=== PATIENT | male | born 1975 | race Caucasian/White ===

== ENCOUNTER 2017-04-03 10:06 | Inpatient (IN) | payer BC, OTHER ==
[2017-04-03 10:17] VITALS: BMI 34.5
[2017-04-03] MEDS ORDERED: ALBUTEROL SO4 2.5/IPRATROPIUM 0.5 INH SOL 3 ML VIAL.NEB. NEB ONE ×4 (10:30→19:39)
[2017-04-03] MEDS ORDERED: methylPREDNISolone NA SUCC 125 MG/2 ML VIAL ONE (10:30)
--- NOTE | 2017-04-03 10:36 | PDOC ---
History of Present Illness <Montez Antonio - Last Filed: 04/03/17 13:30> - General History Source: Patient Exam Limitations: No Limitations - History of Present Illness Initial Comments: This is a 41 yom with h/o CHF, COPD, obstructive sleep apnea, and DM who was sent in by his PCP's office for shortness of breath with pulse oxygenation in the 40s in the clinic. The patient states that he has been having chest congestion, slightly increased cough with yellow phlegm, increased abdominal distention, bilateral painless leg swelling, and [id number] color of his face/cheeks. He denies any chest pain, palpitations, abdominal pain, or other symptoms. He lost his job and medical insurance a year ago and has thus not been able to take his medications, including inhalers. <Emilie Brewster - Last Filed: 04/05/17 15:09> - General Chief Complaint: Shortness of Breath Stated Complaint: SOB (PCP SENT) Time Seen by Provider: 04/03/17 10:22 Past History <Montez Antonio - Last Filed: 04/03/17 13:30> - Past Medical History Asthma: Yes COPD: Yes Diabetes: Yes - Surgical History Abdominal Surgery: Yes (unclear) - Suicide/Smoking/Psychosocial Hx Smoking History: Former smoker Have you smoked in the past 12 months: No Number of Cigarettes Smoked Daily: 10 Information on smoking cessation initiated: No 'Breaking Loose' booklet given: 06/20/15 Hx Alcohol Use: No Drug/Substance Use Hx: No <NeyEmilie - Last Filed: 04/05/17 15:09> - Past Medical History Allergies/Adverse Reactions: Allergies Allergy/AdvReac Type Severity Reaction Status Date / Time levofloxacin [From Levaquin] Allergy Verified 04/03/17 10:11 Home Medications: Ambulatory Orders Albuterol 0.083% Nebulizer Stacey [Ventolin 0.083% Nebulizer Soln -] 1 neb NEB Q4H 06/20/15 Albuterol Sulfate Inhaler - [Ventolin HFA Inhaler -] 1 - 2 inh PO QID 06/20/15 Furosemide [Lasix -] 40 mg PO DAILY 06/20/15 Tiotropium [place] [Spiriva] 1 inh PO DAILY 06/20/15 Atorvastatin Ca [Lipitor] 10 mg PO HS #30 tablet 12/15/15 Budesonide/Formeterol Fumarate [SYMBICORT 160/4.5mcg -] 2 puff IH BID #1 inhaler 06/29/15 Lisinopril [Prinivil] 5 mg PO DAILY #30 tablet 06/29/15 Prednisone [Deltasone -] 40 mg PO DAILY #18 tablet 06/29/15 Sitagliptin Phosphate [Januvia -] 50 mg PO DAILY@0700 #30 tablet 06/29/15 Review of Systems - Review of Systems Able to Perform ROS?: Yes Constitutional: No: Chills, Fever, Unexplained wgt Loss HEENTM: Yes: Nose Congestion. No: Throat Pain Respiratory: Yes: Cough, Shortness of Breath Cardiac (ROS): Yes: Edema (chronic). No: Chest Pain, Palpitations ABD/GI: Yes: Abdominal Distended. No: Constipated, Diarrhea, Nausea, Vomiting : No: Burning, Dysuria Musculoskeletal: No: Back Pain, Neck Pain Integumentary: No: Bruising, Rash Neurological: No: Headache, Numbness, Tingling, Weakness, Dizziness Endocrine: No: Unexplained Weight Gain, Unexplained Weight Loss <Emilie Brewster - Last Filed: 04/05/17 15:09> *Physical Exam - Vital Signs Last Vital Signs Temp Pulse Resp BP Pulse Ox 100 F H 90 20 119/69 92 L 04/03/17 12:31 04/03/17 13:08 04/03/17 13:08 04/03/17 13:08 04/03/17 13:08 <Montez Antonio - Last Filed: 04/03/17 13:30> - Vital Signs Last Vital Signs Temp Pulse Resp BP Pulse Ox 98.7 F 104 H 24 141/68 04/03/17 10:12 04/03/17 10:12 04/03/17 10:12 04/03/17 10:12 - Physical Exam General Appearance: Yes: Nourished, Appropriately Dressed, Mild Distress, Obese , Other (obvious cyanosis to the face, tripoding, speaking in 4-word sentences) HEENT: positive: EOMI, Normal Voice, Hearing Grossly Normal. negative: Scleral Icterus (R), Scleral Icterus (L), Nasal Congestion Neck: positive: Trachea midline, Supple. negative: Tender, Rigid Respiratory/Chest: positive: Accessory Muscle Use, Labored Respiration, Decreased Breath Sounds, Crackles Cardiovascular: positive: Regular Rhythm, Edema (1+ pitting edema BLE), Tachycardia Gastrointestinal/Abdominal: positive: Normal Bowel Sounds, Soft, Protuberent. negative: Tender, Organomegaly, Pulsatile Mass, Guarding Musculoskeletal: positive: Normal Inspection. negative: Decreased Range of Motion, Vertebral Tenderness Extremity: positive: Normal Capillary Refill, Normal Inspection, Normal Range of Motion, Swelling. negative: Tender, Cyanosis Integumentary: positive: Normal Color, Dry, Warm. negative: Erythema, Rash, Bruising Neurologic: positive: gripper attacher II-XII NML intact (grossly), Fully Oriented, Alert, Normal Mood/Affect, Normal Response, Motor Strength 5/5 <Emilie Brewster - Last Filed: 04/05/17 15:09> Heart Score/ECG Review - History History: Slightly suspicious - Electrocardiogram EKG: Non specific repolarization disturbance - Age Age: </= 45 - Risk Factors Risk Factors Heart Score: Yes Hx Hypertension, Yes Hx Diabetes, Yes Smoking History (in the past), Yes Hx Obesity Based on the list above the patient has:: >/=3 risk factors or Hx atherosclerotic disease - Troponin Troponin: </= normal limit - Score Heart Score - Total: 3 #1 ECG reviewed & interpreted by me at: 11:25 Sinus rhythm, rate of 91, with left axis deviation, incomplete RBBB, <2mm concave upward ST elevations in V3-V5. <Emilie Brewster - Last Filed: 04/05/17 15:09> ED Treatment Course - LABORATORY CBC & Chemistry Diagram: 04/03/17 10:55 04/03/17 10:55 - ADDITIONAL ORDERS Additional order review: Laboratory Results 04/03/17 04/03/17 04/03/17 12:52 10:55 10:30 PT with INR INR PTT (Actin FS) Anticoagulation Therapy Puncture Site Left radial ABG pH 7.37 ABG pCO2 at Pt Temp 93.8 H* ABG pO2 at Pt Temp 58.0 L D ABG HCO3 52.7 H* ABG O2 Sat (Measured) 90.0 ABG O2 Content 21.4 ABG Base Excess 19.7 H* Arpit Test Positive Carboxyhemoglobin 5.0 H Methemoglobin 0.7 O2 Delivery Device Nasal Oxygen Flow Rate 6l Vent Mode Vent Rate Mechanical Rate PEEP 0.0 Pressure Support Vent Sodium 136 Potassium 4.7 Chloride 88 L Carbon Dioxide 46 H D Anion Gap 2 L BUN 10 D Creatinine 0.5 L D Creat Clearance w eGFR > 60 Random Glucose 103 Calcium 9.3 Magnesium 1.8 Total Bilirubin 1.1 H AST 17 ALT 23 D Alkaline Phosphatase 57 D Creatine Kinase 79 Troponin I < 0.02 D B-Natriuretic Peptide 139.95 H Total Protein 7.5 Albumin 3.7 D 04/03/17 04/03/17 10:30 10:20 PT with INR 11.90 H INR 1.08 PTT (Actin FS) 44.3 H Anticoagulation Therapy Y Puncture Site Right radial ABG pH 7.39 ABG pCO2 at Pt Temp 87.0 H* ABG pO2 at Pt Temp 22.9 L* ABG HCO3 51.3 H* ABG O2 Sat (Measured) 41.1 L* ABG O2 Content 9.9 L* ABG Base Excess 19.1 H* Arpit Test Positive Carboxyhemoglobin Methemoglobin O2 Delivery Device Room air Oxygen Flow Rate 21% Vent Mode Y Vent Rate Y Mechanical Rate Y PEEP Pressure Support Vent Y Sodium Potassium Chloride Carbon Dioxide Anion Gap BUN Creatinine Creat Clearance w eGFR Random Glucose Calcium Magnesium Total Bilirubin AST ALT Alkaline Phosphatase Creatine Kinase Troponin I B-Natriuretic Peptide Total Protein Albumin 04/03/17 10:55 RBC 6.56 H MCV 90.3 MCHC 31.0 L RDW 17.6 H MPV 7.4 L Neutrophils % 73.5 Lymphocytes % 15.3 D Monocytes % 10.0 Eosinophils % 0.8 Basophils % 0.4 - RADIOLOGY Radiology Studies Ordered: Category Date Time Status CHEST X-RAY PORTABLE* [RAD] Stat Radiology 04/03/17 10:23 Completed - Medications Given in the ED: ED Medications Discontinued Medications Generic Name Dose Route Start Last Admin Trade Name Freq PRN Reason Stop Dose Admin Albuterol/Ipratropium 1 amp 04/03/17 11:14 04/03/17 10:35 Ririb - NEB 04/03/17 11:15 1 amp ONCE ONE Administration Albuterol/Ipratropium 1 amp 04/03/17 11:14 04/03/17 11:20 Duoneb - NEB 04/03/17 11:15 1 amp ONCE ONE Administration Furosemide 20 mg 04/03/17 11:18 04/03/17 11:29 Lasix Injection - IVPUSH 04/03/17 11:19 20 mg ONCE ONE Administration <AaronradhaMontez - Last Filed: 04/03/17 13:30> - LABORATORY CBC & Chemistry Diagram: 04/05/17 05:47 04/05/17 05:47 - RADIOLOGY Radiology Studies Ordered: CXR shows diffuse interstitial lung markings <Emilie Brewster - Last Filed: 04/05/17 15:09> Medical Decision Making - Medical Decision Making 41 yom with h/o CHF, COPD, JEANNE, HTN, DM p/w SOB/swelling/cough acutely worse from baseline. Was seeing his PCP this morning and was sent here to the ED d/t pulse ox in the 40s. States not taking meds x1 year d/t insurance issues. Pulse oxygenation remains in the 40s on room air here in the ED. ABG confirms severe hypoxia (PaO2 22.9, significant hypercapnea, pH normal). Pt has significantly decreased air movement bilaterally. After DuoNeb x1 moving better air, crackles bilaterally, pulse ox in the 80s on 4 LPM via NC. DDX includes chronic hypercarbic hypoxemic respiratory failure with acute exacerbation, CHF exacerbation, COPD exacerbation, PNA/bronchitis. Ordered is repeat ABG for after breathing treatments, CBCD, CMP, Mg, cardiac profile, BNP, PT/INR, EKG, CXR. DuoNeb x3 total, SoluMedrol, IV lasix 20 mg. Repeat ABG shows increased hypercapnea, but much improved oxygenation. CBCD with polycythemia, likely suggestive of chronic respiratory process. CXR with diffuse interstitial lung markings. Interestingly BNP is only mildly elevated (in the 100s). Pt admitted initially to ICU bed but does improve drastically with medical interventions, admitted to floor instead. <Emilie Brewster - Last Filed: 04/05/17 15:09> *DC/Admit/Observation/Transfer - Discharge Dispostion Admit: Yes <Montez Antonio - Last Filed: 04/03/17 13:30> - Discharge Dispostion Admit: Yes <Emilie Brewster - Last Filed: 04/05/17 15:09> Diagnosis at time of Disposition: Acute on chronic respiratory failure with hypoxia and hypercapnia - Discharge Dispostion Condition at time of disposition: Guarded - Referrals
[2017-04-03 10:42] LABS: METHEMOGLOBIN 0.7 % (0.4-1.5)
[2017-04-03 10:43] LABS: ARTERIAL BLOOD GAS PO2 22.9 mmHg (80-100); ARTERIAL BLOOD GAS pH 7.39 (7.35-7.45)
[2017-04-03 10:44] LABS: ALLENS TEST POSITIVE; ART PUNCT SITE RIGHT RADIAL; ARTERIAL BLD GAS O2 SATURATION 41.1 % (90-98.9); ARTERIAL BLOOD GAS BASE EXCESS 19.1 meq/l (-2-2); ARTERIAL BLOOD GAS HCO3 51.3 meq/L (22-26); LPM/O2% 21%; PT. ON O2? NO
[2017-04-03 10:45] LABS: TYPE OF O2 ROOM AIR
[2017-04-03 11:02] LABS: BASOPHIL 0.4 % (0-2.0); EOSINOPHIL 0.8 % (0-4.5); MEAN CELL VOLUME 90.3 fl (80-96); MEAN PLT VOLUME 7.4 fl (7.5-11.1); NEUTROPHILS 73.5 % (42.8-82.8); PLATELET COUNT 124 K/MM3 (134-434); RDW 17.6 % (11.9-15.9); WHITE BLOOD COUNT 5.7 K/mm3 (4.0-10.0)
[2017-04-03 11:15] LABS: INR 1.08 (0.82-1.09); PROTHROMBIN TIME (PATIENT) 11.9 SEC (9.98-11.88)
[2017-04-03 11:17] LABS: ACTIVATED PTT 44.3 SECONDS (26.9-34.4)
[2017-04-03] MEDS ORDERED: FUROSEMIDE 40 MG/4 ML INJECTABLE VIAL IVPUSH ONE (11:18)
[2017-04-03] MEDS ORDERED: FUROSEMIDE 40 MG/4 ML INJECTABLE VIAL ONE (11:23)
--- NOTE | 2017-04-03 11:33 | PDOC ---
Attending Attestation - Resident Resident Name: NeyEmilie - ED Attending Attestation I have performed the following: I have examined & evaluated the patient, The case was reviewed & discussed with the resident, I agree w/resident's findings & plan, Exceptions are as noted - HPI HPI: 04/03/17 11:33 41-year-old male with history of CHF and COPD untreated for one year, recommended to be on 3 L O2 at all times but noncompliant, sent from Dr. Vieira' s office for hypoxia in the setting of worsening shortness of breath over the last few weeks. Denies any chest pain, cough with some yellow phlegm but no fevers or chills, no other recent travel or exposures. - Physicial Exam PE: 04/03/17 11:35 O2 sat in the 80s in triage, noted to be cyanotic. Brought immediately back to the main ER, placed on supplemental oxygen and nebulizers with improvement in his O2 sat to 93%. The patient was not in acute respiratory distress, but he was cyanotic Bilateral decreased breath sounds with crackles to the mid lung field Bilateral edema - Critical Care Time Total Critical Care Time: 35 Critical Care Statement: The care of this patient involved high complexity decision making to prevent further life threatening deterioration of the patient 's condition and/or to evaluate & treat vital organ system(s) failure or risk of failure. - Medical Decision Making 04/03/17 11:35 Patient seen and evaluated with the resident. I agree with the overall evaluation, assessment, and management with the following summary of visit: 41-year-old male with untreated CHF and COPD presents with likely acute on chronic hypoxic and hypercapnic respiratory failure, relatively well compensated. seen immediately upon arrival responded well to supplemental O2 and nebs iv steroids, lasix labs, cxr, ekg ABG shows hypercapnea, hypoxemia, normal pH will need admission Heart Score/ECG Review #1 ECG reviewed & interpreted by me at: 11:15 General ECG Interpretation: Sinus Rhythm, Normal Rate, Normal Intervals (IRBBB, LPFB), No acute ischemic changes
[2017-04-03 12:13] LABS: ALBUMIN 3.7 g/dl (3.4-5.0); BILIRUBIN,TOTAL 1.1 mg/dL (0.2-1.0); CALCIUM 9.3 mg/dL (8.5-10.1); CREATININE 0.5 mg/dL (0.7-1.3); GLUCOSE,RANDOM 103 mg/dL (74-106); MAGNESIUM 1.8 mg/dL (1.8-2.4); SGOT/AST 17 U/L (15-37); SGPT/ALT 23 U/L (12-78)
[2017-04-03 12:14] LABS: ALK PHOS 57 U/L (45-117); CPK 79 IU/L (39-308); TOT PROT 7.5 g/dl (6.4-8.2); TROPONIN I < 0.02 ng/ml (0.00-0.05)
[2017-04-03 12:29] LABS: ANION GAP 2 (8-16); CO2 46 mmol/L (21-32)
[2017-04-03 12:59] LABS: ARTERIAL BLOOD GAS BASE EXCESS 19.7 meq/l (-2-2); ARTERIAL BLOOD GAS HCO3 52.7 meq/L (22-26); ARTERIAL BLOOD GAS pH 7.37 (7.35-7.45)
[2017-04-03 13:02] LABS: ALLENS TEST POSITIVE; ART PUNCT SITE LEFT RADIAL; LPM/O2% 6L; PT. ON O2? YES; TYPE OF O2 NASAL
--- NOTE | 2017-04-03 15:50 | CON.PULM ---
Consult Consult Specialty:: PULM/CCM Referred by:: PMD Reason for Consultation:: Acute Respiratory Distress - History of Present Illness Chief Complaint: SOB History of Present Illness: 41 M, history of CHF, COPD due to smoking history (quit 8 months ago with the use of nicotene patch) on home nocturnal O2, obstructive sleep apnea on CPAP QHS (parameters not known), and DM. Sent from his PMDs office due to shortness of breath with O2 saturation in the 40's. In the ER was noted to be cyanotic with O2 saturation in the 80's. According to the patient, he lost his job and health insurance about 1 year ago and has been able to afford his meds. 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 Reports nocturnal O2 use. No recent travel history or sick contacts. No hemoptysis. No recent use of ABX. CXR : Mild but diffuse increase in interstitial markings / no acute infiltrates. - History Source History Provided By: Patient Limitations to Obtaining History: No Limitations - Past Medical History Pulmonary: Yes: COPD, O2 Dependent, Sleep Apnea - Alcohol/Substance Use Hx Alcohol Use: No - Smoking History Smoking history: Former smoker Have you smoked in the past 12 months: No Aproximately how many cigarettes per day: 10 Home Medications - Allergies Allergies/Adverse Reactions: Allergies Allergy/AdvReac Type Severity Reaction Status Date / Time levofloxacin [From Levaquin] Allergy Verified 04/03/17 10:11 - Home Medications Home Medications: Ambulatory Orders Albuterol 0.083% Nebulizer Stacey [Ventolin 0.083% Nebulizer Soln -] 1 neb NEB Q4H 06/20/15 Albuterol Sulfate Inhaler - [Ventolin HFA Inhaler -] 1 - 2 inh PO QID 06/20/15 Furosemide [Lasix -] 40 mg PO DAILY 06/20/15 Tiotropium [place] [Spiriva] 1 inh PO DAILY 06/20/15 Atorvastatin Ca [Lipitor] 10 mg PO HS #30 tablet 06/29/15 Budesonide/Formeterol Fumarate [SYMBICORT 160/4.5mcg -] 2 puff IH BID #1 inhaler 06/29/15 Lisinopril [Prinivil] 5 mg PO DAILY #30 tablet 06/29/15 Prednisone [Deltasone -] 40 mg PO DAILY #18 tablet 06/29/15 Sitagliptin Phosphate [Januvia -] 50 mg PO DAILY@0700 #30 tablet 06/29/15 Family Disease History - Family Disease History Family Disease History: Heart Disease: Father ([place] in his early 60s) Review of Systems - Review of Systems Constitutional: reports: Malaise, Unintentional Wgt. Loss. denies: Chills, Fever, Night Sweats Eyes: reports: No Symptoms HENT: reports: No Symptoms Neck: reports: No Symptoms Cardiovascular: reports: Shortness of Breath. denies: Chest Pain, Edema, Palpitations Respiratory: reports: Cough, Snoring, SOB, SOB on Exertion, Wheezing. denies: Hemoptysis Gastrointestinal: reports: No Symptoms Genitourinary: reports: No Symptoms Breasts: reports: No Symptoms Reported Musculoskeletal: reports: No Symptoms Integumentary: reports: No Symptoms Neurological: reports: No Symptoms Endocrine: reports: No Symptoms Hematology/Lymphatic: reports: No Symptoms Psychiatric: reports: No Symptoms Physical Exam Vital Sings: Vital Signs Temperature 100 F H 04/03/17 12:31 Pulse Rate 90 04/03/17 13:08 Respiratory Rate 20 04/03/17 13:08 Blood Pressure 119/69 04/03/17 13:08 O2 Sat by Pulse Oximetry (%) 92 L 04/03/17 13:08 Constitutional: Yes: No Distress, Calm Eyes: Yes: WNL, Conjunctiva Clear, EOM Intact HENT: Yes: Atraumatic, Normocephalic Neck: Yes: Supple, Trachea Midline Cardiovascular: Yes: Tachycardia Respiratory: Yes: Cough, Diminished, On Nasal O2, Rhonchi, SOB, Tachypnea, Wheezes. No: Accessory Muscle Use, Stridor ...Inspection: Yes: WNL ...Clubbing: No Gastrointestinal: Yes: Normal Bowel Sounds, Soft Renal/: Yes: WNL Breast(s): Yes: WNL Musculoskeletal: Yes: WNL Extremities: Yes: WNL Edema: Yes Peripheral Pulses WNL: Yes Integumentary: Yes: Erythema Neurological: Yes: Alert, Oriented. No: Confusion, Dysarthria, Lethargy ...Motor Strength: WNL Psychiatric: Yes: WNL, Alert, Oriented Labs: ABG Results ABG pH 7.37 (7.35-7.45) 04/03/17 12:52 ABG pCO2 at Pt Temp 93.8 mmHg (35-45) H* 04/03/17 12:52 ABG pO2 at Pt Temp 58.0 mmHg (80-100) L D 04/03/17 12:52 ABG HCO3 52.7 meq/L (22-26) H* 04/03/17 12:52 ABG O2 Sat (Measured) 90.0 % (90-98.9) 04/03/17 12:52 ABG O2 Content 21.4 % vol (15-22) 04/03/17 12:52 ABG Base Excess 19.7 meq/l (-2-2) H* 04/03/17 12:52 Imaging - Results Chest X-ray: Report Reviewed, Image Reviewed Problem List - Problems (1) COPD exacerbation Code(s): J44.1 - CHRONIC OBSTRUCTIVE PULMONARY DISEASE W (ACUTE) EXACERBATION (2) Diabetes Code(s): E11.9 - TYPE 2 DIABETES MELLITUS WITHOUT COMPLICATIONS Qualifiers: Diabetes mellitus type: type 2 Diabetes mellitus complication status: with unspecified complications Qualified Code(s): E11.8 - Type 2 diabetes mellitus with unspecified complications; Z79.4 - USP (current) use of insulin (3) Erythrocytosis Code(s): D75.1 - SECONDARY POLYCYTHEMIA (4) Sleep apnea Code(s): G47.30 - SLEEP APNEA, UNSPECIFIED (5) Chronic respiratory failure with hypoxia and hypercapnia Code(s): J96.11 - CHRONIC RESPIRATORY FAILURE WITH HYPOXIA J96.12 - CHRONIC RESPIRATORY FAILURE WITH HYPERCAPNIA Assessment/Plan O2 as needed (4 L NC) CPAP will be ordered (patient is not sure of the settings so will place on arbitrary settings) BD TX Medrol O2 saturation monitoring Monitor off ABX ECHO Heme evaluation -> (?) Need for phelbotomy CT chest no contrast to follow on previous semi-solid nodules 4W / 4 S monitoring Will follow Thank you. Dr Verduzco
[2017-04-03] MEDS ORDERED: ALBUTEROL SO4 0.083% IH SOL 2.5 MG/3 ML VIAL.NEB. NEB PRN (16:14)
[2017-04-03] MEDS: SODIUM CHLORIDE 1,000 ML IV SCH (18:00)
[2017-04-03] MEDS ORDERED: HYDROCORTISONE SOD SUCCINATE 2 ML ONE (19:40)
[2017-04-03] MEDS: ALBUTEROL SO4 2.5/IPRATROPIUM 0.5 INH SOL 3 ML VIAL.NEB. NEB SCH (19:43)
[2017-04-03] MEDS: methylPREDNISolone NA SUCC 40 MG/1 ML VIAL IVPB SCH (19:43)
--- NOTE | 2017-04-03 20:32 | EKG ---
Test Reason : Blood Pressure : / mmHG Vent. Rate : 091 BPM Atrial Rate : 091 BPM P-R Int : 156 ms QRS Dur : 118 ms QT Int : 344 ms P-R-T Axes : 047 115 059 degrees QTc Int : 423 ms NORMAL SINUS RHYTHM INCOMPLETE RIGHT BUNDLE BRANCH BLOCK LEFT POSTERIOR FASCICULAR BLOCK ATRIAL ABNORMALITY ABNORMAL ECG WHEN COMPARED WITH ECG OF 24-JUN-2015 13:04, INCOMPLETE RIGHT BUNDLE BRANCH BLOCK IS NOW PRESENT REPEAT EKG IF CLINICALLY INDICATED Confirmed by AUSTEN KOENIG MD ([id number]) on 04/03/2017 8:32:35 PM Referred By: Confirmed By:AUSTEN KOENIG MD
--- NOTE | 2017-04-03 21:14 | CONSULT ---
Consult Consult Specialty:: Hematology/Oncology - History of Present Illness History of Present Illness: was seen and examined in the ER. Chart reviewed in detail. Was admitted for the same reason in 2015 , but hasn't followed-up due insurance issues and he "fought" out the symptoms as he just started a new job. Erick, he is a 41 M, history of dCHF, COPD, ex-smoker, JEANNE (non complaint with CPAP) was sent to the ER by as she was hypoxic and SOB in his office. In the ER he remained hypoxic, was seen by arsh Chung to be admitted to [facility]. He c/ productive cough. No fevers at home. - Past Medical History Pulmonary: Yes: COPD, O2 Dependent, Sleep Apnea - Alcohol/Substance Use Hx Alcohol Use: No - Smoking History Smoking history: Former smoker Have you smoked in the past 12 months: No Aproximately how many cigarettes per day: 10 Home Medications - Allergies Allergies/Adverse Reactions: Allergies Allergy/AdvReac Type Severity Reaction Status Date / Time levofloxacin [From Levaquin] Allergy Verified 04/03/17 10:11 - Home Medications Home Medications: Ambulatory Orders Albuterol 0.083% Nebulizer Stacey [Ventolin 0.083% Nebulizer Soln -] 1 neb NEB Q4H 06/20/15 Albuterol Sulfate Inhaler - [Ventolin HFA Inhaler -] 1 - 2 inh PO QID 06/20/15 Furosemide [Lasix -] 40 mg PO DAILY 06/20/15 Tiotropium [place] [Spiriva] 1 inh PO DAILY 06/20/15 Atorvastatin Ca [Lipitor] 10 mg PO HS #30 tablet 06/29/15 Budesonide/Formeterol Fumarate [SYMBICORT 160/4.5mcg -] 2 puff IH BID #1 inhaler 06/29/15 Lisinopril [Prinivil] 5 mg PO DAILY #30 tablet 06/29/15 Prednisone [Deltasone -] 40 mg PO DAILY #18 tablet 06/29/15 Sitagliptin Phosphate [Januvia -] 50 mg PO DAILY@0700 #30 tablet 06/29/15 Family Disease History - Family Disease History Family History: Denies Family Disease History: Heart Disease: Father ([place] in his early 60s) Review of Systems - Review of Systems Constitutional: reports: Malaise HENT: reports: No Symptoms Neck: reports: No Symptoms Cardiovascular: reports: Edema Respiratory: reports: Cough, Snoring, SOB, SOB on Exertion, Wheezing Gastrointestinal: reports: No Symptoms Genitourinary: reports: No Symptoms Musculoskeletal: reports: No Symptoms Neurological: reports: Dizziness, Weakness Physical Exam Vital Signs: Vital Signs Temperature 98.2 F 04/03/17 18:30 Pulse Rate 76 04/03/17 19:09 Respiratory Rate 20 04/03/17 19:09 Blood Pressure 133/65 04/03/17 19:09 O2 Sat by Pulse Oximetry (%) 92 L 04/03/17 19:09 Constitutional: Yes: Moderate Distress, Other (huey facial complexion) Eyes: Yes: Conjunctiva Clear HENT: Yes: Atraumatic, Normocephalic Neck: Yes: Supple, Trachea Midline Cardiovascular: Yes: Tachycardia Respiratory: Yes: Cough, Rales, SOB, Tachypnea Gastrointestinal: Yes: Normal Bowel Sounds, Soft Musculoskeletal: Yes: WNL Edema: Yes (1+ bilateral edema) Neurological: Yes: Alert, Oriented Imaging - Results Chest X-ray: Report Reviewed Problem List - Problems (1) Acute on chronic respiratory failure with hypoxia and hypercapnia Code(s): J96.21 - ACUTE AND CHRONIC RESPIRATORY FAILURE WITH HYPOXIA J96.22 - ACUTE AND CHRONIC RESPIRATORY FAILURE WITH HYPERCAPNIA (2) Erythrocytosis Code(s): D75.1 - SECONDARY POLYCYTHEMIA (3) Sleep apnea Code(s): G47.30 - SLEEP APNEA, UNSPECIFIED (4) Chronic respiratory failure with hypoxia and hypercapnia Code(s): J96.11 - CHRONIC RESPIRATORY FAILURE WITH HYPOXIA J96.12 - CHRONIC RESPIRATORY FAILURE WITH HYPERCAPNIA (5) Acute on chronic diastolic CHF (congestive heart failure) Code(s): I50.33 - ACUTE ON CHRONIC DIASTOLIC (CONGESTIVE) HEART FAILURE Assessment/Plan Acute of chronic respiratory failure Secondary erythrocytosis ?CHF JEANNE Obesity. -In 2014, primary P.Vera w/u was done and JAK2 was negative. -The High Hct reflects a secondary cause , from a combination of JEANNE/COPD/ Smoking ,non complaint with biPAP leading to chronic hypoxia thereby to erythrocytosis. -Though not a much role for phlebotomy in secondary polycythemia, but at this time pt with hct of almost 60, with dizzines and remains hypoxic and fatigued. Therefore , after obtaining informed consent, I have performed therapeutic phlebotomy and removed about 450cc followed by 1L of NS, to decrease the viscosity. -Will monitor and may need further phlebotomy to keep hct 52-55%. -repeat EPO -f.u CBC in the am, assess again in the am. -pt with productive cough, low grade fever , will consult ID -Noted Pulm f/u , being treated for acute on chronic hypoxic requiring BiPAP , being treated for COPD exacerbation. -Cardiology consult -counselled pt on appropriate OP follow-up when discharged. -Thrombocytopenia: continue to monitor., order US, to r/o splenomegaly. -DVT ppx. -discussed with ER attending and FOOD ASSEMBLER will follow
--- NOTE | 2017-04-03 23:56 | HP ---
Admitting History and Physical - Admission Chief Complaint: dyspnea History of Present Illness: 41 yom with h/o CHF, COPD, obstructive sleep apnea, and DM who was sent in the office today for shortness of breath with pulse oxygenation in the 40s , best O2 reading 51%- patient was transferred to ER. The patient states that he has been having chest congestion, slightly increased cough with yellow phlegm, increased abdominal distention, bilateral painless leg swelling, and darker-than -normal color of his face/cheeks for several months.He lost his insurance and has been "fighting the symptoms" for months but have become progressively worse. He denies any chest pain, palpitations, abdominal pain, or other symptoms. He lost his job and medical insurance a year ago and has thus not been able to take his medications, including inhalers. History Source: Patient, Medical Record Limitations to Obtaining History: Other (dyspneic but able to provide hx - poor recall on meds / and medical providers ie Pulmonary /cardiac work up) - Past Medical History Cardiovascular: Yes: CAD, CHF Pulmonary: Yes: COPD, O2 Dependent, Sleep Apnea - Smoking History Smoking history: Former smoker Have you smoked in the past 12 months: No Aproximately how many cigarettes per day: 10 (quit 8 months ago) - Alcohol/Substance Use Hx Alcohol Use: No - Social History ADL: Independent History of Recent Travel: No Home Medications - Allergies Allergies/Adverse Reactions: Allergies Allergy/AdvReac Type Severity Reaction Status Date / Time levofloxacin [From Levaquin] Allergy Verified 04/03/17 10:11 - Home Medications Home Medications: Ambulatory Orders Albuterol 0.083% Nebulizer Stacey [Ventolin 0.083% Nebulizer Soln -] 1 neb NEB Q4H 06/20/15 Albuterol Sulfate Inhaler - [Ventolin HFA Inhaler -] 1 - 2 inh PO QID 06/20/15 Furosemide [Lasix -] 40 mg PO DAILY 06/20/15 Tiotropium [place] [Spiriva] 1 inh PO DAILY 06/20/15 Atorvastatin Ca [Lipitor] 10 mg PO HS #30 tablet 06/29/15 Budesonide/Formeterol Fumarate [SYMBICORT 160/4.5mcg -] 2 puff IH BID #1 inhaler 06/29/15 Lisinopril [Prinivil] 5 mg PO DAILY #30 tablet 06/29/15 Prednisone [Deltasone -] 40 mg PO DAILY #18 tablet 06/29/15 Sitagliptin Phosphate [Januvia -] 50 mg PO DAILY@0700 #30 tablet 06/29/15 Family Disease History - Family Disease History Family Disease History: Heart Disease: Father ([place] in his early 60s) Review of Systems - Review of Systems Constitutional: reports: Loss of Appetite, Malaise. denies: Chills, Diaphoresis , Fever Eyes: reports: No Symptoms HENT: reports: No Symptoms Neck: reports: No Symptoms Cardiovascular: reports: Edema, Shortness of Breath Respiratory: reports: Cough, SOB, SOB on Exertion, Wheezing, Other Breasts: reports: No Symptoms Reported Musculoskeletal: reports: No Symptoms Integumentary: reports: Change in Color, Erythema, Other (rosacea) Neurological: reports: No Symptoms Endocrine: reports: [place] Hematology/Lymphatic: reports: No Symptoms Physical Examination Vital Signs: Vital Signs Temperature 98.2 F 04/03/17 18:30 Pulse Rate 96 H 04/03/17 22:12 Respiratory Rate 20 04/03/17 22:12 Blood Pressure 128/82 04/03/17 22:12 O2 Sat by Pulse Oximetry (%) 80 L 04/03/17 23:18 Constitutional: Yes: Moderate Distress, Obese Eyes: Yes: Conjunctiva Clear, EOM Intact Cardiovascular: Yes: Regular Rate and Rhythm Respiratory: Yes: Accessory Muscle Use, Cough, Diminished, On Nasal O2, Poor Air Entry, SOB, SOB on Exertion Gastrointestinal: Yes: Normal Bowel Sounds, Soft, Abdomen, Obese ...Rectal Exam: Yes: Deferred Renal/: Yes: WNL Breast(s): Yes: WNL Musculoskeletal: Yes: WNL Extremities: Yes: Erythema Edema: LLE: 1+, RLE: 1+ Peripheral Pulses: Left Radial: 1+, Right Radial: 1+, Left Doralis Pedis: 1+, Right Dorsalis Pedis: 1+, Left Femoral: 1+, Right Femoral: 1+ Integumentary: Yes: Erythema, Other (rosacea) Neurological: Yes: WNL ...Motor Strength: WNL Psychiatric: Yes: WNL, Alert, Oriented Problem List - Problems (1) Acute on chronic respiratory failure with hypoxia and hypercapnia Code(s): J96.21 - ACUTE AND CHRONIC RESPIRATORY FAILURE WITH HYPOXIA J96.22 - ACUTE AND CHRONIC RESPIRATORY FAILURE WITH HYPERCAPNIA (2) Chronic respiratory failure with hypoxia and hypercapnia Code(s): J96.11 - CHRONIC RESPIRATORY FAILURE WITH HYPOXIA J96.12 - CHRONIC RESPIRATORY FAILURE WITH HYPERCAPNIA (3) COPD (chronic obstructive pulmonary disease) Code(s): J44.9 - CHRONIC OBSTRUCTIVE PULMONARY DISEASE, UNSPECIFIED Qualifiers : COPD type: unspecified COPD Qualified Code(s): J44.9 - Chronic obstructive pulmonary disease, unspecified (4) COPD exacerbation Code(s): J44.1 - CHRONIC OBSTRUCTIVE PULMONARY DISEASE W (ACUTE) EXACERBATION (5) Cigarette nicotine dependence Code(s): F17.200 - NICOTINE DEPENDENCE, UNSPECIFIED, UNCOMPLICATED Qualifiers : Substance use status: in remission Qualified Code(s): F17.211 - Nicotine dependence, cigarettes, in remission (6) Diabetes Code(s): E11.9 - TYPE 2 DIABETES MELLITUS WITHOUT COMPLICATIONS Qualifiers: Diabetes mellitus type: type 2 Diabetes mellitus complication status: with unspecified complications Qualified Code(s): E11.8 - Type 2 diabetes mellitus with unspecified complications; Z79.4 - documentation billing clerk (current) use of insulin (7) Erythrocytosis Code(s): D75.1 - SECONDARY POLYCYTHEMIA (8) Leg edema Code(s): R60.0 - LOCALIZED EDEMA (9) Morbid obesity Code(s): E66.01 - MORBID (SEVERE) OBESITY DUE TO EXCESS CALORIES (10) Sleep apnea Code(s): G47.30 - SLEEP APNEA, UNSPECIFIED
[2017-04-04] MEDS: ALBUTEROL SO4 2.5/IPRATROPIUM 0.5 INH SOL 3 ML VIAL.NEB. NEB SCH ×4 (00:40→19:10)
[2017-04-04] MEDS: methylPREDNISolone NA SUCC 40 MG/1 ML VIAL IVPB SCH ×3 (03:01→17:58)
[2017-04-04] MEDS: SODIUM CHLORIDE 1,000 ML IV SCH ×3 (03:02→17:59)
[2017-04-04] MEDS ORDERED: PT OWN MED DRAWER 7, Y5N ONE ×2 (06:39→09:46)
[2017-04-04] MEDS: INSULIN SLIDING SCALE (NOVOLOG) 1 VIAL SQ SCH ×4 (06:45→23:04)
[2017-04-04] MEDS: sitaGLIPtin PHOSPHATE 100 MG TABLET (FP) PO SCH (06:48)
--- NOTE | 2017-04-04 08:31 | PN ---
Progress Note (short form) - Note Progress Note: ID Full note dictated Low grade fever SOB congestion Selected Entries 04/03/17 04/04/17 04/04/17 12:31 01:09 06:00 Temperature 100 F H 97.7 F Pulse Rate 87 Respiratory 20 Rate Blood Pressure 115/67 Lung diminished BS bilaterally Cor S1 S2 Ext Edema Laboratory Tests 04/03/17 04/03/17 10:55 10:55 WBC 5.7 RBC 6.56 H Hgb 18.8 H Plt Count 124 L BUN 10 D Creatinine 0.5 L D Total Protein 7.[address] No infiltrates Assessment Exacerbation of COPD Polycythemia Thrombocytopenia Plan Dose of Ceftriaxone followed by Ceftin 500bid HIV testing Diana CARLSON Problem List - Problems (1) Chronic respiratory failure with hypoxia and hypercapnia Code(s): J96.11 - CHRONIC RESPIRATORY FAILURE WITH HYPOXIA J96.12 - CHRONIC RESPIRATORY FAILURE WITH HYPERCAPNIA (2) COPD (chronic obstructive pulmonary disease) Code(s): J44.9 - CHRONIC OBSTRUCTIVE PULMONARY DISEASE, UNSPECIFIED Qualifiers : COPD type: unspecified COPD Qualified Code(s): J44.9 - Chronic obstructive pulmonary disease, unspecified (3) Acquired polycythemia Code(s): D75.1 - SECONDARY POLYCYTHEMIA (4) Acute exacerbation of chronic obstructive pulmonary disease (COPD) Code(s): J44.1 - CHRONIC OBSTRUCTIVE PULMONARY DISEASE W (ACUTE) EXACERBATION
[2017-04-04 08:53] LABS: CHOLESTEROL 161 mg/dL (50-200)
[2017-04-04 09:04] LABS: ALBUMIN 3.3 g/dl (3.4-5.0); ALK PHOS 48 U/L (45-117); BILIRUBIN,TOTAL 0.7 mg/dL (0.2-1.0); CALCIUM 9.1 mg/dL (8.5-10.1); CREATININE 0.4 mg/dL (0.7-1.3); GLUCOSE,RANDOM 124 mg/dL (74-106); SGOT/AST 14 U/L (15-37); SGPT/ALT 21 U/L (12-78); TOT PROT 6.8 g/dl (6.4-8.2)
[2017-04-04 09:07] LABS: BASOPHIL 0.6 % (0-2.0); EOSINOPHIL 0.1 % (0-4.5); MCH 28.1 pg (25.7-33.7); MEAN CELL VOLUME 90.9 fl (80-96); MEAN PLT VOLUME 7.6 fl (7.5-11.1); NEUTROPHILS 90.1 % (42.8-82.8); PLATELET COUNT 118 K/MM3 (134-434); RDW 17.4 % (11.9-15.9)
[2017-04-04] MEDS: metroNIDAZOLE 0.75% TOPICAL GEL 45 GM TUBE TP SCH ×2 (09:42→23:05)
[2017-04-04] MEDS: guaiFENesin 600 MG TABLET.ER (FP) PO SCH ×2 (09:42→23:05)
[2017-04-04] MEDS: LISINOPRIL 5 MG TABLET (FP) PO SCH (09:42)
[2017-04-04] MEDS: PANTOPRAZOLE 40 MG TABLET (FP) PO SCH (09:42)
[2017-04-04] MEDS: BUDESONIDE/FORMETEROL FUMARATE 160/4.5 mcg INHALER IH SCH ×2 (09:43→23:05)
[2017-04-04] MEDS: DOCUSATE SODIUM 100 MG CAPSULE (FP) PO SCH ×2 (09:43→23:08)
[2017-04-04] MEDS: ENOXAPARIN NA (PORCINE) 40 MG/0.4 ML DISP.SYRIN SQ SCH (09:43)
[2017-04-04] MEDS: CEFUROXIME AXETIL 500 MG TABLET PO SCH ×2 (09:47→23:04)
--- NOTE | 2017-04-04 09:53 | CON.CARD ---
Consult Consult Specialty:: Cardiology Reason for Consultation:: sob /hypoxia - History of Present Illness History of Present Illness: This is a 41 yom with h/o CHF, COPD, obstructive sleep apnea, and DM who was sent in by his PCP's office for shortness of breath with pulse oxygenation in the 40s in the clinic. The patient states that he has been having chest congestion, slightly increased cough with yellow phlegm, increased abdominal distention, bilateral painless leg swelling, and [id number] color of his face/cheeks. He denies any chest pain, palpitations, abdominal pain, or other symptoms. He lost his job and medical insurance a year ago and has thus not been able to take his medications, including inhalers. - History Source History Provided By: Patient, Medical Record - Past Medical History Cardio/Vascular: Yes: CAD, CHF Pulmonary: Yes: COPD, O2 Dependent, Sleep Apnea - Alcohol/Substance Use Hx Alcohol Use: No - Smoking History Smoking history: Former smoker Have you smoked in the past 12 months: No Aproximately how many cigarettes per day: 10 (quit 8 months ago) If you are a former smoker, when did you quit?: one year ago - Social History ADL: Independent History of Recent Travel: No Home Medications - Allergies Allergies/Adverse Reactions: Allergies Allergy/AdvReac Type Severity Reaction Status Date / Time levofloxacin [From Levaquin] Allergy Verified 04/03/17 10:11 - Home Medications Home Medications: Ambulatory Orders Albuterol 0.083% Nebulizer Stacey [Ventolin 0.083% Nebulizer Soln -] 1 neb NEB Q4H 06/20/15 Albuterol Sulfate Inhaler - [Ventolin HFA Inhaler -] 1 - 2 inh PO QID 06/20/15 Furosemide [Lasix -] 40 mg PO DAILY 06/20/15 Tiotropium [place] [Spiriva] 1 inh PO DAILY 06/20/15 Atorvastatin Ca [Lipitor] 10 mg PO HS #30 tablet 06/29/15 Budesonide/Formeterol Fumarate [SYMBICORT 160/4.5mcg -] 2 puff IH BID #1 inhaler 06/29/15 Lisinopril [Prinivil] 5 mg PO DAILY #30 tablet 06/29/15 Prednisone [Deltasone -] 40 mg PO DAILY #18 tablet 06/29/15 Sitagliptin Phosphate [Januvia -] 50 mg PO DAILY@0700 #30 tablet 06/29/15 Family Disease History - Family Disease History Family Disease History: Heart Disease: Father ([place] in his early 60s) Review of Systems - Review of Systems Constitutional: reports: No Symptoms Eyes: reports: No Symptoms HENT: reports: No Symptoms Neck: reports: No Symptoms Cardiovascular: reports: Shortness of Breath Respiratory: reports: SOB, SOB on Exertion Gastrointestinal: reports: No Symptoms Genitourinary: reports: No Symptoms Breasts: reports: No Symptoms Reported Musculoskeletal: reports: No Symptoms Integumentary: reports: No Symptoms Neurological: reports: No Symptoms Endocrine: reports: No Symptoms Hematology/Lymphatic: reports: No Symptoms Psychiatric: reports: No Symptoms Vital Signs: Vital Signs Temperature 97.7 F 04/04/17 06:00 Pulse Rate 87 04/04/17 06:00 Respiratory Rate 04/04/17 01:09 Blood Pressure 115/67 04/04/17 06:00 O2 Sat by Pulse Oximetry (%) 81 L 04/04/17 01:09 Constitutional: Yes: Well Nourished, No Distress, Calm Eyes: Yes: WNL, Conjunctiva Clear, EOM Intact HENT: Yes: WNL, Atraumatic, Normocephalic Neck: Yes: WNL, Supple, Trachea Midline Respiratory: Yes: WNL, Regular, Diminished Gastrointestinal: Yes: WNL, Normal Bowel Sounds Renal/: Yes: WNL Cardiovascular: Yes: WNL, Regular Rate and Rhythm Heart Sounds: Yes: S1, S2 Murmur: Yes: Systolic Murmur Musculoskeletal: Yes: WNL Extremities: Yes: WNL Integumentary: Yes: WNL Neurological: Yes: WNL, Alert, Oriented ...Motor Strength: WNL Psychiatric: Yes: WNL, Alert, Oriented - Other Data Labs, Other Data: CBC, BMP 04/04/17 05:46 04/04/17 05:46 INR, PTT INR 1.08 (0.82-1.09) 04/03/17 10:20 Laboratory Tests 04/03/17 04/03/17 04/03/17 10:20 10:30 10:30 WBC RBC Hgb Hct MCV MCH MCHC RDW Plt Count MPV Neutrophils % Lymphocytes % Monocytes % Eosinophils % Basophils % PT with INR 11.90 H INR 1.08 PTT (Actin FS) 44.3 H Anticoagulation Therapy Y Puncture Site Right radial ABG pH 7.39 ABG pCO2 at Pt Temp 87.0 H* ABG pO2 at Pt Temp 22.9 L* ABG HCO3 51.3 H* ABG O2 Sat (Measured) 41.1 L* ABG O2 Content 9.9 L* ABG Base Excess 19.1 H* Arpit Test Positive Carboxyhemoglobin 5.0 H Methemoglobin 0.7 O2 Delivery Device Room air Oxygen Flow Rate 21% Vent Mode Y Vent Rate Y Mechanical Rate Y PEEP Pressure Support Vent Y Sodium Potassium Chloride Carbon Dioxide Anion Gap BUN Creatinine Creat Clearance w eGFR POC Glucometer Random Glucose Hemoglobin A1c % Calcium Magnesium Total Bilirubin AST ALT Alkaline Phosphatase Creatine Kinase Troponin I B-Natriuretic Peptide Total Protein Albumin Triglycerides Cholesterol 04/03/17 04/03/17 04/03/17 10:55 10:55 12:52 WBC 5.7 RBC 6.56 H Hgb 18.8 H Hct 59.2 H MCV 90.3 MCH 28.0 MCHC 31.0 L RDW 17.6 H Plt Count 124 L MPV 7.4 L Neutrophils % 73.5 Lymphocytes % 15.3 D Monocytes % 10.0 Eosinophils % 0.8 Basophils % 0.4 PT with INR INR PTT (Actin FS) Anticoagulation Therapy Puncture Site Left radial ABG pH 7.37 ABG pCO2 at Pt Temp 93.8 H* ABG pO2 at Pt Temp 58.0 L D ABG HCO3 52.7 H* ABG O2 Sat (Measured) 90.0 ABG O2 Content 21.4 ABG Base Excess 19.7 H* Arpit Test Positive Carboxyhemoglobin Methemoglobin O2 Delivery Device Nasal Oxygen Flow Rate 6l Vent Mode Vent Rate Mechanical Rate PEEP 0.0 Pressure Support Vent Sodium 136 Potassium 4.7 Chloride 88 L Carbon Dioxide 46 H D Anion Gap 2 L BUN 10 D Creatinine 0.5 L D Creat Clearance w eGFR > 60 POC Glucometer Random Glucose 103 Hemoglobin A1c % Calcium 9.3 Magnesium 1.8 Total Bilirubin 1.1 H AST 17 ALT 23 D Alkaline Phosphatase 57 D Creatine Kinase 79 Troponin I < 0.02 D B-Natriuretic Peptide 139.95 H Total Protein 7.5 Albumin 3.7 D Triglycerides Cholesterol 04/04/17 04/04/17 04/04/17 05:40 05:46 05:46 WBC 4.0 RBC 6.14 H Hgb 17.3 H Hct 55.8 H MCV 90.9 MCH 28.1 MCHC 31.0 L RDW 17.4 H Plt Count 118 L MPV 7.6 Neutrophils % 90.1 H D Lymphocytes % 8.0 D Monocytes % 1.2 L D Eosinophils % 0.1 D Basophils % 0.6 PT with INR INR PTT (Actin FS) Anticoagulation Therapy Puncture Site ABG pH ABG pCO2 at Pt Temp ABG pO2 at Pt Temp ABG HCO3 ABG O2 Sat (Measured) ABG O2 Content ABG Base Excess Arpit Test Carboxyhemoglobin Methemoglobin O2 Delivery Device Oxygen Flow Rate Vent Mode Vent Rate Mechanical Rate PEEP Pressure Support Vent Sodium 139 Potassium 4.2 Chloride 90 L Carbon Dioxide 50 H Anion Gap -1 L BUN 13 D Creatinine 0.4 L Creat Clearance w eGFR > 60 POC Glucometer 139 Random Glucose 124 H D Hemoglobin A1c % Calcium 9.1 Magnesium 2.0 Total Bilirubin 0.7 D AST 14 L ALT 21 Alkaline Phosphatase 48 Creatine Kinase Troponin I B-Natriuretic Peptide Total Protein 6.8 Albumin 3.3 L Triglycerides Cholesterol 04/04/17 04/04/17 05:46 05:46 WBC RBC Hgb Hct MCV MCH MCHC RDW Plt Count MPV Neutrophils % Lymphocytes % Monocytes % Eosinophils % Basophils % PT with INR INR PTT (Actin FS) Anticoagulation Therapy Puncture Site ABG pH ABG pCO2 at Pt Temp ABG pO2 at Pt Temp ABG HCO3 ABG O2 Sat (Measured) ABG O2 Content ABG Base Excess Arpit Test Carboxyhemoglobin Methemoglobin O2 Delivery Device Oxygen Flow Rate Vent Mode Vent Rate Mechanical Rate PEEP Pressure Support Vent Sodium Potassium Chloride Carbon Dioxide Anion Gap BUN Creatinine Creat Clearance w eGFR POC Glucometer Random Glucose Hemoglobin A1c % 6.2 H D Calcium Magnesium Total Bilirubin AST ALT Alkaline Phosphatase Creatine Kinase Troponin I B-Natriuretic Peptide Total Protein Albumin Triglycerides 77 D Cholesterol 161 D Imaging - Results Chest X-ray: Image Reviewed (increased markings) EKG: Image Reviewed ([facility] rdea) Problem List - Problems (1) Acquired polycythemia Code(s): D75.1 - SECONDARY POLYCYTHEMIA (2) Acute exacerbation of chronic obstructive pulmonary disease (COPD) Code(s): J44.1 - CHRONIC OBSTRUCTIVE PULMONARY DISEASE W (ACUTE) EXACERBATION (3) Acute on chronic respiratory failure with hypoxia and hypercapnia Code(s): J96.21 - ACUTE AND CHRONIC RESPIRATORY FAILURE WITH HYPOXIA J96.22 - ACUTE AND CHRONIC RESPIRATORY FAILURE WITH HYPERCAPNIA (4) Chronic respiratory failure with hypoxia and hypercapnia Code(s): J96.11 - CHRONIC RESPIRATORY FAILURE WITH HYPOXIA J96.12 - CHRONIC RESPIRATORY FAILURE WITH HYPERCAPNIA (5) Acute on chronic diastolic CHF (congestive heart failure) Code(s): I50.33 - ACUTE ON CHRONIC DIASTOLIC (CONGESTIVE) HEART FAILURE (6) COPD (chronic obstructive pulmonary disease) Code(s): J44.9 - CHRONIC OBSTRUCTIVE PULMONARY DISEASE, UNSPECIFIED Qualifiers : COPD type: unspecified COPD Qualified Code(s): J44.9 - Chronic obstructive pulmonary disease, unspecified (7) COPD exacerbation Code(s): J44.1 - CHRONIC OBSTRUCTIVE PULMONARY DISEASE W (ACUTE) EXACERBATION (8) Cellulitis Code(s): L03.90 - CELLULITIS, UNSPECIFIED Qualifiers: Site of cellulitis of extremity: lower extremity Laterality: left (9) Cigarette nicotine dependence Code(s): F17.200 - NICOTINE DEPENDENCE, UNSPECIFIED, UNCOMPLICATED Qualifiers : Substance use status: in remission Qualified Code(s): F17.211 - Nicotine dependence, cigarettes, in remission (10) Diabetes Code(s): E11.9 - TYPE 2 DIABETES MELLITUS WITHOUT COMPLICATIONS Qualifiers: Diabetes mellitus type: type 2 Diabetes mellitus complication status: with unspecified complications (11) Erythrocytosis Code(s): D75.1 - SECONDARY POLYCYTHEMIA (12) [place] cardiac risk >20% in next 10 years Code(s): Z91.89 - OT PERSONAL RISK FACTORS, NOT ELSEWHERE CLASSIFIED (13) Leg edema Code(s): R60.0 - LOCALIZED EDEMA (14) Morbid obesity Code(s): E66.01 - MORBID (SEVERE) OBESITY DUE TO EXCESS CALORIES (15) Peripheral edema Code(s): R60.9 - EDEMA, UNSPECIFIED (16) Sleep apnea Code(s): G47.30 - SLEEP APNEA, UNSPECIFIED Assessment/Plan copd exacorbation hypoxia polycythemia hypercarbia RVH on ekg chf dm plan; telemetry pulmonary rx abx echo r/o PE
[2017-04-04] MEDS ORDERED: CEFTRIAXONE 1 GM in DEXTROSE 5%-WATER - 50 ML IVPB SCH (10:00)
[2017-04-04 10:16] LABS: ANION GAP -1 (8-16); CO2 50 mmol/L (21-32)
--- NOTE | 2017-04-04 10:33 | EKG ---
Test Reason : Blood Pressure : / mmHG Vent. Rate : 088 BPM Atrial Rate : 088 BPM P-R Int : 152 ms QRS Dur : 118 ms QT Int : 366 ms P-R-T Axes : 078 104 056 degrees QTc Int : 442 ms NORMAL SINUS RHYTHM INCOMPLETE RIGHT BUNDLE BRANCH BLOCK POSSIBLE RIGHT VENTRICULAR HYPERTROPHY ABNORMAL ECG WHEN COMPARED WITH ECG OF 03-APR-2017 11:15, NO SIGNIFICANT CHANGE WAS FOUND Confirmed by ANNA CARLSON, MAITE ([id number]) on 04/04/2017 10:32:40 AM Referred By: Josue TORRES Confirmed By:MAITE CASTILLO MD
--- NOTE | 2017-04-04 10:40 | PN ---
Progress Note (short form) - Note Progress Note: sitting up in bed / O2 in place reports some improvement in breathing overnight + cough moist / no fever or chills prior to admission Vital Signs Period Temp Pulse Resp BP Sys/Liang Pulse Ox Last 24 Hr 0 F-100 F 76-96 20-22 115-134/63-88 80-98 Face - rosecea neck -JVD heart S1/S2 Lungs decresed BS but improved air movement from time of admission abd soft non tender Ext trace edema / chronic skin changes CBC, BMP 04/04/17 05:46 04/04/17 05:46 s/p phlebotomy yesterday Active Medications Albuterol Sulfate (Ventolin 0.083% Nebulizer Soln -) 1 amp NEB Q4H PRN PRN Reason: SHORT OF BREATH/WHEEZING Albuterol/Ipratropium (Duoneb -) 1 amp NEB QIDR [facility] Last Admin: 04/04/17 06:00 Dose: 1 amp Atorvastatin Calcium (Lipitor -) 40 mg PO HS [facility] Budesonide/Formoterol Fumarate (Symbicort 160/4.5mcg -) 1 puff IH BID [facility] Last Admin: 04/04/17 09:43 Dose: 1 puff Cefuroxime Axetil (Ceftin -) 500 mg PO BID [facility] Last Admin: 04/04/17 09:47 Dose: 500 mg Docusate Sodium (Colace -) 100 mg PO BID [facility] Last Admin: 04/04/17 09:43 Dose: 100 mg Enoxaparin Sodium (Lovenox -) 40 mg SQ DAILY [facility] Last Admin: 04/04/17 09:43 Dose: 40 mg Guaifenesin (Mucinex -) 600 mg PO BID [facility] Last Admin: 04/04/17 09:42 Dose: 600 mg Sodium Chloride (Normal Saline -) 1,000 mls @ 83 mls/hr IV ASDIR [facility] Last Admin: 04/04/17 03:02 Dose: 83 mls/hr Insulin Aspart (Novolog Vial Sliding Scale -) 1 vial SQ ACHS KEVON PRN Reason: Protocol Last Admin: 04/04/17 06:45 Dose: Not Given Lisinopril (Prinivil) 5 mg PO DAILY [facility] Last Admin: 04/04/17 09:42 Dose: 5 mg Methylprednisolone Sodium Succinate (Solu-Medrol -) 60 mg IVPB Q8H-IV [facility] Last Admin: 04/04/17 09:42 Dose: 60 mg Metronidazole (Metrogel 0.75% Gel -) 1 applic TP BID [facility] Last Admin: 04/04/17 09:42 Dose: 1 appful Pantoprazole Sodium (Protonix -) 40 mg PO DAILY [facility] Last Admin: 04/04/17 09:42 Dose: 40 mg Sitagliptin Phosphate (Januvia -) 100 mg PO DAILY@0700 [facility] Last Admin: 04/04/17 06:48 Dose: 100 mg asssmt plan COPD inhaled & IV steroids / PPi / nebulizer appreciate pulmonary consult and follow up DVT prophylaxis JEANNE BiPAPat night weight loss educate patient on risk and need for compliance DM Diet education resume Januvia follow FS and cover with insulin may require insulin as out patient Problem List - Problems (1) Acute on chronic respiratory failure with hypoxia and hypercapnia Code(s): J96.21 - ACUTE AND CHRONIC RESPIRATORY FAILURE WITH HYPOXIA J96.22 - ACUTE AND CHRONIC RESPIRATORY FAILURE WITH HYPERCAPNIA (2) Chronic respiratory failure with hypoxia and hypercapnia Code(s): J96.11 - CHRONIC RESPIRATORY FAILURE WITH HYPOXIA J96.12 - CHRONIC RESPIRATORY FAILURE WITH HYPERCAPNIA (3) COPD (chronic obstructive pulmonary disease) Code(s): J44.9 - CHRONIC OBSTRUCTIVE PULMONARY DISEASE, UNSPECIFIED Qualifiers : COPD type: unspecified COPD Qualified Code(s): J44.9 - Chronic obstructive pulmonary disease, unspecified (4) COPD exacerbation Code(s): J44.1 - CHRONIC OBSTRUCTIVE PULMONARY DISEASE W (ACUTE) EXACERBATION (5) Cigarette nicotine dependence Code(s): F17.200 - NICOTINE DEPENDENCE, UNSPECIFIED, UNCOMPLICATED Qualifiers : Substance use status: in remission Qualified Code(s): F17.211 - Nicotine dependence, cigarettes, in remission (6) Diabetes Code(s): E11.9 - TYPE 2 DIABETES MELLITUS WITHOUT COMPLICATIONS Qualifiers: Diabetes mellitus type: type 2 Diabetes mellitus complication status: with unspecified complications (7) Erythrocytosis Code(s): D75.1 - SECONDARY POLYCYTHEMIA (8) Leg edema Code(s): R60.0 - LOCALIZED EDEMA (9) Morbid obesity Code(s): E66.01 - MORBID (SEVERE) OBESITY DUE TO EXCESS CALORIES (10) Sleep apnea Code(s): G47.30 - SLEEP APNEA, UNSPECIFIED
[2017-04-04] MEDS ORDERED: FLU VACCINE QUAD 60 MCG/0.5 ML (MDV 17-18) IM ONE (11:00)
--- NOTE | 2017-04-04 11:09 | PN ---
Progress Note (short form) - Note Progress Note: Patient seen and examined this. No overnight events. Remains on oxygen. He feels a little bit better than yesterday he says. O/E Constitutional: Yes: Moderate Distress, Other (huey facial complexion) Eyes: Yes: Conjunctiva Clear HENT: Yes: Atraumatic, Normocephalic Neck: Yes: Supple, Trachea Midline Cardiovascular: Yes: Tachycardia Respiratory: hypoxic, air entry better than yesterday, but has decreased breath sounds Gastrointestinal: Yes: Normal Bowel Sounds, Soft Musculoskeletal: Yes: WNL Edema: Yes (1+ bilateral edema) Neurological: Yes: Alert, Oriented Temp Pulse Resp BP Pulse Ox 97.7 F 89 20 134/75 82 L 04/04/17 10:00 04/04/17 10:00 04/04/17 10:00 04/04/17 10:00 04/04/17 10:00 CBC, BMP 04/04/17 05:46 04/04/17 05:46 Current Medications Generic Name Dose Route Start Last Admin Trade Name Freq PRN Reason Stop Dose Admin Albuterol Sulfate 1 amp 04/03/17 16:14 Ventolin 0.083% Nebulizer Soln - NEB Q4H PRN SHORT OF BREATH/WHEEZING Albuterol/Ipratropium 1 amp 04/03/17 18:00 04/04/17 06:00 Duoneb - NEB 1 amp QIDR KEVON Administration Atorvastatin Calcium 40 mg 04/04/17 22:00 Lipitor - PO HS KEVON Budesonide/Formoterol Fumarate 1 puff 04/04/17 10:00 04/04/17 09:43 Symbicort 160/4.5mcg - IH 1 puff BID KEVON Administration Cefuroxime Axetil 500 mg 04/04/17 10:00 04/04/17 09:47 Ceftin - PO 500 mg BID KEVON Administration Docusate Sodium 100 mg 04/04/17 10:00 04/04/17 09:43 Colace - PO 100 mg BID KEVON Administration Enoxaparin Sodium 40 mg 04/04/17 10:00 04/04/17 09:43 Lovenox - SQ 40 mg DAILY KEVON Administration Guaifenesin 600 mg 04/04/17 10:00 04/04/17 09:42 Mucinex - PO 600 mg BID KEVON Administration Sodium Chloride 1,000 mls @ 83 mls/hr 04/03/17 18:00 04/04/17 03:02 Normal Saline - IV 83 mls/hr ASDIR KEVON Administration Insulin Aspart 1 vial 04/04/17 07:00 04/04/17 06:45 Novolog Vial Sliding Scale - SQ Not Given ACHS [facility] Protocol Lisinopril 5 mg 04/04/17 10:00 04/04/17 09:42 Prinivil PO 5 mg DAILY KEVON Administration Methylprednisolone Sodium Succinate 60 mg 04/03/17 18:00 04/04/17 09:42 Solu-Medrol - IVPB 60 mg Q8H-IV KEVON Administration Metronidazole 1 applic 04/04/17 10:00 04/04/17 09:42 Metrogel 0.75% Gel - TP 1 appful BID KEVON Administration Pantoprazole Sodium 40 mg 04/04/17 10:00 04/04/17 09:42 Protonix - PO 40 mg DAILY KEVON Administration Sitagliptin Phosphate 100 mg 04/04/17 07:00 04/04/17 06:48 Januvia - PO 100 mg DAILY@0700 KEVON Administration Assessment/Plan: Acute of chronic respiratory failure Secondary erythrocytosis dCHF JEANNE Obesity. Productive cough -s/p 450CC of Phlebotomy on 04/03 -will hold off on today -Pulm/Cardiology/ID f/u appreciated -Abx per ID -Thrombocytopenia: continue to monitor.US with splenomegaly,likely congestive in etiology. -DVT ppx. communicated with RN Problem List - Problems (1) Acute on chronic respiratory failure with hypoxia and hypercapnia Code(s): J96.21 - ACUTE AND CHRONIC RESPIRATORY FAILURE WITH HYPOXIA J96.22 - ACUTE AND CHRONIC RESPIRATORY FAILURE WITH HYPERCAPNIA (2) Erythrocytosis Code(s): D75.1 - SECONDARY POLYCYTHEMIA (3) Sleep apnea Code(s): G47.30 - SLEEP APNEA, UNSPECIFIED (4) Chronic respiratory failure with hypoxia and hypercapnia Code(s): J96.11 - CHRONIC RESPIRATORY FAILURE WITH HYPOXIA J96.12 - CHRONIC RESPIRATORY FAILURE WITH HYPERCAPNIA (5) Acute on chronic diastolic CHF (congestive heart failure) Code(s): I50.33 - ACUTE ON CHRONIC DIASTOLIC (CONGESTIVE) HEART FAILURE
--- NOTE | 2017-04-04 12:50 | PN ---
Progress Note, Physician History of Present Illness: PULMONARY FEELING BETTER,LESS DYSPNEIC,SITTING UP IN BED - Current Medication List Current Medications: Active Medications Albuterol Sulfate (Ventolin 0.083% Nebulizer Soln -) 1 amp NEB Q4H PRN PRN Reason: SHORT OF BREATH/WHEEZING Albuterol/Ipratropium (Duoneb -) 1 amp NEB QIDR [facility] Last Admin: 04/04/17 06:00 Dose: 1 amp Atorvastatin Calcium (Lipitor -) 40 mg PO HS [facility] Budesonide/Formoterol Fumarate (Symbicort 160/4.5mcg -) 1 puff IH BID [facility] Last Admin: 04/04/17 09:43 Dose: 1 puff Cefuroxime Axetil (Ceftin -) 500 mg PO BID [facility] Last Admin: 04/04/17 09:47 Dose: 500 mg Docusate Sodium (Colace -) 100 mg PO BID [facility] Last Admin: 04/04/17 09:43 Dose: 100 mg Enoxaparin Sodium (Lovenox -) 40 mg SQ DAILY [facility] Last Admin: 04/04/17 09:43 Dose: 40 mg Guaifenesin (Mucinex -) 600 mg PO BID [facility] Last Admin: 04/04/17 09:42 Dose: 600 mg Sodium Chloride (Normal Saline -) 1,000 mls @ 83 mls/hr IV ASDIR [facility] Last Admin: 04/04/17 03:02 Dose: 83 mls/hr Insulin Aspart (Novolog Vial Sliding Scale -) 1 vial SQ ACHS [facility] PRN Reason: Protocol Last Admin: 04/04/17 11:44 Dose: Not Given Lisinopril (Prinivil) 5 mg PO DAILY [facility] Last Admin: 04/04/17 09:42 Dose: 5 mg Methylprednisolone Sodium Succinate (Solu-Medrol -) 60 mg IVPB Q8H-IV [facility] Last Admin: 04/04/17 09:42 Dose: 60 mg Metronidazole (Metrogel 0.75% Gel -) 1 applic TP BID [facility] Last Admin: 04/04/17 09:42 Dose: 1 appful Pantoprazole Sodium (Protonix -) 40 mg PO DAILY [facility] Last Admin: 04/04/17 09:42 Dose: 40 mg Sitagliptin Phosphate (Januvia -) 100 mg PO DAILY@0700 [facility] Last Admin: 04/04/17 06:48 Dose: 100 mg - Objective Vital Signs: Vital Signs Temperature 97.7 F 04/04/17 10:00 Pulse Rate 89 04/04/17 10:00 Respiratory Rate 04/04/17 10:00 Blood Pressure 134/75 04/04/17 10:00 O2 Sat by Pulse Oximetry (%) 82 L 04/04/17 10:00 Constitutional: Yes: Well Nourished, Calm Eyes: Yes: WNL HENT: Yes: WNL Neck: Yes: WNL Cardiovascular: Yes: Regular Rate and Rhythm, S1, S2 Respiratory: Yes: Wheezes (FEW SCATTERED JOSE A WHEEZES) Gastrointestinal: Yes: Normal Bowel Sounds, Soft Extremities: Yes: WNL Edema: Yes Labs: CBC, BMP 04/04/17 05:46 04/04/17 05:46 INR, PTT INR 1.08 (0.82-1.09) 04/03/17 10:20 Assessment/Plan Problem List - Problems (1) COPD exacerbation Code(s): J44.1 - CHRONIC OBSTRUCTIVE PULMONARY DISEASE W (ACUTE) EXACERBATION (2) Diabetes Code(s): E11.9 - TYPE 2 DIABETES MELLITUS WITHOUT COMPLICATIONS Qualifiers: Diabetes mellitus type: type 2 Diabetes mellitus complication status: with unspecified complications Qualified Code(s): E11.8 - Type 2 diabetes mellitus with unspecified complications; 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
--- NOTE | 2017-04-04 17:08 | CONS ---
DATE OF CONSULTATION: DATE OF DICTATION: 04/04/2017 This is a 41-year-old male with a history of known COPD, CHF, and obstructive sleep apnea with diabetes, referred from his primary doctor's office because of complaint of shortness of breath and hypoxemia in the office. The patient notes that he is typically always short of breath but became more so recently and had some associated chest congestion with a productive cough, though denying any fever or chills. He did have low-grade temperature to 100 on admission. The patient has been previously evaluated for polycythemia vera by Hematology in the past. He lives alone, works at [employer] and has a history of heavy smoking in the past. He does not use drugs and has not been exposed to anyone with known respiratory illness. He states he has never been HIV tested and currently is not in any relationship. PAST MEDICAL HISTORY: As noted above. CURRENT MEDICATIONS: Include albuterol, atorvastatin, lisinopril, and Januvia. ALLERGIES: LEVOFLOXACIN. FAMILY HISTORY: Reviewed, noncontributory. SOCIAL HISTORY: Former smoker, no alcohol use. No travel, unusual hobbies, or pets. REVIEW OF SYSTEMS: Respiratory: Chest congestion, productive cough, yellow sputum. No hemoptysis. Cardiac: No orthopnea, chest pain, palpitations, murmur. Gastrointestinal: No weight loss, abdominal pain, nausea, vomiting, diarrhea. Genitourinary: No dysuria or hematuria or urinary frequency. PHYSICAL EXAMINATION: Vital Signs: He was a heavyset male. Weight 214 pounds. Temperature afebrile. Pulse 87, blood pressure 115/67, respirations 20. Neck: Supple. Lungs: With diminished breath sounds bilaterally. No rales or rhonchi, wheeze. Heart: S1, S2. Regular rhythm without audible murmur or gallop. Abdomen: Soft, nontender. Positive bowel sounds. No guarding, rebound. Extremities: Bilateral lower extremity edema. LABORATORY: A white count of 5.7, hemoglobin 19, hematocrit 60, platelets 124. BUN 10, creatinine 0.5. Liver enzymes within normal limits. Urinalysis screening negative. CT scan unofficially reviewed shows no evidence of infiltrates. ASSESSMENT: A 41-year-old male with a history of polycythemia, presents with worsening shortness of breath with background history of congestive heart failure and chronic obstructive pulmonary disease. He is a former smoker. Symptoms currently seem compatible with an acute exacerbation of chronic obstructive pulmonary disease. He has been seen by Dr. Vega from pulmonary and is currently receiving steroids and bronchodilators. Will treat him with ceftriaxone 1 g followed by Ceftin 500 mg p.o. b.i.d. and obtain HIV testing. BITA MOTA M.D. [id number] MTDD
[2017-04-04] MEDS: ATORVASTATIN CA 40 MG TABLET (FP) PO SCH (23:05)
[2017-04-05] MEDS: methylPREDNISolone NA SUCC 40 MG/1 ML VIAL IVPB SCH ×3 (01:23→18:23)
[2017-04-05] MEDS: ALBUTEROL SO4 2.5/IPRATROPIUM 0.5 INH SOL 3 ML VIAL.NEB. NEB SCH ×4 (06:04→18:43)
[2017-04-05] MEDS: INSULIN SLIDING SCALE (NOVOLOG) 1 VIAL SQ SCH ×4 (06:37→21:45)
[2017-04-05] MEDS: sitaGLIPtin PHOSPHATE 100 MG TABLET (FP) PO SCH (06:37)
[2017-04-05 08:48] LABS: CALCIUM 8.9 mg/dL (8.5-10.1); CREATININE 0.4 mg/dL (0.7-1.3); GLUCOSE,RANDOM 134 mg/dL (74-106); SGOT/AST 11 U/L (15-37); SGPT/ALT 17 U/L (12-78); TOT PROT 6.3 g/dl (6.4-8.2)
[2017-04-05 08:52] LABS: ALK PHOS 37 U/L (45-117); BILIRUBIN,TOTAL 0.6 mg/dL (0.2-1.0)
[2017-04-05 09:12] LABS: CO2 24 mmol/L (21-32)
[2017-04-05 09:13] LABS: BASOPHIL 0.1 % (0-2.0); MCH 27.8 pg (25.7-33.7); MCHC 30.9 g/dl (32.0-35.9); MEAN PLT VOLUME 7.8 fl (7.5-11.1); NEUTROPHILS 88.2 % (42.8-82.8); PLATELET COUNT 127 K/MM3 (134-434); RDW 17.4 % (11.9-15.9); WHITE BLOOD COUNT 6.6 K/mm3 (4.0-10.0)
[2017-04-05 09:15] LABS: ANION GAP 49 (8-16)
--- NOTE | 2017-04-05 09:17 | PN ---
Progress Note, Physician Chief Complaint: Pt A&Ox3; sitting up at bedside; no chest pain or dyspnea. C/o bilaterl arm weakness and tremors (hands) x 3 weeks, makeing it difficult for him to lift or open boxes at work ([employer]). Denies drinking alcohol; +chronic neck pains. History of Present Illness: This is a 41 yo white man with h/o diastolic CHF, COPD, obstructive sleep apnea , and DM who was sent in by his PCP's office for shortness of breath with pulse oxygenation in the 40s in the clinic. The patient states that he has been having chest congestion, slightly increased cough with yellow phlegm, increased abdominal distention, bilateral painless leg swelling, and [id number] color of his face/cheeks. He denies any chest pain, palpitations, abdominal pain , or other symptoms. He lost his job and medical insurance a year ago and has thus not been able to take his medications, including inhalers. - Current Medication List Current Medications: Active Medications Albuterol Sulfate (Ventolin 0.083% Nebulizer Soln -) 1 amp NEB Q4H PRN PRN Reason: SHORT OF BREATH/WHEEZING Albuterol/Ipratropium (Duoneb -) 1 amp NEB QIDR [facility] Last Admin: 04/05/17 06:04 Dose: 1 amp Atorvastatin Calcium (Lipitor -) 40 mg PO HS [facility] Last Admin: 04/04/17 23:05 Dose: 40 mg Budesonide/Formoterol Fumarate (Symbicort 160/4.5mcg -) 1 puff IH BID [facility] Last Admin: 04/04/17 23:05 Dose: 1 puff Cefuroxime Axetil (Ceftin -) 500 mg PO BID [facility] Last Admin: 04/04/17 23:04 Dose: 500 mg Docusate Sodium (Colace -) 100 mg PO BID [facility] Last Admin: 04/04/17 23:08 Dose: Not Given Enoxaparin Sodium (Lovenox -) 40 mg SQ DAILY [facility] Last Admin: 04/04/17 09:43 Dose: 40 mg Guaifenesin (Mucinex -) 600 mg PO BID [facility] Last Admin: 04/04/17 23:05 Dose: 600 mg Sodium Chloride (Normal Saline -) 1,000 mls @ 83 mls/hr IV ASDIR [facility] Last Admin: 04/04/17 17:59 Dose: 83 mls/hr Insulin Aspart (Novolog Vial Sliding Scale -) 1 vial SQ ACHS [facility] PRN Reason: Protocol Last Admin: 04/05/17 06:37 Dose: Not Given Lisinopril (Prinivil) 5 mg PO DAILY [facility] Last Admin: 04/04/17 09:42 Dose: 5 mg Methylprednisolone Sodium Succinate (Solu-Medrol -) 60 mg IVPB Q8H-IV [facility] Last Admin: 04/05/17 01:23 Dose: 60 mg Metronidazole (Metrogel 0.75% Gel -) 1 applic TP BID [facility] Last Admin: 04/04/17 23:05 Dose: 1 appful Pantoprazole Sodium (Protonix -) 40 mg PO DAILY [facility] Last Admin: 04/04/17 09:42 Dose: 40 mg Sitagliptin Phosphate (Januvia -) 100 mg PO DAILY@0700 [facility] Last Admin: 04/05/17 06:37 Dose: 100 mg - Objective Vital Signs: Vital Signs Temperature 98.4 F 04/05/17 05:00 Pulse Rate 65 04/05/17 05:00 Respiratory Rate 04/05/17 05:00 Blood Pressure 95/47 04/05/17 05:00 O2 Sat by Pulse Oximetry (%) 91 L 04/05/17 00:05 Constitutional: Yes: Anxious Eyes: Yes: WNL HENT: Yes: WNL Neck: Yes: Decreased ROM Cardiovascular: Yes: Regular Rate and Rhythm Respiratory: Yes: WNL Gastrointestinal: Yes: WNL ...Rectal Exam: Yes: Deferred Genitourinary: No: Anuria Breast(s): Yes: WNL Edema: No Peripheral Pulses WNL: Yes Integumentary: Yes: WNL Neurological: Yes: Tremors, Weakness Psychiatric: Yes: Alert, Oriented, Other (denies anxiety/depression) Labs: CBC, BMP 04/05/17 05:47 INR, PTT INR 1.08 (0.82-1.09) 04/03/17 10:20 Abnormal Lab Results 04/04/17 04/04/17 04/05/17 05:46 05:46 05:47 RBC 5.93 H Hct 53.4 H MCHC 30.9 L RDW 17.4 H Plt Count 127 L Neutrophils % 88.2 H Monocytes % 3.2 L D Chloride 90 L Carbon Dioxide 50 H Anion Gap -1 L Creatinine 0.4 L Random Glucose 124 H D AST 14 L Alkaline Phosphatase Total Protein Albumin 3.3 L Total LDL Cholesterol 115 H D HDL Cholesterol 31 L D 04/05/17 05:47 RBC Hct MCHC RDW Plt Count Neutrophils % Monocytes % Chloride 90 L Carbon Dioxide Anion Gap 49 H Creatinine 0.4 L Random Glucose 134 H AST 11 L D Alkaline Phosphatase 37 L D Total Protein 6.3 L Albumin 3.0 L Total LDL Cholesterol HDL Cholesterol Problem List - Problems (1) Acute on chronic respiratory failure with hypoxia and hypercapnia Assessment/Plan: quit smoking 8 months ago. Mild IS infitrates on CT scan. Denies hx ssthma until he was 29 yrs old; unclear what past pulmnonary workup hsa been done (f/u with pulmonlogist--Dr. Sequeira). ECHO: normal LVEF; dilated LV; decresaed RVEF (unable to assess RVSP for pulmonary HTN). \BNP 139. F/u TSH (miidly elevated in 2015). Code(s): J96.21 - ACUTE AND CHRONIC RESPIRATORY FAILURE WITH HYPOXIA J96.22 - ACUTE AND CHRONIC RESPIRATORY FAILURE WITH HYPERCAPNIA (2) Acute on chronic diastolic CHF (congestive heart failure) Assessment/Plan: On lisinopril. right-sided heart failure.?secondary to lung disease, HTN; worrisome that RVEF is reduced at young age. F/u pulmonary; consider heart failure clinic. Code(s): I50.33 - ACUTE ON CHRONIC DIASTOLIC (CONGESTIVE) HEART FAILURE (3) COPD exacerbation Code(s): J44.1 - CHRONIC OBSTRUCTIVE PULMONARY DISEASE W (ACUTE) EXACERBATION (4) Diabetes Assessment/Plan: on Januvia. On lisinpril. Code(s): E11.9 - TYPE 2 DIABETES MELLITUS WITHOUT COMPLICATIONS Qualifiers: Diabetes mellitus type: type 2 Diabetes mellitus complication status: with unspecified complications (5) Erythrocytosis Code(s): D75.1 - SECONDARY POLYCYTHEMIA (6) [place] cardiac risk >20% in next 10 years Assessment/Plan: stress MIBI 06/29: no ischemia, fairly good exercise capacity; walked 7 minutes using Thee protocol; suboptimal HR reached (67%)--?was pt on beta blockers at the time. Recommend repeat stress treadill test off beta blockers in the future; may be done as outpatient. Keep LDL cholester < 70 mg/dL (now on atorvaswtatin). Pt quit smoking 8 months ago. HFpEF (normal LVEF; dilated LV), with reduced RVEF. Code(s): Z91.89 - OT PERSONAL RISK FACTORS, NOT ELSEWHERE CLASSIFIED (7) Sleep apnea Code(s): G47.30 - SLEEP APNEA, UNSPECIFIED (8) Bilateral arm weakness Assessment/Plan: c/o bilateral arm weakness and hand tremors for past 3 weeks; it is affecting his work. His chronic neck pain. Code(s): R29.898 - OT SYMPTOMS AND SIGNS INVOLVING THE MUSCULOSKELETAL SYSTEM
[2017-04-05] MEDS: ENOXAPARIN NA (PORCINE) 40 MG/0.4 ML DISP.SYRIN SQ SCH (09:50)
[2017-04-05] MEDS: PANTOPRAZOLE 40 MG TABLET (FP) PO SCH (09:51)
[2017-04-05] MEDS: LISINOPRIL 5 MG TABLET (FP) PO SCH (09:51)
[2017-04-05] MEDS: DOCUSATE SODIUM 100 MG CAPSULE (FP) PO SCH ×2 (09:51→21:44)
[2017-04-05] MEDS: metroNIDAZOLE 0.75% TOPICAL GEL 45 GM TUBE TP SCH ×2 (09:51→21:44)
[2017-04-05] MEDS: CEFUROXIME AXETIL 500 MG TABLET PO SCH ×2 (09:51→21:43)
[2017-04-05] MEDS: guaiFENesin 600 MG TABLET.ER (FP) PO SCH ×2 (09:51→21:44)
[2017-04-05] MEDS: BUDESONIDE/FORMETEROL FUMARATE 160/4.5 mcg INHALER IH SCH ×2 (09:52→21:45)
--- NOTE | 2017-04-05 12:19 | PN ---
Progress Note (short form) - Note Progress Note: PULMONARY Breathing slightly better but still dyspneic on exertion. +mild cough and wheezing. Last Vital Signs Temp Pulse Resp BP Pulse Ox 98.9 F 65 20 127/70 91 L 04/05/17 09:00 04/05/17 10:38 04/05/17 09:00 04/05/17 09:00 04/05/17 10:38 Gen: mildly tachypneic with exertion Heart: RRR Lung: distant breath sounds Abd: soft, nontender Ext: no edema CBC, BMP 04/05/17 05:47 04/05/17 05:47 Active Medications Albuterol Sulfate (Ventolin 0.083% Nebulizer Soln -) 1 amp NEB Q4H PRN PRN Reason: SHORT OF BREATH/WHEEZING Albuterol/Ipratropium (Duoneb -) 1 amp NEB QIDR [facility] Last Admin: 04/05/17 11:37 Dose: 1 amp Atorvastatin Calcium (Lipitor -) 40 mg PO HS [facility] Last Admin: 04/04/17 23:05 Dose: 40 mg Budesonide/Formoterol Fumarate (Symbicort 160/4.5mcg -) 1 puff IH BID [facility] Last Admin: 04/05/17 09:52 Dose: 1 puff Cefuroxime Axetil (Ceftin -) 500 mg PO BID [facility] Last Admin: 04/05/17 09:51 Dose: 500 mg Docusate Sodium (Colace -) 100 mg PO BID [facility] Last Admin: 04/05/17 09:51 Dose: 100 mg Enoxaparin Sodium (Lovenox -) 40 mg SQ DAILY [facility] Last Admin: 04/05/17 09:50 Dose: 40 mg Guaifenesin (Mucinex -) 600 mg PO BID [facility] Last Admin: 04/05/17 09:51 Dose: 600 mg Sodium Chloride (Normal Saline -) 1,000 mls @ 83 mls/hr IV ASDIR [facility] Last Admin: 04/04/17 17:59 Dose: 83 mls/hr Insulin Aspart (Novolog Vial Sliding Scale -) 1 vial SQ ACHS [facility] PRN Reason: Protocol Last Admin: 04/05/17 10:53 Dose: Not Given Lisinopril (Prinivil) 5 mg PO DAILY [facility] Last Admin: 04/05/17 09:51 Dose: 5 mg Methylprednisolone Sodium Succinate (Solu-Medrol -) 60 mg IVPB Q8H-IV [facility] Last Admin: 04/05/17 09:51 Dose: 60 mg Metronidazole (Metrogel 0.75% Gel -) 1 applic TP BID [facility] Last Admin: 04/05/17 09:51 Dose: 1 appful Pantoprazole Sodium (Protonix -) 40 mg PO DAILY [facility] Last Admin: 04/05/17 09:51 Dose: 40 mg Sitagliptin Phosphate (Januvia -) 100 mg PO DAILY@0700 [facility] Last Admin: 04/05/17 06:37 Dose: 100 mg A/P Acute COPD Exacerbation Chronic Hypoxic and Hypercapneic Respiratory Failure DM JEANNE - will decrease medrol to 40mg q8h - inhaled bronchodilators - O2 to keep SpO2>90% - BiPAP at night - DVT prophylaxis
--- NOTE | 2017-04-05 16:04 | PN ---
Progress Note (short form) - Note Progress Note: Patient seen and examined this. No overnight events. He feels a little better, but still has dyspnea on exertion O/E Constitutional: Yes: no distress, Other (huey facial complexion) Eyes: Yes: Conjunctiva Clear HENT: Yes: Atraumatic, Normocephalic Neck: Yes: Supple, Trachea Midline Cardiovascular: Yes: Tachycardia Respiratory: hypoxic, air entry better than yesterday, but has decreased breath sounds Gastrointestinal: Yes: Normal Bowel Sounds, Soft Musculoskeletal: Yes: WNL Edema: edema improved Neurological: Yes: Alert, Oriented Last Vital Signs Temp Pulse Resp BP Pulse Ox 98.3 F 80 20 122/63 91 L 04/05/17 14:00 04/05/17 14:00 04/05/17 14:00 04/05/17 14:00 04/05/17 10:38 CBC, BMP 04/05/17 05:47 04/05/17 05:47 Current Medications Generic Name Dose Route Start Last Admin Trade Name Freq PRN Reason Stop Dose Admin Albuterol Sulfate 1 amp 04/03/17 16:14 Ventolin 0.083% Nebulizer Soln - NEB Q4H PRN SHORT OF BREATH/WHEEZING Albuterol/Ipratropium 1 amp 04/03/17 18:00 04/05/17 11:37 Duoneb - NEB 1 amp QIDR KEVON Administration Atorvastatin Calcium 40 mg 04/04/17 22:00 04/04/17 23:05 Lipitor - PO 40 mg HS KEVON Administration Budesonide/Formoterol Fumarate 1 puff 04/04/17 10:00 04/05/17 09:52 Symbicort 160/4.5mcg - IH 1 puff BID KEVON Administration Cefuroxime Axetil 500 mg 04/04/17 10:00 04/05/17 09:51 Ceftin - PO 500 mg BID KEVON Administration Docusate Sodium 100 mg 04/04/17 10:00 04/05/17 09:51 Colace - PO 100 mg BID KEVON Administration Enoxaparin Sodium 40 mg 04/04/17 10:00 04/05/17 09:50 Lovenox - SQ 40 mg DAILY [facility] Administration Guaifenesin 600 mg 04/04/17 10:00 04/05/17 09:51 Mucinex - PO 600 mg BID KEVON Administration Sodium Chloride 1,000 mls @ 83 mls/hr 04/03/17 18:00 04/04/17 17:59 Normal Saline - IV 83 mls/hr ASDIR KEVON Administration Insulin Aspart 1 vial 04/04/17 07:00 04/05/17 10:53 Novolog Vial Sliding Scale - SQ Not Given ACHS [facility] Protocol Lisinopril 5 mg 04/04/17 10:00 04/05/17 09:51 Prinivil PO 5 mg DAILY [facility] Administration Methylprednisolone Sodium Succinate 40 mg 04/05/17 18:00 Solu-Medrol - IVPB Q8H-IV [facility]ON Metronidazole 1 applic 04/04/17 10:00 04/05/17 09:51 Metrogel 0.75% Gel - TP 1 appful BID [facility] Administration Pantoprazole Sodium 40 mg 04/04/17 10:00 04/05/17 09:51 Protonix - PO 40 mg DAILY [facility] Administration Sitagliptin Phosphate 100 mg 04/04/17 07:00 04/05/17 06:37 Januvia - PO 100 mg DAILY@0700 [facility] Administration Assessment/Plan: Acute of chronic respiratory failure Secondary erythrocytosis dCHF JEANNE Obesity. Productive cough -s/p 450CC of Phlebotomy on 04/03 -hct stable, will hold off on further -Thrombocytopenia: continue to monitor.US with splenomegaly,likely congestive in etiology. -CT a/p reviewed, LAD noted, may be inflammatory, will continue to monitor closely with an out pt CT vs PET CT , a short interval ( reviewed with ). Discussed with pt. -DVT ppx. -will follow Problem List - Problems (1) Acute on chronic respiratory failure with hypoxia and hypercapnia Code(s): J96.21 - ACUTE AND CHRONIC RESPIRATORY FAILURE WITH HYPOXIA J96.22 - ACUTE AND CHRONIC RESPIRATORY FAILURE WITH HYPERCAPNIA (2) Erythrocytosis Code(s): D75.1 - SECONDARY POLYCYTHEMIA (3) Sleep apnea Code(s): G47.30 - SLEEP APNEA, UNSPECIFIED (4) Chronic respiratory failure with hypoxia and hypercapnia Code(s): J96.11 - CHRONIC RESPIRATORY FAILURE WITH HYPOXIA J96.12 - CHRONIC RESPIRATORY FAILURE WITH HYPERCAPNIA (5) Acute on chronic diastolic CHF (congestive heart failure) Code(s): I50.33 - ACUTE ON CHRONIC DIASTOLIC (CONGESTIVE) HEART FAILURE
--- NOTE | 2017-04-05 16:05 | PN ---
Progress Note, Physician History of Present Illness: Awake, alert Mildly dyspneic at rest on nasal cannula Occasional cough No fever/ chills - Current Medication List Current Medications: Active Medications Albuterol Sulfate (Ventolin 0.083% Nebulizer Soln -) 1 amp NEB Q4H PRN PRN Reason: SHORT OF BREATH/WHEEZING Albuterol/Ipratropium (Duoneb -) 1 amp NEB QIDR ON LICENSE OF [facility] Last Admin: 04/05/17 11:37 Dose: 1 amp Atorvastatin Calcium (Lipitor -) 40 mg PO HS ON LICENSE OF [facility] Last Admin: 04/04/17 23:05 Dose: 40 mg Budesonide/Formoterol Fumarate (Symbicort 160/4.5mcg -) 1 puff IH BID ON LICENSE OF [facility] Last Admin: 04/05/17 09:52 Dose: 1 puff Cefuroxime Axetil (Ceftin -) 500 mg PO BID ON LICENSE OF [facility] Last Admin: 04/05/17 09:51 Dose: 500 mg Docusate Sodium (Colace -) 100 mg PO BID ON LICENSE OF [facility] Last Admin: 04/05/17 09:51 Dose: 100 mg Enoxaparin Sodium (Lovenox -) 40 mg SQ DAILY ON [facility] OF [facility] Last Admin: 04/05/17 09:50 Dose: 40 mg Guaifenesin (Mucinex -) 600 mg PO BID ON [facility] OF [facility] Last Admin: 04/05/17 09:51 Dose: 600 mg Sodium Chloride (Normal Saline -) 1,000 mls @ 83 mls/hr IV ASDIR ON LICENSE OF [facility] Last Admin: 04/04/17 17:59 Dose: 83 mls/hr Insulin Aspart (Novolog Vial Sliding Scale -) 1 vial SQ ACHS ON LICENSE OF [facility] PRN Reason: Protocol Last Admin: 04/05/17 10:53 Dose: Not Given Lisinopril (Prinivil) 5 mg PO DAILY ON LICENSE OF [facility] Last Admin: 04/05/17 09:51 Dose: 5 mg Methylprednisolone Sodium Succinate (Solu-Medrol -) 40 mg IVPB Q8H-IV [facility] Metronidazole (Metrogel 0.75% Gel -) 1 applic TP BID ON LICENSE OF [facility] Last Admin: 04/05/17 09:51 Dose: 1 appful Pantoprazole Sodium (Protonix -) 40 mg PO DAILY ON [facility] OF [facility] Last Admin: 04/05/17 09:51 Dose: 40 mg Sitagliptin Phosphate (Januvia -) 100 mg PO DAILY@0700 ON [facility] OF [facility] Last Admin: 04/05/17 06:37 Dose: 100 mg - Objective Vital Signs: Vital Signs Temperature 98.3 F 04/05/17 14:00 Pulse Rate 80 04/05/17 14:00 Respiratory Rate 20 04/05/17 14:00 Blood Pressure 122/63 04/05/17 14:00 O2 Sat by Pulse Oximetry (%) 91 L 04/05/17 10:38 Constitutional: Yes: No Distress Eyes: Yes: Conjunctiva Clear Cardiovascular: Yes: Regular Rate and Rhythm, S1, S2 Respiratory: Yes: Diminished Gastrointestinal: Yes: Normal Bowel Sounds, Soft, Abdomen, Obese. No: Tenderness Labs: CBC, BMP 04/05/17 05:47 04/05/17 05:47 INR, PTT INR 1.08 (0.82-1.09) 04/03/17 10:20 Assessment/Plan COPD exacerbation Polycythemia Mediastinal/ intra-abdominal adenopathy Complete 7d course antibiotics Work up of adenopathy per heme/onc
[2017-04-05] MEDS: SODIUM CHLORIDE 1,000 ML IV SCH (18:23)
[2017-04-05] MEDS: ATORVASTATIN CA 40 MG TABLET (FP) PO SCH (21:44)
--- NOTE | 2017-04-05 22:36 | PN ---
Progress Note (short form) - Note Progress Note: sitting up in bed / O2 Nasal cannula in place reports some improvement in breathing moist cough Vital Signs Period Temp Pulse Resp BP Sys/Liang Pulse Ox Last 24 Hr 0 F-100 F 76-96 20-22 115-134/63-88 80-98 Face - rosecea neck -JVD heart S1/S2 Lungs decresed BS but improved air movement from time of admission abd soft non tender Ext trace edema / chronic skin changes CBC, BMP 04/04/17 05:46 04/04/17 05:46 s/p phlebotomy 04/03/17 CBC, BMP 04/05/17 05:47 04/05/17 05:47 Active Medications Albuterol Sulfate (Ventolin 0.083% Nebulizer Soln -) 1 amp NEB Q4H PRN PRN Reason: SHORT OF BREATH/WHEEZING Albuterol/Ipratropium (Duoneb -) 1 amp NEB QIDR [facility] Last Admin: 04/05/17 18:43 Dose: 1 amp Atorvastatin Calcium (Lipitor -) 40 mg PO HS [facility] Last Admin: 04/05/17 21:44 Dose: 40 mg Budesonide/Formoterol Fumarate (Symbicort 160/4.5mcg -) 1 puff IH BID [facility] Last Admin: 04/05/17 21:45 Dose: 1 puff Cefuroxime Axetil (Ceftin -) 500 mg PO BID [facility] Last Admin: 04/05/17 21:43 Dose: 500 mg Docusate Sodium (Colace -) 100 mg PO BID [facility] Last Admin: 04/05/17 21:44 Dose: Not Given Enoxaparin Sodium (Lovenox -) 40 mg SQ DAILY [facility] Last Admin: 04/05/17 09:50 Dose: 40 mg Guaifenesin (Mucinex -) 600 mg PO BID [facility] Last Admin: 04/05/17 21:44 Dose: 600 mg Sodium Chloride (Normal Saline -) 1,000 mls @ 83 mls/hr IV ASDIR [facility] Last Admin: 04/05/17 18:23 Dose: Not Given Insulin Aspart (Novolog Vial Sliding Scale -) 1 vial SQ ACHS [facility] PRN Reason: Protocol Last Admin: 04/05/17 21:45 Dose: Not Given Lisinopril (Prinivil) 5 mg PO DAILY [facility] Last Admin: 04/05/17 09:51 Dose: 5 mg Methylprednisolone Sodium Succinate (Solu-Medrol -) 40 mg IVPB Q8H-IV [facility] Last Admin: 04/05/17 18:23 Dose: 40 mg Metronidazole (Metrogel 0.75% Gel -) 1 applic TP BID [facility] Last Admin: 04/05/17 21:44 Dose: 1 appful Pantoprazole Sodium (Protonix -) 40 mg PO DAILY [facility] Last Admin: 04/05/17 09:51 Dose: 40 mg Sitagliptin Phosphate (Januvia -) 100 mg PO DAILY@0700 [facility] Last Admin: 04/05/17 06:37 Dose: 100 mg Assmt # COPD nebulizers / inhaled steroids / IV steroids / PPi / expectorant / abx BiPAP at night tapered steroids today # Polycythemia had work up in the past - Negative per patient secondary # DM has been off meds for over yr resume Januvia Insulin coverage Diet education for DM diet Problem List - Problems (1) Acute on chronic respiratory failure with hypoxia and hypercapnia Code(s): J96.21 - ACUTE AND CHRONIC RESPIRATORY FAILURE WITH HYPOXIA J96.22 - ACUTE AND CHRONIC RESPIRATORY FAILURE WITH HYPERCAPNIA (2) Chronic respiratory failure with hypoxia and hypercapnia Code(s): J96.11 - CHRONIC RESPIRATORY FAILURE WITH HYPOXIA J96.12 - CHRONIC RESPIRATORY FAILURE WITH HYPERCAPNIA (3) COPD (chronic obstructive pulmonary disease) Code(s): J44.9 - CHRONIC OBSTRUCTIVE PULMONARY DISEASE, UNSPECIFIED Qualifiers : COPD type: unspecified COPD Qualified Code(s): J44.9 - Chronic obstructive pulmonary disease, unspecified (4) COPD exacerbation Code(s): J44.1 - CHRONIC OBSTRUCTIVE PULMONARY DISEASE W (ACUTE) EXACERBATION (5) Cigarette nicotine dependence Code(s): F17.200 - NICOTINE DEPENDENCE, UNSPECIFIED, UNCOMPLICATED Qualifiers : Substance use status: in remission Qualified Code(s): F17.211 - Nicotine dependence, cigarettes, in remission (6) Diabetes Code(s): E11.9 - TYPE 2 DIABETES MELLITUS WITHOUT COMPLICATIONS Qualifiers: Diabetes mellitus type: type 2 Diabetes mellitus complication status: with unspecified complications (7) Erythrocytosis Code(s): D75.1 - SECONDARY POLYCYTHEMIA (8) Leg edema Code(s): R60.0 - LOCALIZED EDEMA (9) Morbid obesity Code(s): E66.01 - MORBID (SEVERE) OBESITY DUE TO EXCESS CALORIES (10) Sleep apnea Code(s): G47.30 - SLEEP APNEA, UNSPECIFIED
[2017-04-06] MEDS: ALBUTEROL SO4 2.5/IPRATROPIUM 0.5 INH SOL 3 ML VIAL.NEB. NEB SCH ×5 (00:02→23:30)
[2017-04-06] MEDS: methylPREDNISolone NA SUCC 40 MG/1 ML VIAL IVPB SCH ×3 (01:30→18:21)
[2017-04-06] MEDS: sitaGLIPtin PHOSPHATE 100 MG TABLET (FP) PO SCH (06:46)
[2017-04-06] MEDS: INSULIN SLIDING SCALE (NOVOLOG) 1 VIAL SQ SCH ×4 (06:46→23:20)
[2017-04-06 07:31] LABS: BASOPHIL 0.1 % (0-2.0); EOSINOPHIL 0.1 % (0-4.5); MCH 28.1 pg (25.7-33.7); MCHC 31.7 g/dl (32.0-35.9); MEAN CELL VOLUME 88.6 fl (80-96); MEAN PLT VOLUME 7.4 fl (7.5-11.1); NEUTROPHILS 84.5 % (42.8-82.8); PLATELET COUNT 125 K/MM3 (134-434); RDW 17.3 % (11.9-15.9); WHITE BLOOD COUNT 6.9 K/mm3 (4.0-10.0)
[2017-04-06 08:04] LABS: ANION GAP 8 (8-16); CALCIUM 9.3 mg/dL (8.5-10.1); CO2 40 mmol/L (21-32); CREATININE 0.5 mg/dL (0.7-1.3); GLUCOSE,RANDOM 134 mg/dL (74-106); MAGNESIUM 2.2 mg/dL (1.8-2.4)
[2017-04-06] MEDS ORDERED: PT OWN MED DRAWER 7, Y5N ONE ×2 (09:15→22:46)
[2017-04-06] MEDS: guaiFENesin 600 MG TABLET.ER (FP) PO SCH ×2 (09:34→22:53)
[2017-04-06] MEDS: PANTOPRAZOLE 40 MG TABLET (FP) PO SCH (09:34)
[2017-04-06] MEDS: ENOXAPARIN NA (PORCINE) 40 MG/0.4 ML DISP.SYRIN SQ SCH (09:34)
[2017-04-06] MEDS: metroNIDAZOLE 0.75% TOPICAL GEL 45 GM TUBE TP SCH ×2 (09:34→22:53)
[2017-04-06] MEDS: LISINOPRIL 5 MG TABLET (FP) PO SCH (09:34)
[2017-04-06] MEDS: CEFUROXIME AXETIL 500 MG TABLET PO SCH ×2 (09:34→22:53)
[2017-04-06] MEDS: DOCUSATE SODIUM 100 MG CAPSULE (FP) PO SCH ×2 (09:34→22:53)
[2017-04-06] MEDS: BUDESONIDE/FORMETEROL FUMARATE 160/4.5 mcg INHALER IH SCH ×2 (09:35→22:53)
--- NOTE | 2017-04-06 12:40 | PN ---
Progress Note, Physician History of Present Illness: PULMONARY ALERT,LESS DYSPNEIC,SITTING UP IN BED - Current Medication List Current Medications: Active Medications Albuterol Sulfate (Ventolin 0.083% Nebulizer Soln -) 1 amp NEB Q4H PRN PRN Reason: SHORT OF BREATH/WHEEZING Albuterol/Ipratropium (Duoneb -) 1 amp NEB QIDR [facility] [place] Last Admin: 04/06/17 11:20 Dose: 1 amp Atorvastatin Calcium (Lipitor -) 40 mg PO HS [facility] [place] Last Admin: 04/05/17 21:44 Dose: 40 mg Budesonide/Formoterol Fumarate (Symbicort 160/4.5mcg -) 1 puff IH BID [facility] [place] Last Admin: 04/06/17 09:35 Dose: 1 puff Cefuroxime Axetil (Ceftin -) 500 mg PO BID [facility] [place] Last Admin: 04/06/17 09:34 Dose: 500 mg Docusate Sodium (Colace -) 100 mg PO BID [facility] [place] Last Admin: 04/06/17 09:34 Dose: Not Given Enoxaparin Sodium (Lovenox -) 40 mg SQ DAILY [facility] [place] Last Admin: 04/06/17 09:34 Dose: 40 mg Guaifenesin (Mucinex -) 600 mg PO BID [facility] [place] Last Admin: 04/06/17 09:34 Dose: 600 mg Sodium Chloride (Normal Saline -) 1,000 mls @ 83 mls/hr IV ASDIR [facility] [place] Last Admin: 04/05/17 18:23 Dose: Not Given Insulin Aspart (Novolog Vial Sliding Scale -) 1 vial SQ ACHS [facility] [place] PRN Reason: Protocol Last Admin: 04/06/17 11:35 Dose: Not Given Lisinopril (Prinivil) 5 mg PO DAILY [facility] [place] Last Admin: 04/06/17 09:34 Dose: 5 mg Methylprednisolone Sodium Succinate (Solu-Medrol -) 40 mg IVPB Q8H-IV [facility] [place] Last Admin: 04/06/17 09:34 Dose: 40 mg Metronidazole (Metrogel 0.75% Gel -) 1 applic TP BID [facility] [place] Last Admin: 04/06/17 09:34 Dose: 1 appful Pantoprazole Sodium (Protonix -) 40 mg PO DAILY [facility] [place] Last Admin: 04/06/17 09:34 Dose: 40 mg Sitagliptin Phosphate (Januvia -) 100 mg PO DAILY@0700 [facility] [place] Last Admin: 04/06/17 06:46 Dose: 100 mg - Objective Vital Signs: Vital Signs Temperature 98.1 F 04/06/17 10:00 Pulse Rate 73 04/06/17 10:00 Respiratory Rate 18 04/06/17 10:00 Blood Pressure 120/62 04/06/17 10:00 O2 Sat by Pulse Oximetry (%) 91 L 04/06/17 09:54 Constitutional: Yes: Well Nourished, Calm Eyes: Yes: WNL HENT: Yes: WNL Neck: Yes: WNL Cardiovascular: Yes: Regular Rate and Rhythm, S1, S2 Respiratory: Yes: Rhonchi (SCATTERED JOSE A RHONCHI) Gastrointestinal: Yes: Normal Bowel Sounds, Soft Extremities: Yes: WNL Edema: Yes Labs: CBC, BMP 04/06/17 05:35 04/06/17 05:35 INR, PTT INR 1.08 (0.82-1.09) 04/03/17 10:20 Assessment/Plan Problem List - Problems (1) COPD exacerbation Code(s): J44.1 - CHRONIC OBSTRUCTIVE PULMONARY DISEASE W (ACUTE) EXACERBATION (2) Diabetes Code(s): E11.9 - TYPE 2 DIABETES MELLITUS WITHOUT COMPLICATIONS Qualifiers: Diabetes mellitus type: type 2 Diabetes mellitus complication status: with unspecified complications Qualified Code(s): E11.8 - Type 2 diabetes mellitus with unspecified complications; 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
--- NOTE | 2017-04-06 13:49 | PN ---
Progress Note (short form) - Note Progress Note: Patient seen and examined this. No overnight events. continues to improve. O/E Constitutional: Yes: no distress, Other (huey facial complexion) Eyes: Yes: Conjunctiva Clear HENT: Yes: Atraumatic, Normocephalic Neck: Yes: Supple, Trachea Midline Cardiovascular: Yes: Tachycardia Respiratory: better exam than yesterday Gastrointestinal: Yes: Normal Bowel Sounds, Soft Musculoskeletal: Yes: WNL Edema: edema improved Neurological: Yes: Alert, Oriented Last Vital Signs Temp Pulse Resp BP Pulse Ox 98.6 F 73 19 117/55 91 L 04/06/17 13:31 04/06/17 13:31 04/06/17 13:31 04/06/17 13:31 04/06/17 09:54 CBC, BMP 04/06/17 05:35 04/06/17 05:35 Current Medications Generic Name Dose Route Start Last Admin Trade Name Freq PRN Reason Stop Dose Admin Albuterol Sulfate 1 amp 04/03/17 16:14 Ventolin 0.083% Nebulizer Soln - NEB Q4H PRN SHORT OF BREATH/WHEEZING Albuterol/Ipratropium 1 amp 04/03/17 18:00 04/06/17 11:20 Duoneb - NEB 1 amp QIDR [facility] Administration Atorvastatin Calcium 40 mg 04/04/17 22:00 04/05/17 21:44 Lipitor - PO 40 mg HS [facility] Administration Budesonide/Formoterol Fumarate 1 puff 04/04/17 10:00 04/06/17 09:35 Symbicort 160/4.5mcg - IH 1 puff BID [facility] Administration Cefuroxime Axetil 500 mg 04/04/17 10:00 04/06/17 09:34 Ceftin - PO 500 mg BID [facility] Administration Docusate Sodium 100 mg 04/04/17 10:00 04/06/17 09:34 Colace - PO Not Given BID [facility] Enoxaparin Sodium 40 mg 04/04/17 10:00 04/06/17 09:34 Lovenox - SQ 40 mg DAILY [facility] Administration Guaifenesin 600 mg 04/04/17 10:00 04/06/17 09:34 Mucinex - PO 600 mg BID [facility] Administration Sodium Chloride 1,000 mls @ 83 mls/hr 04/03/17 18:00 04/05/17 18:23 Normal Saline - IV Not Given ASDIR [facility] Insulin Aspart 1 vial 04/04/17 07:00 04/06/17 11:35 Novolog Vial Sliding Scale - SQ Not Given ACHS [facility] Protocol Lisinopril 5 mg 04/04/17 10:00 04/06/17 09:34 Prinivil PO 5 mg DAILY [facility] Administration Methylprednisolone Sodium Succinate 40 mg 04/05/17 18:00 04/06/17 09:34 Solu-Medrol - IVPB 40 mg Q8H-IV [facility] Administration Metronidazole 1 applic 04/04/17 10:00 04/06/17 09:34 Metrogel 0.75% Gel - TP 1 appful BID [facility] Administration Pantoprazole Sodium 40 mg 04/04/17 10:00 04/06/17 09:34 Protonix - PO 40 mg DAILY [facility] Administration Sitagliptin Phosphate 100 mg 04/04/17 07:00 04/06/17 06:46 Januvia - PO 100 mg DAILY@0700 [facility] Administration Assessment/Plan: COPD exacerbation Secondary erythrocytosis JEANNE CHF RP-Lymphadenopathy. -no further phlebotomy -continues to improve, on IV steroids and nebs, on Oxygen , nightly BiPAP. -he would need Out pt, nightly CPAP. -LAD- OP f/u, will need PET-CT, d/w IR yesterday, short axis<1cm. I discussed this with the pt in detail. Office info given to follow-up . -for lab work . -will follow Problem List - Problems (1) Acute on chronic respiratory failure with hypoxia and hypercapnia Code(s): J96.21 - ACUTE AND CHRONIC RESPIRATORY FAILURE WITH HYPOXIA J96.22 - ACUTE AND CHRONIC RESPIRATORY FAILURE WITH HYPERCAPNIA (2) Erythrocytosis Code(s): D75.1 - SECONDARY POLYCYTHEMIA (3) Sleep apnea Code(s): G47.30 - SLEEP APNEA, UNSPECIFIED (4) Chronic respiratory failure with hypoxia and hypercapnia Code(s): J96.11 - CHRONIC RESPIRATORY FAILURE WITH HYPOXIA J96.12 - CHRONIC RESPIRATORY FAILURE WITH HYPERCAPNIA (5) Acute on chronic diastolic CHF (congestive heart failure) Code(s): I50.33 - ACUTE ON CHRONIC DIASTOLIC (CONGESTIVE) HEART FAILURE
[2017-04-06] MEDS: SODIUM CHLORIDE 1,000 ML IV SCH (18:21)
--- NOTE | 2017-04-06 21:38 | PN ---
Progress Note (short form) - Note Progress Note: sitting up in bed / O2 in place reports improvement in breathing overnight Vital Signs Period Temp Pulse Resp BP Sys/Liang Pulse Ox Last 24 Hr 0 F-100 F 76-96 20-22 115-134/63-88 80-98 Face - rosecea --IMPROVED neck -JVD heart S1/S2 Lungs decresed BS but improved air movement from time of admission abd soft non tender Ext no edema s/p phlebotomy CBC, BMP 04/06/17 05:35 04/06/17 05:35 Active Medications Albuterol Sulfate (Ventolin 0.083% Nebulizer Soln -) 1 amp NEB Q4H PRN PRN Reason: SHORT OF BREATH/WHEEZING Albuterol/Ipratropium (Duoneb -) 1 amp NEB QIDR [facility] Last Admin: 04/06/17 17:10 Dose: 1 amp Atorvastatin Calcium (Lipitor -) 40 mg PO HS [facility] Last Admin: 04/05/17 21:44 Dose: 40 mg Budesonide/Formoterol Fumarate (Symbicort 160/4.5mcg -) 1 puff IH BID [facility] Last Admin: 04/06/17 09:35 Dose: 1 puff Cefuroxime Axetil (Ceftin -) 500 mg PO BID [facility] Last Admin: 04/06/17 09:34 Dose: 500 mg Docusate Sodium (Colace -) 100 mg PO BID [facility] Last Admin: 04/06/17 09:34 Dose: Not Given Enoxaparin Sodium (Lovenox -) 40 mg SQ DAILY [facility] Last Admin: 04/06/17 09:34 Dose: 40 mg Guaifenesin (Mucinex -) 600 mg PO BID [facility] Last Admin: 04/06/17 09:34 Dose: 600 mg Sodium Chloride (Normal Saline -) 1,000 mls @ 83 mls/hr IV ASDIR [facility] Last Admin: 04/06/17 18:21 Dose: Not Given Insulin Aspart (Novolog Vial Sliding Scale -) 1 vial SQ ACHS [facility] PRN Reason: Protocol Last Admin: 04/06/17 16:50 Dose: Not Given Lisinopril (Prinivil) 5 mg PO DAILY [facility] Last Admin: 04/06/17 09:34 Dose: 5 mg Methylprednisolone Sodium Succinate (Solu-Medrol -) 40 mg IVPB Q8H-IV [facility] Last Admin: 04/06/17 18:21 Dose: 40 mg Metronidazole (Metrogel 0.75% Gel -) 1 applic TP BID [facility] Last Admin: 04/06/17 09:34 Dose: 1 appful Pantoprazole Sodium (Protonix -) 40 mg PO DAILY [facility] Last Admin: 04/06/17 09:34 Dose: 40 mg Sitagliptin Phosphate (Januvia -) 100 mg PO DAILY@0700 [facility] Last Admin: 04/06/17 06:46 Dose: 100 mg ASSMT / plan COPD inhaled & IV steroids / PPi / nebulizer appreciate pulmonary consult and follow up DVT prophylaxis JEANNE BiPAPat night weight loss educate patient on risk and need for compliance DM Diet education resume Januvia follow FS and cover with insulin may require insulin as out patient lymphadenopathy appreciate Heme- onc will arrange for out patient follow up Problem List - Problems (1) Acute on chronic respiratory failure with hypoxia and hypercapnia Code(s): J96.21 - ACUTE AND CHRONIC RESPIRATORY FAILURE WITH HYPOXIA J96.22 - ACUTE AND CHRONIC RESPIRATORY FAILURE WITH HYPERCAPNIA (2) Chronic respiratory failure with hypoxia and hypercapnia Code(s): J96.11 - CHRONIC RESPIRATORY FAILURE WITH HYPOXIA J96.12 - CHRONIC RESPIRATORY FAILURE WITH HYPERCAPNIA (3) COPD (chronic obstructive pulmonary disease) Code(s): J44.9 - CHRONIC OBSTRUCTIVE PULMONARY DISEASE, UNSPECIFIED Qualifiers : COPD type: unspecified COPD Qualified Code(s): J44.9 - Chronic obstructive pulmonary disease, unspecified (4) COPD exacerbation Code(s): J44.1 - CHRONIC OBSTRUCTIVE PULMONARY DISEASE W (ACUTE) EXACERBATION (5) Cigarette nicotine dependence Code(s): F17.200 - NICOTINE DEPENDENCE, UNSPECIFIED, UNCOMPLICATED Qualifiers : Substance use status: in remission Qualified Code(s): F17.211 - Nicotine dependence, cigarettes, in remission (6) Diabetes Code(s): E11.9 - TYPE 2 DIABETES MELLITUS WITHOUT COMPLICATIONS Qualifiers: Diabetes mellitus type: type 2 Diabetes mellitus complication status: with unspecified complications (7) Erythrocytosis Code(s): D75.1 - SECONDARY POLYCYTHEMIA (8) Leg edema Code(s): R60.0 - LOCALIZED EDEMA (9) Morbid obesity Code(s): E66.01 - MORBID (SEVERE) OBESITY DUE TO EXCESS CALORIES (10) Sleep apnea Code(s): G47.30 - SLEEP APNEA, UNSPECIFIED
[2017-04-06] MEDS: ATORVASTATIN CA 40 MG TABLET (FP) PO SCH (22:53)
--- NOTE | 2017-04-06 23:05 | PN ---
Progress Note, Physician Chief Complaint: Pt A&Ox3; asymptomatic. History of Present Illness: This is a 41 yo white man with h/o diastolic CHF, COPD, obstructive sleep apnea , and DM who was sent in by his PCP's office for shortness of breath with pulse oxygenation in the 40s in the clinic. The patient states that he has been having chest congestion, slightly increased cough with yellow phlegm, increased abdominal distention, bilateral painless leg swelling, and [id number]-nkytte color of his face/cheeks. He denies any chest pain, palpitations, abdominal pain , or other symptoms. He lost his job and medical insurance a year ago and has thus not been able to take his medications, including inhalers. - Current Medication List Current Medications: Active Medications Albuterol Sulfate (Ventolin 0.083% Nebulizer Soln -) 1 amp NEB Q4H PRN PRN Reason: SHORT OF BREATH/WHEEZING Albuterol/Ipratropium (Duoneb -) 1 amp NEB QIDR [facility] Last Admin: 04/06/17 17:10 Dose: 1 amp Atorvastatin Calcium (Lipitor -) 40 mg PO HS [facility] Last Admin: 04/06/17 22:53 Dose: 40 mg Budesonide/Formoterol Fumarate (Symbicort 160/4.5mcg -) 1 puff IH BID [facility] Last Admin: 04/06/17 22:53 Dose: 1 puff Cefuroxime Axetil (Ceftin -) 500 mg PO BID [facility] Last Admin: 04/06/17 22:53 Dose: 500 mg Docusate Sodium (Colace -) 100 mg PO BID [facility] Last Admin: 04/06/17 22:53 Dose: 100 mg Enoxaparin Sodium (Lovenox -) 40 mg SQ DAILY [facility] Last Admin: 04/06/17 09:34 Dose: 40 mg Guaifenesin (Mucinex -) 600 mg PO BID [facility] Last Admin: 04/06/17 22:53 Dose: 600 mg Sodium Chloride (Normal Saline -) 1,000 mls @ 83 mls/hr IV ASDIR [facility] Last Admin: 04/06/17 18:21 Dose: Not Given Insulin Aspart (Novolog Vial Sliding Scale -) 1 vial SQ ACHS [facility] PRN Reason: Protocol Last Admin: 04/06/17 16:50 Dose: Not Given Lisinopril (Prinivil) 5 mg PO DAILY [facility] Last Admin: 04/06/17 09:34 Dose: 5 mg Methylprednisolone Sodium Succinate (Solu-Medrol -) 40 mg IVPB Q8H-IV [facility] Last Admin: 04/06/17 18:21 Dose: 40 mg Metronidazole (Metrogel 0.75% Gel -) 1 applic TP BID [facility] Last Admin: 04/06/17 22:53 Dose: 1 appful Pantoprazole Sodium (Protonix -) 40 mg PO DAILY [facility] Last Admin: 04/06/17 09:34 Dose: 40 mg Sitagliptin Phosphate (Januvia -) 100 mg PO DAILY@0700 [facility] Last Admin: 04/06/17 06:46 Dose: 100 mg - Objective Vital Signs: Vital Signs Temperature 98.1 F 04/06/17 17:00 Pulse Rate 79 04/06/17 17:00 Respiratory Rate 20 04/06/17 17:00 Blood Pressure 117/58 04/06/17 17:00 O2 Sat by Pulse Oximetry (%) 90 L 04/06/17 14:10 Constitutional: Yes: Calm Eyes: Yes: WNL HENT: Yes: WNL Neck: Yes: WNL Cardiovascular: Yes: Regular Rate and Rhythm, S1, S2 (split) Respiratory: Yes: Regular Gastrointestinal: Yes: Soft ...Rectal Exam: Yes: Deferred Genitourinary: No: Anuria Breast(s): Yes: WNL Musculoskeletal: Yes: WNL Extremities: Yes: WNL Edema: No Peripheral Pulses WNL: Yes Integumentary: Yes: Rash (facial rubor) Neurological: Yes: WNL Psychiatric: Yes: WNL Labs: CBC, BMP 04/06/17 05:35 04/06/17 05:35 INR, PTT INR 1.08 (0.82-1.09) 04/03/17 10:20 Abnormal Lab Results 04/06/17 04/06/17 05:35 05:35 RBC 6.00 H Hct 53.1 H MCHC 31.7 L RDW 17.3 H Plt Count 125 L MPV 7.4 L Neutrophils % 84.5 H Chloride 90 L Carbon Dioxide 40 H D Creatinine 0.5 L D Random Glucose 134 H - ....Imaging Cat Scan: Image Reviewed (abdominal/pelvic CT:) Problem List - Problems (1) Acute on chronic respiratory failure with hypoxia and hypercapnia Assessment/Plan: quit smoking 8 months ago. Mild Interstitial lung disease on CT scan. Abdominal CT: ?lymphoma/lymphoproliferative disorder; ?metastatic lymph nodes; r/o adrenalitis-->adrenal insufficiency. Denies hx asthma until he was 29 yrs old; unclear what past pulmnonary workup hsa been done (f/u with pulmonlogist--Dr. Sequeira). ECHO: normal LVEF; dilated LV; decresaed RVEF (unable to assess RVSP for pulmonary HTN). BNP 139. TSH (miidly elevated in 2015): now WNL. Code(s): J96.21 - ACUTE AND CHRONIC RESPIRATORY FAILURE WITH HYPOXIA J96.22 - ACUTE AND CHRONIC RESPIRATORY FAILURE WITH HYPERCAPNIA (2) Acute on chronic diastolic CHF (congestive heart failure) Assessment/Plan: On lisinopril. right-sided heart failure.?secondary to lung disease, HTN; worrisome that RVEF is reduced at young age. F/u workup for lymphoma, adrenal disease. F/u pulmonary; consider heart failure clinic. Code(s): I50.33 - ACUTE ON CHRONIC DIASTOLIC (CONGESTIVE) HEART FAILURE (3) COPD exacerbation Code(s): J44.1 - CHRONIC OBSTRUCTIVE PULMONARY DISEASE W (ACUTE) EXACERBATION (4) Diabetes Assessment/Plan: on Januvia. On lisinpril. Code(s): E11.9 - TYPE 2 DIABETES MELLITUS WITHOUT COMPLICATIONS Qualifiers: Diabetes mellitus type: type 2 Diabetes mellitus complication status: with unspecified complications (5) Erythrocytosis Code(s): D75.1 - SECONDARY POLYCYTHEMIA (6) [place] cardiac risk >20% in next 10 years Assessment/Plan: stress MIBI 06/29: no ischemia, fairly good exercise capacity; walked 7 minutes using Thee protocol; suboptimal HR reached (67%)--?was pt on beta blockers at the time. Recommend repeat stress treadmill test off beta blockers in the future; may be done as outpatient. Keep LDL cholesterol < 70 mg/dL (now on atorvastatin). Pt quit smoking 8 months ago. HFpEF (normal LVEF; dilated LV), with reduced RVEF. Code(s): Z91.89 - OTH PERSONAL RISK FACTORS, NOT ELSEWHERE CLASSIFIED (7) Sleep apnea Code(s): G47.30 - SLEEP APNEA, UNSPECIFIED (8) Bilateral arm weakness Assessment/Plan: c/o bilateral arm weakness and hand tremors for past 3 weeks; it is affecting his work. His chronic neck pain. Code(s): R29.898 - [facility] SYMPTOMS AND SIGNS INVOLVING THE MUSCULOSKELETAL SYSTEM
[2017-04-07] MEDS: ALBUTEROL SO4 2.5/IPRATROPIUM 0.5 INH SOL 3 ML VIAL.NEB. NEB SCH ×4 (00:40→17:43)
[2017-04-07] MEDS: methylPREDNISolone NA SUCC 40 MG/1 ML VIAL IVPB SCH ×3 (03:30→21:42)
[2017-04-07] MEDS: INSULIN SLIDING SCALE (NOVOLOG) 1 VIAL SQ SCH ×4 (06:12→21:42)
--- NOTE | 2017-04-07 06:34 | PN ---
Progress Note, Physician History of Present Illness: seen and examined today in nad. states he is feeling better. no overnight events. no new complaints. - Current Medication List Current Medications: Active Medications Albuterol Sulfate (Ventolin 0.083% Nebulizer Soln -) 1 amp NEB Q4H PRN PRN Reason: SHORT OF BREATH/WHEEZING Albuterol/Ipratropium (Duoneb -) 1 amp NEB QIDR [facility] Last Admin: 04/06/17 23:30 Dose: 1 amp Atorvastatin Calcium (Lipitor -) 40 mg PO HS [facility] Last Admin: 04/06/17 22:53 Dose: 40 mg Budesonide/Formoterol Fumarate (Symbicort 160/4.5mcg -) 1 puff IH BID [facility] Last Admin: 04/06/17 22:53 Dose: 1 puff Cefuroxime Axetil (Ceftin -) 500 mg PO BID [facility] Last Admin: 04/06/17 22:53 Dose: 500 mg Docusate Sodium (Colace -) 100 mg PO BID [facility] Last Admin: 04/06/17 22:53 Dose: 100 mg Enoxaparin Sodium (Lovenox -) 40 mg SQ DAILY [facility] Last Admin: 04/06/17 09:34 Dose: 40 mg Guaifenesin (Mucinex -) 600 mg PO BID [facility] Last Admin: 04/06/17 22:53 Dose: 600 mg Sodium Chloride (Normal Saline -) 1,000 mls @ 83 mls/hr IV ASDIR [facility] Last Admin: 04/06/17 18:21 Dose: Not Given Insulin Aspart (Novolog Vial Sliding Scale -) 1 vial SQ ACHS [facility] PRN Reason: Protocol Last Admin: 04/07/17 06:12 Dose: Not Given Lisinopril (Prinivil) 5 mg PO DAILY [facility] Last Admin: 04/06/17 09:34 Dose: 5 mg Methylprednisolone Sodium Succinate (Solu-Medrol -) 40 mg IVPB Q8H-IV [facility] Last Admin: 04/07/17 03:30 Dose: 40 mg Metronidazole (Metrogel 0.75% Gel -) 1 applic TP BID [facility] Last Admin: 04/06/17 22:53 Dose: 1 appful Pantoprazole Sodium (Protonix -) 40 mg PO DAILY [facility] Last Admin: 04/06/17 09:34 Dose: 40 mg Sitagliptin Phosphate (Januvia -) 100 mg PO DAILY@0700 [facility] Last Admin: 04/06/17 06:46 Dose: 100 mg - Objective Vital Signs: Vital Signs Temperature 98.3 F 04/07/17 05:00 Pulse Rate 69 04/07/17 05:00 Respiratory Rate 19 04/07/17 05:00 Blood Pressure 141/64 04/07/17 05:00 O2 Sat by Pulse Oximetry (%) 93 L 04/06/17 21:00 Constitutional: Yes: Well Nourished, No Distress, Calm Eyes: Yes: WNL, Conjunctiva Clear, EOM Intact, PERRL HENT: Yes: WNL, Atraumatic, Normocephalic Neck: Yes: WNL, Supple, Trachea Midline Cardiovascular: Yes: Regular Rate and Rhythm, S1, S2. No: Bradycardia, Tachycardia, Pulse Irregular, Bruit, JVD, Gallop, Murmur, Rub, S4, Varicosities Respiratory: Yes: Regular, Rhonchi. No: Rales, SOB, Wheezes Gastrointestinal: Yes: Normal Bowel Sounds, Soft. No: Distention, Tenderness Musculoskeletal: Yes: WNL Edema: No Peripheral Pulses WNL: Yes Peripheral Pulses: Left Doralis Pedis: 2+, Right Dorsalis Pedis: 2+ Integumentary: Yes: WNL Neurological: Yes: Alert, Oriented Psychiatric: Yes: Alert, Oriented Labs: CBC, BMP 04/06/17 05:35 04/06/17 05:35 INR, PTT INR 1.08 (0.82-1.09) 04/03/17 10:20 - ....Imaging Chest X-ray: Report Reviewed, Image Reviewed EKG: Report Reviewed, Image Reviewed Other: Report Reviewed, Image Reviewed (tele-nsr, no arrhythmias recorded) Assessment/Plan 41 year old man h/o chronic diastolic chf, copd, perez, dmii a/w sob and hypoxia. SOB-likely AE COPD, acute on chronic diastolic/right sided chf, reduce RV function -euvolemic currently -does not require diuresis at this time -pulmonary following -plan as per Dr. Allison is for repeat stress test as outpatient -ok to dc tele, no events recorded
[2017-04-07] MEDS: sitaGLIPtin PHOSPHATE 100 MG TABLET (FP) PO SCH (06:41)
[2017-04-07 08:15] LABS: MCH 28.2 pg (25.7-33.7); MEAN CELL VOLUME 88.3 fl (80-96); MEAN PLT VOLUME 7.7 fl (7.5-11.1); PLATELET COUNT 128 K/MM3 (134-434); RDW 17.4 % (11.9-15.9); WHITE BLOOD COUNT 6.8 K/mm3 (4.0-10.0)
[2017-04-07 08:48] LABS: ALBUMIN 3.3 g/dl (3.4-5.0); ANION GAP 8 (8-16); BILIRUBIN,TOTAL 1.3 mg/dL (0.2-1.0); CALCIUM 8.9 mg/dL (8.5-10.1); CO2 39 mmol/L (21-32); CREATININE 0.5 mg/dL (0.7-1.3); GLUCOSE,RANDOM 87 mg/dL (74-106); LDH 157 U/L (87-241); SGOT/AST 13 U/L (15-37); SGPT/ALT 20 U/L (12-78); TOT PROT 6.2 g/dl (6.4-8.2); URIC ACID 6.4 mg/dL (2.6-7.2)
[2017-04-07 09:12] LABS: ALK PHOS 37 U/L (45-117)
[2017-04-07 09:26] LABS: HIV 1 & 2 AB NEGATIVE; HIV 1 AGp24 NEGATIVE
[2017-04-07] MEDS: ENOXAPARIN NA (PORCINE) 40 MG/0.4 ML DISP.SYRIN SQ SCH (09:31)
[2017-04-07] MEDS: DOCUSATE SODIUM 100 MG CAPSULE (FP) PO SCH ×2 (09:31→21:42)
[2017-04-07] MEDS: PANTOPRAZOLE 40 MG TABLET (FP) PO SCH (09:31)
[2017-04-07] MEDS: guaiFENesin 600 MG TABLET.ER (FP) PO SCH ×2 (09:31→21:42)
[2017-04-07] MEDS: LISINOPRIL 5 MG TABLET (FP) PO SCH (09:31)
[2017-04-07] MEDS: CEFUROXIME AXETIL 500 MG TABLET PO SCH ×2 (09:32→21:42)
[2017-04-07] MEDS: BUDESONIDE/FORMETEROL FUMARATE 160/4.5 mcg INHALER IH SCH ×2 (09:33→21:43)
[2017-04-07] MEDS: metroNIDAZOLE 0.75% TOPICAL GEL 45 GM TUBE TP SCH ×2 (09:34→21:42)
--- NOTE | 2017-04-07 12:40 | PN ---
Progress Note (short form) - Note Progress Note: PULMONARY Breathing improving. +mild cough and wheezing. Last Vital Signs Temp Pulse Resp BP Pulse Ox 98.6 F 69 20 123/73 96 04/07/17 10:00 04/07/17 10:36 04/07/17 10:00 04/07/17 10:00 04/07/17 10:36 Gen: mildly tachypneic with exertion Heart: RRR Lung: distant breath sounds Abd: soft, nontender Ext: no edema CBC, BMP 04/07/17 06:00 04/07/17 06:00 Active Medications Albuterol Sulfate (Ventolin 0.083% Nebulizer Soln -) 1 amp NEB Q4H PRN PRN Reason: SHORT OF BREATH/WHEEZING Albuterol/Ipratropium (Duoneb -) 1 amp NEB QIDR [facility] Last Admin: 04/07/17 12:39 Dose: 1 amp Atorvastatin Calcium (Lipitor -) 40 mg PO HS [facility] Last Admin: 04/06/17 22:53 Dose: 40 mg Budesonide/Formoterol Fumarate (Symbicort 160/4.5mcg -) 1 puff IH BID [facility] Last Admin: 04/07/17 09:33 Dose: 1 puff Cefuroxime Axetil (Ceftin -) 500 mg PO BID [facility] Last Admin: 04/07/17 09:32 Dose: 500 mg Docusate Sodium (Colace -) 100 mg PO BID [facility] Last Admin: 04/07/17 09:31 Dose: 100 mg Enoxaparin Sodium (Lovenox -) 40 mg SQ DAILY [facility] Last Admin: 04/07/17 09:31 Dose: 40 mg Guaifenesin (Mucinex -) 600 mg PO BID [facility] Last Admin: 04/07/17 09:31 Dose: 600 mg Sodium Chloride (Normal Saline -) 1,000 mls @ 83 mls/hr IV ASDIR [facility] Last Admin: 04/06/17 18:21 Dose: Not Given Insulin Aspart (Novolog Vial Sliding Scale -) 1 vial SQ ACHS [facility] PRN Reason: Protocol Last Admin: 04/07/17 06:12 Dose: Not Given Lisinopril (Prinivil) 5 mg PO DAILY [facility] Last Admin: 04/07/17 09:31 Dose: 5 mg Methylprednisolone Sodium Succinate (Solu-Medrol -) 40 mg IVPB Q8H-IV [facility] Last Admin: 04/07/17 09:32 Dose: 40 mg Metronidazole (Metrogel 0.75% Gel -) 1 applic TP BID [facility] Last Admin: 04/07/17 09:34 Dose: 1 appful Pantoprazole Sodium (Protonix -) 40 mg PO DAILY [facility] Last Admin: 04/07/17 09:31 Dose: 40 mg Sitagliptin Phosphate (Januvia -) 100 mg PO DAILY@0700 [facility] Last Admin: 04/07/17 06:41 Dose: 100 mg A/P Acute COPD Exacerbation Chronic Hypoxic and Hypercapneic Respiratory Failure DM JEANNE - can decrease medrol to q12h - inhaled bronchodilators - O2 to keep SpO2>90% - BiPAP at night - DVT prophylaxis
--- NOTE | 2017-04-07 12:55 | PN ---
Progress Note (short form) - Note Progress Note: Patient seen and examined this. No overnight events. continues to improve. O/E Constitutional: Yes: no distress Eyes: Yes: Conjunctiva Clear HENT: Yes: Atraumatic, Normocephalic Neck: Yes: Supple, Trachea Midline Cardiovascular: Yes: Tachycardia Respiratory: better exam than yesterday Gastrointestinal: Yes: Normal Bowel Sounds, Soft Musculoskeletal: Yes: WNL Edema: edema improved Neurological: Yes: Alert, Oriented Last Vital Signs Temp Pulse Resp BP Pulse Ox 98.6 F 69 20 123/73 96 04/07/17 10:00 04/07/17 10:36 04/07/17 10:00 04/07/17 10:00 04/07/17 10:36 CBC, BMP 04/07/17 06:00 04/07/17 06:00 Current Medications Generic Name Dose Route Start Last Admin Trade Name Freq PRN Reason Stop Dose Admin Albuterol Sulfate 1 amp 04/03/17 16:14 Ventolin 0.083% Nebulizer Soln - NEB Q4H PRN SHORT OF BREATH/WHEEZING Albuterol/Ipratropium 1 amp 04/03/17 18:00 04/07/17 12:39 Duoneb - NEB 1 amp QIDR [facility] Administration Atorvastatin Calcium 40 mg 04/04/17 22:00 04/06/17 22:53 Lipitor - PO 40 mg HS [facility] Administration Budesonide/Formoterol Fumarate 1 puff 04/04/17 10:00 04/07/17 09:33 Symbicort 160/4.5mcg - IH 1 puff BID [facility] Administration Cefuroxime Axetil 500 mg 04/04/17 10:00 04/07/17 09:32 Ceftin - PO 500 mg BID [facility] Administration Docusate Sodium 100 mg 04/04/17 10:00 04/07/17 09:31 Colace - PO 100 mg BID [facility] Administration Enoxaparin Sodium 40 mg 04/04/17 10:00 04/07/17 09:31 Lovenox - SQ 40 mg DAILY [facility] Administration Guaifenesin 600 mg 04/04/17 10:00 04/07/17 09:31 Mucinex - PO 600 mg BID [facility] Administration Sodium Chloride 1,000 mls @ 83 mls/hr 04/03/17 18:00 04/06/17 18:21 Normal Saline - IV Not Given ASDIR [facility] Insulin Aspart 1 vial 04/04/17 07:00 04/07/17 06:12 Novolog Vial Sliding Scale - SQ Not Given ACHS [facility] Protocol Lisinopril 5 mg 04/04/17 10:00 04/07/17 09:31 Prinivil PO 5 mg DAILY [facility] Administration Methylprednisolone Sodium Succinate 40 mg 04/07/17 22:00 Solu-Medrol - IVPB BID [facility] Metronidazole 1 applic 04/04/17 10:00 04/07/17 09:34 Metrogel 0.75% Gel - TP 1 appful BID [facility] Administration Pantoprazole Sodium 40 mg 04/04/17 10:00 04/07/17 09:31 Protonix - PO 40 mg DAILY [facility] Administration Sitagliptin Phosphate 100 mg 04/04/17 07:00 04/07/17 06:41 Januvia - PO 100 mg DAILY@0700 [facility] Administration Assessment/Plan: COPD exacerbation Secondary erythrocytosis JEANNE CHF RP-Lymphadenopathy. -no further phlebotomy, slight increase in crit, will continue to monitor -LAD- OP f/u, will need PET-CT, d/w IR yesterday, short axis<1cm. I discussed this with the pt in detail. Office info given to follow-up . Re-iterated again today -thrombocytopenia: splenomegaly, likely congestive in etiology -continues to improve, on IV steroids taper, and nebs, on Oxygen , nightly BiPAP. - nightly CPAPm home o2 ( pt mentions that he is on home o2) per primary/pulm -will follow Problem List - Problems (1) Acute on chronic respiratory failure with hypoxia and hypercapnia Code(s): J96.21 - ACUTE AND CHRONIC RESPIRATORY FAILURE WITH HYPOXIA J96.22 - ACUTE AND CHRONIC RESPIRATORY FAILURE WITH HYPERCAPNIA (2) Erythrocytosis Code(s): D75.1 - SECONDARY POLYCYTHEMIA (3) Sleep apnea Code(s): G47.30 - SLEEP APNEA, UNSPECIFIED (4) Chronic respiratory failure with hypoxia and hypercapnia Code(s): J96.11 - CHRONIC RESPIRATORY FAILURE WITH HYPOXIA J96.12 - CHRONIC RESPIRATORY FAILURE WITH HYPERCAPNIA (5) Acute on chronic diastolic CHF (congestive heart failure) Code(s): I50.33 - ACUTE ON CHRONIC DIASTOLIC (CONGESTIVE) HEART FAILURE
[2017-04-07] MEDS: SODIUM CHLORIDE 1,000 ML IV SCH (21:40)
[2017-04-07] MEDS: ATORVASTATIN CA 40 MG TABLET (FP) PO SCH (21:42)
[2017-04-08 06:37] LABS: HEP B SURFACE AB Non Reactive (.)
[2017-04-08] MEDS: INSULIN SLIDING SCALE (NOVOLOG) 1 VIAL SQ SCH ×4 (06:38→21:49)
[2017-04-08] MEDS: sitaGLIPtin PHOSPHATE 100 MG TABLET (FP) PO SCH (06:39)
[2017-04-08] MEDS: ALBUTEROL SO4 2.5/IPRATROPIUM 0.5 INH SOL 3 ML VIAL.NEB. NEB SCH ×4 (06:56→23:22)
--- NOTE | 2017-04-08 06:58 | PN ---
Progress Note, Physician History of Present Illness: seen and examined today in nad. states he is feeling better today. no overnight events. no new complaints. - Current Medication List Current Medications: Active Medications Albuterol Sulfate (Ventolin 0.083% Nebulizer Soln -) 1 amp NEB Q4H PRN PRN Reason: SHORT OF BREATH/WHEEZING Albuterol/Ipratropium (Duoneb -) 1 amp NEB QIDR [facility] Last Admin: 04/07/17 17:43 Dose: 1 amp Atorvastatin Calcium (Lipitor -) 40 mg PO HS [facility] Last Admin: 04/07/17 21:42 Dose: 40 mg Budesonide/Formoterol Fumarate (Symbicort 160/4.5mcg -) 1 puff IH BID [facility] Last Admin: 04/07/17 21:43 Dose: 1 puff Cefuroxime Axetil (Ceftin -) 500 mg PO BID [facility] Last Admin: 04/07/17 21:42 Dose: 500 mg Docusate Sodium (Colace -) 100 mg PO BID [facility] Last Admin: 04/07/17 21:42 Dose: 100 mg Enoxaparin Sodium (Lovenox -) 40 mg SQ DAILY [facility] Last Admin: 04/07/17 09:31 Dose: 40 mg Guaifenesin (Mucinex -) 600 mg PO BID [facility] Last Admin: 04/07/17 21:42 Dose: 600 mg Sodium Chloride (Normal Saline -) 1,000 mls @ 83 mls/hr IV ASDIR [facility] Last Admin: 04/07/17 21:40 Dose: Not Given Insulin Aspart (Novolog Vial Sliding Scale -) 1 vial SQ ACHS [facility] PRN Reason: Protocol Last Admin: 04/08/17 06:38 Dose: Not Given Lisinopril (Prinivil) 5 mg PO DAILY [facility] Last Admin: 04/07/17 09:31 Dose: 5 mg Methylprednisolone Sodium Succinate (Solu-Medrol -) 40 mg IVPB BID [facility] Last Admin: 04/07/17 21:42 Dose: 40 mg Metronidazole (Metrogel 0.75% Gel -) 1 applic TP BID [facility] Last Admin: 04/07/17 21:42 Dose: 1 appful Pantoprazole Sodium (Protonix -) 40 mg PO DAILY [facility] Last Admin: 04/07/17 09:31 Dose: 40 mg Sitagliptin Phosphate (Januvia -) 100 mg PO DAILY@0700 [facility] Last Admin: 04/08/17 06:39 Dose: 100 mg - Objective Vital Signs: Vital Signs Temperature 98.3 F 04/08/17 06:00 Pulse Rate 63 04/08/17 06:00 Respiratory Rate 19 04/08/17 06:00 Blood Pressure 138/66 04/08/17 06:00 O2 Sat by Pulse Oximetry (%) 97 04/07/17 22:40 Constitutional: Yes: Well Nourished, No Distress, Calm Eyes: Yes: WNL, Conjunctiva Clear, EOM Intact, PERRL HENT: Yes: WNL, Atraumatic, Normocephalic Neck: Yes: WNL, Supple, Trachea Midline Cardiovascular: Yes: Regular Rate and Rhythm, S1, S2. No: Bradycardia, Tachycardia, Pulse Irregular, Bruit, JVD, Gallop, Murmur, Rub, S3, S4, Varicosities Respiratory: Yes: Regular, CTA Bilaterally. No: Rales, Rhonchi, Wheezes Gastrointestinal: Yes: Normal Bowel Sounds, Soft. No: Distention, Tenderness Musculoskeletal: Yes: WNL Edema: No Peripheral Pulses WNL: Yes Peripheral Pulses: Left Doralis Pedis: 2+, Right Dorsalis Pedis: 2+ Integumentary: Yes: WNL Neurological: Yes: Alert, Oriented Psychiatric: Yes: Alert, Oriented Labs: CBC, BMP 04/07/17 06:00 04/07/17 06:00 INR, PTT INR 1.08 (0.82-1.09) 04/03/17 10:20 - ....Imaging Chest X-ray: Report Reviewed, Image Reviewed EKG: Report Reviewed, Image Reviewed Other: Report Reviewed, Image Reviewed (tele-nsr, no events recorded) Assessment/Plan 41 year old man h/o chronic diastolic chf, copd, perez, dmii a/w sob and hypoxia. SOB-likely AE COPD, possible contribution of acute on chronic diastolic/right sided chf, reduce RV function -sob improving -remains euvolemic -steroids were decreased yesterday -does not require diuresis at this time -cont Lipitor and Lisinopril -plan as per Dr. Allison is for repeat stress test and further work up as outpatient -ok to dc tele as no events recorded
[2017-04-08 07:26] LABS: BASOPHIL 0.1 % (0-2.0); EOSINOPHIL 0.2 % (0-4.5); MCH 28.2 pg (25.7-33.7); MCHC 32.2 g/dl (32.0-35.9); MEAN CELL VOLUME 87.6 fl (80-96); MEAN PLT VOLUME 7.7 fl (7.5-11.1); NEUTROPHILS 75.2 % (42.8-82.8); PLATELET COUNT 130 K/MM3 (134-434); WHITE BLOOD COUNT 7.6 K/mm3 (4.0-10.0)
[2017-04-08] MEDS ORDERED: PT OWN MED DRAWER 7, Y5N ONE (10:39)
[2017-04-08] MEDS: guaiFENesin 600 MG TABLET.ER (FP) PO SCH ×2 (10:41→21:48)
[2017-04-08] MEDS: LISINOPRIL 5 MG TABLET (FP) PO SCH (10:41)
[2017-04-08] MEDS: ENOXAPARIN NA (PORCINE) 40 MG/0.4 ML DISP.SYRIN SQ SCH (10:41)
[2017-04-08] MEDS: PANTOPRAZOLE 40 MG TABLET (FP) PO SCH (10:41)
[2017-04-08] MEDS: DOCUSATE SODIUM 100 MG CAPSULE (FP) PO SCH ×2 (10:42→21:48)
[2017-04-08] MEDS: methylPREDNISolone NA SUCC 40 MG/1 ML VIAL IVPB SCH ×2 (10:42→21:49)
[2017-04-08] MEDS: CEFUROXIME AXETIL 500 MG TABLET PO SCH ×2 (10:42→21:47)
[2017-04-08] MEDS: BUDESONIDE/FORMETEROL FUMARATE 160/4.5 mcg INHALER IH SCH ×2 (10:43→21:48)
[2017-04-08] MEDS: metroNIDAZOLE 0.75% TOPICAL GEL 45 GM TUBE TP SCH ×2 (10:46→21:48)
--- NOTE | 2017-04-08 12:29 | PN ---
Progress Note (short form) - Note Progress Note: PULMONARY Breathing improving. +mild cough and wheezing. Feels close to baseline. Last Vital Signs Temp Pulse Resp BP Pulse Ox 98.6 F 66 20 139/78 95 04/08/17 09:00 04/08/17 09:00 04/08/17 09:00 04/08/17 09:00 04/08/17 10:13 Gen: mildly tachypneic with exertion Heart: RRR Lung: distant breath sounds Abd: soft, nontender Ext: no edema CBC, BMP 04/08/17 06:00 04/07/17 06:00 Active Medications Albuterol Sulfate (Ventolin 0.083% Nebulizer Soln -) 1 amp NEB Q4H PRN PRN Reason: SHORT OF BREATH/WHEEZING Albuterol/Ipratropium (Duoneb -) 1 amp NEB QIDR [facility] Last Admin: 04/08/17 11:08 Dose: 1 amp Atorvastatin Calcium (Lipitor -) 40 mg PO HS [facility] Last Admin: 04/07/17 21:42 Dose: 40 mg Budesonide/Formoterol Fumarate (Symbicort 160/4.5mcg -) 1 puff IH BID [facility] Last Admin: 04/08/17 10:43 Dose: 1 puff Cefuroxime Axetil (Ceftin -) 500 mg PO BID [facility] Last Admin: 04/08/17 10:42 Dose: 500 mg Docusate Sodium (Colace -) 100 mg PO BID [facility] Last Admin: 04/08/17 10:42 Dose: 100 mg Enoxaparin Sodium (Lovenox -) 40 mg SQ DAILY [facility] Last Admin: 04/08/17 10:41 Dose: 40 mg Guaifenesin (Mucinex -) 600 mg PO BID [facility] Last Admin: 04/08/17 10:41 Dose: 600 mg Sodium Chloride (Normal Saline -) 1,000 mls @ 83 mls/hr IV ASDIR [facility] Last Admin: 04/07/17 21:40 Dose: Not Given Insulin Aspart (Novolog Vial Sliding Scale -) 1 vial SQ ACHS [facility] PRN Reason: Protocol Last Admin: 04/08/17 12:07 Dose: Not Given Lisinopril (Prinivil) 5 mg PO DAILY [facility] Last Admin: 04/08/17 10:41 Dose: 5 mg Methylprednisolone Sodium Succinate (Solu-Medrol -) 40 mg IVPB BID [facility] Last Admin: 04/08/17 10:42 Dose: 40 mg Metronidazole (Metrogel 0.75% Gel -) 1 applic TP BID [facility] Last Admin: 04/08/17 10:46 Dose: 1 appful Pantoprazole Sodium (Protonix -) 40 mg PO DAILY [facility] Last Admin: 04/08/17 10:41 Dose: 40 mg Sitagliptin Phosphate (Januvia -) 100 mg PO DAILY@0700 [facility] Last Admin: 04/08/17 06:39 Dose: 100 mg A/P Acute COPD Exacerbation Chronic Hypoxic and Hypercapneic Respiratory Failure DM JEANNE - continue medrol q12h - if continues to improve, can change steroids to PO prednisone 40mg daily and taper as outpt - inhaled bronchodilators - O2 to keep SpO2>90% - BiPAP at night - DVT prophylaxis
--- NOTE | 2017-04-08 12:59 | PN ---
Progress Note (short form) - Note Progress Note: Patient seen and examined this. No overnight events. continues to improve. Chart reviewed in detail, consults noted. O/E Constitutional: Yes: no distress, mild huey face noted. Eyes: Yes: Conjunctiva Clear HENT: Yes: Atraumatic, Normocephalic Neck: Yes: Supple, Trachea Midline Cardiovascular: Yes: Tachycardia Respiratory: CTA b/l Gastrointestinal: Yes: Normal Bowel Sounds, Soft Musculoskeletal: Yes: WNL Edema: edema improved Neurological: Yes: Alert, Oriented Last Vital Signs Temp Pulse Resp BP Pulse Ox 98.6 F 66 20 139/78 95 04/08/17 09:00 04/08/17 09:00 04/08/17 09:00 04/08/17 09:00 04/08/17 10:13 CBC, BMP 04/08/17 06:00 04/07/17 06:00 Current Medications Generic Name Dose Route Start Last Admin Trade Name Freq PRN Reason Stop Dose Admin Albuterol Sulfate 1 amp 04/03/17 16:14 Ventolin 0.083% Nebulizer Soln - NEB Q4H PRN SHORT OF BREATH/WHEEZING Albuterol/Ipratropium 1 amp 04/03/17 18:00 04/08/17 11:08 Duoneb - NEB 1 amp QIDR KEVON Administration Atorvastatin Calcium 40 mg 04/04/17 22:00 04/07/17 21:42 Lipitor - PO 40 mg HS KEVON Administration Budesonide/Formoterol Fumarate 1 puff 04/04/17 10:00 04/08/17 10:43 Symbicort 160/4.5mcg - IH 1 puff BID KEVON Administration Cefuroxime Axetil 500 mg 04/04/17 10:00 04/08/17 10:42 Ceftin - PO 500 mg BID KEVON Administration Docusate Sodium 100 mg 04/04/17 10:00 04/08/17 10:42 Colace - PO 100 mg BID KEVON Administration Enoxaparin Sodium 40 mg 04/04/17 10:00 04/08/17 10:41 Lovenox - SQ 40 mg DAILY KEVON Administration Guaifenesin 600 mg 04/04/17 10:00 04/08/17 10:41 Mucinex - PO 600 mg BID KEVON Administration Sodium Chloride 1,000 mls @ 83 mls/hr 04/03/17 18:00 04/07/17 21:40 Normal Saline - IV Not Given ASDIR [facility] Insulin Aspart 1 vial 04/04/17 07:00 04/08/17 12:07 Novolog Vial Sliding Scale - SQ Not Given ACHS [facility] Protocol Lisinopril 5 mg 04/04/17 10:00 04/08/17 10:41 Prinivil PO 5 mg DAILY KEVON Administration Methylprednisolone Sodium Succinate 40 mg 04/07/17 22:00 04/08/17 10:42 Solu-Medrol - IVPB 40 mg BID KEVON Administration Metronidazole 1 applic 04/04/17 10:00 04/08/17 10:46 Metrogel 0.75% Gel - TP 1 appful BID KEVON Administration Pantoprazole Sodium 40 mg 04/04/17 10:00 04/08/17 10:41 Protonix - PO 40 mg DAILY KEVON Administration Sitagliptin Phosphate 100 mg 04/04/17 07:00 04/08/17 06:39 Januvia - PO 100 mg DAILY@0700 KEVON Administration Assessment/Plan: COPD exacerbation Secondary erythrocytosis JEANNE CHF RP-Lymphadenopathy. -no further phlebotomy, slight increase in crit, will continue to monitor, patient mentioned that he is not using the machine during the night as it was uncomfortable and air "blows"on him. Suspect he was hypoxic and driving the erythrocytosis, encouraged him to use the machine, would not phelbotomizem he remains asymptoamtic. -Otherwise , he -continues to improve, on IV steroids taper, and nebs, on Oxygen , encourage nightly BiPAP. -LAD- OP f/u, will need PET-CT, d/w IR, short axis<1cm. I discussed this with the pt in detail. Office info given to follow-up . -thrombocytopenia: splenomegaly, likely congestive in etiology - nightly CPAP,home o2 ( pt mentions that he is on home o2) set up per primary/ pulm./SWer -will follow Problem List - Problems (1) Acute on chronic respiratory failure with hypoxia and hypercapnia Code(s): J96.21 - ACUTE AND CHRONIC RESPIRATORY FAILURE WITH HYPOXIA J96.22 - ACUTE AND CHRONIC RESPIRATORY FAILURE WITH HYPERCAPNIA (2) Erythrocytosis Code(s): D75.1 - SECONDARY POLYCYTHEMIA (3) Sleep apnea Code(s): G47.30 - SLEEP APNEA, UNSPECIFIED (4) Chronic respiratory failure with hypoxia and hypercapnia Code(s): J96.11 - CHRONIC RESPIRATORY FAILURE WITH HYPOXIA J96.12 - CHRONIC RESPIRATORY FAILURE WITH HYPERCAPNIA (5) Acute on chronic diastolic CHF (congestive heart failure) Code(s): I50.33 - ACUTE ON CHRONIC DIASTOLIC (CONGESTIVE) HEART FAILURE
--- NOTE | 2017-04-08 13:03 | PN ---
Progress Note (short form) - Note Progress Note: sitting up in bed / O2 in place reports improvement in breathing ambulating in the hallway with minimal SY Vital Signs Period Temp Pulse Resp BP Sys/Liang Pulse Ox Last 24 Hr 0 F-100 F 76-96 20-22 115-134/63-88 80-98 Face - rosecea --IMPROVED neck -JVD heart S1/S2 Lungs decresed BS but improved air movement / wheezing on right mid /upper field abd soft non tender Ext no edema s/p phlebotomy day of admission CBC, BMP 04/06/17 05:35 04/06/17 05:35 CBC, BMP 04/07/17 06:00 Active Medications Albuterol Sulfate (Ventolin 0.083% Nebulizer Soln -) 1 amp NEB Q4H PRN PRN Reason: SHORT OF BREATH/WHEEZING Albuterol/Ipratropium (Duoneb -) 1 amp NEB QIDR [facility] Last Admin: 04/06/17 17:10 Dose: 1 amp Atorvastatin Calcium (Lipitor -) 40 mg PO HS [facility] Last Admin: 04/05/17 21:44 Dose: 40 mg Budesonide/Formoterol Fumarate (Symbicort 160/4.5mcg -) 1 puff IH BID [facility] Last Admin: 04/06/17 09:35 Dose: 1 puff Cefuroxime Axetil (Ceftin -) 500 mg PO BID [facility] Last Admin: 04/06/17 09:34 Dose: 500 mg Docusate Sodium (Colace -) 100 mg PO BID [facility] Last Admin: 04/06/17 09:34 Dose: Not Given Enoxaparin Sodium (Lovenox -) 40 mg SQ DAILY [facility] Last Admin: 04/06/17 09:34 Dose: 40 mg Guaifenesin (Mucinex -) 600 mg PO BID [facility] Last Admin: 04/06/17 09:34 Dose: 600 mg Sodium Chloride (Normal Saline -) 1,000 mls @ 83 mls/hr IV ASDIR [facility] Last Admin: 04/06/17 18:21 Dose: Not Given Insulin Aspart (Novolog Vial Sliding Scale -) 1 vial SQ ACHS [facility] PRN Reason: Protocol Last Admin: 04/06/17 16:50 Dose: Not Given Lisinopril (Prinivil) 5 mg PO DAILY [facility] Last Admin: 04/06/17 09:34 Dose: 5 mg Methylprednisolone Sodium Succinate (Solu-Medrol -) 40 mg IVPB Q8H-IV [facility] Last Admin: 04/06/17 18:21 Dose: 40 mg Metronidazole (Metrogel 0.75% Gel -) 1 applic TP BID [facility] Last Admin: 04/06/17 09:34 Dose: 1 appful Pantoprazole Sodium (Protonix -) 40 mg PO DAILY [facility] Last Admin: 04/06/17 09:34 Dose: 40 mg Sitagliptin Phosphate (Januvia -) 100 mg PO DAILY@0700 [facility] Last Admin: 04/06/17 06:46 Dose: 100 mg ASSMT / plan COPD inhaled & IV steroids / PPi / taper steroids per pulmonary nebulizer appreciate pulmonary consult and follow up DVT prophylaxis JEANNE BiPAPat night weight loss educate patient on risk and need for compliance DM Diet education resume Januvia follow FS and cover with insulin may require insulin as out patient lymphadenopathy appreciate Heme- onc will arrange for out patient follow up Problem List - Problems (1) Acute on chronic respiratory failure with hypoxia and hypercapnia Code(s): J96.21 - ACUTE AND CHRONIC RESPIRATORY FAILURE WITH HYPOXIA J96.22 - ACUTE AND CHRONIC RESPIRATORY FAILURE WITH HYPERCAPNIA (2) Chronic respiratory failure with hypoxia and hypercapnia Code(s): J96.11 - CHRONIC RESPIRATORY FAILURE WITH HYPOXIA J96.12 - CHRONIC RESPIRATORY FAILURE WITH HYPERCAPNIA (3) COPD (chronic obstructive pulmonary disease) Code(s): J44.9 - CHRONIC OBSTRUCTIVE PULMONARY DISEASE, UNSPECIFIED Qualifiers : COPD type: unspecified COPD Qualified Code(s): J44.9 - Chronic obstructive pulmonary disease, unspecified (4) COPD exacerbation Code(s): J44.1 - CHRONIC OBSTRUCTIVE PULMONARY DISEASE W (ACUTE) EXACERBATION (5) Cigarette nicotine dependence Code(s): F17.200 - NICOTINE DEPENDENCE, UNSPECIFIED, UNCOMPLICATED Qualifiers : Substance use status: in remission Qualified Code(s): F17.211 - Nicotine dependence, cigarettes, in remission (6) Diabetes Code(s): E11.9 - TYPE 2 DIABETES MELLITUS WITHOUT COMPLICATIONS Qualifiers: Diabetes mellitus type: type 2 Diabetes mellitus complication status: with unspecified complications (7) Erythrocytosis Code(s): D75.1 - SECONDARY POLYCYTHEMIA (8) Leg edema Code(s): R60.0 - LOCALIZED EDEMA (9) Morbid obesity Code(s): E66.01 - MORBID (SEVERE) OBESITY DUE TO EXCESS CALORIES (10) Sleep apnea Code(s): G47.30 - SLEEP APNEA, UNSPECIFIED
--- NOTE | 2017-04-08 13:05 | PN ---
Progress Note (short form) - Note Progress Note: in bed / was ambulating in [address] earlier + SY / more comfortable Vital Signs Period Temp Pulse Resp BP Sys/Liang Pulse Ox Last 24 Hr 98 F-98.6 F 63-78 18-20 96-139/56-78 93-97 face - much improved neck supple heart S1/S2 Lungs BS + decreased / no wheezing abd soft non tender Ext FROM / No edema CBC, BMP 04/08/17 06:00 04/07/17 06:00 Active Medications Albuterol Sulfate (Ventolin 0.083% Nebulizer Soln -) 1 amp NEB Q4H PRN PRN Reason: SHORT OF BREATH/WHEEZING Albuterol/Ipratropium (Duoneb -) 1 amp NEB QIDR [facility] Last Admin: 04/08/17 11:08 Dose: 1 amp Atorvastatin Calcium (Lipitor -) 40 mg PO HS [facility] Last Admin: 04/07/17 21:42 Dose: 40 mg Budesonide/Formoterol Fumarate (Symbicort 160/4.5mcg -) 1 puff IH BID [facility] Last Admin: 04/08/17 10:43 Dose: 1 puff Cefuroxime Axetil (Ceftin -) 500 mg PO BID [facility] Last Admin: 04/08/17 10:42 Dose: 500 mg Docusate Sodium (Colace -) 100 mg PO BID [facility] Last Admin: 04/08/17 10:42 Dose: 100 mg Enoxaparin Sodium (Lovenox -) 40 mg SQ DAILY [facility] Last Admin: 04/08/17 10:41 Dose: 40 mg Guaifenesin (Mucinex -) 600 mg PO BID [facility] Last Admin: 04/08/17 10:41 Dose: 600 mg Sodium Chloride (Normal Saline -) 1,000 mls @ 83 mls/hr IV ASDIR [facility] Last Admin: 04/07/17 21:40 Dose: Not Given Insulin Aspart (Novolog Vial Sliding Scale -) 1 vial SQ ACHS [facility] PRN Reason: Protocol Last Admin: 04/08/17 12:07 Dose: Not Given Lisinopril (Prinivil) 5 mg PO DAILY [facility] Last Admin: 04/08/17 10:41 Dose: 5 mg Methylprednisolone Sodium Succinate (Solu-Medrol -) 40 mg IVPB BID [facility] Last Admin: 04/08/17 10:42 Dose: 40 mg Metronidazole (Metrogel 0.75% Gel -) 1 applic TP BID [facility] Last Admin: 04/08/17 10:46 Dose: 1 appful Pantoprazole Sodium (Protonix -) 40 mg PO DAILY [facility] Last Admin: 04/08/17 10:41 Dose: 40 mg Sitagliptin Phosphate (Januvia -) 100 mg PO DAILY@0700 [facility] Last Admin: 04/08/17 06:39 Dose: 100 mg ASSMT / plan COPD inhaled & IV steroids / PPi / taper steroids per pulmonary nebulizer appreciate pulmonary consult and follow up DVT prophylaxis JEANNE BiPAPat night weight loss educate patient on risk and need for compliance DM Diet education resume Januvia follow FS and cover with insulin may require insulin as out patient lymphadenopathy appreciate Heme- onc will arrange for out patient follow up Probable D/C in am will need arrangements for Home BiPAP supply Patient has O2 and BiPAP machine Problem List - Problems (1) Acute on chronic respiratory failure with hypoxia and hypercapnia Code(s): J96.21 - ACUTE AND CHRONIC RESPIRATORY FAILURE WITH HYPOXIA J96.22 - ACUTE AND CHRONIC RESPIRATORY FAILURE WITH HYPERCAPNIA (2) Chronic respiratory failure with hypoxia and hypercapnia Code(s): J96.11 - CHRONIC RESPIRATORY FAILURE WITH HYPOXIA J96.12 - CHRONIC RESPIRATORY FAILURE WITH HYPERCAPNIA (3) COPD (chronic obstructive pulmonary disease) Code(s): J44.9 - CHRONIC OBSTRUCTIVE PULMONARY DISEASE, UNSPECIFIED Qualifiers : COPD type: unspecified COPD Qualified Code(s): J44.9 - Chronic obstructive pulmonary disease, unspecified (4) COPD exacerbation Code(s): J44.1 - CHRONIC OBSTRUCTIVE PULMONARY DISEASE W (ACUTE) EXACERBATION (5) Cigarette nicotine dependence Code(s): F17.200 - NICOTINE DEPENDENCE, UNSPECIFIED, UNCOMPLICATED Qualifiers : Substance use status: in remission Qualified Code(s): F17.211 - Nicotine dependence, cigarettes, in remission (6) Diabetes Code(s): E11.9 - TYPE 2 DIABETES MELLITUS WITHOUT COMPLICATIONS Qualifiers: Diabetes mellitus type: type 2 Diabetes mellitus complication status: with unspecified complications (7) Erythrocytosis Code(s): D75.1 - SECONDARY POLYCYTHEMIA (8) Leg edema Code(s): R60.0 - LOCALIZED EDEMA (9) Morbid obesity Code(s): E66.01 - MORBID (SEVERE) OBESITY DUE TO EXCESS CALORIES (10) Sleep apnea Code(s): G47.30 - SLEEP APNEA, UNSPECIFIED
[2017-04-08 16:12] LABS: BASOPHIL 0.2 % (0-2.0); EOSINOPHIL 0.4 % (0-4.5); MCH 28.5 pg (25.7-33.7); MCHC 32.7 g/dl (32.0-35.9); MEAN CELL VOLUME 87.3 fl (80-96); MEAN PLT VOLUME 7.8 fl (7.5-11.1); PLATELET COUNT 134 K/MM3 (134-434); RDW 16.9 % (11.9-15.9); WHITE BLOOD COUNT 8.7 K/mm3 (4.0-10.0)
[2017-04-08 16:33] LABS: ALBUMIN 3.6 g/dl (3.4-5.0); ALK PHOS 38 U/L (45-117); ANION GAP 4 (8-16); BILIRUBIN,TOTAL 1.4 mg/dL (0.2-1.0); CO2 37 mmol/L (21-32); CREATININE 0.8 mg/dL (0.7-1.3); GLUCOSE,RANDOM 146 mg/dL (74-106); SGOT/AST 17 U/L (15-37); SGPT/ALT 31 U/L (12-78); TOT PROT 7.1 g/dl (6.4-8.2)
[2017-04-08] MEDS: SODIUM CHLORIDE 1,000 ML IV SCH (21:44)
[2017-04-08] MEDS: ATORVASTATIN CA 40 MG TABLET (FP) PO SCH (21:48)
[2017-04-09] MEDS: INSULIN SLIDING SCALE (NOVOLOG) 1 VIAL SQ SCH ×2 (06:16→11:05)
[2017-04-09] MEDS: sitaGLIPtin PHOSPHATE 100 MG TABLET (FP) PO SCH (06:16)
[2017-04-09] MEDS: ALBUTEROL SO4 2.5/IPRATROPIUM 0.5 INH SOL 3 ML VIAL.NEB. NEB SCH ×2 (06:38→11:11)
[2017-04-09 07:31] LABS: BASOPHIL 0.1 % (0-2.0); EOSINOPHIL 0.2 % (0-4.5); MCH 28.2 pg (25.7-33.7); MCHC 32.2 g/dl (32.0-35.9); MEAN CELL VOLUME 87.5 fl (80-96); MEAN PLT VOLUME 7.9 fl (7.5-11.1); NEUTROPHILS 79.7 % (42.8-82.8); PLATELET COUNT 145 K/MM3 (134-434); RDW 17.2 % (11.9-15.9); WHITE BLOOD COUNT 9.1 K/mm3 (4.0-10.0)
[2017-04-09 08:39] LABS: ANION GAP 10 (8-16); CALCIUM 9.8 mg/dL (8.5-10.1); CO2 36 mmol/L (21-32); CREATININE 0.6 mg/dL (0.7-1.3); GLUCOSE,RANDOM 91 mg/dL (74-106); MAGNESIUM 2.3 mg/dL (1.8-2.4)
[2017-04-09] MEDS: ENOXAPARIN NA (PORCINE) 40 MG/0.4 ML DISP.SYRIN SQ SCH (09:22)
[2017-04-09] MEDS: metroNIDAZOLE 0.75% TOPICAL GEL 45 GM TUBE TP SCH (09:22)
[2017-04-09] MEDS: CEFUROXIME AXETIL 500 MG TABLET PO SCH (09:22)
[2017-04-09] MEDS: DOCUSATE SODIUM 100 MG CAPSULE (FP) PO SCH (09:22)
[2017-04-09] MEDS: guaiFENesin 600 MG TABLET.ER (FP) PO SCH (09:23)
[2017-04-09] MEDS: BUDESONIDE/FORMETEROL FUMARATE 160/4.5 mcg INHALER IH SCH (09:23)
[2017-04-09] MEDS: LISINOPRIL 5 MG TABLET (FP) PO SCH (09:23)
[2017-04-09] MEDS: PANTOPRAZOLE 40 MG TABLET (FP) PO SCH (09:23)
[2017-04-09] MEDS: methylPREDNISolone NA SUCC 40 MG/1 ML VIAL IVPB SCH (09:52)
--- NOTE | 2017-04-09 10:52 | PN ---
Progress Note, Physician History of Present Illness: PULMONARY ALERT,FEELING BETTER,LESS DYSPNEIC - Current Medication List Current Medications: Active Medications Albuterol/Ipratropium (Duoneb -) 1 amp NEB QIDR [facility] Last Admin: 04/09/17 06:38 Dose: 1 amp Atorvastatin Calcium (Lipitor -) 40 mg PO HS [facility] Last Admin: 04/08/17 21:48 Dose: 40 mg Budesonide/Formoterol Fumarate (Symbicort 160/4.5mcg -) 1 puff IH BID [facility] Last Admin: 04/09/17 09:23 Dose: 1 puff Cefuroxime Axetil (Ceftin -) 500 mg PO BID [facility] Last Admin: 04/09/17 09:22 Dose: 500 mg Docusate Sodium (Colace -) 100 mg PO BID [facility] Last Admin: 04/09/17 09:22 Dose: 100 mg Enoxaparin Sodium (Lovenox -) 40 mg SQ DAILY [facility] Last Admin: 04/09/17 09:22 Dose: 40 mg Guaifenesin (Mucinex -) 600 mg PO BID [facility] Last Admin: 04/09/17 09:23 Dose: 600 mg Sodium Chloride (Normal Saline -) 1,000 mls @ 83 mls/hr IV ASDIR [facility] Last Admin: 04/08/17 21:44 Dose: Not Given Insulin Aspart (Novolog Vial Sliding Scale -) 1 vial SQ ACHS [facility] PRN Reason: Protocol Last Admin: 04/09/17 06:16 Dose: Not Given Lisinopril (Prinivil) 5 mg PO DAILY [facility] Last Admin: 04/09/17 09:23 Dose: 5 mg Metronidazole (Metrogel 0.75% Gel -) 1 applic TP BID [facility] Last Admin: 04/09/17 09:22 Dose: 1 appful Pantoprazole Sodium (Protonix -) 40 mg PO DAILY [facility] Last Admin: 04/09/17 09:23 Dose: 40 mg Prednisone (Deltasone -) 40 mg PO DAILY [facility] Sitagliptin Phosphate (Januvia -) 100 mg PO DAILY@0700 [facility] Last Admin: 04/09/17 06:16 Dose: 100 mg - Objective Vital Signs: Vital Signs Temperature 97.7 F 04/09/17 06:00 Pulse Rate 71 04/09/17 06:00 Respiratory Rate 18 04/09/17 06:00 Blood Pressure 118/73 04/09/17 06:00 O2 Sat by Pulse Oximetry (%) 98 04/09/17 03:02 Constitutional: Yes: Well Nourished, Calm Eyes: Yes: WNL HENT: Yes: WNL Neck: Yes: WNL Cardiovascular: Yes: Regular Rate and Rhythm, S1, S2 Respiratory: Yes: Diminished Extremities: Yes: WNL Edema: Yes Labs: CBC, BMP 04/09/17 05:30 04/09/17 05:30 INR, PTT INR 1.08 (0.82-1.09) 04/03/17 10:20 Assessment/Plan Problem List - Problems (1) COPD exacerbation Code(s): J44.1 - CHRONIC OBSTRUCTIVE PULMONARY DISEASE W (ACUTE) EXACERBATION (2) Diabetes Code(s): E11.9 - TYPE 2 DIABETES MELLITUS WITHOUT COMPLICATIONS Qualifiers: Diabetes mellitus type: type 2 Diabetes mellitus complication status: with unspecified complications Qualified Code(s): E11.8 - Type 2 diabetes mellitus with unspecified complications; Z79.4 - clinical data management director (current) use of insulin (3) Erythrocytosis Code(s): D75.1 - SECONDARY POLYCYTHEMIA (4) Sleep apnea Code(s): G47.30 - SLEEP APNEA, UNSPECIFIED (5) Chronic respiratory failure with hypoxia and hypercapnia Code(s): J96.11 - CHRONIC RESPIRATORY FAILURE WITH HYPOXIA J96.12 - CHRONIC RESPIRATORY FAILURE WITH HYPERCAPNIA Assessment/Plan O2 as needed (4 L NC) NIPPV BD TX Prednisone O2 saturation monitoring DR AGUILLON
--- NOTE | 2017-04-09 10:52 | PN ---
Progress Note (short form) - Note Progress Note: in bed / was ambulating in [address] earlier + SY / more comfortable Vital Signs Period Temp Pulse Resp BP Sys/Liang Pulse Ox Last 24 Hr 98 F-98.6 F 63-78 18-20 96-139/56-78 93-97 face - much improved neck supple heart S1/S2 Lungs BS + decreased / no wheezing abd soft non tender Ext FROM / No edema CBC, BMP 04/08/17 06:00 04/07/17 06:00 CBC, BMP 04/09/17 05:30 04/09/17 05:30 Active Medications Albuterol Sulfate (Ventolin 0.083% Nebulizer Soln -) 1 amp NEB Q4H PRN PRN Reason: SHORT OF BREATH/WHEEZING Albuterol/Ipratropium (Duoneb -) 1 amp NEB QIDR [facility] Last Admin: 04/08/17 11:08 Dose: 1 amp Atorvastatin Calcium (Lipitor -) 40 mg PO HS [facility] Last Admin: 04/07/17 21:42 Dose: 40 mg Budesonide/Formoterol Fumarate (Symbicort 160/4.5mcg -) 1 puff IH BID [facility] Last Admin: 04/08/17 10:43 Dose: 1 puff Cefuroxime Axetil (Ceftin -) 500 mg PO BID [facility] Last Admin: 04/08/17 10:42 Dose: 500 mg Docusate Sodium (Colace -) 100 mg PO BID [facility] Last Admin: 04/08/17 10:42 Dose: 100 mg Enoxaparin Sodium (Lovenox -) 40 mg SQ DAILY [facility] Last Admin: 04/08/17 10:41 Dose: 40 mg Guaifenesin (Mucinex -) 600 mg PO BID [facility] Last Admin: 04/08/17 10:41 Dose: 600 mg Sodium Chloride (Normal Saline -) 1,000 mls @ 83 mls/hr IV ASDIR [facility] Last Admin: 04/07/17 21:40 Dose: Not Given Insulin Aspart (Novolog Vial Sliding Scale -) 1 vial SQ ACHS KEVON PRN Reason: Protocol Last Admin: 04/08/17 12:07 Dose: Not Given Lisinopril (Prinivil) 5 mg PO DAILY [facility] Last Admin: 04/08/17 10:41 Dose: 5 mg Methylprednisolone Sodium Succinate (Solu-Medrol -) 40 mg IVPB BID [facility] Last Admin: 04/08/17 10:42 Dose: 40 mg Metronidazole (Metrogel 0.75% Gel -) 1 applic TP BID [facility] Last Admin: 04/08/17 10:46 Dose: 1 appful Pantoprazole Sodium (Protonix -) 40 mg PO DAILY [facility] Last Admin: 04/08/17 10:41 Dose: 40 mg Sitagliptin Phosphate (Januvia -) 100 mg PO DAILY@0700 [facility] Last Admin: 04/08/17 06:39 Dose: 100 mg will taper steroids as out patient ASSMT / plan COPD inhaled & IV steroids / PPi / taper steroids as out patient nebulizer / BiPAP at night appreciate pulmonary consult and will follow up as out patient thoracic surgery opinion JEANNE BiPAPat night weight loss educate patient on risk and need for compliance DM Diet education resume Januvia follow FS and cover with insulin may require insulin as out patient lymphadenopathy appreciate Heme- onc will arrange for out patient follow up will also arrange for thoracic follow up polycythemia secondary / had work up previously -NEG s/p phlebotomy day of admission heme follow up d/c today Problem List - Problems (1) Acute on chronic respiratory failure with hypoxia and hypercapnia Code(s): J96.21 - ACUTE AND CHRONIC RESPIRATORY FAILURE WITH HYPOXIA J96.22 - ACUTE AND CHRONIC RESPIRATORY FAILURE WITH HYPERCAPNIA (2) Chronic respiratory failure with hypoxia and hypercapnia Code(s): J96.11 - CHRONIC RESPIRATORY FAILURE WITH HYPOXIA J96.12 - CHRONIC RESPIRATORY FAILURE WITH HYPERCAPNIA (3) COPD (chronic obstructive pulmonary disease) Code(s): J44.9 - CHRONIC OBSTRUCTIVE PULMONARY DISEASE, UNSPECIFIED Qualifiers : COPD type: unspecified COPD Qualified Code(s): J44.9 - Chronic obstructive pulmonary disease, unspecified (4) COPD exacerbation Code(s): J44.1 - CHRONIC OBSTRUCTIVE PULMONARY DISEASE W (ACUTE) EXACERBATION (5) Cigarette nicotine dependence Code(s): F17.200 - NICOTINE DEPENDENCE, UNSPECIFIED, UNCOMPLICATED Qualifiers : Substance use status: in remission Qualified Code(s): F17.211 - Nicotine dependence, cigarettes, in remission (6) Diabetes Code(s): E11.9 - TYPE 2 DIABETES MELLITUS WITHOUT COMPLICATIONS Qualifiers: Diabetes mellitus type: type 2 Diabetes mellitus complication status: with unspecified complications (7) Erythrocytosis Code(s): D75.1 - SECONDARY POLYCYTHEMIA (8) Leg edema Code(s): R60.0 - LOCALIZED EDEMA (9) Morbid obesity Code(s): E66.01 - MORBID (SEVERE) OBESITY DUE TO EXCESS CALORIES (10) Sleep apnea Code(s): G47.30 - SLEEP APNEA, UNSPECIFIED
[2017-04-09] MEDS ORDERED: predniSONE 20 MG TABLET (UD) PO SCH (11:00)
[2017-04-09 11:02] VITALS: BP 110/70; TEMP 97
--- NOTE | 2017-04-09 11:07 | DS ---
Physical Examination Vital Signs: Vital Signs Temperature 97 F L 04/09/17 10:00 Pulse Rate 68 04/09/17 10:00 Respiratory Rate 15 04/09/17 10:00 Blood Pressure 110/70 04/09/17 10:00 O2 Sat by Pulse Oximetry (%) 98 04/09/17 03:02 Findings/Remarks: improved BS / increased activty tolerated Constitutional: Yes: Well Nourished, Calm, Other (O2 in place) Eyes: Yes: WNL HENT: Yes: WNL Neck: Yes: Supple, Trachea Midline Cardiovascular: Yes: Regular Rate and Rhythm Respiratory: Yes: CTA Bilaterally, Diminished Gastrointestinal: Yes: WNL Breast(s): Yes: WNL Extremities: Yes: WNL Edema: No Peripheral Pulses WNL: Yes Integumentary: Yes: WNL, Erythema (face --) Neurological: Yes: WNL, Alert, Oriented ...Motor Strength: WNL Psychiatric: Yes: WNL Labs: CBC, BMP 04/09/17 05:30 04/09/17 05:30 Discharge Summary Reason For Visit: ACUTE ON CHRONIC RESP.FAILURE Current Active Problems Acquired polycythemia (Acute) Acute exacerbation of chronic obstructive pulmonary disease (COPD) (Acute) Acute on chronic respiratory failure with hypoxia and hypercapnia (Acute) Bilateral arm weakness (Acute) Chronic respiratory failure with hypoxia and hypercapnia (Acute) Hospital Course: History of Present Illness: 41 yom with h/o CHF, COPD, obstructive sleep apnea, and DM who was sent in the office today for shortness of breath with pulse oxygenation in the 40s , best O2 reading 51%- patient was transferred to ER. The patient states that he has been having chest congestion, slightly increased cough with yellow phlegm, increased abdominal distention, bilateral painless leg swelling, and darker-than -normal color of his face/cheeks for several months.He lost his insurance and has been "fighting the symptoms" for months but have become progressively worse. He denies any chest pain, palpitations, abdominal pain, or other symptoms. He lost his job and medical insurance a year ago and has thus not been able to take his medications, including inhalers. His hospital treatment included phlebotomy day of admission for 2nary polycythemia, Iv steroidas nebulizer and Bipap at night. During hospital work up was found to have extensive lymphadenopathy, both in chest and abdomen. This was discussed with patient and arrangements for out patient workup and BX will be arranged with assitance from pulm / heme service. Patient is d/c home improved and aware of follow up arrangements Home O2 in place Bipap machine at home - arrangements for set up being made at time of d/c Condition: Improved - Instructions Diet, Activity, Other Instructions: diabetic diet / low sodium Referrals: Dashawn Vieira [Primary Care Provider] - Devyn Sequeira MD [Staff Physician] - Nick Blanchard MD [Staff Physician] - Disposition: HOME - Home Medications Comprehensive Discharge Medication List: Ambulatory Orders Albuterol 0.083% Nebulizer Stacey [Ventolin 0.083% Nebulizer Soln -] 1 neb NEB Q4H 06/20/15 Albuterol Sulfate Inhaler - [Ventolin HFA Inhaler -] 1 - 2 inh PO QID 06/20/15 Furosemide [Lasix -] 40 mg PO DAILY 06/20/15 Tiotropium [place] [Spiriva] 1 inh PO DAILY 06/20/15 Atorvastatin Ca [Lipitor] 10 mg PO HS #30 tablet 06/29/15 Budesonide/Formeterol Fumarate [SYMBICORT 160/4.5mcg -] 2 puff IH BID #1 inhaler 06/29/15 Lisinopril [Prinivil] 5 mg PO DAILY #30 tablet 06/29/15 Prednisone [Deltasone -] 40 mg PO DAILY #18 tablet 06/29/15
[2017-04-09 11:10] VITALS: PULSE 72
--- NOTE | 2017-04-09 14:17 | PN ---
Progress Note, Physician History of Present Illness: This is a 41 yom with h/o CHF, COPD, obstructive sleep apnea, and DM who was sent in by his PCP's office for shortness of breath with pulse oxygenation in the 40s in the clinic. The patient states that he has been having chest congestion, slightly increased cough with yellow phlegm, increased abdominal distention, bilateral painless leg swelling, and deqwjr-ecvb-cuzgau color of his face/cheeks. He denies any chest pain, palpitations, abdominal pain, or other symptoms. He lost his job and medical insurance a year ago and has thus not been able to take his medications, including inhalers. - Objective Vital Signs: Vital Signs Temperature 97 F L 04/09/17 10:00 Pulse Rate 72 04/09/17 10:20 Respiratory Rate 15 04/09/17 10:00 Blood Pressure 110/70 04/09/17 10:00 O2 Sat by Pulse Oximetry (%) 96 04/09/17 10:20 Eyes: Yes: WNL, Conjunctiva Clear, EOM Intact HENT: Yes: WNL, Atraumatic, Normocephalic Neck: Yes: WNL, Supple, Trachea Midline Cardiovascular: Yes: WNL, Regular Rate and Rhythm, S1, S2 Respiratory: Yes: WNL, Regular, CTA Bilaterally, Diminished Gastrointestinal: Yes: WNL, Normal Bowel Sounds Genitourinary: Yes: WNL Musculoskeletal: Yes: WNL Extremities: Yes: WNL Edema: No Integumentary: Yes: WNL Neurological: Yes: WNL, Alert, Oriented ...Motor Strength: WNL Psychiatric: Yes: WNL Labs: CBC, BMP 04/09/17 05:30 04/09/17 05:30 INR, PTT INR 1.08 (0.82-1.09) 04/03/17 10:20 Problem List - Problems (1) Acquired polycythemia Code(s): D75.1 - SECONDARY POLYCYTHEMIA (2) Acute exacerbation of chronic obstructive pulmonary disease (COPD) Code(s): J44.1 - CHRONIC OBSTRUCTIVE PULMONARY DISEASE W (ACUTE) EXACERBATION (3) Acute on chronic respiratory failure with hypoxia and hypercapnia Code(s): J96.21 - ACUTE AND CHRONIC RESPIRATORY FAILURE WITH HYPOXIA J96.22 - ACUTE AND CHRONIC RESPIRATORY FAILURE WITH HYPERCAPNIA (4) Chronic respiratory failure with hypoxia and hypercapnia Code(s): J96.11 - CHRONIC RESPIRATORY FAILURE WITH HYPOXIA J96.12 - CHRONIC RESPIRATORY FAILURE WITH HYPERCAPNIA (5) Acute on chronic diastolic CHF (congestive heart failure) Code(s): I50.33 - ACUTE ON CHRONIC DIASTOLIC (CONGESTIVE) HEART FAILURE (6) COPD (chronic obstructive pulmonary disease) Code(s): J44.9 - CHRONIC OBSTRUCTIVE PULMONARY DISEASE, UNSPECIFIED Qualifiers : COPD type: unspecified COPD Qualified Code(s): J44.9 - Chronic obstructive pulmonary disease, unspecified (7) COPD exacerbation Code(s): J44.1 - CHRONIC OBSTRUCTIVE PULMONARY DISEASE W (ACUTE) EXACERBATION (8) Cellulitis Code(s): L03.90 - CELLULITIS, UNSPECIFIED Qualifiers: Site of cellulitis of extremity: lower extremity Laterality: left (9) Cigarette nicotine dependence Code(s): F17.200 - NICOTINE DEPENDENCE, UNSPECIFIED, UNCOMPLICATED Qualifiers : Substance use status: in remission Qualified Code(s): F17.211 - Nicotine dependence, cigarettes, in remission (10) Diabetes Code(s): E11.9 - TYPE 2 DIABETES MELLITUS WITHOUT COMPLICATIONS Qualifiers: Diabetes mellitus type: type 2 Diabetes mellitus complication status: with unspecified complications (11) Erythrocytosis Code(s): D75.1 - SECONDARY POLYCYTHEMIA (12) [place] cardiac risk >20% in next 10 years Code(s): Z91.89 - [facility] PERSONAL RISK FACTORS, NOT ELSEWHERE CLASSIFIED (13) Leg edema Code(s): R60.0 - LOCALIZED EDEMA (14) Morbid obesity Code(s): E66.01 - MORBID (SEVERE) OBESITY DUE TO EXCESS CALORIES (15) Peripheral edema Code(s): R60.9 - EDEMA, UNSPECIFIED (16) Sleep apnea Code(s): G47.30 - SLEEP APNEA, UNSPECIFIED Assessment/Plan 41 year old man h/o chronic diastolic chf, copd, perez, dmii a/w sob and hypoxia. SOB-likely AE COPD, possible contribution of acute on chronic diastolic/right sided chf, reduce RV function -sob improving -remains euvolemic -steroids were decreased yesterday -does not require diuresis at this time -cont Lipitor and Lisinopril -plan as per Dr. Allison is for repeat stress test and further work up as outpatient -ok to dc tele as no events recorded
[2017-04-10 00:06] LABS: A/G RATIO 1.1 (0.7-1.7); ALBUMIN 3.2 g/dL (2.9-4.4); ALPHA-1-GLOBULIN 0.2 g/dL (0.0-0.4); GAMMA GLOBULIN 1.2 g/dL (0.4-1.8); M-SPIKE Not Observed g/dL (Not Observed); TOTAL PROTEIN 6.2 g/dL (6.0-8.5)
== END 2017-04-09 13:25 | disposition home or self-care (01) | DRG 133 ==
LOC: JER 10:06 → JERBED 13:30 → J4W 04-04 00:48
PROVIDERS: ADMIT Family Medicine; ATTEND Family Medicine
PROC: 5A09457 Assistance with Respiratory Ventilation, 24-96 Consecutive Hours, Continuous Positive Airway Pressure (ICD-10-PCS; principal; 2017-04-05)
DX: J96.21 Acute and chronic respiratory failure with hypoxia (principal); G47.33 Obstructive sleep apnea (adult) (pediatric); J96.22 Acute and chronic respiratory failure with hypercapnia; D75.1 Secondary polycythemia; J44.1 Chronic obstructive pulmonary disease with (acute) exacerbation; I25.10 Atherosclerotic heart disease of native coronary artery without angina pectoris; E66.8 Other obesity; Z68.34 Body mass index [BMI] 34.0-34.9, adult; D69.6 Thrombocytopenia, unspecified; I50.33 Acute on chronic diastolic (congestive) heart failure; E11.9 Type 2 diabetes mellitus without complications; R29.898 Other symptoms and signs involving the musculoskeletal system; R59.0 Localized enlarged lymph nodes; R60.0 Localized edema; Z87.891 Personal history of nicotine dependence; Z91.14 Patient's other noncompliance with medication regimen; Z99.81 Dependence on supplemental oxygen; Z79.4 Long term (current) use of insulin
CPT/HCPCS: 36415; 36600; 71010-TC; 71020-TC; 71250-TC; 74178-TC; 76700-TC; 80048; 80053; 80061; 82248; 82375; 82607; 82668; 82746; 82784; 82803; 83036; 83050; 83615; 83721; 83735; 83880; 84155; 84165; 84443; 84484; 84550; 85025; 85027; 85610; 85730; 86334; 86704; 86706; 86708; 86803; 87340; 87389; 90688; 93005; 93010; 93306-TC; 94640; 94660; 99285-25; G0008; Q9967

== ENCOUNTER 2019-02-17 13:42 | Inpatient (IN) | payer OTHER ==
--- NOTE | 2019-02-17 13:47 | PDOC ---
Rapid Medical Evaluation Medical Evaluation: Allergies Allergy/AdvReac Type Severity Reaction Status Date / Time levofloxacin [From Levaquin] Allergy Verified 04/03/17 10:11 I have performed a brief in-person evaluation of this patient. The patient presents with a chief complaint of: Hx of COPD, JEANNE, former smoker ( quit 3 years ago), c/o SOB x2 days along BLE edema (has had BLE edema in past, but getting worse 2 days ago); not on diuretics; denies fever, cough, CP Pertinent physical exam findings: Poor inspiratory effort but no obvious adventitious sounds noted; BLE pitting edema I have ordered the following: labs, cxr, ekg The patient will proceed to the ED for further evaluation. 02/17/19 13:46
[2019-02-17] MEDS ORDERED: ALBUTEROL SO4 2.5/IPRATROPIUM 0.5 INH SOL 3 ML VIAL.NEB. NEB ONE ×4 (14:57→18:29)
[2019-02-17] MEDS ORDERED: methylPREDNISolone NA SUCC 125 MG/2 ML VIAL IVPUSH ONE (14:58)
[2019-02-17 15:42] LABS: VENOUS PH 7.29 (7.31-7.41); VENOUS PO2 43.2 mmHg (30-40)
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
[2019-02-17] MEDS ORDERED: methylPREDNISolone NA SUCC 125 MG/2 ML VIAL ONE (15:50)
[2019-02-17 16:06] LABS: BASO % 0.3 % (0-2.0); EOS % 1.1 % (0-4.5); HEMOGLOBIN 17.8 GM/dL (11.7-16.9); LYMPH % 16.6 % (8-40); MCH 29.1 pg (25.7-33.7); MCHC 32.9 g/dl (32.0-35.9); MEAN CELL VOLUME 88.3 fl (80-96); MONO % 10.4 % (3.8-10.2); NEUT % 71.6 % (42.8-82.8); PLATELET COUNT 108 K/MM3 (134-434); RBC 6.11 M/mm3 (4.00-5.60)
--- NOTE | 2019-02-17 16:19 | PDOC ---
Documentation entered by Sharita Delacruz SCRIBE, acting as scribe for Lobo Gibson MD. Lobo Gibson MD: This documentation has been prepared by the bjibe, Sharita Delacruz SCRIBE, under my direction and personally reviewed by me in its entirety. I confirm that the documentation accurately reflects all work, treatment, procedures, and medical decision making performed by me. Attending Attestation - Resident Resident Name: BernardinoTrey - ED Attending Attestation I have performed the following: I have examined & evaluated the patient, The case was reviewed & discussed with the resident, I agree w/resident's findings & plan, Exceptions are as noted - HPI HPI: 02/17/19 16:19 43 M with h/o COPD on 3.5L home O2, DM, CHF, presenting to ED with SOB x 3 days. Pt endorses orthopnea + SY. Denies CP. Reports nonproductive cough. Pt reports using his nebulizer at home with some improvement but only temporarily. Also endorses worsening BLE swelling. Denies F/C. - Physicial Exam PE: 02/17/19 16:20 GENERAL: Awake, alert, and fully oriented, in no acute distress. HEAD: No signs of trauma EYES: PERRLA, EOMI, sclera anicteric, conjunctiva clear ENT: Auricles normal inspection, hearing grossly normal, nares patent, oropharynx clear without exudates. Moist mucosa NECK: Nontender, no stepoffs, Normal ROM, supple, no lymphadenopathy, JVD, or masses LUNGS: + poor air movement bilaterally HEART: Regular rate and rhythm, normal S1 and S2, no murmurs, rubs or gallops ABDOMEN: Soft, nontender, normoactive bowel sounds. No guarding, no rebound. No masses EXTREMITIES: Normal range of motion, no edema. No clubbing or cyanosis. No cords, erythema, or tenderness NEUROLOGICAL: Cranial nerves II through XII intact. 5/5 strength and sensation in all extremities, Normal speech, normal gait, normal cerebellar function SKIN: Warm, Dry, normal turgor, no rashes or lesions noted. - Critical Care Time Total Critical Care Time: 60 Critical Care Statement: The care of this patient involved high complexity decision making to prevent further life threatening deterioration of the patient 's condition and/or to evaluate & treat vital organ system(s) failure or risk of failure. - Medical Decision Making 02/17/19 16:23 43 M with SOB. Hypoxic to 68 on arrival, with poor inspiratory effort. Suspect COPD flare. Pt also with pitting edema in both legs, suggestive of volume overload. - Labs, BNP, blood gas - CXR - Nebs, steroids - Diuresis - Admit 02/17/19 18:18 Initial pCO2 105 Pt given 4 back to back nebs, steroids However, minimal improvement after 1 hour of back to back nebs Repeat gas now with worsening pH and pCO2 Pt placed on biPAP with continuous nebs Mental status stable, pt somnolent but arousable Will consult ICU
[2019-02-17 16:49] LABS: ALBUMIN 3.5 g/dl (3.4-5.0); ALK PHOS 49 U/L (45-117); ANION GAP 3 MMOL/L (8-16); BILIRUBIN,TOTAL 0.6 mg/dL (0.2-1); BLOOD UREA NITROGEN 16.8 mg/dL (7-18); CHLORIDE 90 mmol/L (98-107); CO2 > 45 mmol/L (21-32); CREATININE 0.7 mg/dL (0.55-1.3); GLUCOSE,RANDOM 130 mg/dL (74-106); POTASSIUM 4.3 mmol/L (3.5-5.1); SGOT/AST 22 U/L (15-37); SGPT/ALT 44 U/L (13-61); SODIUM 138 mmol/L (136-145); TOT PROT 6.8 g/dl (6.4-8.2)
[2019-02-17] MEDS ORDERED: AZITHROMYCIN 250 MG TABLET PO ONE (17:13)
[2019-02-17 18:12] LABS: VENOUS PO2 69.9 mmHg (30-40)
[2019-02-17 18:15] LABS: VENOUS PH 7.15 (7.31-7.41)
[2019-02-17] MEDS ORDERED: FUROSEMIDE 40 MG/4 ML INJECTABLE VIAL IVPUSH ONE ×2 (18:28→21:28)
[2019-02-17] MEDS: ALBUTEROL SO4 2.5/IPRATROPIUM 0.5 INH SOL 3 ML VIAL.NEB. NEB SCH ×2 (18:30→19:43)
--- NOTE | 2019-02-17 19:35 | CONSULT ---
Consultation: REQUESTING PROVIDER: Dr. Donovan CONSULT REQUEST: We have been asked to medically evaluate this patient for COPD exacerbation and acidosis. HISTORY OF PRESENT ILLNESS: Pj Linares is a 43 year old male with a past medical history of COPD (on 3L home O2), DM, CHF (last echo 11/01/18 EF 50-55%), former smoker, JEANNE (on CPAP at night) who presented to the ED with reported 1 day history of dyspnea, orthopnea , and bilateral lower extremity edema, and non productive cough. Per the patient , the reason he came to the ED was because of increased lower extremity edema. Denied chest pain, headaches, dizziness, lightheadedness, abd pain, n/v/c/d, fever, chills, weakness, numbness, tingling, urinary complaints. Denied recent travel, sick contacts, recent antibiotic use, exposure to smoke. At time of interview, patient was at first intermittently difficult to wake but once woken up was able to answer all questions adequately. In ED, patient was hypoxic in the 70s-80s on NC, tachypneic, tachycardic, diaphoretic, was placed on BiPAP. Both VBGs obtained were prior to BiPAP. Patient was admitted to floors and was monitored by ICU team with low threshold to transfer pending ABGs and clinical status of patient. Original ABG showed acute on chronic respiratory acidosis, repeat ABG showed continued acute on chronic respiratory acidosis with decreased O2 saturation. Anesthesia consulted and did not believe that intubation is appropriate at this time and to continue current course with BiPAP. Brought to the ICU for continued monitoring and titration on BiPAP. Currently patient with good mental status on BiPAP, asking for water. No acute complaints, no discomfort on BiPAP mask, tolerating well. ED Course was notable for: 1) VBG pH 7.29-->7.15, CO2 105-->154, O2 43.2-->69.9 2) Duonebs, Solumedrol 125mg 3) Placed on BiPAP Social: former smoker, no current employment REVIEW OF SYSTEMS: CONSTITUTIONAL: Absent: fever, chills, diaphoresis, generalized weakness, malaise, loss of appetite, weight change HEENT: Absent: rhinorrhea, nasal congestion, throat pain, throat swelling, difficulty swallowing, mouth swelling, ear pain, eye pain, visual changes CARDIOVASCULAR: peripheral edema Absent: chest pain, syncope, palpitations, irregular heart rate, lightheadedness , RESPIRATORY: cough, shortness of breath, dyspnea with exertion, orthopnea Absent: wheezing, stridor, hemoptysis GASTROINTESTINAL: Absent: abdominal pain, abdominal distension, nausea, vomiting, diarrhea, constipation, melena, hematochezia GENITOURINARY: Absent: dysuria, frequency, urgency, hesitancy, hematuria, flank pain, genital pain MUSCULOSKELETAL: Absent: myalgia, arthralgia, joint swelling, back pain, neck pain SKIN: Absent: rash, itching, pallor HEMATOLOGIC/IMMUNOLOGIC: Absent: easy bleeding, easy bruising, lymphadenopathy, frequent infections ENDOCRINE: Absent: unexplained weight gain, unexplained weight loss, heat intolerance, cold intolerance NEUROLOGIC: Absent: headache, focal weakness or paresthesias, dizziness, unsteady gait, seizure, mental status changes, bladder or bowel incontinence PSYCHIATRIC: Absent: anxiety, depression, suicidal or homicidal ideation, hallucinations. PHYSICAL EXAMINATION Vital Signs - 24 hr 02/17/19 02/17/19 02/17/19 13:50 14:02 18:07 Temperature 98.7 F Pulse Rate 105 H 107 H Respiratory 20 22 H Rate Blood Pressure 127/65 O2 Sat by Pulse 68 L 82 L 96 Oximetry (%) GENERAL: Awake, alert, and fully oriented, in mild acute distress. Intermittently falls asleep HEAD: Normal with no signs of trauma. Cheeks flushed EYES: Pupils equal, round and reactive to light, extraocular movements intact, sclera anicteric, conjunctiva clear. NECK: Normal range of motion, supple without lymphadenopathy, JVD, or masses. LUNGS: Breath sounds equal, decreased air movement noted. Mild crackles noted at the bases. No wheezes, no accessory muscle use. HEART: Regular rate and rhythm, normal S1 and S2 without murmur, rub or gallop. ABDOMEN: Soft, nontender, not distended, normoactive bowel sounds, no guarding, no rebound, no masses. MUSCULOSKELETAL: Normal range of motion at all joints. No bony deformities or tenderness. UPPER EXTREMITIES: 2+ pulses, warm, well-perfused. No cyanosis. No clubbing. Cap refill <2 seconds. No peripheral edema. LOWER EXTREMITIES: 1+ pulses, warm, well-perfused. No calf tenderness. 2+ peripheral edema up the ankles. NEUROLOGICAL: Cranial nerves II-XII intact. Normal speech. Muscle strength 5/5 bilaterally upper and lower extremities. PSYCHIATRIC: Cooperative. Good eye contact. Appropriate mood and affect. SKIN: Warm, dry, normal turgor. Laboratory Results - last 24 hr 02/17/19 02/17/19 02/17/19 15:30 15:30 15:30 WBC 7.0 RBC 6.11 H Hgb 17.8 H Hct 54.0 H MCV 88.3 MCH 29.1 MCHC 32.9 RDW 15.0 D Plt Count 108 L D MPV 8.0 Absolute Neuts (auto) 5.0 Neutrophils % 71.6 Lymphocytes % 16.6 D Monocytes % 10.4 H Eosinophils % 1.1 D Basophils % 0.3 Nucleated RBC % 0 VBG pH POC VBG pCO2 POC VBG pO2 VBG HCO3 VBG O2 Sat (Alida) VBG Base Excess Sodium 138 Potassium 4.3 Chloride 90 L Carbon Dioxide > 45 H Anion Gap 3 L BUN 16.8 Creatinine 0.7 Est GFR (CKD-EPI)AfAm 133.02 Est GFR (CKD-EPI)NonAf 114.77 Random Glucose 130 H Calcium 9.0 Total Bilirubin 0.6 AST 22 ALT 44 Alkaline Phosphatase 49 Troponin I B-Natriuretic Peptide 74.3 Total Protein 6.8 Albumin 3.5 02/17/19 02/17/19 02/17/19 15:30 15:30 18:00 WBC RBC Hgb Hct MCV MCH MCHC RDW Plt Count MPV Absolute Neuts (auto) Neutrophils % Lymphocytes % Monocytes % Eosinophils % Basophils % Nucleated RBC % VBG pH 7.29 L 7.15 L* POC VBG pCO2 105 H* 154 H* POC VBG pO2 43.2 H 69.9 H VBG HCO3 49.5 H 51.7 H VBG O2 Sat (Alida) 75.8 89.5 H VBG Base Excess 15.3 H 12.2 H Sodium Potassium Chloride Carbon Dioxide Anion Gap BUN Creatinine Est GFR (CKD-EPI)AfAm Est GFR (CKD-EPI)NonAf Random Glucose Calcium Total Bilirubin AST ALT Alkaline Phosphatase Troponin I < 0.02 B-Natriuretic Peptide Total Protein Albumin Active Medications Generic Name Dose Route Start Last Admin Trade Name Freq PRN Reason Stop Dose Admin Methylprednisolone Sodium Succinate 60 mg 02/17/19 21:00 Solu-Medrol - IVPUSH Q6H-IV KEVON Pantoprazole Sodium 40 mg 02/17/19 22:00 Protonix - PO BID KEVON Polyethylene Glycol 17 gm 02/18/19 10:00 Miralax (For Daily Use) - PO DAILY KEVON ASSESSMENT/PLAN: jP Linares is a 43 year old male with a past medical history of COPD (on 3L home O2), DM, CHF (last echo 11/01/18 EF 50-55%), former smoker, JEANNE (on CPAP at night) who is admitted to the hospital for COPD exacerbation. COPD Exacerbation Acute on Chronic Hypoxic Hypercapneic Respiratory Failure DM CHF JEANNE NEUROLOGIC - intermittently lethargic likely secondary to hypercapneia - continue to monitor mental status as patient is difficult to rouse at times - mental status improved with BiPAP CARDIOLOGY - continue to monitor hemodynamics - caution with fluids as patient is volume overloaded and has history of CHF - given Lasix 40mg IV x2 - CXR showing no pulmonary infiltrates or plueral effusions - continue to monitor CXR for signs of fluid overload - POC U/S showing RV dilation - Dr. Carter consulted - I+Os - daily weights - monitor urine output RESPIRATORY - continue Duonebs - given Solumedrol 125mg in ED - continue methylprednisolone 60mg IV q6h - VBG showing hypoxic, hypercapneic respiratory failure - repeat ABG after patient has been on BiPAP showing improvement of pH 7.24, CO2 >100, O2 98, acute on chronic respiratory acidosis with metabolic alkalosis - respiratory acidosis from hypercapneia, metabolic alkalosis likely from chronic post hypercapneic alkalosis - repeat ABG showing pH 7.31, CO2>100, O2 50.9, hypercapneic hypoxic respiratory failure - BiPAP settings IPAP 15, EPAP 8, necessitates pressure support to decrease hypercapneia and increased EPAP for oxygenation - repeat ABG in AM - patient with chronic hypercapneia and hypoxia as noted on previous ABGs - HCO3>45, likely from chronic respiratory acidosis - titrate Fi02 to maintain Spo2 88-92% - continue azithromycin RENAL - no acute issues - monitor urine output with Lasix GASTROINTESTINAL - no acute issues - Miralax - protonix 40mg bid INFECTIOUS DISEASE - afebrile, no WBC, no signs of PNA - monitor counts and hemodynamics ENDOCRINE - elevated glucose - last A1c in 2017 6.2, repeat A1c - TSH ordered HEMATOLOGY - Hgb elevated at 17.8, chronic elevation, likely elevated due to chronic hypoxia MUSCULOSKELETAL - no acute issues PSYCHIATRY - no acute issues F/E/N - no standing fluids - continue to monitor electrolytes and replete as necessary - sodium controlled diet LINES - R FA 20 gauge inserted 02/17 PROPHYLAXIS - SCDs and early ambualation CODE - full code DISPO - continue to monitor in ICU CASE DISCUSSED WITH DR. 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 - New Patient This patient is new to me today: Yes Date on this admission: 02/18/19 - Critical Care Critical Care patient: Yes Total Critical Care Time (in minutes): 35 Critical Care Statement: The care of this patient involved high complexity decision making to prevent further life threatening deterioration of the patient 's condition and/or to evaluate & treat vital organ system(s) failure or risk of failure.
[2019-02-17] MEDS ORDERED: AZITHROMYCIN 250 MG TABLET ONE (19:39)
[2019-02-17] MEDS ORDERED: FUROSEMIDE 40 MG/4 ML INJECTABLE VIAL ONE (19:39)
[2019-02-17 19:43] LABS: ARTERIAL BLD GAS O2 SATURATION 96.8 % (95-98); ARTERIAL BLOOD GAS BASE EXCESS 10.8 meq/l (-2-2); ARTERIAL BLOOD GAS PO2 98.3 mmHg (80-105); ARTERIAL BLOOD GAS pH 7.24 (7.35-7.45)
[2019-02-17 19:51] LABS: ALLENS TEST POSITIVE
[2019-02-17 19:55] LABS: ARTERIAL BLOOD GAS PCO2 > 100 mmHg (35-45)
[2019-02-17] MEDS: methylPREDNISolone NA SUCC 125 MG/2 ML VIAL IVPUSH SCH (21:46)
[2019-02-17] MEDS: PANTOPRAZOLE 40 MG TABLET (FP) PO SCH (22:28)
[2019-02-17 23:39] LABS: ARTERIAL BLD GAS O2 SATURATION 83.9 % (95-98); ARTERIAL BLOOD GAS BASE EXCESS 15.7 meq/l (-2-2); ARTERIAL BLOOD GAS PO2 50.9 mmHg (80-105); ARTERIAL BLOOD GAS pH 7.31 (7.35-7.45)
[2019-02-17 23:41] LABS: ALLENS TEST POSITIVE
--- NOTE | 2019-02-17 23:41 | HP ---
Admitting History and Physical - Admission History of Present Illness: Pj Linares is a 43 year old male with a past medical history of COPD (on 3L home O2), DM, CHF (last echo 11/01/18 EF 50-55%), former smoker, JEANNE (on CPAP at night) who presented to the ED with reported 1 day history of dyspnea, orthopnea , and bilateral lower extremity edema, and non productive cough. Per the patient , the reason he came to the ED was because of increased lower extremity edema. Denied chest pain, headaches, dizziness, lightheadedness, abd pain, n/v/c/d, fever, chills, weakness, numbness, tingling, urinary complaints. Denied recent travel, sick contacts, recent antibiotic use, exposure to smoke. At time of interview, patient was at first intermittently difficult to wake but once woken up was able to answer all questions adequately. In ED, patient was hypoxic in the 70s-80s on NC, tachypneic, tachycardic, diaphoretic, was placed on BiPAP. Both VBGs obtained were prior to BiPAP. In spite of being on bipap patient remains difficult to arouse. History Source: Medical Record Limitations to Obtaining History: Clinical Condition - Past Medical History Cardiovascular: Yes: CAD, CHF Pulmonary: Yes: COPD, O2 Dependent, Sleep Apnea - Smoking History Smoking history: Former smoker Have you smoked in the past 12 months: No Aproximately how many cigarettes per day: 10 If you are a former smoker, when did you quit?: 2016 - Alcohol/Substance Use Hx Alcohol Use: No - Social History ADL: Independent History of Recent Travel: No Home Medications - Allergies Allergies/Adverse Reactions: Allergies Allergy/AdvReac Type Severity Reaction Status Date / Time levofloxacin [From Levaquin] Allergy Verified 02/17/19 13:52 - Home Medications Home Medications: Ambulatory Orders Albuterol 0.083% Nebulizer Stacey [Ventolin 0.083% Nebulizer Soln -] 1 neb NEB Q4H 06/20/15 Albuterol Sulfate Inhaler - [Ventolin HFA Inhaler -] 1 - 2 inh PO QID 06/20/15 Furosemide [Lasix -] 40 mg PO DAILY 06/20/15 Tiotropium [place] [Spiriva] 1 inh PO DAILY 06/20/15 Atorvastatin Ca [Lipitor] 10 mg PO HS #30 tablet 12/15/15 Budesonide/Formeterol Fumarate [SYMBICORT 160/4.5mcg -] 2 puff IH BID #1 inhaler 06/29/15 Lisinopril [Prinivil] 5 mg PO DAILY #30 tablet 06/29/15 predniSONE [Deltasone -] 40 mg PO DAILY #18 tablet 06/29/15 Family Disease History - Family Disease History Family Disease History: Heart Disease: Father ([place] in his early 60s) Review of Systems Unable to obtain ROS, reason: clinical condition Findings/Remarks: patinet lethargic on bipap saturation at 70s sat prior to bipap - Review of Systems Constitutional: reports: Lethargy Cardiovascular: reports: Other (distant heart sounds) Respiratory: reports: Orthopnea, SOB Gastrointestinal: reports: No Symptoms Breasts: reports: No Symptoms Reported Integumentary: reports: Wound (reece well healed anterior chest) Neurological: reports: Other (unable to asses / patient lethargic and on bipap) Psychiatric: reports: Other (unable to asses / patient lethargic and on bipap) Physical Examination Vital Signs: Vital Signs Temperature 98.7 F 02/17/19 13:50 Pulse Rate 107 H 02/17/19 18:07 Respiratory Rate 22 H 02/17/19 14:02 Blood Pressure 127/65 02/17/19 13:50 O2 Sat by Pulse Oximetry (%) 96 02/17/19 21:13 Findings/Remarks: on bipap / lethargic required deep painful stimuli to arouse Constitutional: Yes: Diaphoresis, Severe Distress, Obese Eyes: Yes: Other (unable to asses) HENT: Yes: Atraumatic, Normocephalic Cardiovascular: Yes: Regular Rate and Rhythm, Other (distant) Respiratory: Yes: Diminished, On BiPap Gastrointestinal: Yes: Abdomen, Obese, Hypoactive Bowel Sounds ...Rectal Exam: Yes: Deferred Renal/: Yes: WNL Breast(s): Yes: WNL Musculoskeletal: Yes: Other (unable to asses) Extremities: Yes: Delayed Capillary Refill. No: Deformity Edema: Yes Edema: LLE: 2+, RLE: 2+ Peripheral Pulses WNL: Yes Integumentary: Yes: Other (keloids ant chest) Neurological: Yes: Lethargy, Unresponsive Psychiatric: Yes: Other (unable to asses) Labs: CBC, BMP 02/17/19 15:30 02/17/19 15:30 Problem List - Problems (1) Metabolic encephalopathy Assessment/Plan: patient lethargic and difficult to arouse severe hypercapnea plan Bipap / follow ABGs will re asses for possible intubation ICU care Pulmonary consult Code(s): G93.41 - METABOLIC ENCEPHALOPATHY (2) Acute on chronic respiratory failure with hypoxia and hypercapnia Assessment/Plan: severe hypercapnic / patient lethargic / difficult to arise continue bipap if no clinical improvements will need imtubation Iv steroids / nebulizer/ abx consider ICU transfer Code(s): J96.21 - ACUTE AND CHRONIC RESPIRATORY FAILURE WITH HYPOXIA; J96.22 - ACUTE AND CHRONIC RESPIRATORY FAILURE WITH HYPERCAPNIA (3) Acute exacerbation of chronic obstructive pulmonary disease (COPD) Code(s): J44.1 - CHRONIC OBSTRUCTIVE PULMONARY DISEASE W (ACUTE) EXACERBATION (4) Acute on chronic diastolic CHF (congestive heart failure) Code(s): I50.33 - ACUTE ON CHRONIC DIASTOLIC (CONGESTIVE) HEART FAILURE (5) Acquired polycythemia Code(s): D75.1 - SECONDARY POLYCYTHEMIA (6) Morbid obesity Code(s): E66.01 - MORBID (SEVERE) OBESITY DUE TO EXCESS CALORIES
[2019-02-17 23:49] LABS: ARTERIAL BLOOD GAS PCO2 > 100 mmHg (35-45)
[2019-02-18] MEDS ORDERED: FUROSEMIDE 40 MG/4 ML INJECTABLE VIAL IVPUSH ONE (00:38)
[2019-02-18] MEDS: methylPREDNISolone NA SUCC 125 MG/2 ML VIAL IVPUSH SCH ×4 (02:14→21:19)
[2019-02-18] MEDS: ALBUTEROL SO4 2.5/IPRATROPIUM 0.5 INH SOL 3 ML VIAL.NEB. NEB PRN ×2 (06:15→22:10)
[2019-02-18 06:24] LABS: ARTERIAL BLD GAS O2 SATURATION 88.8 % (95-98); ARTERIAL BLOOD GAS BASE EXCESS 18.3 meq/l (-2-2); ARTERIAL BLOOD GAS PO2 58.3 mmHg (80-105); ARTERIAL BLOOD GAS pH 7.36 (7.35-7.45)
[2019-02-18 06:40] LABS: ALLENS TEST POSITIVE
[2019-02-18 06:42] LABS: ARTERIAL BLOOD GAS PCO2 92.2 mmHg (35-45)
[2019-02-18 06:55] LABS: HEMATOCRIT 50.9 % (35.4-49); HEMOGLOBIN 16.9 GM/dL (11.7-16.9); MCH 29.1 pg (25.7-33.7); MCHC 33.2 g/dl (32.0-35.9); MEAN CELL VOLUME 87.6 fl (80-96); MEAN PLT VOLUME 7.9 fl (7.5-11.1); PLATELET COUNT 104 K/MM3 (134-434); RBC 5.81 M/mm3 (4.00-5.60); RDW 15.1 % (11.9-15.9); WHITE BLOOD COUNT 5.7 K/mm3 (4.0-10.0)
[2019-02-18 07:40] LABS: ANION GAP 6 MMOL/L (8-16); CALCIUM 8.7 mg/dL (8.5-10.1); CHLORIDE 86 mmol/L (98-107); CO2 > 45 mmol/L (21-32); CREATININE 0.7 mg/dL (0.55-1.3); GLUCOSE,RANDOM 169 mg/dL (74-106); MAGNESIUM 1.9 mg/dL (1.8-2.4); PHOSPHOROUS 3.6 mg/dL (2.5-4.9); POTASSIUM 4.3 mmol/L (3.5-5.1); SODIUM 138 mmol/L (136-145)
[2019-02-18] MEDS ORDERED: PT OWN MED DRAWER 7, Y5N ONE ×2 (09:01→23:55)
[2019-02-18] MEDS: POLYETHYLENE GLYCOL 3350 119 GM BTL PO SCH (09:12)
[2019-02-18] MEDS: PANTOPRAZOLE 40 MG TABLET (FP) PO SCH ×2 (09:15→21:20)
[2019-02-18] MEDS: BUDESONIDE/FORMETEROL FUMARATE 160/4.5 mcg INHALER IH SCH ×2 (09:31→21:29)
--- NOTE | 2019-02-18 12:10 | CON.CARD ---
Consult Consult Specialty:: cardiology Referred by:: ICU Reason for Consultation:: CHF - History of Present Illness Chief Complaint: short of breath History of Present Illness: 43M h/o COPD on 3L home O2, DM, chronic diastolic CHF, JEANNE on CPAP p/w dyspnea. Has been having worsening lower extremity edema over months to years, was not sure. Sees Dr. Valle but has not seen in over a year. Also has had almost two weeks of dyspnea, worse in the last day, felt he could not take a breath and edema got worse in last few days as well. No chest pain, palps, dizziness, dyspnea. In the ER patient was hypoxic, improved with BiPAP. Was given steroids, nebs. Also given IV lasix. Today edema improving and less dyspneic on high flow oxygen - Past Medical History Cardio/Vascular: Yes: CAD, CHF Pulmonary: Yes: COPD, O2 Dependent, Sleep Apnea - Alcohol/Substance Use Hx Alcohol Use: No - Smoking History Smoking history: Former smoker Have you smoked in the past 12 months: No Aproximately how many cigarettes per day: 10 If you are a former smoker, when did you quit?: 2016 - Social History ADL: Independent History of Recent Travel: No Home Medications - Allergies Allergies/Adverse Reactions: Allergies Allergy/AdvReac Type Severity Reaction Status Date / Time levofloxacin [From Levaquin] Allergy Verified 02/17/19 13:52 - Home Medications Home Medications: Ambulatory Orders Albuterol 0.083% Nebulizer Stacey [Ventolin 0.083% Nebulizer Soln -] 1 neb NEB Q4H 06/20/15 Albuterol Sulfate Inhaler - [Ventolin HFA Inhaler -] 1 - 2 inh PO QID 06/20/15 Furosemide [Lasix -] 40 mg PO DAILY 06/20/15 Tiotropium [place] [Spiriva] 1 inh PO DAILY 06/20/15 Atorvastatin Ca [Lipitor] 10 mg PO HS #30 tablet 06/29/15 Budesonide/Formeterol Fumarate [SYMBICORT 160/4.5mcg -] 2 puff IH BID #1 inhaler 06/29/15 Lisinopril [Prinivil] 5 mg PO DAILY #30 tablet 06/29/15 predniSONE [Deltasone -] 40 mg PO DAILY #18 tablet 06/29/15 Family Disease History - Family Disease History Family Disease History: Heart Disease: Father ([place] in his early 60s) Review of Systems - Review of Systems Constitutional: reports: No Symptoms Eyes: reports: No Symptoms HENT: reports: No Symptoms Neck: reports: No Symptoms Cardiovascular: reports: No Symptoms Respiratory: reports: No Symptoms Gastrointestinal: reports: No Symptoms Genitourinary: reports: No Symptoms Musculoskeletal: reports: No Symptoms Integumentary: reports: No Symptoms Neurological: reports: No Symptoms Endocrine: reports: No Symptoms Hematology/Lymphatic: reports: No Symptoms Psychiatric: reports: No Symptoms Vital Signs: Vital Signs Temperature 98.2 F 02/18/19 08:00 Pulse Rate 86 02/18/19 08:33 Respiratory Rate 18 02/18/19 08:00 Blood Pressure 108/63 02/18/19 08:00 O2 Sat by Pulse Oximetry (%) 92 L 02/18/19 08:33 Constitutional: Yes: No Distress, Obese Eyes: Yes: Conjunctiva Clear, EOM Intact HENT: Yes: Atraumatic, Normocephalic Neck: Yes: Supple, Trachea Midline Respiratory: Yes: Regular, Diminished Gastrointestinal: Yes: Normal Bowel Sounds Cardiovascular: Yes: Regular Rate and Rhythm JVD: No Carotid Bruit: No PMI: Non-Displaced Heart Sounds: Yes: S1, S2 Murmur: No: Systolic Murmur Musculoskeletal: No: Back Pain Extremities: No: Cool Edema: Yes Edema: LLE: 1+, RLE: 1+ Integumentary: No: Jaundice Neurological: Yes: Alert, Oriented Psychiatric: No: Agitated - Other Data Labs, Other Data: CBC, BMP 02/18/19 05:40 02/18/19 05:40 Troponin, BNP 02/17/19 02/17/19 15:30 15:30 Troponin I < 0.02 B-Natriuretic Peptide 74.3 Troponin, BNP 02/17/19 02/17/19 15:30 15:30 Troponin I < 0.02 B-Natriuretic Peptide 74.3 Assessment/Plan echo 10/2018 tds, grossly nl LV function, mild MR, mild TR CXR: no congestion tele: sinus 43M h/o COPD on 3L home O2, DM, chronic diastolic CHF, JEANNE on CPAP p/w dyspnea shortness of breath, COPD exacerbation, acute diastolic CHF exacerbation - treating for COPD exacerbation per critical care, on nebs, steroids - also component of CHF - BNP low however in setting of obesity. edema has improved with IV lasix, continue - bipap as needed per critical care - daily weights, lytes, Cr with diuresis DM - manage per primary JEANNE - on CPAP at home, manage per pulm HTN - cont lisinopril HLD - cont statin est critical care time = 35 min
--- NOTE | 2019-02-18 13:46 | PN ---
Teaching Attending Note Name of Resident: Samanta Simmons ATTENDING PHYSICIAN STATEMENT I saw and evaluated the patient. I reviewed the resident's note and discussed the case with the resident. I agree with the resident's findings and plan as documented. SUBJECTIVE: Pt seen and examined in the ICU. Remains on HFOT wiht 50% FiO2 saturating low 90s. OBJECTIVE: Vital Signs Period Temp Pulse Resp BP Sys/Liang Pulse Ox Last 24 Hr 98.2 F-98.7 F 86-107 18-29 108-128/57-77 68-96 Intake & Output 02/15/19 02/16/19 02/17/19 02/18/19 23:59 23:59 23:59 23:59 Intake Total 0 Output Total 500 1100 Balance -500 -1100 Weight 106.141 kg 105.007 kg Gen: mildly tachypneic at rest Heart: RRR Lung: decreased breath sounds at the bases Abd: soft, obese, nontender Ext: + edema CBC, BMP 02/18/19 05:40 02/18/19 05:40 Active Medications Albuterol/Ipratropium (Duoneb -) 1 amp NEB Q4H PRN PRN Reason: SHORTNESS OF BREATH Last Admin: 02/18/19 06:15 Dose: 1 amp Budesonide/Formoterol Fumarate (Symbicort 160/4.5mcg -) 2 puff IH BID [facility] Last Admin: 02/18/19 09:31 Dose: 2 puff Enoxaparin Sodium (Lovenox -) 40 mg SQ DAILY [facility] Furosemide (Lasix Injection -) 40 mg IVPUSH DAILY [facility] Methylprednisolone Sodium Succinate (Solu-Medrol -) 60 mg IVPUSH Q6H-IV [facility] Last Admin: 02/18/19 09:12 Dose: 60 mg Pantoprazole Sodium (Protonix -) 40 mg PO BID [facility] Last Admin: 02/18/19 09:15 Dose: 40 mg Polyethylene Glycol (Miralax (For Daily Use) -) 17 gm PO DAILY [facility] Last Admin: 02/18/19 09:12 Dose: Not Given ASSESSMENT AND PLAN: Acute on Chronic Hypoxic and Hypercapneic Respiratory Failure Acute COPD Exacerbation Acute on Chronic Diastolic Heart Failure Morbid Obesity Severe JEANNE/OHS DM HTN Hyperlipidemia - continue medrol - inhaled bronchodilators standing and PRN - continue lasix - monitor urine output, creatinine - taper HFOT to keep SpO2>90% - when ready for discharge, check ABG to assess for home NIPPV - PO as tolerated - DVT prophylaxis - continue ICU monitoring critical care time spent in reviewing chart, evaluating patient and formulating plan 35 min
--- NOTE | 2019-02-18 13:55 | PN ---
Physical Exam: SUBJECTIVE: Patient seen and examined at the bedside. No acute events overnight. Patient was breathing comfortably on BiPAP this morning and stated he felt his swelling had gotten much better. This morning we took patient off BiPAP and placed him on NC so he could eat breakfast, but he was desatting to the high 70s and so was placed on HFNC at 40L, 40%O2. Will attempt to wean patient off HFNC today. OBJECTIVE: Vital Signs Period Temp Pulse Resp BP Sys/Liang Pulse Ox Last 24 Hr 98.2 F-98.7 F 86-107 18-29 108-128/57-77 82-96 GENERAL: Awake, alert, and fully oriented, in no acute distress HEAD: Normal with no signs of trauma. Cheeks flushed EYES: Pupils equal, round and reactive to light, extraocular movements intact, sclera anicteric, conjunctiva clear. NECK: Normal range of motion, supple without lymphadenopathy, JVD, or masses. LUNGS: Breath sounds equal, decreased air movement noted. Mild crackles noted at the bases. No wheezes, no accessory muscle use. HEART: Regular rate and rhythm, normal S1 and S2 without murmur, rub or gallop. ABDOMEN: Soft, nontender, not distended, normoactive bowel sounds, no guarding, no rebound, no masses. MUSCULOSKELETAL: Normal range of motion at all joints. No bony deformities or tenderness. UPPER EXTREMITIES: 2+ pulses, warm, well-perfused. No cyanosis. No clubbing. Cap refill <2 seconds. No peripheral edema. LOWER EXTREMITIES: 1+ pulses, warm, well-perfused. No calf tenderness. 2+ peripheral edema up the ankles. NEUROLOGICAL: Cranial nerves II-XII intact. Normal speech. Muscle strength 5/5 bilaterally upper and lower extremities. PSYCHIATRIC: Cooperative. Good eye contact. Appropriate mood and affect. SKIN: Warm, dry, normal turgor. Laboratory Results - last 24 hr 02/17/19 02/17/19 02/17/19 15:30 15:30 15:30 WBC 7.0 RBC 6.11 H Hgb 17.8 H Hct 54.0 H MCV 88.3 MCH 29.1 MCHC 32.9 RDW 15.0 D Plt Count 108 L D MPV 8.0 Absolute Neuts (auto) 5.0 Neutrophils % 71.6 Lymphocytes % 16.6 D Monocytes % 10.4 H Eosinophils % 1.1 D Basophils % 0.3 Nucleated RBC % 0 Anticoagulation Therapy Puncture Site Patient Temperature ABG pH ABG pCO2 at Pt Temp ABG pO2 at Pt Temp ABG HCO3 ABG O2 Sat (Measured) ABG O2 Content ABG Base Excess Arpit Test VBG pH POC VBG pCO2 POC VBG pO2 VBG HCO3 VBG O2 Sat (Al[place]) VBG Base Excess O2 Delivery Device Oxygen Flow Rate Vent Mode Vent Rate Mechanical Rate PEEP Pressure Support Vent Sodium 138 Potassium 4.3 Chloride 90 L Carbon Dioxide > 45 H Anion Gap 3 L BUN 16.8 Creatinine 0.7 Est GFR (CKD-EPI)AfAm 133.02 Est GFR (CKD-EPI)NonAf 114.77 POC Glucometer Random Glucose 130 H Hemoglobin A1c % Calcium 9.0 Phosphorus Magnesium Total Bilirubin 0.6 AST 22 ALT 44 Alkaline Phosphatase 49 Troponin I B-Natriuretic Peptide 74.3 Total Protein 6.8 Albumin 3.5 TSH 02/17/19 02/17/19 02/17/19 15:30 15:30 18:00 WBC RBC Hgb Hct MCV MCH MCHC RDW Plt Count MPV Absolute Neuts (auto) Neutrophils % Lymphocytes % Monocytes % Eosinophils % Basophils % Nucleated RBC % Anticoagulation Therapy Puncture Site Patient Temperature ABG pH ABG pCO2 at Pt Temp ABG pO2 at Pt Temp ABG HCO3 ABG O2 Sat (Measured) ABG O2 Content ABG Base Excess Arpit Test VBG pH 7.29 L 7.15 L* POC VBG pCO2 105 H* 154 H* POC VBG pO2 43.2 H 69.9 H VBG HCO3 49.5 H 51.7 H VBG O2 Sat (Alida) 75.8 89.5 H VBG Base Excess 15.3 H 12.2 H O2 Delivery Device Oxygen Flow Rate Vent Mode Vent Rate Mechanical Rate PEEP Pressure Support Vent Sodium Potassium Chloride Carbon Dioxide Anion Gap BUN Creatinine Est GFR (CKD-EPI)AfAm Est GFR (CKD-EPI)NonAf POC Glucometer Random Glucose Hemoglobin A1c % Calcium Phosphorus Magnesium Total Bilirubin AST ALT Alkaline Phosphatase Troponin I < 0.02 B-Natriuretic Peptide Total Protein Albumin TSH 02/17/19 02/17/19 02/17/19 19:23 23:00 23:30 WBC RBC Hgb Hct MCV MCH MCHC RDW Plt Count MPV Absolute Neuts (auto) Neutrophils % Lymphocytes % Monocytes % Eosinophils % Basophils % Nucleated RBC % Anticoagulation Therapy No Result Required. Cancelled Puncture Site Left radial Cancelled Right radial Patient Temperature Cancelled ABG pH 7.24 L Cancelled 7.31 L ABG pCO2 at Pt Temp > 100 H* Cancelled > 100 H* ABG pO2 at Pt Temp 98.3 Cancelled 50.9 L ABG HCO3 45.4 H Cancelled 49.7 H ABG O2 Sat (Measured) 96.8 Cancelled 83.9 L ABG O2 Content 22.9 H Cancelled 20.1 ABG Base Excess 10.8 H Cancelled 15.7 H Arpit Test Positive Cancelled Positive VBG pH POC VBG pCO2 POC VBG pO2 VBG HCO3 VBG O2 Sat ([place]) VBG Base Excess O2 Delivery Device No Result Required. Cancelled Bipap Oxygen Flow Rate No Result Required. Cancelled 40% Vent Mode No Result Required. Cancelled S/t Vent Rate No Result Required. Cancelled 14 Mechanical Rate No Result Required. Cancelled Bipap PEEP Cancelled Pressure Support Vent No Result Required. Cancelled 26/02 Sodium Potassium Chloride Carbon Dioxide Anion Gap BUN Creatinine Est GFR (CKD-EPI)AfAm Est GFR (CKD-EPI)NonAf POC Glucometer Random Glucose Hemoglobin A1c % Calcium Phosphorus Magnesium Total Bilirubin AST ALT Alkaline Phosphatase Troponin I B-Natriuretic Peptide Total Protein Albumin TSH 02/18/19 02/18/19 02/18/19 00:11 05:26 05:40 WBC 5.7 RBC 5.81 H Hgb 16.9 Hct 50.9 H MCV 87.6 MCH 29.1 MCHC 33.2 RDW 15.1 Plt Count 104 L MPV 7.9 Absolute Neuts (auto) Neutrophils % Lymphocytes % Monocytes % Eosinophils % Basophils % Nucleated RBC % Anticoagulation Therapy Puncture Site Patient Temperature ABG pH ABG pCO2 at Pt Temp ABG pO2 at Pt Temp ABG HCO3 ABG O2 Sat (Measured) ABG O2 Content ABG Base Excess Arpit Test VBG pH POC VBG pCO2 POC VBG pO2 VBG HCO3 VBG O2 Sat ([place]) VBG Base Excess O2 Delivery Device Oxygen Flow Rate Vent Mode Vent Rate Mechanical Rate PEEP Pressure Support Vent Sodium Potassium Chloride Carbon Dioxide Anion Gap BUN Creatinine Est GFR (CKD-EPI)AfAm Est GFR (CKD-EPI)NonAf POC Glucometer 219 181 Random Glucose Hemoglobin A1c % Calcium Phosphorus Magnesium Total Bilirubin AST ALT Alkaline Phosphatase Troponin I B-Natriuretic Peptide Total Protein Albumin TSH 02/18/19 02/18/19 02/18/19 05:40 05:40 06:12 WBC RBC Hgb Hct MCV MCH MCHC RDW Plt Count MPV Absolute Neuts (auto) Neutrophils % Lymphocytes % Monocytes % Eosinophils % Basophils % Nucleated RBC % Anticoagulation Therapy Puncture Site Left radial Patient Temperature ABG pH 7.36 ABG pCO2 at Pt Temp 92.2 H* ABG pO2 at Pt Temp 58.3 L ABG HCO3 50.6 H ABG O2 Sat (Measured) 88.8 L ABG O2 Content 20.7 ABG Base Excess 18.3 H Arpit Test Positive VBG pH POC VBG pCO2 POC VBG pO2 VBG HCO3 VBG O2 Sat (Alida) VBG Base Excess O2 Delivery Device Bipap Oxygen Flow Rate 50% Vent Mode S/t Vent Rate 14 Mechanical Rate Bipap PEEP Pressure Support Vent 15/8 Sodium 138 Potassium 4.3 Chloride 86 L Carbon Dioxide > 45 H Anion Gap 6 L BUN 19.0 H Creatinine 0.7 Est GFR (CKD-EPI)AfAm 133.02 Est GFR (CKD-EPI)NonAf 114.77 POC Glucometer Random Glucose 169 H Hemoglobin A1c % 7.1 H Calcium 8.7 Phosphorus 3.6 Magnesium 1.9 Total Bilirubin AST ALT Alkaline Phosphatase Troponin I B-Natriuretic Peptide Total Protein Albumin TSH 0.75 D Active Medications Generic Name Dose Route Start Last Admin Trade Name Freq PRN Reason Stop Dose Admin Albuterol/Ipratropium 1 amp 02/18/19 00:56 02/18/19 06:15 Duoneb - NEB 1 amp Q4H PRN Administration SHORTNESS OF BREATH Budesonide/Formoterol Fumarate 2 puff 02/18/19 10:00 02/18/19 09:31 Symbicort 160/4.5mcg - IH 2 puff BID KEVON Administration Enoxaparin Sodium 40 mg 02/18/19 13:10 Lovenox - SQ DAILY [facility]ON Furosemide 40 mg 02/18/19 13:15 Lasix Injection - IVPUSH DAILY [facility] Methylprednisolone Sodium Succinate 60 mg 02/17/19 21:00 02/18/19 09:12 Solu-Medrol - IVPUSH 60 mg Q6H-IV KEVON Administration Pantoprazole Sodium 40 mg 02/17/19 22:00 02/18/19 09:15 Protonix - PO 40 mg BID KEVON Administration Polyethylene Glycol 17 gm 02/18/19 10:00 02/18/19 09:12 Miralax (For Daily Use) - PO Not Given DAILY [facility]EVON ASSESSMENT/PLAN: Pj Linares is a 43 year old male with a past medical history of COPD (on 3L home O2), DM, CHF (last echo 11/01/18 EF 50-55%), former smoker, JEANNE (on CPAP at night) who is admitted to the hospital for COPD exacerbation. Acute on Chronic Hypoxic and Hypercapneic Respiratory Failure Acute COPD Exacerbation Acute on Chronic Diastolic Heart Failure Morbid Obesity Severe JEANNE/OHS DM HTN Hyperlipidemia NEUROLOGIC - intermittently lethargic likely secondary to hypercapneia - continue to monitor mental status as patient is difficult to rouse at times - mental status improved with BiPAP CARDIOLOGY - continue to monitor hemodynamics - caution with fluids as patient is volume overloaded and has history of CHF - given Lasix 40mg IV x2 - CXR showing no pulmonary infiltrates or plueral effusions - continue to monitor CXR for signs of fluid overload - POC U/S showing RV dilation - Dr. Carter consulted - I+Os - daily weights - monitor urine output -monitor creatinine RESPIRATORY - Patient currently on 40/40 HFNC -Taper HFNC as tolerated, keep SpO2>90% - continue Duonebs standing and PRN - continue Solumedrol 60mg IVP q6h - VBG showing hypoxic, hypercapneic respiratory failure - repeat ABG after patient has been on BiPAP showing hypercapneic hypoxic respiratory failure that is slightly improved from yesterday pH 7.36, CO2>92.2, O2 58.3, HCO3 50.6, - respiratory acidosis from hypercapneia, metabolic alkalosis likely from chronic post hypercapneic alkalosis >acute on chronic respiratory acidosis with metabolic alkalosis - patient with chronic hypercapneia and hypoxia as noted on previous ABGs - HCO3>45, likely from chronic respiratory acidosis - titrate Fi02 to maintain Spo2 88-92% - continue azithromycin RENAL - no acute issues - monitor urine output with Lasix GASTROINTESTINAL - no acute issues - Miralax - protonix 40mg bid INFECTIOUS DISEASE - afebrile, no WBC, no signs of PNA - monitor counts and hemodynamics ENDOCRINE - elevated glucose - last A1c in 2017 6.2, repeat A1c - TSH ordered HEMATOLOGY - Hgb elevated at 17.8, chronic elevation, likely elevated due to chronic hypoxia MUSCULOSKELETAL - no acute issues PSYCHIATRY - no acute issues F/E/N - no standing fluids - continue to monitor electrolytes and replete as necessary - sodium controlled diet LINES - R FA 20 gauge inserted 02/17 PROPHYLAXIS - Lovenox and early ambualation CODE - full code DISPO - continue to monitor in ICU Visit type - Emergency Visit Emergency Visit: Yes ED Registration Date: 02/17/19 Care time: The patient presented to the Emergency Department on the above date and was hospitalized for further evaluation of their emergent condition. - New Patient This patient is new to me today: Yes Date on this admission: 02/18/19 - Critical Care Critical Care patient: Yes Total Critical Care Time (in minutes): 40 Critical Care Statement: The care of this patient involved high complexity decision making to prevent further life threatening deterioration of the patient 's condition and/or to evaluate & treat vital organ system(s) failure or risk of failure. ATTENDING PHYSICIAN STATEMENT I saw and evaluated the patient. I reviewed the resident's note and discussed the case with the resident. I agree with the resident's findings and plan as documented. SUBJECTIVE: OBJECTIVE: ASSESSMENT AND PLAN:
[2019-02-18] MEDS: ENOXAPARIN NA (PORCINE) 40 MG/0.4 ML DISP.SYRIN SQ SCH (14:23)
[2019-02-18] MEDS: FUROSEMIDE 40 MG/4 ML INJECTABLE VIAL IVPUSH SCH (14:23)
--- NOTE | 2019-02-18 14:23 | PN ---
Progress Note (short form) - Note Progress Note: ID CONSULT DICTATED ACUTE EXACERBATION COPD NO EVIDENCE OF PNEUMONIA OBSERVE OFF ANTIBIOTICS
--- NOTE | 2019-02-18 21:08 | CONS ---
DATE OF CONSULTATION: DATE OF DICTATION: 02/18/2019 HISTORY OF PRESENT ILLNESS: The patient is a 43-year-old male with a history of COPD and obstructive sleep apnea evaluated for possible pneumonia. The patient was admitted to the hospital with a two-day history of worsening shortness of breath and increased bilateral lower extremity edema. In addition, he complained of a nonproductive cough. In the emergency room, he was noted to be hypoxemic. He was admitted to the Intensive Care Unit where he is currently on high-flow oxygen. A chest x-ray was performed and was negative for acute infiltrate. The patient reports improvement in his breathing. He states that initially, his cough was productive of yellowish sputum. However, it is now productive of whitish sputum. He denies any chest pain. No complaints of hemoptysis. He denies any fever or chills. The patient lives at home in the community. He is a former smoker. He denies any ill contacts. No recent travel. No recent hospitalizations. PAST MEDICAL HISTORY: Positive for COPD, obstructive sleep apnea, polycythemia vera, diabetes mellitus and congestive heart failure. ALLERGIES: LEVAQUIN (diarrhea). MEDICATIONS: Insulin, Lasix, Spiriva, Lipitor, lisinopril, prednisone. REVIEW OF SYSTEMS: Neurologic: No loss of consciousness, seizure activity, focal weakness. Cardiac: Negative for chest pain or palpitations. Respiratory: As per HPI. Gastrointestinal: Negative for vomiting or diarrhea. Genitourinary: Negative for urinary tract infection. LABORATORY DATA: White blood cell count 5.7, hematocrit 50.9, platelet count 104, BUN 19, creatinine 0.7. A chest x-ray is negative for acute infiltrate. PHYSICAL EXAMINATION: General: The patient is awake and alert. He is seated in bed. He is slightly short of breath at rest on high-flow oxygen. Vital Signs: Temperature 98.3, pulse 92 and regular, blood pressure 137/70, respiratory rate 18 per minute. HEENT:: Sclerae anicteric. The patient has a huey complexion with hyperemia. Heart: Heart sounds S1, S2. Lungs: Diminished breath sounds bilaterally. Abdomen: Soft. No tenderness elicited. No mass, rebound or rigidity. Extremities: There is 1+ lower extremity edema. There is cyanosis of the peripheral extremities and clubbing of the fingers. IMPRESSION: 1. Acute exacerbation of chronic obstructive pulmonary disease. 2. Rule out decompensated congestive heart failure. 3. History of polycythemia. PLAN: 1. There is no clinical or radiographic evidence to suggest pneumonia. Would observe off antibiotic therapy. 2. Obtain cultures for fever or elevated white blood cell count. 3. Continue treatment for exacerbation of chronic obstructive pulmonary disease and congestive heart failure. 4. The case was discussed with the critical care team. Thank you for the kind referral. CHRISTIANO HUMPHREYS M.D. [id number]
--- NOTE | 2019-02-18 23:45 | PN ---
Progress Note (short form) - Note Progress Note: patient seen and examined in ICU awake alert able to provide hx Patient was breathing comfortably on BiPAP this morning and was placed on NC so he could eat breakfast however desaturated into the 70's--- he is now on HFNC and appear comfortable. Patient reports also less LE edema Vital Signs Period Temp Pulse Resp BP Sys/Liang Pulse Ox Last 24 Hr 97.9 F-98.7 F 84-101 14-26 108-144/57-80 87-92 sitting up in bed HFNC in place 49% neck supple heart s1/S2 lungs decreased BS abd obese ext + edema /less tense CBC, BMP 02/18/19 05:40 02/18/19 05:40 Active Medications Albuterol/Ipratropium (Duoneb -) 1 amp NEB Q4H PRN PRN Reason: SHORTNESS OF BREATH Last Admin: 02/18/19 22:10 Dose: 1 amp Budesonide/Formoterol Fumarate (Symbicort 160/4.5mcg -) 2 puff IH BID [facility] Last Admin: 02/18/19 21:29 Dose: 2 puff Enoxaparin Sodium (Lovenox -) 40 mg SQ DAILY [facility] Last Admin: 02/18/19 14:23 Dose: 40 mg Furosemide (Lasix Injection -) 40 mg IVPUSH DAILY [facility] Last Admin: 02/18/19 14:23 Dose: 40 mg Methylprednisolone Sodium Succinate (Solu-Medrol -) 60 mg IVPUSH Q6H-IV [facility] Last Admin: 02/18/19 21:19 Dose: 60 mg Pantoprazole Sodium (Protonix -) 40 mg PO BID [facility] Last Admin: 02/18/19 21:20 Dose: 40 mg Polyethylene Glycol (Miralax (For Daily Use) -) 17 gm PO DAILY [facility] Last Admin: 02/18/19 09:12 Dose: Not Given Pj Vijay is a 43 year old male with a past medical history of COPD (on 3L home O2), DM, CHF (last echo 11/01/18 EF 50-55%), former smoker, JEANNE (on CPAP at night) who is admitted to the hospital for COPD exacerbation. COPD Exacerbation Acute on Chronic Hypoxic Hypercapneic Respiratory Failure acute diastolic HF metabolic encephalopathy DM JEANNE PLAN continnue ICU care steroids / nebulizer / HFNC with attemp to taper to NC keep O2 %>90 daily weights trend renal function cpap over night Problem List - Problems (1) Acute on chronic respiratory failure with hypoxia and hypercapnia Code(s): J96.21 - ACUTE AND CHRONIC RESPIRATORY FAILURE WITH HYPOXIA; J96.22 - ACUTE AND CHRONIC RESPIRATORY FAILURE WITH HYPERCAPNIA (2) Acute exacerbation of chronic obstructive pulmonary disease (COPD) Code(s): J44.1 - CHRONIC OBSTRUCTIVE PULMONARY DISEASE W (ACUTE) EXACERBATION (3) Acute on chronic diastolic CHF (congestive heart failure) Code(s): I50.33 - ACUTE ON CHRONIC DIASTOLIC (CONGESTIVE) HEART FAILURE (4) Acquired polycythemia Code(s): D75.1 - SECONDARY POLYCYTHEMIA (5) Morbid obesity Code(s): E66.01 - MORBID (SEVERE) OBESITY DUE TO EXCESS CALORIES
[2019-02-19] MEDS: methylPREDNISolone NA SUCC 125 MG/2 ML VIAL IVPUSH SCH ×2 (03:32→10:15)
[2019-02-19] MEDS: ALBUTEROL SO4 2.5/IPRATROPIUM 0.5 INH SOL 3 ML VIAL.NEB. NEB PRN ×2 (06:10→09:04)
[2019-02-19 06:32] LABS: HEMATOCRIT 52.9 % (35.4-49); HEMOGLOBIN 17.5 GM/dL (11.7-16.9); MCH 28.9 pg (25.7-33.7); MEAN CELL VOLUME 87.6 fl (80-96); PLATELET COUNT 110 K/MM3 (134-434); RBC 6.04 M/mm3 (4.00-5.60); RDW 15.3 % (11.9-15.9); WHITE BLOOD COUNT 9.4 K/mm3 (4.0-10.0)
[2019-02-19 07:12] LABS: ALBUMIN 3.2 g/dl (3.4-5.0); BILIRUBIN,TOTAL 1.2 mg/dL (0.2-1); BLOOD UREA NITROGEN 24.3 mg/dL (7-18); CALCIUM 8.5 mg/dL (8.5-10.1); CREATININE 0.8 mg/dL (0.55-1.3); MAGNESIUM 2.1 mg/dL (1.8-2.4); POTASSIUM 4.2 mmol/L (3.5-5.1); TOT PROT 6.5 g/dl (6.4-8.2)
[2019-02-19] MEDS ORDERED: PT OWN MED DRAWER 7, Y5N ONE ×2 (08:31→21:37)
--- NOTE | 2019-02-19 09:55 | PN ---
Progress Note (short form) - Note Progress Note: s: breathing getting better, edema improved. no chest pain, palps, dizziness Vital Signs Period Temp Pulse Resp BP Sys/Liang Pulse Ox Last 24 Hr 97.9 F-98.8 F 65-98 14-25 116-144/69-80 87-91 Constitutional: Yes: No Distress, Obese Eyes: Yes: Conjunctiva Clear, EOM Intact HENT: Yes: Atraumatic, Normocephalic Neck: Yes: Supple, Trachea Midline Respiratory: Yes: Regular, Diminished Gastrointestinal: Yes: Normal Bowel Sounds Cardiovascular: Yes: Regular Rate and Rhythm JVD: No Carotid Bruit: No PMI: Non-Displaced Heart Sounds: Yes: S1, S2 Murmur: No: Systolic Murmur Musculoskeletal: No: Back Pain Extremities: No: Cool Edema: Yes Edema: LLE: 1+, RLE: 1+ Integumentary: No: Jaundice Neurological: Yes: Alert, Oriented Psychiatric: No: Agitated Assessment/Plan echo 10/2018 tds, grossly nl LV function, mild MR, mild TR CXR: no congestion tele: sinus 43M h/o COPD on 3L home O2, DM, chronic diastolic CHF, JEANNE on CPAP p/w dyspnea shortness of breath, COPD exacerbation, acute diastolic CHF exacerbation - treating for COPD exacerbation per critical care, on nebs, steroids - also component of CHF - BNP low however in setting of obesity. edema has improved with IV lasix, continue daily lasix - bipap as needed per critical care, on high flow O2 now - daily weights, lytes, Cr with diuresis DM - manage per primary JEANNE - on CPAP at home, manage per pulm HTN - cont lisinopril HLD - cont statin
[2019-02-19] MEDS: FUROSEMIDE 40 MG/4 ML INJECTABLE VIAL IVPUSH SCH (10:15)
[2019-02-19] MEDS: ENOXAPARIN NA (PORCINE) 40 MG/0.4 ML DISP.SYRIN SQ SCH (10:15)
[2019-02-19] MEDS: PANTOPRAZOLE 40 MG TABLET (FP) PO SCH ×2 (10:16→22:32)
[2019-02-19] MEDS: BUDESONIDE/FORMETEROL FUMARATE 160/4.5 mcg INHALER IH SCH ×2 (10:17→22:33)
[2019-02-19] MEDS: POLYETHYLENE GLYCOL 3350 119 GM BTL PO SCH (10:17)
--- NOTE | 2019-02-19 11:48 | PN ---
Teaching Attending Note Name of Resident: Gabriel Madden ATTENDING PHYSICIAN STATEMENT I saw and evaluated the patient. I reviewed the resident's note and discussed the case with the resident. I agree with the resident's findings and plan as documented. SUBJECTIVE: Pt seen and examined in the ICU. Remains on HFOT 60L/min, 40% FiO2. States breathing improving. Less leg swelling. OBJECTIVE: Vital Signs Period Temp Pulse Resp BP Sys/Liang Pulse Ox Last 24 Hr 98.1 F-98.8 F 65-98 14-25 98-144/69-85 87-91 Intake & Output 02/16/19 02/17/19 02/18/19 02/19/19 23:59 23:59 23:59 23:59 Intake Total 0 300 Output Total 500 2900 700 Balance -500 -2600 -700 Weight 106.141 kg 105.007 kg 103.419 kg Gen: less tachypneic Heart: RRR Lung: decreased breath sounds at the bases Abd: soft, nontender Ext: less edema CBC, BMP 02/19/19 05:45 02/19/19 05:45 Active Medications Albuterol/Ipratropium (Duoneb -) 1 amp NEB Q4H PRN PRN Reason: SHORTNESS OF BREATH Last Admin: 02/19/19 09:04 Dose: 1 amp Albuterol/Ipratropium (Duoneb -) 1 amp NEB RQID [facility] Budesonide/Formoterol Fumarate (Symbicort 160/4.5mcg -) 2 puff IH BID [facility] Last Admin: 02/19/19 10:17 Dose: 2 puff Enoxaparin Sodium (Lovenox -) 40 mg SQ DAILY [facility] Last Admin: 02/19/19 10:15 Dose: 40 mg Furosemide (Lasix Injection -) 40 mg IVPUSH DAILY [facility] Last Admin: 02/19/19 10:15 Dose: 40 mg Methylprednisolone Sodium Succinate (Solu-Medrol -) 60 mg IVPUSH Q8H-IV [facility] Pantoprazole Sodium (Protonix -) 40 mg PO BID [facility] Last Admin: 02/19/19 10:16 Dose: 40 mg Polyethylene Glycol (Miralax (For Daily Use) -) 17 gm PO DAILY [facility] Last Admin: 02/19/19 10:17 Dose: Not Given ASSESSMENT AND PLAN: Acute on Chronic Hypoxic and Hypercapneic Respiratory Failure Acute COPD Exacerbation Acute on Chronic Diastolic Heart Failure Morbid Obesity Severe JEANNE/OHS DM HTN Hyperlipidemia - taper medrol - inhaled bronchodilators standing and PRN - continue lasix - monitor urine output, creatinine - taper HFOT to keep SpO2>90% - when ready for discharge, check ABG to assess for home NIPPV - PO as tolerated - DVT prophylaxis - continue ICU monitoring critical care time spent in reviewing chart, evaluating patient and formulating plan 35 min
[2019-02-19] MEDS: ALBUTEROL SO4 2.5/IPRATROPIUM 0.5 INH SOL 3 ML VIAL.NEB. NEB SCH ×3 (12:19→21:15)
--- NOTE | 2019-02-19 12:27 | PN ---
Progress Note (short form) - Note Progress Note: patient seen and examined in ICU awake alert able to provide hx Remains on HFNC and appear comfortable. Patient reports also less LE edema Vital Signs Period Temp Pulse Resp BP Sys/Liang Pulse Ox Last 24 Hr 98.1 F-98.8 F 65-98 16-25 98-137/69-85 87-91 Intake & Output 02/16/19 02/17/19 02/18/19 02/19/19 23:59 23:59 23:59 23:59 Intake Total 0 300 Output Total 500 2900 700 Balance -500 -2600 -700 Weight 234 lb 231 lb 8 oz 228 lb sitting up in bed HFNC in place 49% neck supple heart s1/S2 lungs decreased BS abd obese ext + edema /less tense CBC, BMP 02/19/19 05:45 02/19/19 05:45 CBC, BMP 02/18/19 05:40 02/18/19 05:40 Active Medications Albuterol/Ipratropium (Duoneb -) 1 amp NEB Q4H PRN PRN Reason: SHORTNESS OF BREATH Last Admin: 02/19/19 09:04 Dose: 1 amp Albuterol/Ipratropium (Duoneb -) 1 amp NEB RQID [facility] Last Admin: 02/19/19 12:19 Dose: 1 amp Budesonide/Formoterol Fumarate (Symbicort 160/4.5mcg -) 2 puff IH BID [facility] Last Admin: 02/19/19 10:17 Dose: 2 puff Enoxaparin Sodium (Lovenox -) 40 mg SQ DAILY [facility] Last Admin: 02/19/19 10:15 Dose: 40 mg Furosemide (Lasix Injection -) 40 mg IVPUSH DAILY [facility] Last Admin: 02/19/19 10:15 Dose: 40 mg Methylprednisolone Sodium Succinate (Solu-Medrol -) 60 mg IVPUSH Q8H-IV [facility] Pantoprazole Sodium (Protonix -) 40 mg PO BID [facility] Last Admin: 02/19/19 10:16 Dose: 40 mg Polyethylene Glycol (Miralax (For Daily Use) -) 17 gm PO DAILY [facility] Last Admin: 02/19/19 10:17 Dose: Not Given Pj Linares is a 43 year old male with a past medical history of COPD (on 3L home O2), DM, CHF (last echo 11/01/18 EF 50-55%), former smoker, JEANNE (on CPAP at night) who is admitted to the hospital for COPD exacerbation. COPD Exacerbation Acute on Chronic Hypoxic Hypercapneic Respiratory Failure acute diastolic HF metabolic encephalopathy DM JEANNE PLAN continnue ICU care steroids / nebulizer / HFNC with attemp to taper to NC keep O2 %>90 daily weights trend renal function cpap over night Problem List - Problems (1) Acute on chronic respiratory failure with hypoxia and hypercapnia Code(s): J96.21 - ACUTE AND CHRONIC RESPIRATORY FAILURE WITH HYPOXIA; J96.22 - ACUTE AND CHRONIC RESPIRATORY FAILURE WITH HYPERCAPNIA (2) Acute exacerbation of chronic obstructive pulmonary disease (COPD) Code(s): J44.1 - CHRONIC OBSTRUCTIVE PULMONARY DISEASE W (ACUTE) EXACERBATION (3) Acute on chronic diastolic CHF (congestive heart failure) Code(s): I50.33 - ACUTE ON CHRONIC DIASTOLIC (CONGESTIVE) HEART FAILURE (4) Acquired polycythemia Code(s): D75.1 - SECONDARY POLYCYTHEMIA (5) Morbid obesity Code(s): E66.01 - MORBID (SEVERE) OBESITY DUE TO EXCESS CALORIES
--- NOTE | 2019-02-19 12:53 | PN ---
Physical Exam: SUBJECTIVE: Patient seen and examined at the bedside. Denies any acute complaints of cp, sob, abd pain, n/v/c/d, dizziness, lightheadedness, fever, chills, weakness, numbness, tingling. Feels better than yesterday. Weaning down hi flow. Now on 40L 40FiO2 and tolerating well with sats 88-90. OBJECTIVE: Vital Signs Period Temp Pulse Resp BP Sys/Liang Pulse Ox Last 24 Hr 98.1 F-98.8 F 65-98 16-25 98-137/69-85 87-91 GENERAL: Awake, alert, and fully oriented, in no acute distress HEAD: Normal with no signs of trauma. Cheeks flushed EYES: Pupils equal, round and reactive to light, extraocular movements intact, sclera anicteric, conjunctiva clear. NECK: Normal range of motion, supple without lymphadenopathy, JVD, or masses. LUNGS: Breath sounds equal, decreased air movement noted throughout. Mild crackles noted at the bases. No wheezes, no accessory muscle use. HEART: Regular rate and rhythm, normal S1 and S2 without murmur, rub or gallop. ABDOMEN: Soft, nontender, not distended, normoactive bowel sounds, no guarding, no rebound, no masses. MUSCULOSKELETAL: Normal range of motion at all joints. No bony deformities or tenderness. UPPER EXTREMITIES: 2+ pulses, warm, well-perfused. No cyanosis. No clubbing. Cap refill <2 seconds. No peripheral edema. LOWER EXTREMITIES: 1+ pulses, warm, well-perfused. No calf tenderness. 1+ peripheral edema up the ankles. NEUROLOGICAL: Cranial nerves II-XII intact. Normal speech. Muscle strength 5/5 bilaterally upper and lower extremities. PSYCHIATRIC: Cooperative. Good eye contact. Appropriate mood and affect. SKIN: Warm, dry, normal turgor. Laboratory Results - last 24 hr 02/19/19 02/19/19 02/19/19 05:26 05:45 05:45 WBC 9.4 RBC 6.04 H Hgb 17.5 H Hct 52.9 H MCV 87.6 MCH 28.9 MCHC 33.0 RDW 15.3 Plt Count 110 L MPV 8.0 Sodium 137 Potassium 4.2 Chloride 87 L Carbon Dioxide 44 H Anion Gap 6 L BUN 24.3 H Creatinine 0.8 Est GFR (CKD-EPI)AfAm 125.92 Est GFR (CKD-EPI)NonAf 108.65 POC Glucometer 193 Random Glucose 187 H Calcium 8.5 Phosphorus 4.0 Magnesium 2.1 Total Bilirubin 1.2 H AST 15 ALT 34 Alkaline Phosphatase 42 L Total Protein 6.5 Albumin 3.2 L Active Medications Generic Name Dose Route Start Last Admin Trade Name Freq PRN Reason Stop Dose Admin Albuterol/Ipratropium 1 amp 02/18/19 00:56 02/19/19 09:04 Duoneb - NEB 1 amp Q4H PRN Administration SHORTNESS OF BREATH Albuterol/Ipratropium 1 amp 02/19/19 12:00 02/19/19 12:19 Duoneb - NEB 1 amp RQID [facility] Administration Budesonide/Formoterol Fumarate 2 puff 02/18/19 10:00 02/19/19 10:17 Symbicort 160/4.5mcg - IH 2 puff BID [facility] Administration Enoxaparin Sodium 40 mg 02/18/19 13:10 02/19/19 10:15 Lovenox - SQ 40 mg DAILY [facility] Administration Furosemide 40 mg 02/18/19 13:15 02/19/19 10:15 Lasix Injection - IVPUSH 40 mg DAILY [facility] Administration Methylprednisolone Sodium Succinate 60 mg 02/19/19 18:00 Solu-Medrol - IVPUSH Q8H-IV [facility] Pantoprazole Sodium 40 mg 02/17/19 22:00 02/19/19 10:16 Protonix - PO 40 mg BID [facility] Administration Polyethylene Glycol 17 gm 02/18/19 10:00 02/19/19 10:17 Miralax (For Daily Use) - PO Not Given DAILY [facility] ASSESSMENT/PLAN: Pj Linares is a 43 year old male with a past medical history of COPD (on 3L home O2), DM, CHF (last echo 11/01/18 EF 50-55%), former smoker, JEANNE (on CPAP at night) who is admitted to the hospital for COPD exacerbation. Acute on Chronic Hypoxic and Hypercapneic Respiratory Failure Acute COPD Exacerbation Acute on Chronic Diastolic Heart Failure Morbid Obesity Severe JEANNE/OHS DM HTN Hyperlipidemia NEUROLOGIC - alert and oriented CARDIOLOGY - continue to monitor hemodynamics - caution with fluids as patient is volume overloaded and has history of CHF - given Lasix 40mg IV x2 - CXR showing no pulmonary infiltrates or plueral effusions - continue to monitor CXR for signs of fluid overload - POC U/S showing RV dilation - Dr. Carter consulted - I+Os - daily weights - monitor urine output - monitor creatinine RESPIRATORY - Patient currently on 40/40 HFNC - Taper HFNC as tolerated, keep SpO2>90% - continue Duonebs standing and PRN - wean to Solumedrol 40mg IVP q8h - VBG showing hypoxic, hypercapneic respiratory failure - repeat ABG after patient has been on BiPAP showing hypercapneic hypoxic respiratory failure that is slightly improved from yesterday pH 7.36, CO2>92.2, O2 58.3, HCO3 50.6, - respiratory acidosis from hypercapneia, metabolic alkalosis likely from chronic post hypercapneic alkalosis >acute on chronic respiratory acidosis with metabolic alkalosis - patient with chronic hypercapneia and hypoxia as noted on previous ABGs - HCO3>45, likely from chronic respiratory acidosis - titrate Fi02 to maintain Spo2 88-92% - may need BiPAP at home - ABG before discharge to assess need for BiPAP RENAL - no acute issues - monitor urine output with Lasix GASTROINTESTINAL - no acute issues - Miralax - protonix 40mg bid INFECTIOUS DISEASE - afebrile, no WBC, no signs of PNA - monitor counts and hemodynamics ENDOCRINE - elevated glucose - last A1c in 2017 6.2, repeat A1c 7.1 - TSH ordered HEMATOLOGY - Hgb elevated, chronic elevation, likely elevated due to chronic hypoxia MUSCULOSKELETAL - no acute issues PSYCHIATRY - no acute issues F/E/N - no standing fluids - continue to monitor electrolytes and replete as necessary - sodium controlled diet LINES - R FA 20 gauge inserted 02/17 PROPHYLAXIS - Lovenox and early ambualation CODE - full code DISPO - continue to monitor in ICU Visit type - Emergency Visit Emergency Visit: No - New Patient This patient is new to me today: No - Critical Care Critical Care patient: Yes Total Critical Care Time (in minutes): 36 Critical Care Statement: The care of this patient involved high complexity decision making to prevent further life threatening deterioration of the patient 's condition and/or to evaluate & treat vital organ system(s) failure or risk of failure.
[2019-02-19] MEDS ORDERED: methylPREDNISolone NA SUCC 125 MG/2 ML VIAL IVPUSH SCH (18:00)
[2019-02-19] MEDS: methylPREDNISolone NA SUCC 40 MG/1 ML VIAL IVPUSH SCH (18:01)
[2019-02-20] MEDS: methylPREDNISolone NA SUCC 40 MG/1 ML VIAL IVPUSH SCH ×4 (01:56→17:45)
[2019-02-20] MEDS: ALBUTEROL SO4 2.5/IPRATROPIUM 0.5 INH SOL 3 ML VIAL.NEB. NEB PRN (05:45)
[2019-02-20 06:17] LABS: HEMATOCRIT 51.4 % (35.4-49); MCH 28.9 pg (25.7-33.7); MCHC 33.1 g/dl (32.0-35.9); MEAN CELL VOLUME 87.3 fl (80-96); MEAN PLT VOLUME 7.9 fl (7.5-11.1); PLATELET COUNT 113 K/MM3 (134-434); RBC 5.88 M/mm3 (4.00-5.60); RDW 14.7 % (11.9-15.9); WHITE BLOOD COUNT 8.5 K/mm3 (4.0-10.0)
[2019-02-20 06:46] LABS: BLOOD UREA NITROGEN 23.4 mg/dL (7-18); CALCIUM 8.8 mg/dL (8.5-10.1); CREATININE 0.7 mg/dL (0.55-1.3); MAGNESIUM 2.2 mg/dL (1.8-2.4); POTASSIUM 4.1 mmol/L (3.5-5.1)
[2019-02-20] MEDS: ALBUTEROL SO4 2.5/IPRATROPIUM 0.5 INH SOL 3 ML VIAL.NEB. NEB SCH ×4 (08:27→20:14)
[2019-02-20] MEDS ORDERED: PT OWN MED DRAWER 7, Y5N ONE (08:29)
--- NOTE | 2019-02-20 08:52 | PN ---
Physical Exam: SUBJECTIVE: Patient seen and examined at bedside. Is breathing comfortably on HFNC, plan to wean down to NC so patient can be transferred to floors. Will obtain ABG prior to discharge to assess whether patient needs BiPAP at home. OBJECTIVE: Vital Signs Period Temp Pulse Resp BP Sys/Liang Pulse Ox Last 24 Hr 98.6 F 61-88 16-24 98-134/60-85 85-92 GENERAL: The patient is awake, alert, and fully oriented, in no acute distress. HEAD: Normal with no signs of trauma, facial plethora EYES: PERRL, extraocular movements intact, sclera anicteric, conjunctiva clear. No ptosis. ENT: moist mucous membranes. NECK: Trachea midline, full range of motion, supple. LUNGS: Breath sounds equal, clear to auscultation bilaterally, no wheezes, mild crackles at bases, no accessory muscle use. HEART: Regular rate and rhythm, S1, S2 without murmur, rub or gallop. ABDOMEN: Soft, nontender, nondistended, normoactive bowel sounds, no guarding, no rebound. EXTREMITIES: 2+ pulses, warm, well-perfused, trace bilateral LE edema. NEUROLOGICAL: Cranial nerves II through XII grossly intact. Normal speech, gait not observed. PSYCH: Normal mood, normal affect. SKIN: Warm, dry, normal turgor, no rashes or lesions noted Laboratory Results - last 24 hr 02/20/19 02/20/19 05:40 05:40 WBC 8.5 RBC 5.88 H Hgb 17.0 H Hct 51.4 H MCV 87.3 MCH 28.9 MCHC 33.1 RDW 14.7 Plt Count 113 L MPV 7.9 Sodium 136 Potassium 4.1 Chloride 90 L Carbon Dioxide 40 H Anion Gap 7 L BUN 23.4 H Creatinine 0.7 Est GFR (CKD-EPI)AfAm 133.02 Est GFR (CKD-EPI)NonAf 114.77 Random Glucose 194 H Calcium 8.8 Phosphorus 4.0 Magnesium 2.2 Active Medications Generic Name Dose Route Start Last Admin Trade Name Freq PRN Reason Stop Dose Admin Albuterol/Ipratropium 1 amp 02/18/19 00:56 02/20/19 05:45 Duoneb - NEB 1 amp Q4H PRN Administration SHORTNESS OF BREATH Albuterol/Ipratropium 1 amp 02/19/19 12:00 02/19/19 21:15 Duoneb - NEB 1 amp RQID [facility] Administration Budesonide/Formoterol Fumarate 2 puff 02/18/19 10:00 02/19/19 22:33 Symbicort 160/4.5mcg - IH 2 puff BID [facility] Administration Enoxaparin Sodium 40 mg 02/18/19 13:10 02/19/19 10:15 Lovenox - SQ 40 mg DAILY [facility] Administration Furosemide 40 mg 02/18/19 13:15 02/19/19 10:15 Lasix Injection - IVPUSH 40 mg DAILY [facility] Administration Methylprednisolone Sodium Succinate 40 mg 02/19/19 18:00 02/20/19 01:56 Solu-Medrol - IVPUSH 40 mg Q8H-IV [facility] Administration Pantoprazole Sodium 40 mg 02/17/19 22:00 02/19/19 22:32 Protonix - PO 40 mg BID [facility] Administration Polyethylene Glycol 17 gm 02/18/19 10:00 02/19/19 10:17 Miralax (For Daily Use) - PO Not Given DAILY [facility] ASSESSMENT/PLAN: Pj Linares is a 43 year old male with a past medical history of COPD (on 3L home O2), DM, CHF (last echo 11/01/18 EF 50-55%), former smoker, JEANNE (on CPAP at night) who is admitted to the hospital for COPD exacerbation. Acute on Chronic Hypoxic and Hypercapneic Respiratory Failure Acute COPD Exacerbation Acute on Chronic Diastolic Heart Failure Morbid Obesity Severe JEANNE/OHS DM HTN Hyperlipidemia NEUROLOGIC - alert and oriented CARDIOLOGY - continue to monitor hemodynamics - caution with fluids as patient is volume overloaded and has history of CHF - Lasix 40mg IVP daily - CXR showing no pulmonary infiltrates or plueral effusions - continue to monitor CXR for signs of fluid overload - POC U/S showing RV dilation - Dr. Carter consulted - I+Os - daily weights - monitor urine output - monitor creatinine RESPIRATORY - VBG showed hypoxic, hypercapneic respiratory failure - repeat ABG after patient has been on BiPAP showed hypercapneic hypoxic respiratory failure that slightly improved, pH 7.36, CO2>92.2, O2 58.3, HCO3 50.6, - patient with chronic hypercapneia and hypoxia as noted on previous ABGs - respiratory acidosis from hypercapneia, metabolic alkalosis likely from chronic post hypercapneic alkalosis >acute on chronic respiratory acidosis with metabolic alkalosis - Patient currently on NC satting at 94% - continue Duonebs standing and PRN - wean to Solumedrol 40mg IVP q8h - HCO3>45, likely from chronic respiratory acidosis - NC 5L to maintain Spo2 88-92% - Start CPAP at night: P10, V5L, FiO2 35% - may need BiPAP at home - ABG before discharge to assess need for BiPAP RENAL - no acute issues - monitor urine output with Lasix GASTROINTESTINAL - no acute issues - Miralax - protonix 40mg bid INFECTIOUS DISEASE - afebrile, no WBC, no signs of PNA - monitor counts and hemodynamics ENDOCRINE - elevated glucose - last A1c in 2017 6.2, repeat A1c 7.1 - TSH within reference range HEMATOLOGY - Hgb elevated, chronic elevation, likely elevated due to chronic hypoxia MUSCULOSKELETAL - no acute issues PSYCHIATRY - no acute issues F/E/N - no standing fluids - continue to monitor electrolytes and replete as necessary - sodium controlled diet LINES - R FA 20 gauge inserted 02/17 PROPHYLAXIS - Lovenox and early ambualation CODE - full code DISPO - Patient stable for transfer to telemetry now that he is off HFNC Visit type - Emergency Visit Emergency Visit: Yes ED Registration Date: 02/17/19 Care time: The patient presented to the Emergency Department on the above date and was hospitalized for further evaluation of their emergent condition. - New Patient This patient is new to me today: No - Critical Care Critical Care patient: No Total Critical Care Time (in minutes): 40 Critical Care Statement: The care of this patient involved high complexity decision making to prevent further life threatening deterioration of the patient 's condition and/or to evaluate & treat vital organ system(s) failure or risk of failure. ATTENDING PHYSICIAN STATEMENT I saw and evaluated the patient. I reviewed the resident's note and discussed the case with the resident. I agree with the resident's findings and plan as documented. SUBJECTIVE: OBJECTIVE: ASSESSMENT AND PLAN:
[2019-02-20] MEDS: PANTOPRAZOLE 40 MG TABLET (FP) PO SCH ×2 (09:46→22:14)
[2019-02-20] MEDS: FUROSEMIDE 40 MG/4 ML INJECTABLE VIAL IVPUSH SCH (09:46)
[2019-02-20] MEDS: BUDESONIDE/FORMETEROL FUMARATE 160/4.5 mcg INHALER IH SCH ×2 (09:47→22:14)
[2019-02-20] MEDS: ENOXAPARIN NA (PORCINE) 40 MG/0.4 ML DISP.SYRIN SQ SCH (09:47)
[2019-02-20] MEDS: POLYETHYLENE GLYCOL 3350 119 GM BTL PO SCH (09:49)
[2019-02-20] MEDS ORDERED: ALBUTEROL SO4 0.083% IH SOL 2.5 MG/3 ML VIAL.NEB. NEB PRN ×2 (11:17→17:28)
--- NOTE | 2019-02-20 11:31 | PN ---
Progress Note (short form) - Note Progress Note: s: breathing getting better, edema improved. no chest pain, palps, dizziness Vital Signs Period Temp Pulse Resp BP Sys/Liang Pulse Ox Last 24 Hr 98.4 F-98.6 F 61-88 16-24 115-150/60-108 89-92 Constitutional: Yes: No Distress, Obese Eyes: Yes: Conjunctiva Clear, EOM Intact HENT: Yes: Atraumatic, Normocephalic Neck: Yes: Supple, Trachea Midline Respiratory: Yes: Regular, Diminished Gastrointestinal: Yes: Normal Bowel Sounds Cardiovascular: Yes: Regular Rate and Rhythm JVD: No Heart Sounds: Yes: S1, S2 Murmur: No: Systolic Murmur Musculoskeletal: No: Back Pain Edema: trace bl le Integumentary: No: Jaundice Neurological: Yes: Alert, Oriented Psychiatric: No: Agitated Current Medications Generic Name Dose Route Start Last Admin Trade Name Freq PRN Reason Stop Dose Admin Albuterol Sulfate 1 amp 02/20/19 11:17 Ventolin 0.083% Nebulizer Soln - NEB Q4H PRN SHORT OF BREATH/WHEEZING Albuterol/Ipratropium 1 amp 02/19/19 12:00 02/20/19 08:27 Duoneb - NEB 1 amp RQID [facility] Administration Budesonide/Formoterol Fumarate 2 puff 02/18/19 10:00 02/20/19 09:47 Symbicort 160/4.5mcg - IH 2 puff BID [facility] Administration Enoxaparin Sodium 40 mg 02/18/19 13:10 02/20/19 09:47 Lovenox - SQ 40 mg DAILY [facility] Administration Furosemide 40 mg 02/18/19 13:15 02/20/19 09:46 Lasix Injection - IVPUSH 40 mg DAILY [facility] Administration Methylprednisolone Sodium Succinate 40 mg 02/19/19 18:00 02/20/19 09:47 Solu-Medrol - IVPUSH 40 mg Q8H-IV [facility] Administration Pantoprazole Sodium 40 mg 02/17/19 22:00 02/20/19 09:46 Protonix - PO 40 mg BID [facility] Administration Polyethylene Glycol 17 gm 02/18/19 10:00 02/20/19 09:49 Miralax (For Daily Use) - PO Not Given DAILY [facility] CBC, BMP 02/20/19 05:40 02/20/19 05:40 Assessment/Plan echo 10/2018 tds, grossly nl LV function, mild MR, mild TR CXR: no congestion tele: sinus, artifact 43M h/o COPD on 3L home O2, DM, chronic diastolic CHF, JEANNE on CPAP p/w dyspnea shortness of breath, COPD exacerbation, acute diastolic CHF exacerbation - treating for COPD exacerbation per critical care, on nebs, steroids - also component of CHF - BNP low however in setting of obesity. edema has improved with IV lasix, continue daily lasix - bipap as needed per critical care, on high flow O2 now - daily weights, lytes, Cr with diuresis DM - manage per primary JEANNE - on CPAP at home, manage per pulm HTN - cont lisinopril HLD - cont statin
--- NOTE | 2019-02-20 11:37 | PN ---
Teaching Attending Note Name of Resident: Samanta Simmons ATTENDING PHYSICIAN STATEMENT I saw and evaluated the patient. I reviewed the resident's note and discussed the case with the resident. I agree with the resident's findings and plan as documented. SUBJECTIVE: Pt seen and examined in the ICU. Breathing continues to improve. On HFOT overnight, transitioned to 5L/min nasal cannula during rounds. Diuresing well with lasix. OBJECTIVE: Vital Signs Period Temp Pulse Resp BP Sys/Liang Pulse Ox Last 24 Hr 98.4 F-98.6 F 61-88 16-24 115-150/60-108 89-92 Intake & Output 02/17/19 02/18/19 02/19/19 02/20/19 23:59 23:59 23:59 23:59 Intake Total 0 300 500 Output Total 500 2900 2300 4500 Balance -500 -2600 -1800 -4500 Weight 106.141 kg 105.007 kg 103.419 kg 104.099 kg Gen: less tachypneic Heart: RRR Lung: decreased breath sounds at the bases Abd: soft, nontender Ext: no edema CBC, BMP 02/20/19 05:40 02/20/19 05:40 Active Medications Albuterol Sulfate (Ventolin 0.083% Nebulizer Soln -) 1 amp NEB Q4H PRN PRN Reason: SHORT OF BREATH/WHEEZING Albuterol/Ipratropium (Duoneb -) 1 amp NEB RQID [facility] Last Admin: 02/20/19 08:27 Dose: 1 amp Budesonide/Formoterol Fumarate (Symbicort 160/4.5mcg -) 2 puff IH BID [facility] Last Admin: 02/20/19 09:47 Dose: 2 puff Enoxaparin Sodium (Lovenox -) 40 mg SQ DAILY [facility] Last Admin: 02/20/19 09:47 Dose: 40 mg Furosemide (Lasix Injection -) 40 mg IVPUSH DAILY [facility] Last Admin: 02/20/19 09:46 Dose: 40 mg Methylprednisolone Sodium Succinate (Solu-Medrol -) 40 mg IVPUSH Q8H-IV [facility] Last Admin: 02/20/19 09:47 Dose: 40 mg Pantoprazole Sodium (Protonix -) 40 mg PO BID [facility] Last Admin: 02/20/19 09:46 Dose: 40 mg Polyethylene Glycol (Miralax (For Daily Use) -) 17 gm PO DAILY [facility] Last Admin: 02/20/19 09:49 Dose: Not Given ASSESSMENT AND PLAN: Acute on Chronic Hypoxic and Hypercapneic Respiratory Failure Acute COPD Exacerbation Acute on Chronic Diastolic Heart Failure Morbid Obesity Severe JEANNE/OHS DM HTN Hyperlipidemia - taper medrol - inhaled bronchodilators standing and PRN - continue lasix - monitor urine output, creatinine - O2 to keep SpO2 >90% - when ready for discharge, check ABG to assess for home NIPPV - CPAP at night - PO as tolerated - DVT prophylaxis - can monitor on telemetry with pulse oximetry monitoring critical care time spent in reviewing chart, evaluating patient and formulating plan 35 min
--- NOTE | 2019-02-20 19:49 | PN ---
Progress Note (short form) - Note Progress Note: patient seen and examined in ICU awake alert able to provide hx Remains on HFNC and appear comfortable. Patient reports also less LE edema being weaned to NC Vital Signs Period Temp Pulse Resp BP Sys/Linag Pulse Ox Last 24 Hr 98.1 F-98.8 F 65-98 16-25 98-137/69-85 87-91 Intake & Output 02/17/19 02/18/19 02/19/19 02/20/19 23:59 23:59 23:59 23:59 Intake Total 0 300 500 300 Output Total 500 2900 2300 5950 Balance -500 -2600 -1800 -5650 Weight 234 lb 231 lb 8 oz 228 lb 229 lb 8 oz sitting up in bed HFNC in place 40% neck supple heart s1/S2 lungs decreased BS abd obese ext + edema /less tense CBC, BMP 02/20/19 05:40 02/20/19 05:40 CBC, BMP 02/19/19 05:45 02/19/19 05:45 CBC, BMP 02/18/19 05:40 02/18/19 05:40 Active Medications Albuterol Sulfate (Ventolin 0.083% Nebulizer Soln -) 1 amp NEB Q4H PRN PRN Reason: SHORT OF BREATH/WHEEZING Albuterol/Ipratropium (Duoneb -) 1 amp NEB RQID [facility] Budesonide/Formoterol Fumarate (Symbicort 160/4.5mcg -) 2 puff IH BID [facility] Enoxaparin Sodium (Lovenox -) 40 mg SQ DAILY [facility] Furosemide (Lasix Injection -) 40 mg IVPUSH DAILY [facility] Methylprednisolone Sodium Succinate (Solu-Medrol -) 40 mg IVPUSH Q8H-IV [facility] Last Admin: 02/20/19 17:45 Dose: 40 mg Pantoprazole Sodium (Protonix -) 40 mg PO BID [facility] Polyethylene Glycol (Miralax (For Daily Use) -) 17 gm PO DAILY [facility] Pj Linares is a 43 year old male with a past medical history of COPD (on 3L home O2), DM, CHF (last echo 11/01/18 EF 50-55%), former smoker, JEANNE (on CPAP at night) who is admitted to the hospital for COPD exacerbation. COPD Exacerbation Acute on Chronic Hypoxic Hypercapneic Respiratory Failure acute diastolic HF metabolic encephalopathy DM JEANNE PLAN continue ICU care until off HFNC steroids / nebulizer / HFNC with attemp to taper to NC keep O2 %>90 daily weights trend renal function cpap over night Problem List - Problems (1) Metabolic encephalopathy Code(s): G93.41 - METABOLIC ENCEPHALOPATHY (2) Acute on chronic respiratory failure with hypoxia and hypercapnia Code(s): J96.21 - ACUTE AND CHRONIC RESPIRATORY FAILURE WITH HYPOXIA; J96.22 - ACUTE AND CHRONIC RESPIRATORY FAILURE WITH HYPERCAPNIA (3) Acute exacerbation of chronic obstructive pulmonary disease (COPD) Code(s): J44.1 - CHRONIC OBSTRUCTIVE PULMONARY DISEASE W (ACUTE) EXACERBATION (4) Acute on chronic diastolic CHF (congestive heart failure) Code(s): I50.33 - ACUTE ON CHRONIC DIASTOLIC (CONGESTIVE) HEART FAILURE (5) Acquired polycythemia Code(s): D75.1 - SECONDARY POLYCYTHEMIA (6) Morbid obesity Code(s): E66.01 - MORBID (SEVERE) OBESITY DUE TO EXCESS CALORIES
[2019-02-21] MEDS: methylPREDNISolone NA SUCC 40 MG/1 ML VIAL IVPUSH SCH ×3 (01:18→17:50)
[2019-02-21 06:52] LABS: BLOOD UREA NITROGEN 26.5 mg/dL (7-18); CALCIUM 8.8 mg/dL (8.5-10.1); CREATININE 0.8 mg/dL (0.55-1.3); POTASSIUM 4.5 mmol/L (3.5-5.1)
[2019-02-21 07:14] LABS: HEMATOCRIT 52.6 % (35.4-49); HEMOGLOBIN 17.4 GM/dL (11.7-16.9); MCH 28.8 pg (25.7-33.7); MEAN CELL VOLUME 87.1 fl (80-96); MEAN PLT VOLUME 8.2 fl (7.5-11.1); PLATELET COUNT 120 K/MM3 (134-434); RBC 6.03 M/mm3 (4.00-5.60); RDW 15.1 % (11.9-15.9)
[2019-02-21] MEDS: ALBUTEROL SO4 2.5/IPRATROPIUM 0.5 INH SOL 3 ML VIAL.NEB. NEB SCH ×4 (07:40→20:48)
--- NOTE | 2019-02-21 08:11 | PN ---
Progress Note, Physician Chief Complaint: walking around his room Feeling better TELE: NSR - Current Medication List Current Medications: Active Medications Albuterol Sulfate (Ventolin 0.083% Nebulizer Soln -) 1 amp NEB Q4H PRN PRN Reason: SHORT OF BREATH/WHEEZING Albuterol/Ipratropium (Duoneb -) 1 amp NEB RQID [facility] Last Admin: 02/20/19 20:14 Dose: 1 amp Budesonide/Formoterol Fumarate (Symbicort 160/4.5mcg -) 2 puff IH BID [facility] Last Admin: 02/20/19 22:14 Dose: 2 puff Enoxaparin Sodium (Lovenox -) 40 mg SQ DAILY [facility] Furosemide (Lasix Injection -) 40 mg IVPUSH DAILY [facility] Methylprednisolone Sodium Succinate (Solu-Medrol -) 40 mg IVPUSH Q8H-IV [facility] Last Admin: 02/21/19 01:18 Dose: 40 mg Pantoprazole Sodium (Protonix -) 40 mg PO BID [facility] Last Admin: 02/20/19 22:14 Dose: 40 mg Polyethylene Glycol (Miralax (For Daily Use) -) 17 gm PO DAILY [facility] - Objective Vital Signs: Vital Signs Temperature 98.5 F 02/21/19 02:30 Pulse Rate 71 02/21/19 02:30 Respiratory Rate 26 H 02/21/19 02:30 Blood Pressure 111/72 02/21/19 02:30 O2 Sat by Pulse Oximetry (%) 95 02/21/19 06:14 Constitutional: Yes: No Distress Cardiovascular: Yes: Regular Rate and Rhythm Respiratory: Yes: Other (decreased breath sounds, no wheezing) Gastrointestinal: Yes: Soft Edema: Yes Edema: LLE: 1+, RLE: 1+ Neurological: Yes: Alert, Oriented ...Motor Strength: WNL Labs: CBC, BMP 02/21/19 05:40 02/21/19 05:40 - ....Imaging EKG: Image Reviewed Assessment/Plan Assessment/Plan echo 10/2018 tds, grossly nl LV function, mild MR, mild TR CXR: no congestion tele: sinus, artifact 43M h/o COPD on 3L home O2, DM, chronic diastolic CHF, JEANNE on CPAP p/w dyspnea: shortness of breath, COPD exacerbation, acute diastolic CHF exacerbation - treating for COPD exacerbation per critical care, on nebs, steroids - also component of CHF - BNP low however in setting of obesity. edema has improved with IV lasix, continue daily lasix, can switch to PO tomorrow - bipap as needed per critical care, on high flow O2 now - daily weights, lytes, Cr with diuresis DM - manage per primary JEANNE - on CPAP at home, manage per pulm HTN - cont lisinopril HLD - cont statin
[2019-02-21] MEDS ORDERED: FUROSEMIDE 40 MG/4 ML INJECTABLE VIAL IVPUSH SCH (10:00)
[2019-02-21] MEDS: BUDESONIDE/FORMETEROL FUMARATE 160/4.5 mcg INHALER IH SCH ×2 (11:00→21:35)
[2019-02-21] MEDS: POLYETHYLENE GLYCOL 3350 119 GM BTL PO SCH (11:28)
[2019-02-21] MEDS: PANTOPRAZOLE 40 MG TABLET (FP) PO SCH ×2 (11:28→21:36)
[2019-02-21] MEDS: ENOXAPARIN NA (PORCINE) 40 MG/0.4 ML DISP.SYRIN SQ SCH (11:28)
--- NOTE | 2019-02-21 11:55 | PN ---
Progress Note (short form) - Note Progress Note: 43 y/o male found sitting in bed. States that he feels better. O2 in place via nasal cannula. O2 sat 93. Denies SOB. Vital Signs Period Temp Pulse Resp BP Sys/Liang Pulse Ox Last 24 Hr 98.0 F-98.5 F 71-82 23-26 111-134/69-76 92-95 CBC, BMP 02/21/19 05:40 02/21/19 05:40 HEENT- Normocephalic Neck- Supple Lungs- CTAB Heart- S1/S2 Abd- Soft, nt Ext- B/L LE 1 + pitting edema Active Medications Albuterol Sulfate (Ventolin 0.083% Nebulizer Soln -) 1 amp NEB Q4H PRN PRN Reason: SHORT OF BREATH/WHEEZING Albuterol/Ipratropium (Duoneb -) 1 amp NEB RQID [facility] Last Admin: 02/21/19 11:33 Dose: 1 amp Budesonide/Formoterol Fumarate (Symbicort 160/4.5mcg -) 2 puff IH BID [facility] Last Admin: 02/21/19 11:00 Dose: 2 puff Enoxaparin Sodium (Lovenox -) 40 mg SQ DAILY [facility] Last Admin: 02/21/19 11:28 Dose: 40 mg Furosemide (Lasix Injection -) 40 mg IVPUSH DAILY [facility] Last Admin: 02/21/19 11:27 Dose: 40 mg Methylprednisolone Sodium Succinate (Solu-Medrol -) 40 mg IVPUSH Q8H-IV [facility] Last Admin: 02/21/19 11:27 Dose: 40 mg Pantoprazole Sodium (Protonix -) 40 mg PO BID [facility] Last Admin: 02/21/19 11:28 Dose: 40 mg Polyethylene Glycol (Miralax (For Daily Use) -) 17 gm PO DAILY [facility] Last Admin: 02/21/19 11:28 Dose: Not Given PLAN continue ICU care until off HFNC steroids / neb / HFNC taper to NC- keep O2 sat >90% monitor weights/ Diuretic cpap over night Problem List - Problems (1) Metabolic encephalopathy Code(s): G93.41 - METABOLIC ENCEPHALOPATHY (2) Acute on chronic respiratory failure with hypoxia and hypercapnia Code(s): J96.21 - ACUTE AND CHRONIC RESPIRATORY FAILURE WITH HYPOXIA; J96.22 - ACUTE AND CHRONIC RESPIRATORY FAILURE WITH HYPERCAPNIA (3) Acute exacerbation of chronic obstructive pulmonary disease (COPD) Code(s): J44.1 - CHRONIC OBSTRUCTIVE PULMONARY DISEASE W (ACUTE) EXACERBATION (4) Acute on chronic diastolic CHF (congestive heart failure) Code(s): I50.33 - ACUTE ON CHRONIC DIASTOLIC (CONGESTIVE) HEART FAILURE (5) Acquired polycythemia Code(s): D75.1 - SECONDARY POLYCYTHEMIA (6) Morbid obesity Code(s): E66.01 - MORBID (SEVERE) OBESITY DUE TO EXCESS CALORIES
--- NOTE | 2019-02-21 12:06 | PN ---
Progress Note (short form) - Note Progress Note: PULMONARY Breathing continues to improve. No cough or wheezing. Vital Signs Period Temp Pulse Resp BP Sys/Liang Pulse Ox Last 24 Hr 98.0 F-98.5 F 71-81 23-26 111-134/69-72 92-95 Intake & Output 02/18/19 02/19/19 02/20/19 02/21/19 23:59 23:59 23:59 23:59 Intake Total 300 500 300 Output Total 2900 2300 5950 Balance -2603 -1800 5632 Weight 105.007 kg 103.419 kg 104.099 kg Gen: NAD at rest Heart: RRR Lung: decreased breath sounds at the bases Abd: soft, nontender Ext: no edema CBC, BMP 02/21/19 05:40 02/21/19 05:40 Active Medications Albuterol Sulfate (Ventolin 0.083% Nebulizer Soln -) 1 amp NEB Q4H PRN PRN Reason: SHORT OF BREATH/WHEEZING Albuterol/Ipratropium (Duoneb -) 1 amp NEB RQID [facility] Last Admin: 02/21/19 11:33 Dose: 1 amp Budesonide/Formoterol Fumarate (Symbicort 160/4.5mcg -) 2 puff IH BID [facility] Last Admin: 02/21/19 11:00 Dose: 2 puff Enoxaparin Sodium (Lovenox -) 40 mg SQ DAILY [facility] Last Admin: 02/21/19 11:28 Dose: 40 mg Furosemide (Lasix Injection -) 40 mg IVPUSH DAILY [facility] Last Admin: 02/21/19 11:27 Dose: 40 mg Methylprednisolone Sodium Succinate (Solu-Medrol -) 40 mg IVPUSH Q8H-IV [facility] Last Admin: 02/21/19 11:27 Dose: 40 mg Pantoprazole Sodium (Protonix -) 40 mg PO BID [facility] Last Admin: 02/21/19 11:28 Dose: 40 mg Polyethylene Glycol (Miralax (For Daily Use) -) 17 gm PO DAILY [facility] Last Admin: 02/21/19 11:28 Dose: Not Given A/P Acute on Chronic Hypoxic and Hypercapneic Respiratory Failure Acute COPD Exacerbation Acute on Chronic Diastolic Heart Failure Morbid Obesity Severe JEANNE/OHS DM HTN Hyperlipidemia - will decrease medrol to q12h - inhaled bronchodilators standing and PRN - continue lasix - monitor urine output, creatinine - O2 to keep SpO2 85-92% - when ready for discharge, check ABG to assess for home NIPPV - CPAP at night - PO as tolerated - DVT prophylaxis - pulse oximetry monitoring
[2019-02-22] MEDS: methylPREDNISolone NA SUCC 40 MG/1 ML VIAL IVPUSH SCH ×3 (03:16→21:09)
[2019-02-22] MEDS: ALBUTEROL SO4 2.5/IPRATROPIUM 0.5 INH SOL 3 ML VIAL.NEB. NEB SCH ×4 (07:30→20:23)
--- NOTE | 2019-02-22 09:17 | PN ---
Progress Note, Physician Chief Complaint: denies CP, SOB TELE: NSR History of Present Illness: AECOPD, CHF - Current Medication List Current Medications: Active Medications Albuterol Sulfate (Ventolin 0.083% Nebulizer Soln -) 1 amp NEB Q4H PRN PRN Reason: SHORT OF BREATH/WHEEZING Albuterol/Ipratropium (Duoneb -) 1 amp NEB RQID [facility] Last Admin: 02/22/19 07:30 Dose: 1 amp Budesonide/Formoterol Fumarate (Symbicort 160/4.5mcg -) 2 puff IH BID [facility] Last Admin: 02/21/19 21:35 Dose: 2 puff Enoxaparin Sodium (Lovenox -) 40 mg SQ DAILY [facility] Last Admin: 02/21/19 11:28 Dose: 40 mg Furosemide (Lasix Injection -) 40 mg IVPUSH DAILY [facility] Last Admin: 02/21/19 11:27 Dose: 40 mg Methylprednisolone Sodium Succinate (Solu-Medrol -) 40 mg IVPUSH Q8H-IV [facility] Last Admin: 02/22/19 03:16 Dose: 40 mg Pantoprazole Sodium (Protonix -) 40 mg PO BID [facility] Last Admin: 02/21/19 21:36 Dose: 40 mg Polyethylene Glycol (Miralax (For Daily Use) -) 17 gm PO DAILY [facility] Last Admin: 02/21/19 11:28 Dose: Not Given - Objective Vital Signs: Vital Signs Temperature 98.4 F 02/22/19 06:00 Pulse Rate 66 02/22/19 06:00 Respiratory Rate 18 02/22/19 06:00 Blood Pressure 125/76 02/22/19 06:00 O2 Sat by Pulse Oximetry (%) 93 L 02/22/19 05:02 Constitutional: Yes: Calm Cardiovascular: Yes: Regular Rate and Rhythm Respiratory: Yes: Other (sig decreased breath sounds b/l) Gastrointestinal: Yes: Soft Edema: No Neurological: Yes: Alert, Oriented Labs: CBC, BMP 02/21/19 05:40 02/21/19 05:40 Assessment/Plan Assessment/Plan echo 10/2018 tds, grossly nl LV function, mild MR, mild TR CXR: no congestion tele: sinus, artifact 43M h/o COPD on 3L home O2, DM, chronic diastolic CHF, JEANNE on CPAP p/w dyspnea: shortness of breath, COPD exacerbation, acute diastolic CHF exacerbation - treating for COPD exacerbation per critical care, on nebs, steroids - also component of CHF - BNP low however in setting of obesity. Edema has improved, will switch to PO Lasix, follow closely for volume retention on IV steroids - bipap as needed per critical care, on high flow O2 now - daily weights, lytes, Cr with diuresis DM - manage per primary JEANNE - on CPAP at home, manage per pulm HTN - cont lisinopril HLD - cont statin
[2019-02-22] MEDS: PANTOPRAZOLE 40 MG TABLET (FP) PO SCH ×2 (09:18→21:09)
[2019-02-22] MEDS: POLYETHYLENE GLYCOL 3350 119 GM BTL PO SCH (09:18)
[2019-02-22] MEDS: ENOXAPARIN NA (PORCINE) 40 MG/0.4 ML DISP.SYRIN SQ SCH (09:19)
[2019-02-22] MEDS: BUDESONIDE/FORMETEROL FUMARATE 160/4.5 mcg INHALER IH SCH ×2 (09:20→21:09)
--- NOTE | 2019-02-22 12:19 | PN ---
Progress Note (short form) - Note Progress Note: PULMONARY Breathing continues to improve. No cough or wheezing. Vital Signs Period Temp Pulse Resp BP Sys/Liang Pulse Ox Last 24 Hr 98.4 F-98.8 F 62-89 18-22 110-131/68-80 93-93 Gen: NAD at rest Heart: RRR Lung: decreased breath sounds at the bases Abd: soft, nontender Ext: no edema CBC, BMP 02/21/19 05:40 02/21/19 05:40 Active Medications Albuterol Sulfate (Ventolin 0.083% Nebulizer Soln -) 1 amp NEB Q4H PRN PRN Reason: SHORT OF BREATH/WHEEZING Albuterol/Ipratropium (Duoneb -) 1 amp NEB RQID [facility] Last Admin: 02/22/19 11:00 Dose: 1 amp Budesonide/Formoterol Fumarate (Symbicort 160/4.5mcg -) 2 puff IH BID [facility] Last Admin: 02/22/19 09:20 Dose: 2 puff Enoxaparin Sodium (Lovenox -) 40 mg SQ DAILY [facility] Last Admin: 02/22/19 09:19 Dose: 40 mg Furosemide (Lasix -) 40 mg PO BID@0600,1400 [facility] Methylprednisolone Sodium Succinate (Solu-Medrol -) 40 mg IVPUSH Q8H-IV [facility] Last Admin: 02/22/19 09:18 Dose: 40 mg Pantoprazole Sodium (Protonix -) 40 mg PO BID [facility] Last Admin: 02/22/19 09:18 Dose: 40 mg Polyethylene Glycol (Miralax (For Daily Use) -) 17 gm PO DAILY [facility] Last Admin: 02/22/19 09:18 Dose: Not Given A/P Acute on Chronic Hypoxic and Hypercapneic Respiratory Failure Acute COPD Exacerbation Acute on Chronic Diastolic Heart Failure Morbid Obesity Severe JEANNE/OHS DM HTN Hyperlipidemia - will decrease medrol to q12h - inhaled bronchodilators standing and PRN - continue lasix - monitor urine output, creatinine - O2 to keep SpO2 85-92% - when ready for discharge, check ABG to assess for home NIPPV - CPAP at night - PO as tolerated - DVT prophylaxis - pulse oximetry monitoring
[2019-02-22] MEDS: FUROSEMIDE 40 MG TABLET (FP) PO SCH (14:26)
--- NOTE | 2019-02-22 14:44 | PN ---
Progress Note (short form) - Note Progress Note: patient seen and examined in telemetry sitting in chair NC in place sat 90% Vital Signs Period Temp Pulse Resp BP Sys/Liang Pulse Ox Last 24 Hr 98.2 F-98.8 F 62-89 18-24 110-136/68-80 93-93 Intake & Output 02/19/19 02/20/19 02/21/19 02/22/19 23:59 23:59 23:59 23:59 Intake Total 500 300 14 Output Total 2300 5950 1200 Balance -1800 -5650 -1200 14 Weight 228 lb 229 lb 8 oz sitting in cahir neck supple heart s1/S2 lungs decreased BS abd obese ext + edema CBC, BMP 02/21/19 05:40 02/21/19 05:40 CBC, BMP 02/20/19 05:40 02/20/19 05:40 Active Medications Albuterol Sulfate (Ventolin 0.083% Nebulizer Soln -) 1 amp NEB Q4H PRN PRN Reason: SHORT OF BREATH/WHEEZING Albuterol/Ipratropium (Duoneb -) 1 amp NEB RQID [facility] Last Admin: 02/22/19 11:00 Dose: 1 amp Budesonide/Formoterol Fumarate (Symbicort 160/4.5mcg -) 2 puff IH BID [facility] Last Admin: 02/22/19 09:20 Dose: 2 puff Enoxaparin Sodium (Lovenox -) 40 mg SQ DAILY [facility] Last Admin: 02/22/19 09:19 Dose: 40 mg Furosemide (Lasix -) 40 mg PO BID@0600,1400 [facility] Last Admin: 02/22/19 14:26 Dose: 40 mg Methylprednisolone Sodium Succinate (Solu-Medrol -) 40 mg IVPUSH Q12H [facility] Pantoprazole Sodium (Protonix -) 40 mg PO BID [facility] Last Admin: 02/22/19 09:18 Dose: 40 mg Polyethylene Glycol (Miralax (For Daily Use) -) 17 gm PO DAILY [facility] Last Admin: 02/22/19 09:18 Dose: Not Given Pj Linares is a 43 year old male with a past medical history of COPD (on 3L home O2), DM, CHF (last echo 11/01/18 EF 50-55%), former smoker, JEANNE (on CPAP at night) who is admitted to the hospital for COPD exacerbation. COPD Exacerbation Acute on Chronic Hypoxic Hypercapneic Respiratory Failure acute diastolic HF metabolic encephalopathy DM JEANNE PLAN continue telemetry appreciate pulm / cardio follow up steroids / nebulizer / daily weights trend renal function cpap over night Problem List - Problems (1) Metabolic encephalopathy Code(s): G93.41 - METABOLIC ENCEPHALOPATHY (2) Acute on chronic respiratory failure with hypoxia and hypercapnia Code(s): J96.21 - ACUTE AND CHRONIC RESPIRATORY FAILURE WITH HYPOXIA; J96.22 - ACUTE AND CHRONIC RESPIRATORY FAILURE WITH HYPERCAPNIA (3) Acute exacerbation of chronic obstructive pulmonary disease (COPD) Code(s): J44.1 - CHRONIC OBSTRUCTIVE PULMONARY DISEASE W (ACUTE) EXACERBATION (4) Acute on chronic diastolic CHF (congestive heart failure) Code(s): I50.33 - ACUTE ON CHRONIC DIASTOLIC (CONGESTIVE) HEART FAILURE (5) Acquired polycythemia Code(s): D75.1 - SECONDARY POLYCYTHEMIA (6) Morbid obesity Code(s): E66.01 - MORBID (SEVERE) OBESITY DUE TO EXCESS CALORIES
[2019-02-23] MEDS: FUROSEMIDE 40 MG TABLET (FP) PO SCH ×2 (05:32→15:13)
[2019-02-23 06:57] LABS: BLOOD UREA NITROGEN 27.8 mg/dL (7-18); CALCIUM 8.6 mg/dL (8.5-10.1); CREATININE 0.7 mg/dL (0.55-1.3); POTASSIUM 4.6 mmol/L (3.5-5.1)
[2019-02-23] MEDS: ALBUTEROL SO4 2.5/IPRATROPIUM 0.5 INH SOL 3 ML VIAL.NEB. NEB SCH ×4 (07:30→20:05)
--- NOTE | 2019-02-23 08:33 | PN ---
Progress Note, Physician Chief Complaint: sitting in chair No CP or SOB TELE: NSR - Current Medication List Current Medications: Active Medications Albuterol Sulfate (Ventolin 0.083% Nebulizer Soln -) 1 amp NEB Q4H PRN PRN Reason: SHORT OF BREATH/WHEEZING Albuterol/Ipratropium (Duoneb -) 1 amp NEB RQID [facility] Last Admin: 02/23/19 07:30 Dose: 1 amp Budesonide/Formoterol Fumarate (Symbicort 160/4.5mcg -) 2 puff IH BID [facility] Last Admin: 02/22/19 21:09 Dose: 2 puff Enoxaparin Sodium (Lovenox -) 40 mg SQ DAILY [facility] Last Admin: 02/22/19 09:19 Dose: 40 mg Furosemide (Lasix -) 40 mg PO BID@0600,1400 [facility] Last Admin: 02/23/19 05:32 Dose: 40 mg Methylprednisolone Sodium Succinate (Solu-Medrol -) 40 mg IVPUSH Q12H [facility] Last Admin: 02/22/19 21:09 Dose: 40 mg Pantoprazole Sodium (Protonix -) 40 mg PO BID [facility] Last Admin: 02/22/19 21:09 Dose: 40 mg Polyethylene Glycol (Miralax (For Daily Use) -) 17 gm PO DAILY [facility] Last Admin: 02/22/19 09:18 Dose: Not Given - Objective Vital Signs: Vital Signs Temperature 97.8 F 02/23/19 06:00 Pulse Rate 72 02/23/19 06:00 Respiratory Rate 17 02/23/19 06:00 Blood Pressure 135/86 02/23/19 06:00 O2 Sat by Pulse Oximetry (%) 94 L 02/23/19 05:38 Constitutional: Yes: Calm Eyes: Yes: Conjunctiva Clear Respiratory: Yes: Other (decreased breath sounds bilaterally) Gastrointestinal: Yes: Soft Edema: No Neurological: Yes: Alert, Oriented Labs: CBC, BMP 02/21/19 05:40 02/23/19 05:25 Laboratory Tests 02/21/19 02/23/19 05:40 05:25 WBC 7.0 Hgb 17.4 H Plt Count 120 L Sodium 137 Potassium 4.6 Creatinine 0.7 Calcium 8.6 - ....Imaging EKG: Image Reviewed Assessment/Plan Assessment/Plan echo 10/2018 tds, grossly nl LV function, mild MR, mild TR 43M h/o COPD on 3L home O2, DM, chronic diastolic CHF, JEANNE on CPAP p/w dyspnea: COPD exacerbation, acute diastolic CHF exacerbation: - treating for COPD exacerbation per critical care, on nebs, steroids - also component of CHF - BNP low however in setting of obesity. Edema has improved, on PO Lasix now, follow closely for volume retention on IV steroids. Appears euvolemic today. - bipap as needed per critical care, on high flow O2 now - daily weights, lytes, Cr with diuresis DM - manage per primary JEANNE - on CPAP at home, manage per pulm HTN - cont lisinopril HLD - cont statin
[2019-02-23] MEDS: ENOXAPARIN NA (PORCINE) 40 MG/0.4 ML DISP.SYRIN SQ SCH (09:57)
[2019-02-23] MEDS: PANTOPRAZOLE 40 MG TABLET (FP) PO SCH ×2 (09:57→21:26)
[2019-02-23] MEDS: POLYETHYLENE GLYCOL 3350 119 GM BTL PO SCH (09:57)
[2019-02-23] MEDS: BUDESONIDE/FORMETEROL FUMARATE 160/4.5 mcg INHALER IH SCH ×2 (09:58→21:25)
[2019-02-23] MEDS: methylPREDNISolone NA SUCC 40 MG/1 ML VIAL IVPUSH SCH ×2 (09:58→21:22)
--- NOTE | 2019-02-23 10:57 | PN ---
Progress Note (short form) - Note Progress Note: PULMONARY Breathing continues to improve. No cough or wheezing. Saturating well on 5L/min nasal cannula. Vital Signs Period Temp Pulse Resp BP Sys/Liang Pulse Ox Last 24 Hr 97.8 F-98.3 F 64-87 12-24 109-136/64-86 90-95 Gen: NAD at rest Heart: RRR Lung: decreased breath sounds at the bases Abd: soft, nontender Ext: no edema CBC, BMP 02/21/19 05:40 02/23/19 05:25 Active Medications Albuterol Sulfate (Ventolin 0.083% Nebulizer Soln -) 1 amp NEB Q4H PRN PRN Reason: SHORT OF BREATH/WHEEZING Albuterol/Ipratropium (Duoneb -) 1 amp NEB RQID [facility] Last Admin: 02/23/19 07:30 Dose: 1 amp Budesonide/Formoterol Fumarate (Symbicort 160/4.5mcg -) 2 puff IH BID [facility] Last Admin: 02/23/19 09:58 Dose: 2 puff Enoxaparin Sodium (Lovenox -) 40 mg SQ DAILY [facility] Last Admin: 02/23/19 09:57 Dose: 40 mg Furosemide (Lasix -) 40 mg PO BID@0600,1400 [facility] Last Admin: 02/23/19 05:32 Dose: 40 mg Methylprednisolone Sodium Succinate (Solu-Medrol -) 40 mg IVPUSH Q12H [facility] Last Admin: 02/23/19 09:58 Dose: 40 mg Pantoprazole Sodium (Protonix -) 40 mg PO BID [facility] Last Admin: 02/23/19 09:57 Dose: 40 mg Polyethylene Glycol (Miralax (For Daily Use) -) 17 gm PO DAILY [facility] Last Admin: 02/23/19 09:57 Dose: Not Given A/P Acute on Chronic Hypoxic and Hypercapneic Respiratory Failure Acute COPD Exacerbation Acute on Chronic Diastolic Heart Failure Morbid Obesity Severe JEANNE/OHS DM HTN Hyperlipidemia - continue medrol, can change to PO prednisone 40mg daily in AM - inhaled bronchodilators standing and PRN - continue lasix - monitor urine output, creatinine - O2 to keep SpO2 85-92% - check ABG in AM to assess for home NIPPV - CPAP at night - PO as tolerated - DVT prophylaxis - pulse oximetry monitoring
--- NOTE | 2019-02-23 11:27 | PN ---
Progress Note (short form) - Note Progress Note: patient seen and examined in telemetry sitting in chair NC in place sat 90% Vital Signs Period Temp Pulse Resp BP Sys/Liang Pulse Ox Last 24 Hr 97.8 F-98.3 F 64-87 12-24 109-136/64-86 90-95 Intake & Output 02/20/19 02/21/19 02/22/19 02/23/19 23:59 23:59 23:59 23:59 Intake Total 300 1214 100 Output Total 5950 1200 Balance -5650 -1200 1214 100 Weight 229 lb 8 oz sitting in chair / O2 in place sat 92% neck supple heart s1/S2 lungs decreased BS abd obese ext less edema CBC, BMP 02/21/19 05:40 02/21/19 05:40 CBC, BMP 02/20/19 05:40 02/20/19 05:40 Active Medications Albuterol Sulfate (Ventolin 0.083% Nebulizer Soln -) 1 amp NEB Q4H PRN PRN Reason: SHORT OF BREATH/WHEEZING Albuterol/Ipratropium (Duoneb -) 1 amp NEB RQID [facility] Last Admin: 02/23/19 11:30 Dose: 1 amp Budesonide/Formoterol Fumarate (Symbicort 160/4.5mcg -) 2 puff IH BID [facility] Last Admin: 02/23/19 09:58 Dose: 2 puff Enoxaparin Sodium (Lovenox -) 40 mg SQ DAILY [facility] Last Admin: 02/23/19 09:57 Dose: 40 mg Furosemide (Lasix -) 40 mg PO BID@0600,1400 [facility] Last Admin: 02/23/19 05:32 Dose: 40 mg Methylprednisolone Sodium Succinate (Solu-Medrol -) 40 mg IVPUSH Q12H [facility] Last Admin: 02/23/19 09:58 Dose: 40 mg Pantoprazole Sodium (Protonix -) 40 mg PO BID [facility] Last Admin: 02/23/19 09:57 Dose: 40 mg Polyethylene Glycol (Miralax (For Daily Use) -) 17 gm PO DAILY [facility] Last Admin: 02/23/19 09:57 Dose: Not Given Pj Linares is a 43 year old male with a past medical history of COPD (on 3L home O2), DM, CHF (last echo 4/19/19 EF 50-55%), former smoker, JEANNE (on CPAP at night) who is admitted to the hospital for COPD exacerbation. COPD Exacerbation Acute on Chronic Hypoxic Hypercapneic Respiratory Failure acute diastolic HF metabolic encephalopathy DM JEANNE PLAN continue telemetry appreciate pulm / cardio follow up steroids taper / nebulizer / O2 dependent daily weights trend renal function patient has cpap for over night at home / home O2 tx per pulmonary Problem List - Problems (1) Metabolic encephalopathy Code(s): G93.41 - METABOLIC ENCEPHALOPATHY (2) Acute on chronic respiratory failure with hypoxia and hypercapnia Code(s): J96.21 - ACUTE AND CHRONIC RESPIRATORY FAILURE WITH HYPOXIA; J96.22 - ACUTE AND CHRONIC RESPIRATORY FAILURE WITH HYPERCAPNIA (3) Acute exacerbation of chronic obstructive pulmonary disease (COPD) Code(s): J44.1 - CHRONIC OBSTRUCTIVE PULMONARY DISEASE W (ACUTE) EXACERBATION (4) Acute on chronic diastolic CHF (congestive heart failure) Code(s): I50.33 - ACUTE ON CHRONIC DIASTOLIC (CONGESTIVE) HEART FAILURE (5) Acquired polycythemia Code(s): D75.1 - SECONDARY POLYCYTHEMIA (6) Morbid obesity Code(s): E66.01 - MORBID (SEVERE) OBESITY DUE TO EXCESS CALORIES
[2019-02-24] MEDS: FUROSEMIDE 40 MG TABLET (FP) PO SCH ×2 (05:42→14:58)
[2019-02-24 06:36] LABS: BASO % 0.3 % (0-2.0); EOS % 0.2 % (0-4.5); HEMATOCRIT 54.7 % (35.4-49); HEMOGLOBIN 18.2 GM/dL (11.7-16.9); LYMPH % 7.8 % (8-40); MCH 28.9 pg (25.7-33.7); MCHC 33.3 g/dl (32.0-35.9); MEAN CELL VOLUME 87.1 fl (80-96); MEAN PLT VOLUME 8.9 fl (7.5-11.1); MONO % 5.6 % (3.8-10.2); NEUT % 86.1 % (42.8-82.8); PLATELET COUNT 123 K/MM3 (134-434); RBC 6.28 M/mm3 (4.00-5.60); RDW 14.7 % (11.9-15.9); WHITE BLOOD COUNT 10.3 K/mm3 (4.0-10.0)
[2019-02-24 06:52] LABS: ARTERIAL BLD GAS O2 SATURATION 93.8 % (95-98); ARTERIAL BLOOD GAS BASE EXCESS 8.3 meq/l (-2-2); ARTERIAL BLOOD GAS PCO2 52.4 mmHg (35-45); ARTERIAL BLOOD GAS PO2 71.5 mmHg (80-105); ARTERIAL BLOOD GAS pH 7.44 (7.35-7.45)
[2019-02-24 06:58] LABS: BLOOD UREA NITROGEN 29.8 mg/dL (7-18); CALCIUM 8.9 mg/dL (8.5-10.1); CREATININE 0.7 mg/dL (0.55-1.3); POTASSIUM 4.3 mmol/L (3.5-5.1)
[2019-02-24 07:00] LABS: ALLENS TEST POSITIVE
[2019-02-24] MEDS: ALBUTEROL SO4 2.5/IPRATROPIUM 0.5 INH SOL 3 ML VIAL.NEB. NEB SCH ×4 (07:45→20:40)
--- NOTE | 2019-02-24 09:18 | PN ---
Progress Note, Physician Chief Complaint: sob History of Present Illness: breathing much better no leg swelling no cp, palpit - Current Medication List Current Medications: Active Medications Albuterol Sulfate (Ventolin 0.083% Nebulizer Soln -) 1 amp NEB Q4H PRN PRN Reason: SHORT OF BREATH/WHEEZING Albuterol/Ipratropium (Duoneb -) 1 amp NEB RQID [facility] Last Admin: 02/24/19 07:45 Dose: 1 amp Budesonide/Formoterol Fumarate (Symbicort 160/4.5mcg -) 2 puff IH BID [facility] Last Admin: 02/23/19 21:25 Dose: 2 puff Enoxaparin Sodium (Lovenox -) 40 mg SQ DAILY [facility] Last Admin: 02/23/19 09:57 Dose: 40 mg Furosemide (Lasix -) 40 mg PO BID@0600,1400 [facility] Last Admin: 02/24/19 05:42 Dose: 40 mg Methylprednisolone Sodium Succinate (Solu-Medrol -) 40 mg IVPUSH Q12H [facility] Last Admin: 02/23/19 21:22 Dose: 40 mg Pantoprazole Sodium (Protonix -) 40 mg PO BID [facility] Last Admin: 02/23/19 21:26 Dose: 40 mg Polyethylene Glycol (Miralax (For Daily Use) -) 17 gm PO DAILY [facility] Last Admin: 02/23/19 09:57 Dose: Not Given - Objective Vital Signs: Vital Signs Temperature 97.9 F 02/23/19 16:00 Pulse Rate 68 02/23/19 23:42 Respiratory Rate 22 H 02/23/19 23:42 Blood Pressure 107/52 L 02/24/19 04:00 O2 Sat by Pulse Oximetry (%) 95 02/24/19 08:58 Constitutional: Yes: Well Nourished, No Distress, Calm Cardiovascular: Yes: Regular Rate and Rhythm, S1, S2. No: Gallop, Murmur Respiratory: Yes: Regular, CTA Bilaterally. No: Accessory Muscle Use, Rales, Wheezes Extremities: No: Cold Edema: No Neurological: Yes: Alert, Oriented Psychiatric: No: Agitated Labs: CBC, BMP 02/24/19 05:15 02/24/19 05:15 Assessment/Plan echo 10/2018 tds, grossly nl LV function, mild MR, mild TR tele: NSR, artifact 43M h/o COPD on 3L home O2, DM, chronic diastolic CHF, JEANNE on CPAP p/w dyspnea: COPD exacerbation, acute diastolic CHF exacerbation: - treating for COPD exacerbation per critical care, on nebs, steroids - also component of CHF - BNP low however in setting of obesity. Edema has improved. APPEARS EUVOLEMIC, CONT LASIX 40 PO BID--monitor closely on iv steorids - bipap as needed per critical care, on high flow O2 now - daily weights, lytes, Cr with diuresis DM - manage per primary JEANNE - on CPAP at home, manage per pulm HTN - BP CONTROLLED - cont lisinopril HLD - cont statin D/C TELE
[2019-02-24] MEDS: ENOXAPARIN NA (PORCINE) 40 MG/0.4 ML DISP.SYRIN SQ SCH (09:23)
[2019-02-24] MEDS: methylPREDNISolone NA SUCC 40 MG/1 ML VIAL IVPUSH SCH ×2 (09:24→22:02)
[2019-02-24] MEDS: POLYETHYLENE GLYCOL 3350 119 GM BTL PO SCH (09:24)
[2019-02-24] MEDS: PANTOPRAZOLE 40 MG TABLET (FP) PO SCH ×2 (09:24→22:02)
[2019-02-24] MEDS: BUDESONIDE/FORMETEROL FUMARATE 160/4.5 mcg INHALER IH SCH ×2 (09:33→22:02)
--- NOTE | 2019-02-24 15:37 | PN ---
Progress Note (short form) - Note Progress Note: Breathing continues to improve. No cough or wheezing. Saturating well on 4L/min nasal cannula. Intake & Output 02/21/19 02/22/19 02/23/19 02/24/19 23:59 23:59 23:59 23:59 Intake Total 1214 700 120 Output Total 1200 Balance -1200 1214 700 120 Last Vital Signs Temp Pulse Resp BP Pulse Ox 98.7 F 76 18 114/81 95 02/24/19 08:00 02/24/19 08:00 02/24/19 09:00 02/24/19 08:00 02/24/19 10:00 Active Medications Albuterol Sulfate (Ventolin 0.083% Nebulizer Soln -) 1 amp NEB Q4H PRN PRN Reason: SHORT OF BREATH/WHEEZING Albuterol/Ipratropium (Duoneb -) 1 amp NEB RQID [facility] Last Admin: 02/24/19 15:17 Dose: 1 amp Budesonide/Formoterol Fumarate (Symbicort 160/4.5mcg -) 2 puff IH BID [facility] Last Admin: 02/24/19 09:33 Dose: 2 puff Enoxaparin Sodium (Lovenox -) 40 mg SQ DAILY [facility] Last Admin: 02/24/19 09:23 Dose: 40 mg Furosemide (Lasix -) 40 mg PO BID@0600,1400 [facility] Last Admin: 02/24/19 14:58 Dose: 40 mg Methylprednisolone Sodium Succinate (Solu-Medrol -) 40 mg IVPUSH Q12H [facility] Last Admin: 02/24/19 09:24 Dose: 40 mg Pantoprazole Sodium (Protonix -) 40 mg PO BID [facility] Last Admin: 02/24/19 09:24 Dose: 40 mg Polyethylene Glycol (Miralax (For Daily Use) -) 17 gm PO DAILY [facility] Last Admin: 02/24/19 09:24 Dose: Not Given Gen: NAD at rest Heart: RRR Lung: decreased breath sounds at the bases Abd: soft, nontender Ext: no edema Laboratory Results - last 24 hr 02/24/19 02/24/19 02/24/19 05:15 05:15 06:40 WBC 10.3 H RBC 6.28 H Hgb 18.2 H Hct 54.7 H MCV 87.1 MCH 28.9 MCHC 33.3 RDW 14.7 Plt Count 123 L MPV 8.9 Absolute Neuts (auto) 8.8 H Neutrophils % 86.1 H D Lymphocytes % 7.8 L D Monocytes % 5.6 Eosinophils % 0.2 D Basophils % 0.3 Nucleated RBC % 0 Puncture Site Left radial ABG pH 7.44 ABG pCO2 at Pt Temp 52.4 H ABG pO2 at Pt Temp 71.5 L ABG HCO3 34.6 H ABG O2 Sat (Measured) 93.8 L ABG O2 Content 24.6 H ABG Base Excess 8.3 H Arpit Test Positive O2 Delivery Device N/c Oxygen Flow Rate 4l Sodium 133 L Potassium 4.3 Chloride 93 L Carbon Dioxide 32 Anion Gap 8 BUN 29.8 H Creatinine 0.7 Est GFR (CKD-EPI)AfAm 133.02 Est GFR (CKD-EPI)NonAf 114.77 Random Glucose 194 H Calcium 8.9 A/P Acute on Chronic Hypoxic and Hypercapneic Respiratory Failure Acute COPD Exacerbation Acute on Chronic Diastolic Heart Failure Morbid Obesity Severe JEANNE/OHS DM HTN Hyperlipidemia - If stable in the AM will change to PO prednisone 40mg daily - inhaled bronchodilators standing and PRN - continue lasix - monitor urine output, creatinine - O2 to keep SpO2 85-92% - check ABG in AM to assess for home NIPPV - CPAP at night - PO as tolerated - DVT prophylaxis - pulse oximetry monitoring Dr Verduzco
[2019-02-25] MEDS: FUROSEMIDE 40 MG TABLET (FP) PO SCH ×2 (06:53→13:50)
[2019-02-25] MEDS: ALBUTEROL SO4 2.5/IPRATROPIUM 0.5 INH SOL 3 ML VIAL.NEB. NEB SCH ×3 (07:01→16:05)
--- NOTE | 2019-02-25 08:55 | PN ---
Progress Note (short form) - Note Progress Note: patient seen and examined in telemetry sitting in chair NC in place sat 90% Vital Signs Period Temp Pulse Resp BP Sys/Liang Pulse Ox Last 24 Hr 97.8 F-98.3 F 64-87 12-24 109-136/64-86 90-95 sitting in chair / O2 in place sat 92% neck supple heart s1/S2 lungs decreased BS abd obese ext less edema CBC, BMP 02/24/19 05:15 02/24/19 05:15 CBC, BMP 02/21/19 05:40 02/21/19 05:40 CBC, BMP 02/20/19 05:40 02/20/19 05:40 Active Medications Albuterol Sulfate (Ventolin 0.083% Nebulizer Soln -) 1 amp NEB Q4H PRN PRN Reason: SHORT OF BREATH/WHEEZING Albuterol/Ipratropium (Duoneb -) 1 amp NEB RQID [facility] Last Admin: 02/23/19 11:30 Dose: 1 amp Budesonide/Formoterol Fumarate (Symbicort 160/4.5mcg -) 2 puff IH BID [facility] Last Admin: 02/23/19 09:58 Dose: 2 puff Enoxaparin Sodium (Lovenox -) 40 mg SQ DAILY [facility] Last Admin: 02/23/19 09:57 Dose: 40 mg Furosemide (Lasix -) 40 mg PO BID@0600,1400 [facility] Last Admin: 02/23/19 05:32 Dose: 40 mg Methylprednisolone Sodium Succinate (Solu-Medrol -) 40 mg IVPUSH Q12H [facility] Last Admin: 02/23/19 09:58 Dose: 40 mg Pantoprazole Sodium (Protonix -) 40 mg PO BID [facility] Last Admin: 02/23/19 09:57 Dose: 40 mg Polyethylene Glycol (Miralax (For Daily Use) -) 17 gm PO DAILY [facility] Last Admin: 02/23/19 09:57 Dose: Not Given Pj Linares is a 43 year old male with a past medical history of COPD (on 3L home O2), DM, CHF (last echo 11/01/18 EF 50-55%), former smoker, JEANNE (on CPAP at night) who is admitted to the hospital for COPD exacerbation. COPD Exacerbation Acute on Chronic Hypoxic Hypercapneic Respiratory Failure acute diastolic HF metabolic encephalopathy DM JEANNE PLAN continue telemetry appreciate pulm / cardio follow up steroids taper / nebulizer / O2 dependent daily weights trend renal function patient has cpap for over night at home / home O2 tx per pulmonary possible d/c in am Problem List - Problems (1) Metabolic encephalopathy Code(s): G93.41 - METABOLIC ENCEPHALOPATHY (2) Acute on chronic respiratory failure with hypoxia and hypercapnia Code(s): J96.21 - ACUTE AND CHRONIC RESPIRATORY FAILURE WITH HYPOXIA; J96.22 - ACUTE AND CHRONIC RESPIRATORY FAILURE WITH HYPERCAPNIA (3) Acute exacerbation of chronic obstructive pulmonary disease (COPD) Code(s): J44.1 - CHRONIC OBSTRUCTIVE PULMONARY DISEASE W (ACUTE) EXACERBATION (4) Acute on chronic diastolic CHF (congestive heart failure) Code(s): I50.33 - ACUTE ON CHRONIC DIASTOLIC (CONGESTIVE) HEART FAILURE (5) Acquired polycythemia Code(s): D75.1 - SECONDARY POLYCYTHEMIA (6) Morbid obesity Code(s): E66.01 - MORBID (SEVERE) OBESITY DUE TO EXCESS CALORIES
--- NOTE | 2019-02-25 10:20 | PN ---
Progress Note (short form) - Note Progress Note: sob improved, no edema, chest pain, palps Current Medications Albuterol Sulfate (Ventolin 0.083% Nebulizer Soln -) 1 amp NEB Q4H PRN PRN Reason: SHORT OF BREATH/WHEEZING Albuterol/Ipratropium (Duoneb -) 1 amp NEB RQID [facility] Last Admin: 02/25/19 07:01 Dose: 1 amp Budesonide/Formoterol Fumarate (Symbicort 160/4.5mcg -) 2 puff IH BID [facility] Last Admin: 02/24/19 22:02 Dose: 2 puff Enoxaparin Sodium (Lovenox -) 40 mg SQ DAILY [facility] Last Admin: 02/24/19 09:23 Dose: 40 mg Furosemide (Lasix -) 40 mg PO BID@0600,1400 [facility] Last Admin: 02/25/19 06:53 Dose: 40 mg Methylprednisolone Sodium Succinate (Solu-Medrol -) 40 mg IVPUSH Q12H [facility] Last Admin: 02/24/19 22:02 Dose: 40 mg Pantoprazole Sodium (Protonix -) 40 mg PO BID [facility] Last Admin: 02/24/19 22:02 Dose: 40 mg Polyethylene Glycol (Miralax (For Daily Use) -) 17 gm PO DAILY [facility] Last Admin: 02/24/19 09:24 Dose: Not Given Vital Signs Period Temp Pulse Resp BP Sys/Liang Pulse Ox Last 24 Hr 97.5 F-98.0 F 64-74 18-21 104-130/64-78 94-96 Constitutional: Yes: Well Nourished, No Distress, Calm Cardiovascular: Yes: Regular Rate and Rhythm, S1, S2. No: Gallop, Murmur Respiratory: Yes: Regular, CTA Bilaterally. No: Accessory Muscle Use, Rales, Wheezes Extremities: No: Cold Edema: No Neurological: Yes: Alert, Oriented Psychiatric: No: Agitated Assessment/Plan echo 10/2018 tds, grossly nl LV function, mild MR, mild TR tele: NSR, artifact 43M h/o COPD on 3L home O2, DM, chronic diastolic CHF, JEANNE on CPAP p/w dyspnea: COPD exacerbation, acute diastolic CHF exacerbation: - treating for COPD exacerbation per critical care, on nebs, steroids - also component of CHF - BNP low however in setting of obesity. edema resolved , euvolemic - cont lasix 40 mg PO BID - monitor closely on iv steorids DM - manage per primary JEANNE - on CPAP at home, manage per pulm HTN - BP CONTROLLED - cont lisinopril HLD - cont statin D/C TELE
[2019-02-25] MEDS: POLYETHYLENE GLYCOL 3350 119 GM BTL PO SCH (10:21)
[2019-02-25] MEDS: ENOXAPARIN NA (PORCINE) 40 MG/0.4 ML DISP.SYRIN SQ SCH (10:24)
[2019-02-25] MEDS: methylPREDNISolone NA SUCC 40 MG/1 ML VIAL IVPUSH SCH ×2 (10:24→21:46)
[2019-02-25] MEDS: PANTOPRAZOLE 40 MG TABLET (FP) PO SCH ×2 (10:25→21:46)
[2019-02-25] MEDS: BUDESONIDE/FORMETEROL FUMARATE 160/4.5 mcg INHALER IH SCH ×2 (10:26→21:46)
[2019-02-25 13:33] VITALS: BMI 36.9
--- NOTE | 2019-02-25 14:21 | PN ---
Progress Note (short form) - Note Progress Note: Breathing continues to improve. No cough or wheezing. Intake & Output 02/22/19 02/23/19 02/24/19 02/25/19 23:59 23:59 23:59 23:59 Intake Total 1214 700 640 0 Output Total 900 Balance 1214 700 -260 0 Last Vital Signs Temp Pulse Resp BP Pulse Ox 97.9 F 75 18 116/89 95 02/25/19 14:00 02/25/19 14:00 02/25/19 14:00 02/25/19 14:00 02/25/19 10:00 Active Medications Albuterol Sulfate (Ventolin 0.083% Nebulizer Soln -) 1 amp NEB Q4H PRN PRN Reason: SHORT OF BREATH/WHEEZING Albuterol/Ipratropium (Duoneb -) 1 amp NEB RQID [facility] Last Admin: 02/25/19 11:15 Dose: 1 amp Budesonide/Formoterol Fumarate (Symbicort 160/4.5mcg -) 2 puff IH BID [facility] Last Admin: 02/25/19 10:26 Dose: 2 puff Enoxaparin Sodium (Lovenox -) 40 mg SQ DAILY [facility] Last Admin: 02/25/19 10:24 Dose: 40 mg Furosemide (Lasix -) 40 mg PO BID@0600,1400 [facility] Last Admin: 02/25/19 13:50 Dose: 40 mg Methylprednisolone Sodium Succinate (Solu-Medrol -) 40 mg IVPUSH Q12H [facility] Last Admin: 02/25/19 10:24 Dose: 40 mg Pantoprazole Sodium (Protonix -) 40 mg PO BID [facility] Last Admin: 02/25/19 10:25 Dose: 40 mg Polyethylene Glycol (Miralax (For Daily Use) -) 17 gm PO DAILY [facility] Last Admin: 02/25/19 10:21 Dose: Not Given Gen: NAD at rest Heart: RRR Lung: decreased breath sounds at the bases, scattered rhonchi Abd: soft, nontender Ext: no edema Laboratory Results - last 24 hr 02/24/19 16:44 POC Glucometer 311 A/P Acute on Chronic Hypoxic and Hypercapneic Respiratory Failure Acute COPD Exacerbation Acute on Chronic Diastolic Heart Failure Morbid Obesity Severe JEANNE/OHS DM HTN Hyperlipidemia - D/W patient: will change to prednisone 40mg daily in AM (02/26) - inhaled bronchodilators standing and PRN - continue lasix - monitor urine output, creatinine - O2 to keep SpO2 88-92% - CPAP at night - PO as tolerated - DVT prophylaxis - pulse oximetry monitoring Dr Verduzco
--- NOTE | 2019-02-25 21:35 | PN ---
Progress Note (short form) - Note Progress Note: patient seen and examined in telemetry sitting in chair NC in place sat 90% Vital Signs Period Temp Pulse Resp BP Sys/Liang Pulse Ox Last 24 Hr 97.9 F-98.3 F 64-87 17-21 104-130/64-89 94-97 Intake & Output 02/22/19 02/23/19 02/24/19 02/25/19 23:59 23:59 23:59 23:59 Intake Total 1214 700 640 550 Output Total 900 Balance 1214 700 -260 550 sitting in chair / O2 in place sat 92% neck supple heart s1/S2 lungs decreased BS abd obese ext less edema 02/24/19 05:15 02/24/19 05:15 CBC, BMP 02/21/19 05:40 02/21/19 05:40 CBC, BMP 02/20/19 05:40 02/20/19 05:40 Active Medications Budesonide/Formoterol Fumarate (Symbicort 160/4.5mcg -) 2 puff IH BID [facility] Last Admin: 02/25/19 10:26 Dose: 2 puff Enoxaparin Sodium (Lovenox -) 40 mg SQ DAILY [facility] Last Admin: 02/25/19 10:24 Dose: 40 mg Furosemide (Lasix -) 40 mg PO BID@0600,1400 [facility] Last Admin: 02/25/19 13:50 Dose: 40 mg Methylprednisolone Sodium Succinate (Solu-Medrol -) 40 mg IVPUSH Q12H [facility] Last Admin: 02/25/19 10:24 Dose: 40 mg Pantoprazole Sodium (Protonix -) 40 mg PO BID [facility] Last Admin: 02/25/19 10:25 Dose: 40 mg Polyethylene Glycol (Miralax (For Daily Use) -) 17 gm PO DAILY [facility] Last Admin: 02/25/19 10:21 Dose: Not Given Pj Vijay is a 43 year old male with a past medical history of COPD (on 3L home O2), DM, CHF (last echo 11/01/18 EF 50-55%), former smoker, JEANNE (on CPAP at night) who is admitted to the hospital for COPD exacerbation. COPD Exacerbation Acute on Chronic Hypoxic Hypercapneic Respiratory Failure acute diastolic HF metabolic encephalopathy DM JEANNE PLAN POC discussed with pulmonary continue telemetry appreciate pulm / cardio follow up steroids taper / nebulizer / O2 dependent daily weights trend renal function patient has cpap for over night at home / home O2 tx per pulmonary possible d/c in am Problem List - Problems (1) Metabolic encephalopathy Code(s): G93.41 - METABOLIC ENCEPHALOPATHY (2) Acute on chronic respiratory failure with hypoxia and hypercapnia Code(s): J96.21 - ACUTE AND CHRONIC RESPIRATORY FAILURE WITH HYPOXIA; J96.22 - ACUTE AND CHRONIC RESPIRATORY FAILURE WITH HYPERCAPNIA (3) Acute exacerbation of chronic obstructive pulmonary disease (COPD) Code(s): J44.1 - CHRONIC OBSTRUCTIVE PULMONARY DISEASE W (ACUTE) EXACERBATION (4) Acute on chronic diastolic CHF (congestive heart failure) Code(s): I50.33 - ACUTE ON CHRONIC DIASTOLIC (CONGESTIVE) HEART FAILURE (5) Acquired polycythemia Code(s): D75.1 - SECONDARY POLYCYTHEMIA (6) Morbid obesity Code(s): E66.01 - MORBID (SEVERE) OBESITY DUE TO EXCESS CALORIES
[2019-02-26] MEDS: FUROSEMIDE 40 MG TABLET (FP) PO SCH ×2 (05:36→14:43)
[2019-02-26 06:50] LABS: BASO % 0.1 % (0-2.0); EOS % 0.2 % (0-4.5); HEMOGLOBIN 18.3 GM/dL (11.7-16.9); LYMPH % 10.3 % (8-40); MCHC 33.4 g/dl (32.0-35.9); MEAN CELL VOLUME 86.8 fl (80-96); MEAN PLT VOLUME 8.5 fl (7.5-11.1); MONO % 6.2 % (3.8-10.2); NEUT % 83.2 % (42.8-82.8); PLATELET COUNT 130 K/MM3 (134-434); RBC 6.34 M/mm3 (4.00-5.60); WHITE BLOOD COUNT 8.8 K/mm3 (4.0-10.0)
[2019-02-26 06:54] LABS: BLOOD UREA NITROGEN 28.7 mg/dL (7-18); CALCIUM 9.4 mg/dL (8.5-10.1); CREATININE 0.9 mg/dL (0.55-1.3)
--- NOTE | 2019-02-26 10:18 | PN ---
Progress Note (short form) - Note Progress Note: feels at baseline. no sob, edema, palps, dizziness Current Medications Budesonide/Formoterol Fumarate (Symbicort 160/4.5mcg -) 2 puff IH BID [facility] Last Admin: 02/25/19 21:46 Dose: 2 puff Enoxaparin Sodium (Lovenox -) 40 mg SQ DAILY [facility] Last Admin: 02/25/19 10:24 Dose: 40 mg Furosemide (Lasix -) 40 mg PO BID@0600,1400 [facility] Last Admin: 02/26/19 05:36 Dose: 40 mg Methylprednisolone Sodium Succinate (Solu-Medrol -) 40 mg IVPUSH Q12H [facility] Last Admin: 02/25/19 21:46 Dose: 40 mg Pantoprazole Sodium (Protonix -) 40 mg PO BID [facility] Last Admin: 02/25/19 21:46 Dose: 40 mg Polyethylene Glycol (Miralax (For Daily Use) -) 17 gm PO DAILY [facility] Last Admin: 02/25/19 10:21 Dose: Not Given Vital Signs Period Temp Pulse Resp BP Sys/Liang Pulse Ox Last 24 Hr 97.6 F-98.2 F 65-87 17-20 108-135/69-89 95-97 Constitutional: Yes: Well Nourished, No Distress, Calm Cardiovascular: Yes: Regular Rate and Rhythm, S1, S2. No: Gallop, Murmur Respiratory: Yes: Regular, CTA Bilaterally. No: Accessory Muscle Use, Rales, Wheezes Extremities: No: Cold Edema: No Neurological: Yes: Alert, Oriented Psychiatric: No: Agitated Assessment/Plan echo 10/2018 tds, grossly nl LV function, mild MR, mild TR tele: NSR, artifact 43M h/o COPD on 3L home O2, DM, chronic diastolic CHF, JEANNE on CPAP p/w dyspnea: COPD exacerbation, acute diastolic CHF exacerbation: - treating for COPD exacerbation per critical care, on nebs, steroids - dyspnea now at baseline, on home O2 3L - also component of CHF - BNP low however in setting of obesity. edema resolved , euvolemic - cont lasix 40 mg PO BID - monitor closely on iv steroids DM - manage per primary JEANNE - on CPAP at home, manage per pulm HTN - BP CONTROLLED - cont lisinopril HLD - cont statin D/C TELE
[2019-02-26] MEDS: ENOXAPARIN NA (PORCINE) 40 MG/0.4 ML DISP.SYRIN SQ SCH (11:00)
[2019-02-26] MEDS: BUDESONIDE/FORMETEROL FUMARATE 160/4.5 mcg INHALER IH SCH (11:00)
[2019-02-26] MEDS: POLYETHYLENE GLYCOL 3350 119 GM BTL PO SCH (11:08)
[2019-02-26] MEDS: PANTOPRAZOLE 40 MG TABLET (FP) PO SCH (11:13)
[2019-02-26] MEDS: methylPREDNISolone NA SUCC 40 MG/1 ML VIAL IVPUSH SCH (11:13)
[2019-02-26] MEDS ORDERED: predniSONE 20 MG TABLET (UD) PO SCH (11:30)
--- NOTE | 2019-02-26 11:57 | DS ---
Physical Examination Vital Signs: Vital Signs Temperature 98.2 F 02/26/19 06:00 Pulse Rate 68 02/26/19 04:00 Respiratory Rate 17 02/26/19 04:00 Blood Pressure 135/79 02/26/19 04:00 O2 Sat by Pulse Oximetry (%) 95 02/26/19 11:54 Findings/Remarks: Pj Linares is a 43 year old male with a past medical history of COPD (on 3L home O2), DM, CHF (last echo 11/01/18 EF 50-55%), former smoker, JEANNE (on CPAP at night) who presented to the ED with reported 1 day history of dyspnea, orthopnea , and bilateral lower extremity edema, and non productive cough. Per the patient , the reason he came to the ED was because of increased lower extremity edema. Denied chest pain, headaches, dizziness, lightheadedness, abd pain, n/v/c/d, fever, chills, weakness, numbness, tingling, urinary complaints. Denied recent travel, sick contacts, recent antibiotic use, exposure to smoke. At time of interview, patient was at first intermittently difficult to wake but once woken up was able to answer all questions adequately. In ED, patient was hypoxic in the 70s-80s on NC, tachypneic, tachycardic, diaphoretic, was placed on BiPAP. In spite of being on bipap patient remained hypercapneic and difficult to arouse. He was transferred to ICU and continued on bipap, was able to avoid intubation - - he reamined on HLNC for following 3 days until able to transition to NC. He has been tapered O2 and steroids successfully over last 2 days - states feels at baseline. Arrangements in place for d/c home and office followup this week echo 10/2018 tds, grossly nl LV function, mild MR, mild TR tele: NSR, artifact 43M h/o COPD on 3L home O2, DM, chronic diastolic CHF, JEANNE on CPAP p/w dyspnea: COPD exacerbation, acute diastolic CHF exacerbation: - treating for COPD exacerbation per critical care, on nebs, steroids - dyspnea now at baseline, on home O2 3L - also component of CHF - BNP low however in setting of obesity. edema resolved , euvolemic - cont lasix 40 mg PO BID - monitor closely on iv steroids DM JEANNE - on CPAP at home, manage per pulm HTN - BP CONTROLLED to continue lisinopril HLD - cont statin Constitutional: Yes: Well Nourished, No Distress, Calm Eyes: Yes: Conjunctiva Clear, EOM Intact HENT: Yes: Atraumatic, Normocephalic Neck: Yes: Supple, Trachea Midline Cardiovascular: Yes: Regular Rate and Rhythm Respiratory: Yes: Regular, CTA Bilaterally, Diminished, On Nasal O2 Gastrointestinal: Yes: Normal Bowel Sounds, Soft ...Rectal Exam: Yes: Deferred Renal/: Yes: WNL Breast(s): Yes: WNL Musculoskeletal: Yes: WNL Extremities: Yes: WNL, Deformity Edema: No Peripheral Pulses WNL: Yes Integumentary: Yes: WNL Neurological: Yes: WNL ...Motor Strength: WNL Psychiatric: Yes: WNL, Alert, Oriented Labs: CBC, BMP 02/26/19 05:30 02/26/19 05:30 Discharge Summary Reason For Visit: ACUTE EXACERBATION OF CHRONIC OBSTRUCTIVE PULMONAR Current Active Problems COPD exacerbation (Acute) Metabolic encephalopathy (Acute) Diabetes Mellitus II HLD diastolic HF Condition: Improved - Instructions Referrals: Dashawn Vieira [Primary Care Provider] - Disposition: HOME - Home Medications Comprehensive Discharge Medication List: Ambulatory Orders Albuterol Sulfate Inhaler - [Ventolin HFA Inhaler -] 1 - 2 inh PO QID 06/20/15 Atorvastatin Ca PO DAILY 02/26/19 Glimepiride PO DAILY 02/26/19 Ipratropium/Albuterol Sulfate [Iprat-Albut 0.5-3(2.5) mg/3 ml] 3 ml IH 02/26/19 Januvia PO DAILY 02/26/19 Liraglutide [Victoza -] 0.6 mg PO DAILY 02/26/19 Lisinopril 20 mg PO HS 02/26/19 Pantoprazole Sodium PO DAILY 02/26/19 lasix 40 mg PO BID
[2019-02-26 12:55] VITALS: BP 114/68; PULSE 80; TEMP 98
--- NOTE | 2019-02-26 12:55 | PN ---
Progress Note (short form) - Note Progress Note: Breathing continues to improve. No cough or wheezing. No acute events overnight. Intake & Output 02/23/19 02/24/19 02/25/19 02/26/19 23:59 23:59 23:59 23:59 Intake Total 700 640 930 130 Output Total 900 Balance 700 -260 930 130 Last Vital Signs Temp Pulse Resp BP Pulse Ox 98.2 F 68 17 135/79 95 02/26/19 06:00 02/26/19 04:00 02/26/19 04:00 02/26/19 04:00 02/26/19 11:54 Active Medications Budesonide/Formoterol Fumarate (Symbicort 160/4.5mcg -) 2 puff IH BID [facility] Last Admin: 02/26/19 11:00 Dose: 2 puff Enoxaparin Sodium (Lovenox -) 40 mg SQ DAILY [facility] Last Admin: 02/26/19 11:00 Dose: 40 mg Furosemide (Lasix -) 40 mg PO BID@0600,1400 [facility] Last Admin: 02/26/19 05:36 Dose: 40 mg Pantoprazole Sodium (Protonix -) 40 mg PO BID [facility] Last Admin: 02/26/19 11:13 Dose: 40 mg Polyethylene Glycol (Miralax (For Daily Use) -) 17 gm PO DAILY [facility] Last Admin: 02/26/19 11:08 Dose: Not Given Prednisone (Deltasone -) 40 mg PO DAILY [facility] Gen: NAD at rest Heart: RRR Lung: decreased breath sounds at the bases, scattered rhonchi Abd: soft, nontender Ext: no edema Laboratory Results - last 24 hr 02/26/19 02/26/19 05:30 05:30 WBC 8.8 RBC 6.34 H Hgb 18.3 H Hct 55.0 H MCV 86.8 MCH 29.0 MCHC 33.4 RDW 15.0 Plt Count 130 L MPV 8.5 Absolute Neuts (auto) 7.3 Neutrophils % 83.2 H Lymphocytes % 10.3 D Monocytes % 6.2 Eosinophils % 0.2 Basophils % 0.1 Nucleated RBC % 0 Sodium 134 L Potassium 5.0 Chloride 91 L Carbon Dioxide 38 H Anion Gap 6 L BUN 28.7 H Creatinine 0.9 Est GFR (CKD-EPI)AfAm 119.97 Est GFR (CKD-EPI)NonAf 103.51 Random Glucose 205 H Calcium 9.4 A/P Acute on Chronic Hypoxic and Hypercapneic Respiratory Failure Acute COPD Exacerbation Acute on Chronic Diastolic Heart Failure Morbid Obesity Severe JEANNE/OHS DM HTN Hyperlipidemia - Prednisone 40mg daily with taper - inhaled bronchodilators standing and PRN - Patient advised to call Dr Boogie's office for follow up. - ANTONI planning Dr Verduzco
[2019-02-26] MEDS ORDERED: PT OWN MED DRAWER 7, Y5N ONE (13:29)
== END 2019-02-26 15:00 | disposition home or self-care (01) | DRG 291 ==
LOC: JER 13:42 → JERBED 17:40 → J7W 21:15 → JICU 02-18 01:15 → J2W 02-20 18:48
PROVIDERS: ADMIT Family Medicine; ATTEND Family Medicine
DX: I11.0 Hypertensive heart disease with heart failure (principal); J96.22 Acute and chronic respiratory failure with hypercapnia; J96.21 Acute and chronic respiratory failure with hypoxia; G93.41 Metabolic encephalopathy; J44.1 Chronic obstructive pulmonary disease with (acute) exacerbation; E87.2 Acidosis; I50.33 Acute on chronic diastolic (congestive) heart failure; Z87.891 Personal history of nicotine dependence; G47.33 Obstructive sleep apnea (adult) (pediatric); E66.01 Morbid (severe) obesity due to excess calories; D75.1 Secondary polycythemia; R61 Generalized hyperhidrosis; Z68.37 Body mass index [BMI] 37.0-37.9, adult; E11.9 Type 2 diabetes mellitus without complications; E78.5 Hyperlipidemia, unspecified
CPT/HCPCS: 36415; 36600; 71045-TC-FY; 80048; 80053; 82803; 82962; 83036; 83735; 83880; 84100; 84443; 84484; 85025; 85027; 93308; 94640; 94660; 97116-GP; 97162-GP; 99284-25

== ENCOUNTER 2020-06-24 18:58 | Emergency (ER) | payer OTHER ==
[2020-06-24] MEDS ORDERED: FLUORESCEIN NA 1 EA STRIP ONE (19:22)
[2020-06-24] MEDS ORDERED: TETRACAINE 0.5% OPHTH SOLN 2 ML BOTTLE ONE (19:22)
[2020-06-24 19:51] VITALS: BP 160/90; PULSE 98; TEMP 99; BMI 37.1
== END 2020-06-24 19:46 | disposition home or self-care (01) ==
LOC: FER 18:58
DX: H10.33 Unspecified acute conjunctivitis, bilateral (principal)
CPT/HCPCS: 99284-25

== ENCOUNTER 2022-12-29 11:53 | Inpatient (IN) | payer OTHER ==
[2022-12-29] MEDS ORDERED: methylPREDNISolone NA SUCC 125 MG/2 ML VIAL IVPUSH ONE (12:14)
[2022-12-29] MEDS ORDERED: ALBUTEROL SO4 2.5/IPRATROPIUM 0.5 INH SOL 3 ML VIAL.NEB. NEB SCH (12:15)
[2022-12-29] MEDS ORDERED: methylPREDNISolone NA SUCC 125 MG/2 ML VIAL ONE (12:35)
[2022-12-29 12:36] LABS: VENOUS BASE EXCESS 13.8 mmol/L (-2-2); VENOUS PH 7.318 (7.310-7.410)
[2022-12-29 12:38] LABS: VENOUS PCO2 88.4 mmHg (38-52)
[2022-12-29 12:44] LABS: ARTERIAL BLD GAS O2 SATURATION 99.1 % (95-98); ARTERIAL BLOOD GAS BASE EXCESS 14.5 mmol/L (-2-2); ARTERIAL BLOOD GAS PO2 181.8 mmHg (80-100); ARTERIAL BLOOD GAS pH 7.333 (7.350-7.450); BASO % 0.1 % (0-2.0); EOS % 2.3 % (0-4.5); HEMATOCRIT 40.9 % (35.4-49); HEMOGLOBIN 13.8 GM/dL (11.7-16.9); LYMPH % 15.3 % (8-40); MCH 28.8 pg (25.7-33.7); MCHC 33.7 g/dl (32.0-35.9); MEAN CELL VOLUME 85.3 fl (80-96); MONO % 10.2 % (3.8-10.2); NEUT % 72.1 % (42.8-82.8); PLATELET COUNT 102 10^3/uL (134-434); RDW 15.1 % (11.9-15.9)
[2022-12-29 12:49] LABS: INR 1.03 (0.83-1.09)
[2022-12-29 12:52] LABS: ACTIVATED PTT 37.2 SECONDS (25.2-36.5)
[2022-12-29 12:56] LABS: CHLORIDE 88 mmol/L (98-107); POTASSIUM 3.6 mmol/L (3.5-5.1); SODIUM 139 mmol/L (136-145)
[2022-12-29 12:58] LABS: ALBUMIN 3.8 g/dl (3.4-5.0); CALCIUM 9.3 mg/dL (8.5-10.1)
[2022-12-29 12:59] LABS: BLOOD UREA NITROGEN 13.1 mg/dL (7-18); GLUCOSE,RANDOM 224 mg/dL (74-106)
[2022-12-29 13:02] LABS: CREATININE 0.6 mg/dL (0.55-1.3); SGOT/AST 30 U/L (15-37); SGPT/ALT 33 U/L (13-61)
[2022-12-29 13:03] LABS: BILIRUBIN,TOTAL 0.6 mg/dL (0.2-1); TOT PROT 7.7 g/dl (6.4-8.2)
[2022-12-29 13:05] LABS: ALK PHOS 42 U/L (45-117)
[2022-12-29 13:07] LABS: ANION GAP 6 MMOL/L (8-16); CO2 > 45 mmol/L (21-32)
[2022-12-29] MEDS ORDERED: DOXYCYCLINE INJECTION 100 MG in DEXTROSE 5%-WATER 100 ML IVPB ONE (13:43)
[2022-12-29] MEDS ORDERED: CEFTRIAXONE 1,000 MG in DEXTROSE 5%-WATER - 50 ML IVPB ONE (13:43)
[2022-12-29] MEDS ORDERED: DOXYCYCLINE HYCLATE 100 MG VIAL ONE (13:49)
[2022-12-29] MEDS ORDERED: CEFTRIAXONE 1 GM/50 ML BAG ONE (13:49)
[2022-12-29 15:15] LABS: ARTERIAL BLD GAS O2 SATURATION 62.5 % (95-98); ARTERIAL BLOOD GAS BASE EXCESS 13.9 mmol/L (-2-2); ARTERIAL BLOOD GAS pH 7.304 (7.350-7.450)
[2022-12-29 15:21] LABS: ARTERIAL BLOOD GAS PO2 37.7 mmHg (80-100)
[2022-12-29] MEDS ORDERED: ACETAMINOPHEN 325 MG TABLET (FP) PO PRN (16:58)
[2022-12-29 17:10] LABS: VENOUS BASE EXCESS 9.2 mmol/L (-2-2); VENOUS PH 7.284 (7.310-7.410)
[2022-12-29] MEDS: ENOXAPARIN NA (PORCINE) 40 MG/0.4 ML DISP.SYRIN SQ SCH (17:10)
[2022-12-29] MEDS: INSULIN SLIDING SCALE (NOVOLOG) 1 VIAL SQ SCH (17:10)
[2022-12-29] MEDS: SULFACETAMIDE SODIUM 10% OPHTHALMIC DROPS 15 ML BOTTLE OU SCH ×3 (17:10→22:22)
[2022-12-29] MEDS ORDERED: ENOXAPARIN NA (PORCINE) 40 MG/0.4 ML DISP.SYRIN SQ ONE (17:13)
[2022-12-29 17:38] LABS: VENOUS PCO2 84.6 mmHg (38-52)
[2022-12-29 17:40] LABS: URINE APPEARANCE CLEAR; URINE BILIRUBIN NEGATIVE (NEGATIVE); URINE COLOR YELLOW; URINE GLUCOSE (UA) NEGATIVE (NEGATIVE); URINE KETONE NEGATIVE (NEGATIVE); URINE LEUK ESTERASE NEGATIVE (NEGATIVE); URINE NITRITE NEGATIVE (NEGATIVE); URINE PROTEIN NEGATIVE (NEGATIVE)
[2022-12-29 21:03] LABS: ARTERIAL BLD GAS O2 SATURATION 91.8 % (95-98); ARTERIAL BLOOD GAS BASE EXCESS 13.4 mmol/L (-2-2); ARTERIAL BLOOD GAS PO2 70.2 mmHg (80-100); ARTERIAL BLOOD GAS pH 7.324 (7.350-7.450)
[2022-12-29 21:04] LABS: ALLENS TEST POSITIVE
[2022-12-29 21:05] LABS: VENT MODE S/T; VENT RATE 16
[2022-12-29] MEDS ORDERED: FUROSEMIDE 40 MG TABLET (FP) PO SCH (22:00)
[2022-12-29] MEDS: PANTOPRAZOLE 40 MG TABLET PO SCH (22:25)
[2022-12-29] MEDS: ATORVASTATIN CA 20 MG TABLET (FP) PO SCH (22:25)
[2022-12-29] MEDS: LISINOPRIL 20 MG TABLET PO SCH (22:26)
[2022-12-30 00:51] VITALS: BMI 46.0
[2022-12-30] MEDS: SULFACETAMIDE SODIUM 10% OPHTHALMIC DROPS 15 ML BOTTLE OU SCH ×8 (01:00→21:35)
[2022-12-30] MEDS ORDERED: FUROSEMIDE 40 MG TABLET (FP) PO SCH (06:00)
[2022-12-30] MEDS: INSULIN SLIDING SCALE (NOVOLOG) 1 VIAL SQ SCH ×3 (06:17→16:50)
[2022-12-30 08:04] LABS: BASO % 0.1 % (0-2.0); HEMATOCRIT 38.6 % (35.4-49); HEMOGLOBIN 12.5 GM/dL (11.7-16.9); LYMPH % 18.4 % (8-40); MCH 28.4 pg (25.7-33.7); MCHC 32.5 g/dl (32.0-35.9); MEAN CELL VOLUME 87.3 fl (80-96); MEAN PLT VOLUME 7.3 fl (7.5-11.1); MONO % 12.8 % (3.8-10.2); NEUT % 67.7 % (42.8-82.8); PLATELET COUNT 95 10^3/uL (134-434); RBC 4.42 M/mm3 (4.00-5.60); RDW 14.4 % (11.9-15.9); WHITE BLOOD COUNT 4.7 K/mm3 (4.0-10.0)
[2022-12-30 08:25] LABS: MAGNESIUM 1.7 mg/dL (1.8-2.4)
[2022-12-30] MEDS: ALBUTEROL SO4 2.5/IPRATROPIUM 0.5 INH SOL 3 ML VIAL.NEB. NEB PRN ×2 (09:03→21:29)
[2022-12-30] MEDS: ENOXAPARIN NA (PORCINE) 40 MG/0.4 ML DISP.SYRIN SQ SCH (09:28)
[2022-12-30] MEDS: PANTOPRAZOLE 40 MG TABLET PO SCH ×2 (09:28→21:02)
[2022-12-30] MEDS ORDERED: MAGNESIUM 1GM/D5W 100ML - 100 ML IVPB IVPB ONE (09:45)
[2022-12-30] MEDS: CEFTRIAXONE 1 GM in DEXTROSE 5%-WATER - 50 ML IVPB SCH (10:49)
[2022-12-30 11:12] LABS: ERYTHROCYTE SEDIMENTATION RATE 5 mm/hr (0-10)
[2022-12-30] MEDS: DOXYCYCLINE INJECTION 100 MG in DEXTROSE 5%-WATER 100 ML IVPB SCH ×2 (11:37→21:02)
[2022-12-30] MEDS: methylPREDNISolone NA SUCC 40 MG/1 ML VIAL IVPUSH SCH (13:16)
[2022-12-30] MEDS: FUROSEMIDE 40 MG/4 ML INJECTABLE VIAL IVPUSH SCH (13:16)
[2022-12-30] MEDS: ATORVASTATIN CA 20 MG TABLET (FP) PO SCH (21:02)
[2022-12-30] MEDS: LISINOPRIL 20 MG TABLET PO SCH (21:02)
[2022-12-31] MEDS: SULFACETAMIDE SODIUM 10% OPHTHALMIC DROPS 15 ML BOTTLE OU SCH ×3 (00:51→06:39)
[2022-12-31] MEDS: FUROSEMIDE 40 MG/4 ML INJECTABLE VIAL IVPUSH SCH ×2 (06:02→13:58)
[2022-12-31] MEDS: INSULIN SLIDING SCALE (NOVOLOG) 1 VIAL SQ SCH ×3 (06:05→17:04)
[2022-12-31 07:48] LABS: BASO % 0.1 % (0-2.0); EOS % 2.3 % (0-4.5); HEMOGLOBIN 13.4 GM/dL (11.7-16.9); LYMPH % 25.7 % (8-40); MCH 28.6 pg (25.7-33.7); MCHC 32.7 g/dl (32.0-35.9); MEAN CELL VOLUME 87.3 fl (80-96); MEAN PLT VOLUME 7.6 fl (7.5-11.1); MONO % 10.4 % (3.8-10.2); NEUT % 61.5 % (42.8-82.8); PLATELET COUNT 100 10^3/uL (134-434); RDW 14.6 % (11.9-15.9); WHITE BLOOD COUNT 4.4 K/mm3 (4.0-10.0)
[2022-12-31 08:52] LABS: CHLORIDE 89 mmol/L (98-107); POTASSIUM 3.9 mmol/L (3.5-5.1); SODIUM 139 mmol/L (136-145)
[2022-12-31 08:53] LABS: CALCIUM 9.2 mg/dL (8.5-10.1)
[2022-12-31 08:54] LABS: BLOOD UREA NITROGEN 19.3 mg/dL (7-18); GLUCOSE,RANDOM 102 mg/dL (74-106)
[2022-12-31 08:57] LABS: CREATININE 0.6 mg/dL (0.55-1.3)
[2022-12-31 08:59] LABS: ANION GAP 5 MMOL/L (8-16); CO2 > 45 mmol/L (21-32)
[2022-12-31] MEDS: DOXYCYCLINE INJECTION 100 MG in DEXTROSE 5%-WATER 100 ML IVPB SCH ×2 (08:59→21:47)
[2022-12-31] MEDS: methylPREDNISolone NA SUCC 40 MG/1 ML VIAL IVPUSH SCH (09:00)
[2022-12-31] MEDS: ENOXAPARIN NA (PORCINE) 40 MG/0.4 ML DISP.SYRIN SQ SCH (09:01)
[2022-12-31] MEDS: PANTOPRAZOLE 40 MG TABLET PO SCH ×2 (09:01→21:48)
[2022-12-31] MEDS: CEFTRIAXONE 1 GM in DEXTROSE 5%-WATER - 50 ML IVPB SCH (11:09)
[2022-12-31] MEDS: ALBUTEROL SO4 2.5/IPRATROPIUM 0.5 INH SOL 3 ML VIAL.NEB. NEB PRN ×2 (13:41→19:44)
[2022-12-31] MEDS: ATORVASTATIN CA 20 MG TABLET (FP) PO SCH (21:47)
[2022-12-31] MEDS: LISINOPRIL 20 MG TABLET PO SCH (21:48)
[2023-01-01] MEDS: FUROSEMIDE 40 MG/4 ML INJECTABLE VIAL IVPUSH SCH ×2 (05:39→13:23)
[2023-01-01] MEDS: INSULIN SLIDING SCALE (NOVOLOG) 1 VIAL SQ SCH ×3 (06:13→16:47)
[2023-01-01 07:27] LABS: BASO % 0.2 % (0-2.0); EOS % 2.5 % (0-4.5); HEMATOCRIT 41.6 % (35.4-49); HEMOGLOBIN 13.8 GM/dL (11.7-16.9); LYMPH % 23.1 % (8-40); MCH 28.5 pg (25.7-33.7); MCHC 33.1 g/dl (32.0-35.9); MEAN CELL VOLUME 86.2 fl (80-96); MEAN PLT VOLUME 7.3 fl (7.5-11.1); MONO % 11.3 % (3.8-10.2); NEUT % 62.9 % (42.8-82.8); PLATELET COUNT 101 10^3/uL (134-434); RBC 4.83 M/mm3 (4.00-5.60); RDW 14.9 % (11.9-15.9); WHITE BLOOD COUNT 5.4 K/mm3 (4.0-10.0)
[2023-01-01 07:51] LABS: CHLORIDE 88 mmol/L (98-107); POTASSIUM 3.6 mmol/L (3.5-5.1); SODIUM 138 mmol/L (136-145)
[2023-01-01 07:53] LABS: CALCIUM 9.4 mg/dL (8.5-10.1); GLUCOSE,RANDOM 125 mg/dL (74-106)
[2023-01-01 07:54] LABS: BLOOD UREA NITROGEN 20.7 mg/dL (7-18)
[2023-01-01 07:57] LABS: ANION GAP 5 MMOL/L (8-16); CO2 > 45 mmol/L (21-32); CREATININE 0.7 mg/dL (0.55-1.3)
[2023-01-01] MEDS: methylPREDNISolone NA SUCC 40 MG/1 ML VIAL IVPUSH SCH (09:10)
[2023-01-01] MEDS: ENOXAPARIN NA (PORCINE) 40 MG/0.4 ML DISP.SYRIN SQ SCH (09:10)
[2023-01-01] MEDS: PANTOPRAZOLE 40 MG TABLET PO SCH ×2 (09:10→21:43)
[2023-01-01] MEDS: CEFTRIAXONE 1 GM in DEXTROSE 5%-WATER - 50 ML IVPB SCH (09:11)
[2023-01-01] MEDS: DOXYCYCLINE INJECTION 100 MG in DEXTROSE 5%-WATER 100 ML IVPB SCH (09:53)
[2023-01-01] MEDS: KCL 10 MEQ IVPB 10 MEQ/100 ML INFUS.BAG IVPB SCH ×3 (11:00→12:15)
[2023-01-01] MEDS ORDERED: POTASSIUM CHLORIDE TABS 20 MEQ TABLET.ER (FP) PO ONE (12:00)
[2023-01-01] MEDS: DOXYCYCLINE HYCLATE 100 MG CAPSULE PO SCH (17:14)
[2023-01-01] MEDS: LISINOPRIL 20 MG TABLET PO SCH (21:43)
[2023-01-01] MEDS: ATORVASTATIN CA 20 MG TABLET (FP) PO SCH (21:43)
[2023-01-01] MEDS ORDERED: MELATONIN 5 MG TABLETS PO ONE (23:21)
[2023-01-02] MEDS: FUROSEMIDE 40 MG/4 ML INJECTABLE VIAL IVPUSH SCH ×2 (05:33→13:41)
[2023-01-02] MEDS: INSULIN SLIDING SCALE (NOVOLOG) 1 VIAL SQ SCH ×3 (06:00→16:57)
[2023-01-02 07:39] LABS: BASO % 0.4 % (0-2.0); EOS % 2.6 % (0-4.5); HEMATOCRIT 42.1 % (35.4-49); HEMOGLOBIN 13.8 GM/dL (11.7-16.9); MCH 28.4 pg (25.7-33.7); MCHC 32.9 g/dl (32.0-35.9); MEAN CELL VOLUME 86.3 fl (80-96); MEAN PLT VOLUME 7.5 fl (7.5-11.1); MONO % 10.2 % (3.8-10.2); NEUT % 62.8 % (42.8-82.8); PLATELET COUNT 103 10^3/uL (134-434); RBC 4.87 M/mm3 (4.00-5.60); RDW 14.9 % (11.9-15.9); WHITE BLOOD COUNT 5.5 K/mm3 (4.0-10.0)
[2023-01-02 08:01] LABS: POTASSIUM 3.9 mmol/L (3.5-5.1)
[2023-01-02 08:05] LABS: BLOOD UREA NITROGEN 24.8 mg/dL (7-18); CALCIUM 9.1 mg/dL (8.5-10.1); MAGNESIUM 1.5 mg/dL (1.8-2.4)
[2023-01-02 08:08] LABS: CREATININE 0.8 mg/dL (0.55-1.3)
[2023-01-02] MEDS: ENOXAPARIN NA (PORCINE) 40 MG/0.4 ML DISP.SYRIN SQ SCH (09:05)
[2023-01-02] MEDS: methylPREDNISolone NA SUCC 40 MG/1 ML VIAL IVPUSH SCH (09:05)
[2023-01-02] MEDS: DOXYCYCLINE HYCLATE 100 MG CAPSULE PO SCH ×2 (09:08→17:48)
[2023-01-02] MEDS: ALBUTEROL SO4 2.5/IPRATROPIUM 0.5 INH SOL 3 ML VIAL.NEB. NEB PRN ×3 (09:08→19:44)
[2023-01-02] MEDS: CEFTRIAXONE 1 GM in DEXTROSE 5%-WATER - 50 ML IVPB SCH (09:08)
[2023-01-02] MEDS: PANTOPRAZOLE 40 MG TABLET PO SCH ×2 (09:08→21:42)
[2023-01-02] MEDS ORDERED: MAGNESIUM 2GM/50ML STERILE WATER IVPB IVPB ONE (10:15)
[2023-01-02] MEDS: LISINOPRIL 20 MG TABLET PO SCH (21:42)
[2023-01-02] MEDS: ATORVASTATIN CA 20 MG TABLET (FP) PO SCH (21:42)
[2023-01-02] MEDS: MELATONIN 5 MG TABLETS PO PRN (21:48)
[2023-01-03] MEDS: FUROSEMIDE 40 MG/4 ML INJECTABLE VIAL IVPUSH SCH ×2 (06:17→13:34)
[2023-01-03] MEDS: INSULIN SLIDING SCALE (NOVOLOG) 1 VIAL SQ SCH ×3 (06:21→17:22)
[2023-01-03] MEDS: ALBUTEROL SO4 2.5/IPRATROPIUM 0.5 INH SOL 3 ML VIAL.NEB. NEB PRN ×3 (07:44→19:33)
[2023-01-03 09:16] LABS: POTASSIUM 3.8 mmol/L (3.5-5.1)
[2023-01-03 09:17] LABS: BASO % 0.2 % (0-2.0); EOS % 2.4 % (0-4.5); HEMATOCRIT 40.8 % (35.4-49); HEMOGLOBIN 13.8 GM/dL (11.7-16.9); LYMPH % 22.3 % (8-40); MCH 28.6 pg (25.7-33.7); MCHC 33.8 g/dl (32.0-35.9); MEAN CELL VOLUME 84.4 fl (80-96); MEAN PLT VOLUME 7.4 fl (7.5-11.1); MONO % 10.4 % (3.8-10.2); NEUT % 64.7 % (42.8-82.8); PLATELET COUNT 96 10^3/uL (134-434); RBC 4.83 M/mm3 (4.00-5.60); RDW 15.1 % (11.9-15.9); WHITE BLOOD COUNT 5.4 K/mm3 (4.0-10.0)
[2023-01-03 09:20] LABS: CALCIUM 9.4 mg/dL (8.5-10.1)
[2023-01-03 09:24] LABS: CREATININE 0.7 mg/dL (0.55-1.3)
[2023-01-03] MEDS: ENOXAPARIN NA (PORCINE) 40 MG/0.4 ML DISP.SYRIN SQ SCH (09:24)
[2023-01-03] MEDS: methylPREDNISolone NA SUCC 40 MG/1 ML VIAL IVPUSH SCH (09:24)
[2023-01-03] MEDS: DOXYCYCLINE HYCLATE 100 MG CAPSULE PO SCH ×2 (09:24→17:23)
[2023-01-03] MEDS: PANTOPRAZOLE 40 MG TABLET PO SCH ×2 (09:24→21:23)
[2023-01-03] MEDS: CEFTRIAXONE 1 GM in DEXTROSE 5%-WATER - 50 ML IVPB SCH (09:24)
[2023-01-03] MEDS: MELATONIN 5 MG TABLETS PO PRN (21:24)
[2023-01-03] MEDS: LISINOPRIL 20 MG TABLET PO SCH (21:24)
[2023-01-03] MEDS: ATORVASTATIN CA 20 MG TABLET (FP) PO SCH (21:24)
[2023-01-04] MEDS: FUROSEMIDE 40 MG/4 ML INJECTABLE VIAL IVPUSH SCH ×2 (05:34→15:00)
[2023-01-04] MEDS: INSULIN SLIDING SCALE (NOVOLOG) 1 VIAL SQ SCH ×3 (06:29→17:16)
[2023-01-04 07:08] LABS: BASO % 0.2 % (0-2.0); HEMATOCRIT 40.5 % (35.4-49); HEMOGLOBIN 13.2 GM/dL (11.7-16.9); MCH 28.3 pg (25.7-33.7); MCHC 32.6 g/dl (32.0-35.9); MEAN CELL VOLUME 86.6 fl (80-96); MEAN PLT VOLUME 8.3 fl (7.5-11.1); MONO % 8.6 % (3.8-10.2); NEUT % 61.2 % (42.8-82.8); PLATELET COUNT 89 10^3/uL (134-434); RBC 4.67 M/mm3 (4.00-5.60); RDW 14.8 % (11.9-15.9); WHITE BLOOD COUNT 5.3 K/mm3 (4.0-10.0)
[2023-01-04 07:33] LABS: POTASSIUM 4.4 mmol/L (3.5-5.1)
[2023-01-04 07:36] LABS: CALCIUM 9.4 mg/dL (8.5-10.1)
[2023-01-04 07:37] LABS: BLOOD UREA NITROGEN 23.3 mg/dL (7-18); MAGNESIUM 1.8 mg/dL (1.8-2.4)
[2023-01-04 07:40] LABS: CREATININE 0.7 mg/dL (0.55-1.3)
[2023-01-04] MEDS: ALBUTEROL SO4 2.5/IPRATROPIUM 0.5 INH SOL 3 ML VIAL.NEB. NEB PRN ×2 (08:35→20:00)
[2023-01-04] MEDS: methylPREDNISolone NA SUCC 40 MG/1 ML VIAL IVPUSH SCH (09:39)
[2023-01-04] MEDS: ENOXAPARIN NA (PORCINE) 40 MG/0.4 ML DISP.SYRIN SQ SCH (09:40)
[2023-01-04] MEDS: PANTOPRAZOLE 40 MG TABLET PO SCH ×2 (09:40→21:43)
[2023-01-04] MEDS: DOXYCYCLINE HYCLATE 100 MG CAPSULE PO SCH ×2 (09:40→17:37)
[2023-01-04] MEDS: CEFTRIAXONE 1 GM in DEXTROSE 5%-WATER - 50 ML IVPB SCH (09:40)
[2023-01-04] MEDS: LISINOPRIL 20 MG TABLET PO SCH (21:43)
[2023-01-04] MEDS: ATORVASTATIN CA 20 MG TABLET (FP) PO SCH (21:43)
[2023-01-04] MEDS: MELATONIN 5 MG TABLETS PO PRN (21:46)
[2023-01-05] MEDS ORDERED: MAGNESIUM 1GM/D5W 100ML - 100 ML IVPB IVPB ONE (04:30)
[2023-01-05] MEDS: FUROSEMIDE 40 MG/4 ML INJECTABLE VIAL IVPUSH SCH (05:33)
[2023-01-05] MEDS: INSULIN SLIDING SCALE (NOVOLOG) 1 VIAL SQ SCH ×3 (06:04→17:56)
[2023-01-05 07:37] LABS: BASO % 0.1 % (0-2.0); HEMATOCRIT 40.8 % (35.4-49); HEMOGLOBIN 13.4 GM/dL (11.7-16.9); LYMPH % 29.1 % (8-40); MCH 28.1 pg (25.7-33.7); MCHC 32.8 g/dl (32.0-35.9); MEAN CELL VOLUME 85.7 fl (80-96); MEAN PLT VOLUME 8.4 fl (7.5-11.1); MONO % 8.5 % (3.8-10.2); NEUT % 60.3 % (42.8-82.8); PLATELET COUNT 91 10^3/uL (134-434); RBC 4.76 M/mm3 (4.00-5.60); RDW 14.5 % (11.9-15.9); WHITE BLOOD COUNT 5.2 K/mm3 (4.0-10.0)
[2023-01-05 07:55] LABS: POTASSIUM 4.4 mmol/L (3.5-5.1)
[2023-01-05 08:00] LABS: BLOOD UREA NITROGEN 25.7 mg/dL (7-18); CALCIUM 9.7 mg/dL (8.5-10.1)
[2023-01-05 08:04] LABS: CREATININE 0.8 mg/dL (0.55-1.3)
[2023-01-05] MEDS ORDERED: FUROSEMIDE 40 MG/4 ML INJECTABLE VIAL IVPUSH SCH (10:00)
[2023-01-05] MEDS: CEFTRIAXONE 1 GM in DEXTROSE 5%-WATER - 50 ML IVPB SCH (10:00)
[2023-01-05] MEDS: ENOXAPARIN NA (PORCINE) 40 MG/0.4 ML DISP.SYRIN SQ SCH (10:00)
[2023-01-05] MEDS: methylPREDNISolone NA SUCC 40 MG/1 ML VIAL IVPUSH SCH (10:00)
[2023-01-05] MEDS: PANTOPRAZOLE 40 MG TABLET PO SCH ×2 (10:01→21:24)
[2023-01-05] MEDS: DOXYCYCLINE HYCLATE 100 MG CAPSULE PO SCH (10:01)
[2023-01-05] MEDS: ALBUTEROL SO4 2.5/IPRATROPIUM 0.5 INH SOL 3 ML VIAL.NEB. NEB PRN ×2 (11:25→15:45)
[2023-01-05] MEDS: FUROSEMIDE 40 MG TABLET (FP) PO SCH (17:58)
[2023-01-05] MEDS: CEFUROXIME AXETIL 500 MG TABLET PO SCH (21:24)
[2023-01-05] MEDS: LISINOPRIL 20 MG TABLET PO SCH (21:24)
[2023-01-05] MEDS: predniSONE 20 MG TABLET (UD) PO SCH (21:24)
[2023-01-05] MEDS: ATORVASTATIN CA 20 MG TABLET (FP) PO SCH (21:24)
[2023-01-05] MEDS: MELATONIN 5 MG TABLETS PO PRN (22:30)
[2023-01-06] MEDS: FUROSEMIDE 40 MG TABLET (FP) PO SCH ×2 (05:52→13:45)
[2023-01-06] MEDS: INSULIN SLIDING SCALE (NOVOLOG) 1 VIAL SQ SCH ×3 (06:32→17:26)
[2023-01-06 07:20] LABS: BASO % 0.1 % (0-2.0); HEMATOCRIT 39.9 % (35.4-49); HEMOGLOBIN 13.1 GM/dL (11.7-16.9); LYMPH % 16.3 % (8-40); MCHC 32.9 g/dl (32.0-35.9); MEAN CELL VOLUME 85.1 fl (80-96); MEAN PLT VOLUME 8.3 fl (7.5-11.1); MONO % 8.4 % (3.8-10.2); NEUT % 74.2 % (42.8-82.8); PLATELET COUNT 99 10^3/uL (134-434); RBC 4.69 M/mm3 (4.00-5.60); RDW 14.4 % (11.9-15.9); WHITE BLOOD COUNT 5.9 K/mm3 (4.0-10.0)
[2023-01-06 07:37] LABS: POTASSIUM 4.8 mmol/L (3.5-5.1)
[2023-01-06 07:38] LABS: CALCIUM 9.6 mg/dL (8.5-10.1)
[2023-01-06 07:39] LABS: BLOOD UREA NITROGEN 24.8 mg/dL (7-18)
[2023-01-06 07:42] LABS: CREATININE 0.6 mg/dL (0.55-1.3)
[2023-01-06] MEDS: PANTOPRAZOLE 40 MG TABLET PO SCH (09:09)
[2023-01-06] MEDS: predniSONE 20 MG TABLET (UD) PO SCH (09:09)
[2023-01-06] MEDS: CEFUROXIME AXETIL 500 MG TABLET PO SCH (09:09)
[2023-01-06] MEDS: ENOXAPARIN NA (PORCINE) 40 MG/0.4 ML DISP.SYRIN SQ SCH (09:09)
[2023-01-06 11:26] VITALS: RESP 18
[2023-01-06 17:55] VITALS: BP 144/67; PULSE 83; TEMP 97.8
== END 2023-01-06 18:16 | disposition home or self-care (01) | DRG 193 ==
LOC: JER 11:53 → JERBED 13:44 → J4S 22:08
PROVIDERS: ADMIT Internal Medicine; ATTEND Internal Medicine
DX: J18.9 Pneumonia, unspecified organism (principal); I50.33 Acute on chronic diastolic (congestive) heart failure; J96.02 Acute respiratory failure with hypercapnia; J96.01 Acute respiratory failure with hypoxia; Z68.42 Body mass index [BMI] 45.0-49.9, adult; J43.9 Emphysema, unspecified; Z99.81 Dependence on supplemental oxygen; G47.33 Obstructive sleep apnea (adult) (pediatric); E11.9 Type 2 diabetes mellitus without complications; E78.5 Hyperlipidemia, unspecified; I45.10 Unspecified right bundle-branch block; I27.20 Pulmonary hypertension, unspecified; I11.0 Hypertensive heart disease with heart failure; D69.6 Thrombocytopenia, unspecified; F17.200 Nicotine dependence, unspecified, uncomplicated; E66.01 Morbid (severe) obesity due to excess calories; E83.42 Hypomagnesemia; G47.00 Insomnia, unspecified; R94.31 Abnormal electrocardiogram [ECG] [EKG]
CPT/HCPCS: 0241U-QW; 36415; 36600; 71045-TC-FY; 71250-TC; 80048; 80053; 81003; 82550; 82553; 82803; 82962; 83036; 83605; 83735; 84484; 85025; 85610; 85651; 85730; 86140; 86850; 86900; 86901; 87040; 87086; 87899; 93005; 93010; 93306-TC; 94010; 94640; 94660; 97116-GP; 97161-GP; 99291

== ENCOUNTER 2023-02-05 17:59 | Inpatient (IN) | payer OTHER ==
[2023-02-05] MEDS: ALBUTEROL SO4 2.5/IPRATROPIUM 0.5 INH SOL 3 ML VIAL.NEB. NEB SCH ×4 (20:00→20:41)
[2023-02-05] MEDS ORDERED: ALBUTEROL SO4 2.5/IPRATROPIUM 0.5 INH SOL 3 ML VIAL.NEB. NEB ONE ×2 (20:04→20:34)
[2023-02-05] MEDS ORDERED: methylPREDNISolone NA SUCC 125 MG/2 ML VIAL IVPB ONE (20:13)
[2023-02-05] MEDS ORDERED: methylPREDNISolone NA SUCC 125 MG/2 ML VIAL ONE (20:34)
[2023-02-05 20:48] LABS: VENOUS BASE EXCESS 19.9 mmol/L (-2-2); VENOUS O2 SATURATION 69.7 % (70-80); VENOUS PH 7.288 (7.310-7.410)
[2023-02-05 20:50] LABS: VENOUS PCO2 112.5 mmHg (38-52)
[2023-02-05 20:54] LABS: ARTERIAL BLD GAS O2 SATURATION 97.2 % (95-98); ARTERIAL BLOOD GAS BASE EXCESS 18.2 mmol/L (-2-2); ARTERIAL BLOOD GAS pH 7.298 (7.350-7.450)
[2023-02-05 20:58] LABS: BASO % 0.2 % (0-2.0); HEMATOCRIT 38.1 % (35.4-49); LYMPH % 12.2 % (8-40); MCH 28.7 pg (25.7-33.7); MEAN CELL VOLUME 84.5 fl (80-96); MEAN PLT VOLUME 6.4 fl (7.5-11.1); MONO % 9.8 % (3.8-10.2); NEUT % 75.8 % (42.8-82.8); PLATELET COUNT 143 10^3/uL (134-434); RBC 4.51 M/mm3 (4.00-5.60); RDW 14.5 % (11.9-15.9); WHITE BLOOD COUNT 7.6 K/mm3 (4.0-10.0)
[2023-02-05 20:58] LABS: ALLENS TEST POSITIVE
[2023-02-05 21:08] LABS: CHLORIDE 86 mmol/L (98-107); INR 1.13 (0.83-1.09); POTASSIUM 4.3 mmol/L (3.5-5.1); PROTHROMBIN TIME (PATIENT) 13.1 SEC (9.7-13.0); SODIUM 136 mmol/L (136-145)
[2023-02-05 21:09] LABS: ACTIVATED PTT 36.2 SECONDS (25.2-36.5)
[2023-02-05 21:10] LABS: ALBUMIN 3.6 g/dl (3.4-5.0); CALCIUM 9.6 mg/dL (8.5-10.1); GLUCOSE,RANDOM 130 mg/dL (74-106)
[2023-02-05 21:13] LABS: SGPT/ALT 28 U/L (13-61)
[2023-02-05 21:14] LABS: CREATININE 0.7 mg/dL (0.55-1.3); SGOT/AST 10 U/L (15-37)
[2023-02-05 21:15] LABS: BILIRUBIN,TOTAL 0.6 mg/dL (0.2-1); TOT PROT 7.5 g/dl (6.4-8.2)
[2023-02-05 21:16] LABS: ALK PHOS 46 U/L (45-117)
[2023-02-05] MEDS ORDERED: VANCOMYCIN 1 GM in D5W (PRE-DOCKED) 1,000 MG/250 ML (RESTRICTED TO ID ONLY IVPB ONE (21:18)
[2023-02-05] MEDS ORDERED: PIPERACILLIN/TAZOB 3.375 GM 3.375 GM in DEXTROSE 5%-WATER - 50 ML IVPB ONE (21:18)
[2023-02-05 21:44] LABS: ANION GAP 5 MMOL/L (8-16); CO2 > 45 mmol/L (21-32)
[2023-02-05] MEDS ORDERED: methylPREDNISolone NA SUCC 125 MG/2 ML VIAL IVPB SCH (22:00)
[2023-02-05] MEDS ORDERED: ALBUTEROL SO4 2.5/IPRATROPIUM 0.5 INH SOL 3 ML VIAL.NEB. NEB PRN (22:02)
[2023-02-05] MEDS ORDERED: PIPERACILLIN/TAZOB 3.375 GM 3.375 GM/50 ML BAG IVPB ONE (22:05)
[2023-02-05] MEDS ORDERED: VANCOMYCIN/WATER FOR INJ (PEG) 1,000 MG/200 ML BAG IVPB ONE (22:05)
[2023-02-05] MEDS: methylPREDNISolone NA SUCC 40 MG/1 ML VIAL IVPB SCH (22:34)
[2023-02-05] MEDS ORDERED: ENOXAPARIN NA (PORCINE) 40 MG/0.4 ML DISP.SYRIN SQ ONE (22:56)
[2023-02-05] MEDS ORDERED: PANTOPRAZOLE SODIUM 40 MG/100 ML BAG IVPB ONE (22:56)
[2023-02-05] MEDS: ENOXAPARIN NA (PORCINE) 40 MG/0.4 ML DISP.SYRIN SQ SCH (23:02)
[2023-02-05] MEDS: PANTOPRAZOLE SODIUM 40 MG VIAL IVPUSH SCH (23:03)
[2023-02-06] MEDS: guaiFENesin 600 MG TABLET.ER (FP) PO SCH ×3 (01:05→21:56)
[2023-02-06] MEDS: INSULIN SLIDING SCALE (NOVOLOG) 1 VIAL SQ SCH ×4 (01:45→16:37)
[2023-02-06 02:19] VITALS: BMI 38.6
[2023-02-06 02:28] LABS: ARTERIAL BLD GAS O2 SATURATION 93.4 % (95-98); ARTERIAL BLOOD GAS BASE EXCESS 13.8 mmol/L (-2-2); ARTERIAL BLOOD GAS pH 7.301 (7.350-7.450)
[2023-02-06 02:32] LABS: ALLENS TEST POSITIVE
[2023-02-06 02:33] LABS: VENT MODE S/T; VENT RATE 18
[2023-02-06] MEDS: methylPREDNISolone NA SUCC 40 MG/1 ML VIAL IVPB SCH ×3 (06:01→21:56)
[2023-02-06] MEDS: PANTOPRAZOLE SODIUM 40 MG VIAL IVPUSH SCH (09:27)
[2023-02-06] MEDS: ENOXAPARIN NA (PORCINE) 40 MG/0.4 ML DISP.SYRIN SQ SCH (09:27)
[2023-02-06] MEDS ORDERED: PNEUMOC 20-VAL CONJ-DIP CRM/PF 0.5 ML SYRINGE IM ONE (10:00)
[2023-02-06 10:29] LABS: HEMATOCRIT 36.8 % (35.4-49); HEMOGLOBIN 12.3 GM/dL (11.7-16.9); MCH 28.6 pg (25.7-33.7); MCHC 33.3 g/dl (32.0-35.9); MEAN CELL VOLUME 85.8 fl (80-96); MEAN PLT VOLUME 7.2 fl (7.5-11.1); PLATELET COUNT 128 10^3/uL (134-434); RBC 4.29 M/mm3 (4.00-5.60); RDW 14.4 % (11.9-15.9); WHITE BLOOD COUNT 5.5 K/mm3 (4.0-10.0)
[2023-02-06] MEDS: PANTOPRAZOLE 40 MG TABLET PO SCH (12:09)
[2023-02-06] MEDS: ALBUTEROL SO4 2.5/IPRATROPIUM 0.5 INH SOL 3 ML VIAL.NEB. NEB SCH ×3 (12:23→20:05)
[2023-02-06 13:06] LABS: ANISOCYTOSIS 1+; MACROCYTOSIS 0; OVALOCYTE 2+
[2023-02-06] MEDS: FUROSEMIDE 40 MG TABLET (FP) PO SCH (13:38)
[2023-02-06] MEDS: BUDESONIDE/FORMETEROL FUMARATE 160/4.5 mcg INHALER IH SCH ×2 (15:12→21:56)
[2023-02-06] MEDS: CEFTRIAXONE 2 GM in DEXTROSE 5%-WATER 100 ML IVPB SCH (16:19)
[2023-02-06] MEDS: AZITHROMYCIN IVPB 500 MG/250 ML BAG IVPB SCH (16:20)
[2023-02-06] MEDS: ATORVASTATIN CA 20 MG TABLET (FP) PO SCH (21:56)
[2023-02-07] MEDS: FUROSEMIDE 40 MG TABLET (FP) PO SCH ×2 (05:51→14:16)
[2023-02-07] MEDS: methylPREDNISolone NA SUCC 40 MG/1 ML VIAL IVPB SCH (05:51)
[2023-02-07] MEDS: INSULIN SLIDING SCALE (NOVOLOG) 1 VIAL SQ SCH ×3 (06:24→21:35)
[2023-02-07] MEDS: ALBUTEROL SO4 2.5/IPRATROPIUM 0.5 INH SOL 3 ML VIAL.NEB. NEB SCH ×4 (07:47→20:05)
[2023-02-07 10:16] LABS: BASO % 0.1 % (0-2.0); EOS % 0.1 % (0-4.5); HEMATOCRIT 34.3 % (35.4-49); HEMOGLOBIN 11.5 GM/dL (11.7-16.9); LYMPH % 6.7 % (8-40); MCH 28.7 pg (25.7-33.7); MCHC 33.6 g/dl (32.0-35.9); MEAN CELL VOLUME 85.2 fl (80-96); MEAN PLT VOLUME 7.3 fl (7.5-11.1); MONO % 3.7 % (3.8-10.2); NEUT % 89.4 % (42.8-82.8); PLATELET COUNT 135 10^3/uL (134-434); RBC 4.02 M/mm3 (4.00-5.60); RDW 14.1 % (11.9-15.9); WHITE BLOOD COUNT 5.2 K/mm3 (4.0-10.0)
[2023-02-07 10:32] LABS: POTASSIUM 4.5 mmol/L (3.5-5.1)
[2023-02-07 10:33] LABS: CALCIUM 8.9 mg/dL (8.5-10.1)
[2023-02-07 10:34] LABS: BLOOD UREA NITROGEN 19.4 mg/dL (7-18)
[2023-02-07 10:37] LABS: CREATININE 0.7 mg/dL (0.55-1.3)
[2023-02-07] MEDS: ENOXAPARIN NA (PORCINE) 40 MG/0.4 ML DISP.SYRIN SQ SCH (10:46)
[2023-02-07] MEDS: PANTOPRAZOLE 40 MG TABLET PO SCH (10:46)
[2023-02-07] MEDS: CEFTRIAXONE 2 GM in DEXTROSE 5%-WATER 100 ML IVPB SCH (10:46)
[2023-02-07] MEDS: AZITHROMYCIN IVPB 500 MG/250 ML BAG IVPB SCH (10:47)
[2023-02-07] MEDS ORDERED: INSULIN SLIDING SCALE (NOVOLOG) 1 VIAL SQ SCH (10:54)
[2023-02-07] MEDS: BUDESONIDE/FORMETEROL FUMARATE 160/4.5 mcg INHALER IH SCH ×2 (11:09→23:09)
[2023-02-07] MEDS: guaiFENesin 600 MG TABLET.ER (FP) PO SCH ×2 (11:10→21:34)
[2023-02-07] MEDS: MELATONIN 5 MG TABLETS PO PRN (21:34)
[2023-02-07] MEDS: ATORVASTATIN CA 20 MG TABLET (FP) PO SCH (21:34)
[2023-02-07] MEDS ORDERED: methylPREDNISolone NA SUCC 40 MG/1 ML VIAL IVPB SCH (22:00)
[2023-02-08] MEDS: FUROSEMIDE 40 MG TABLET (FP) PO SCH (05:07)
[2023-02-08] MEDS: INSULIN SLIDING SCALE (NOVOLOG) 1 VIAL SQ SCH ×4 (06:07→21:43)
[2023-02-08] MEDS: ALBUTEROL SO4 2.5/IPRATROPIUM 0.5 INH SOL 3 ML VIAL.NEB. NEB SCH ×4 (07:58→20:05)
[2023-02-08 09:24] LABS: BASO % 0.1 % (0-2.0); EOS % 0.3 % (0-4.5); HEMATOCRIT 36.6 % (35.4-49); HEMOGLOBIN 12.5 GM/dL (11.7-16.9); LYMPH % 10.8 % (8-40); MCH 28.7 pg (25.7-33.7); MEAN CELL VOLUME 84.4 fl (80-96); MEAN PLT VOLUME 6.8 fl (7.5-11.1); MONO % 7.3 % (3.8-10.2); NEUT % 81.5 % (42.8-82.8); PLATELET COUNT 162 10^3/uL (134-434); RBC 4.34 M/mm3 (4.00-5.60); RDW 14.9 % (11.9-15.9); WHITE BLOOD COUNT 5.9 K/mm3 (4.0-10.0)
[2023-02-08] MEDS: CEFTRIAXONE 2 GM in DEXTROSE 5%-WATER 100 ML IVPB SCH (09:51)
[2023-02-08 09:52] LABS: CHLORIDE 86 mmol/L (98-107); POTASSIUM 4.3 mmol/L (3.5-5.1); SODIUM 138 mmol/L (136-145)
[2023-02-08] MEDS: PANTOPRAZOLE 40 MG TABLET PO SCH (09:53)
[2023-02-08] MEDS: guaiFENesin 600 MG TABLET.ER (FP) PO SCH ×2 (09:53→21:43)
[2023-02-08] MEDS: BUDESONIDE/FORMETEROL FUMARATE 160/4.5 mcg INHALER IH SCH ×2 (09:54→21:43)
[2023-02-08] MEDS: ENOXAPARIN NA (PORCINE) 40 MG/0.4 ML DISP.SYRIN SQ SCH (10:02)
[2023-02-08 10:06] LABS: BLOOD UREA NITROGEN 21.1 mg/dL (7-18); CALCIUM 9.4 mg/dL (8.5-10.1); GLUCOSE,RANDOM 151 mg/dL (74-106)
[2023-02-08 10:07] LABS: MAGNESIUM 1.7 mg/dL (1.8-2.4)
[2023-02-08 10:10] LABS: CREATININE 0.8 mg/dL (0.55-1.3)
[2023-02-08 10:11] LABS: ANION GAP 7 MMOL/L (8-16); CO2 > 45 mmol/L (21-32)
[2023-02-08] MEDS: AZITHROMYCIN IVPB 500 MG/250 ML BAG IVPB SCH (11:30)
[2023-02-08] MEDS ORDERED: MAGNESIUM SULF 50% (8.12 MEQ/2 ML-1 GM VIAL) IVPB ONE (11:52)
[2023-02-08] MEDS: methylPREDNISolone NA SUCC 40 MG/1 ML VIAL IVPUSH SCH (13:52)
[2023-02-08] MEDS: FUROSEMIDE 40 MG/4 ML INJECTABLE VIAL IVPUSH SCH (13:55)
[2023-02-08] MEDS: ATORVASTATIN CA 20 MG TABLET (FP) PO SCH (21:43)
[2023-02-09] MEDS: FUROSEMIDE 40 MG/4 ML INJECTABLE VIAL IVPUSH SCH ×2 (06:05→15:07)
[2023-02-09] MEDS: INSULIN SLIDING SCALE (NOVOLOG) 1 VIAL SQ SCH ×4 (06:05→22:40)
[2023-02-09] MEDS: ALBUTEROL SO4 2.5/IPRATROPIUM 0.5 INH SOL 3 ML VIAL.NEB. NEB SCH ×4 (08:16→20:24)
[2023-02-09] MEDS: PANTOPRAZOLE 40 MG TABLET PO SCH (09:19)
[2023-02-09] MEDS: methylPREDNISolone NA SUCC 40 MG/1 ML VIAL IVPUSH SCH (09:20)
[2023-02-09] MEDS: ENOXAPARIN NA (PORCINE) 40 MG/0.4 ML DISP.SYRIN SQ SCH (09:20)
[2023-02-09] MEDS: BUDESONIDE/FORMETEROL FUMARATE 160/4.5 mcg INHALER IH SCH ×2 (09:21→22:40)
[2023-02-09] MEDS: CEFTRIAXONE 2 GM in DEXTROSE 5%-WATER 100 ML IVPB SCH (09:24)
[2023-02-09] MEDS: AZITHROMYCIN IVPB 500 MG/250 ML BAG IVPB SCH (10:43)
[2023-02-09] MEDS: guaiFENesin 600 MG TABLET.ER (FP) PO SCH ×2 (10:43→22:40)
[2023-02-09 10:50] LABS: BASO % 0.1 % (0-2.0); EOS % 1.3 % (0-4.5); HEMATOCRIT 36.6 % (35.4-49); HEMOGLOBIN 12.2 GM/dL (11.7-16.9); LYMPH % 13.6 % (8-40); MCH 28.9 pg (25.7-33.7); MCHC 33.3 g/dl (32.0-35.9); MEAN CELL VOLUME 86.8 fl (80-96); MEAN PLT VOLUME 7.2 fl (7.5-11.1); MONO % 8.6 % (3.8-10.2); NEUT % 76.4 % (42.8-82.8); PLATELET COUNT 160 10^3/uL (134-434); RBC 4.22 M/mm3 (4.00-5.60); RDW 14.2 % (11.9-15.9); WHITE BLOOD COUNT 7.5 K/mm3 (4.0-10.0)
[2023-02-09 11:17] LABS: CHLORIDE 84 mmol/L (98-107); POTASSIUM 3.9 mmol/L (3.5-5.1); SODIUM 137 mmol/L (136-145)
[2023-02-09 11:26] LABS: BLOOD UREA NITROGEN 19.6 mg/dL (7-18); CALCIUM 9.1 mg/dL (8.5-10.1); GLUCOSE,RANDOM 221 mg/dL (74-106)
[2023-02-09 11:29] LABS: CREATININE 0.7 mg/dL (0.55-1.3)
[2023-02-09 11:51] LABS: ANION GAP 8 MMOL/L (8-16); CO2 > 45 mmol/L (21-32)
[2023-02-09] MEDS: MELATONIN 5 MG TABLETS PO PRN (22:40)
[2023-02-10] MEDS: FUROSEMIDE 40 MG/4 ML INJECTABLE VIAL IVPUSH SCH ×2 (05:29→13:54)
[2023-02-10] MEDS: INSULIN SLIDING SCALE (NOVOLOG) 1 VIAL SQ SCH ×4 (06:19→21:56)
[2023-02-10] MEDS: ALBUTEROL SO4 2.5/IPRATROPIUM 0.5 INH SOL 3 ML VIAL.NEB. NEB SCH ×4 (08:15→20:14)
[2023-02-10 08:49] LABS: BASO % 0.4 % (0-2.0); EOS % 1.5 % (0-4.5); HEMATOCRIT 37.7 % (35.4-49); HEMOGLOBIN 12.7 GM/dL (11.7-16.9); LYMPH % 11.4 % (8-40); MCH 28.8 pg (25.7-33.7); MCHC 33.6 g/dl (32.0-35.9); MEAN CELL VOLUME 85.8 fl (80-96); MEAN PLT VOLUME 6.9 fl (7.5-11.1); NEUT % 78.7 % (42.8-82.8); PLATELET COUNT 173 10^3/uL (134-434); RDW 14.5 % (11.9-15.9); WHITE BLOOD COUNT 9.7 K/mm3 (4.0-10.0)
[2023-02-10 09:12] LABS: CHLORIDE 84 mmol/L (98-107); SODIUM 137 mmol/L (136-145)
[2023-02-10 09:13] LABS: CALCIUM 9.1 mg/dL (8.5-10.1)
[2023-02-10 09:14] LABS: BLOOD UREA NITROGEN 19.6 mg/dL (7-18); GLUCOSE,RANDOM 134 mg/dL (74-106); MAGNESIUM 1.7 mg/dL (1.8-2.4)
[2023-02-10 09:17] LABS: CREATININE 0.7 mg/dL (0.55-1.3)
[2023-02-10 09:25] LABS: ANION GAP 7 MMOL/L (8-16); CO2 > 45 mmol/L (21-32)
[2023-02-10 09:37] LABS: ANISOCYTOSIS 2+; MACROCYTOSIS 0
[2023-02-10] MEDS ORDERED: MAGNESIUM SULF 50% (8.12 MEQ/2 ML-1 GM VIAL) IVPB ONE (09:37)
[2023-02-10] MEDS: PANTOPRAZOLE 40 MG TABLET PO SCH (09:49)
[2023-02-10] MEDS: CEFTRIAXONE 2 GM in DEXTROSE 5%-WATER 100 ML IVPB SCH (09:49)
[2023-02-10] MEDS: methylPREDNISolone NA SUCC 40 MG/1 ML VIAL IVPUSH SCH (09:49)
[2023-02-10] MEDS: ENOXAPARIN NA (PORCINE) 40 MG/0.4 ML DISP.SYRIN SQ SCH (09:49)
[2023-02-10] MEDS: guaiFENesin 600 MG TABLET.ER (FP) PO SCH ×2 (09:49→21:51)
[2023-02-10] MEDS: BUDESONIDE/FORMETEROL FUMARATE 160/4.5 mcg INHALER IH SCH ×2 (09:54→21:56)
[2023-02-10] MEDS ORDERED: INSULIN SLIDING SCALE (NOVOLOG) 1 VIAL SQ ONE (11:21)
[2023-02-10] MEDS: AZITHROMYCIN IVPB 500 MG/250 ML BAG IVPB SCH (11:26)
[2023-02-11] MEDS: FUROSEMIDE 40 MG/4 ML INJECTABLE VIAL IVPUSH SCH ×2 (06:39→15:53)
[2023-02-11] MEDS: INSULIN SLIDING SCALE (NOVOLOG) 1 VIAL SQ SCH ×4 (06:39→21:27)
[2023-02-11] MEDS: ALBUTEROL SO4 2.5/IPRATROPIUM 0.5 INH SOL 3 ML VIAL.NEB. NEB SCH ×4 (07:50→20:05)
[2023-02-11 09:26] LABS: BASO % 0.1 % (0-2.0); EOS % 1.4 % (0-4.5); HEMATOCRIT 37.5 % (35.4-49); HEMOGLOBIN 13.1 GM/dL (11.7-16.9); LYMPH % 11.8 % (8-40); MCH 29.4 pg (25.7-33.7); MCHC 34.9 g/dl (32.0-35.9); MEAN CELL VOLUME 84.4 fl (80-96); MEAN PLT VOLUME 6.7 fl (7.5-11.1); MONO % 8.1 % (3.8-10.2); NEUT % 78.6 % (42.8-82.8); PLATELET COUNT 154 10^3/uL (134-434); RBC 4.45 M/mm3 (4.00-5.60); RDW 14.5 % (11.9-15.9); WHITE BLOOD COUNT 9.1 K/mm3 (4.0-10.0)
[2023-02-11] MEDS: ENOXAPARIN NA (PORCINE) 40 MG/0.4 ML DISP.SYRIN SQ SCH (10:04)
[2023-02-11] MEDS: guaiFENesin 600 MG TABLET.ER (FP) PO SCH ×2 (10:05→21:25)
[2023-02-11] MEDS: PANTOPRAZOLE 40 MG TABLET PO SCH (10:05)
[2023-02-11] MEDS: CEFTRIAXONE 2 GM in DEXTROSE 5%-WATER 100 ML IVPB SCH (10:05)
[2023-02-11] MEDS: methylPREDNISolone NA SUCC 40 MG/1 ML VIAL IVPUSH SCH (10:05)
[2023-02-11] MEDS: BUDESONIDE/FORMETEROL FUMARATE 160/4.5 mcg INHALER IH SCH ×2 (10:09→21:25)
[2023-02-11 10:14] LABS: CHLORIDE 83 mmol/L (98-107); POTASSIUM 4.1 mmol/L (3.5-5.1); SODIUM 139 mmol/L (136-145)
[2023-02-11 10:15] LABS: BLOOD UREA NITROGEN 19.3 mg/dL (7-18); CALCIUM 9.3 mg/dL (8.5-10.1)
[2023-02-11 10:16] LABS: GLUCOSE,RANDOM 144 mg/dL (74-106)
[2023-02-11 10:19] LABS: CREATININE 0.7 mg/dL (0.55-1.3)
[2023-02-11 10:22] LABS: ANION GAP 11 MMOL/L (8-16); CO2 > 45 mmol/L (21-32)
[2023-02-11] MEDS: AZITHROMYCIN IVPB 500 MG/250 ML BAG IVPB SCH (11:19)
[2023-02-12] MEDS: MELATONIN 5 MG TABLETS PO PRN (01:20)
[2023-02-12] MEDS ORDERED: MELATONIN 5 MG TABLETS PO ONE (01:29)
[2023-02-12] MEDS: INSULIN SLIDING SCALE (NOVOLOG) 1 VIAL SQ SCH ×4 (06:01→21:04)
[2023-02-12] MEDS: FUROSEMIDE 40 MG/4 ML INJECTABLE VIAL IVPUSH SCH ×2 (06:02→14:29)
[2023-02-12] MEDS: ALBUTEROL SO4 2.5/IPRATROPIUM 0.5 INH SOL 3 ML VIAL.NEB. NEB SCH ×4 (08:13→20:03)
[2023-02-12] MEDS: methylPREDNISolone NA SUCC 40 MG/1 ML VIAL IVPUSH SCH (09:42)
[2023-02-12] MEDS: PANTOPRAZOLE 40 MG TABLET PO SCH (09:42)
[2023-02-12] MEDS: CEFTRIAXONE 2 GM in DEXTROSE 5%-WATER 100 ML IVPB SCH (09:42)
[2023-02-12] MEDS: guaiFENesin 600 MG TABLET.ER (FP) PO SCH ×2 (09:42→21:03)
[2023-02-12] MEDS: ACETAMINOPHEN 325 MG TABLET (FP) PO PRN (09:43)
[2023-02-12] MEDS: ENOXAPARIN NA (PORCINE) 40 MG/0.4 ML DISP.SYRIN SQ SCH (09:52)
[2023-02-12 10:36] LABS: BASO % 0.2 % (0-2.0); EOS % 1.2 % (0-4.5); HEMATOCRIT 37.7 % (35.4-49); HEMOGLOBIN 12.7 GM/dL (11.7-16.9); LYMPH % 11.2 % (8-40); MCH 28.7 pg (25.7-33.7); MCHC 33.7 g/dl (32.0-35.9); MEAN CELL VOLUME 85.3 fl (80-96); MEAN PLT VOLUME 7.4 fl (7.5-11.1); MONO % 7.1 % (3.8-10.2); NEUT % 80.3 % (42.8-82.8); PLATELET COUNT 139 10^3/uL (134-434); RBC 4.42 M/mm3 (4.00-5.60); RDW 14.4 % (11.9-15.9); WHITE BLOOD COUNT 8.2 K/mm3 (4.0-10.0)
[2023-02-12] MEDS: AZITHROMYCIN IVPB 500 MG/250 ML BAG IVPB SCH (11:01)
[2023-02-12] MEDS: BUDESONIDE/FORMETEROL FUMARATE 160/4.5 mcg INHALER IH SCH ×2 (11:01→21:03)
[2023-02-12 11:10] LABS: CHLORIDE 84 mmol/L (98-107); POTASSIUM 3.7 mmol/L (3.5-5.1); SODIUM 137 mmol/L (136-145)
[2023-02-12 11:24] LABS: CALCIUM 9.4 mg/dL (8.5-10.1)
[2023-02-12 11:25] LABS: GLUCOSE,RANDOM 153 mg/dL (74-106)
[2023-02-12 11:28] LABS: CREATININE 0.6 mg/dL (0.55-1.3)
[2023-02-12 12:04] LABS: ANION GAP 7 MMOL/L (8-16); CO2 > 45 mmol/L (21-32)
[2023-02-13] MEDS: FUROSEMIDE 40 MG/4 ML INJECTABLE VIAL IVPUSH SCH ×2 (05:33→13:02)
[2023-02-13] MEDS: INSULIN SLIDING SCALE (NOVOLOG) 1 VIAL SQ SCH ×4 (06:09→22:48)
[2023-02-13] MEDS: ALBUTEROL SO4 2.5/IPRATROPIUM 0.5 INH SOL 3 ML VIAL.NEB. NEB SCH ×4 (07:10→20:14)
[2023-02-13 08:59] LABS: BASO % 0.1 % (0-2.0); EOS % 0.9 % (0-4.5); HEMATOCRIT 38.7 % (35.4-49); HEMOGLOBIN 13.1 GM/dL (11.7-16.9); LYMPH % 13.5 % (8-40); MCH 29.1 pg (25.7-33.7); MCHC 33.8 g/dl (32.0-35.9); MEAN CELL VOLUME 85.9 fl (80-96); MEAN PLT VOLUME 7.3 fl (7.5-11.1); MONO % 8.1 % (3.8-10.2); NEUT % 77.4 % (42.8-82.8); PLATELET COUNT 152 10^3/uL (134-434); RDW 14.5 % (11.9-15.9); WHITE BLOOD COUNT 8.7 K/mm3 (4.0-10.0)
[2023-02-13 09:28] LABS: CHLORIDE 83 mmol/L (98-107); POTASSIUM 3.5 mmol/L (3.5-5.1); SODIUM 136 mmol/L (136-145)
[2023-02-13 09:30] LABS: CALCIUM 9.1 mg/dL (8.5-10.1); GLUCOSE,RANDOM 172 mg/dL (74-106); MAGNESIUM 1.7 mg/dL (1.8-2.4)
[2023-02-13 09:31] LABS: BLOOD UREA NITROGEN 17.6 mg/dL (7-18)
[2023-02-13 09:34] LABS: ANION GAP 9 MMOL/L (8-16); CO2 > 45 mmol/L (21-32); CREATININE 0.7 mg/dL (0.55-1.3)
[2023-02-13] MEDS ORDERED: MAGNESIUM 2GM/50ML STERILE WATER IVPB IVPB ONE (09:48)
[2023-02-13] MEDS: PANTOPRAZOLE 40 MG TABLET PO SCH (10:15)
[2023-02-13] MEDS: guaiFENesin 600 MG TABLET.ER (FP) PO SCH ×2 (10:15→21:52)
[2023-02-13] MEDS: AZITHROMYCIN 250 MG TABLET PO SCH (10:15)
[2023-02-13] MEDS: ENOXAPARIN NA (PORCINE) 40 MG/0.4 ML DISP.SYRIN SQ SCH (10:15)
[2023-02-13] MEDS: CEFTRIAXONE 2 GM in DEXTROSE 5%-WATER 100 ML IVPB SCH (10:16)
[2023-02-13] MEDS: BUDESONIDE/FORMETEROL FUMARATE 160/4.5 mcg INHALER IH SCH ×2 (10:17→22:48)
[2023-02-13] MEDS: methylPREDNISolone NA SUCC 40 MG/1 ML VIAL IVPUSH SCH (10:18)
[2023-02-13] MEDS: KCL 10 MEQ IVPB 10 MEQ/100 ML INFUS.BAG IVPB SCH ×3 (13:09→15:47)
[2023-02-13] MEDS ORDERED: KCL 10 MEQ IVPB 10 MEQ/100 ML INFUS.BAG IVPB SCH (15:45)
[2023-02-13] MEDS: MELATONIN 5 MG TABLETS PO PRN (21:52)
[2023-02-13] MEDS ORDERED: INSULIN (NOVOLOG) ASPART 100 UNITS/ML 10ML VIAL ONE (22:45)
[2023-02-14] MEDS: FUROSEMIDE 40 MG/4 ML INJECTABLE VIAL IVPUSH SCH ×2 (06:30→15:15)
[2023-02-14] MEDS: INSULIN SLIDING SCALE (NOVOLOG) 1 VIAL SQ SCH ×4 (06:31→22:13)
[2023-02-14] MEDS: ALBUTEROL SO4 2.5/IPRATROPIUM 0.5 INH SOL 3 ML VIAL.NEB. NEB SCH ×4 (07:51→19:52)
[2023-02-14] MEDS: methylPREDNISolone NA SUCC 40 MG/1 ML VIAL IVPUSH SCH (10:01)
[2023-02-14] MEDS: AZITHROMYCIN 250 MG TABLET PO SCH (10:01)
[2023-02-14] MEDS: guaiFENesin 600 MG TABLET.ER (FP) PO SCH ×2 (10:02→22:08)
[2023-02-14] MEDS: ENOXAPARIN NA (PORCINE) 40 MG/0.4 ML DISP.SYRIN SQ SCH (10:02)
[2023-02-14] MEDS: CEFTRIAXONE 2 GM in DEXTROSE 5%-WATER 100 ML IVPB SCH (10:02)
[2023-02-14] MEDS: PANTOPRAZOLE 40 MG TABLET PO SCH (10:02)
[2023-02-14] MEDS: BUDESONIDE/FORMETEROL FUMARATE 160/4.5 mcg INHALER IH SCH ×2 (10:03→22:08)
[2023-02-14 10:04] LABS: BASO % 0.2 % (0-2.0); EOS % 0.8 % (0-4.5); HEMATOCRIT 39.1 % (35.4-49); HEMOGLOBIN 12.9 GM/dL (11.7-16.9); LYMPH % 13.8 % (8-40); MCH 28.6 pg (25.7-33.7); MCHC 33.1 g/dl (32.0-35.9); MEAN CELL VOLUME 86.4 fl (80-96); MEAN PLT VOLUME 7.2 fl (7.5-11.1); MONO % 8.5 % (3.8-10.2); NEUT % 76.7 % (42.8-82.8); PLATELET COUNT 148 10^3/uL (134-434); RBC 4.52 M/mm3 (4.00-5.60); RDW 14.6 % (11.9-15.9); WHITE BLOOD COUNT 9.1 K/mm3 (4.0-10.0)
[2023-02-14 10:32] LABS: CHLORIDE 85 mmol/L (98-107); POTASSIUM 3.7 mmol/L (3.5-5.1); SODIUM 137 mmol/L (136-145)
[2023-02-14 10:37] LABS: CALCIUM 9.1 mg/dL (8.5-10.1)
[2023-02-14 10:38] LABS: BLOOD UREA NITROGEN 12.7 mg/dL (7-18); GLUCOSE,RANDOM 159 mg/dL (74-106)
[2023-02-14 10:41] LABS: CREATININE 0.6 mg/dL (0.55-1.3)
[2023-02-14 10:47] LABS: ANION GAP 7 MMOL/L (8-16); CO2 > 45 mmol/L (21-32)
[2023-02-14] MEDS: MELATONIN 5 MG TABLETS PO PRN (22:31)
[2023-02-15] MEDS: FUROSEMIDE 40 MG/4 ML INJECTABLE VIAL IVPUSH SCH ×2 (06:38→14:56)
[2023-02-15] MEDS: INSULIN SLIDING SCALE (NOVOLOG) 1 VIAL SQ SCH ×4 (06:50→22:44)
[2023-02-15] MEDS: ALBUTEROL SO4 2.5/IPRATROPIUM 0.5 INH SOL 3 ML VIAL.NEB. NEB SCH ×4 (08:28→20:03)
[2023-02-15 09:35] LABS: EOS % 0.8 % (0-4.5); HEMATOCRIT 38.1 % (35.4-49); HEMOGLOBIN 12.5 GM/dL (11.7-16.9); LYMPH % 12.3 % (8-40); MCH 28.4 pg (25.7-33.7); MCHC 32.8 g/dl (32.0-35.9); MEAN CELL VOLUME 86.7 fl (80-96); MEAN PLT VOLUME 7.4 fl (7.5-11.1); MONO % 7.7 % (3.8-10.2); NEUT % 79.2 % (42.8-82.8); PLATELET COUNT 140 10^3/uL (134-434); RDW 14.5 % (11.9-15.9)
[2023-02-15 09:58] LABS: CHLORIDE 82 mmol/L (98-107); POTASSIUM 3.7 mmol/L (3.5-5.1); SODIUM 133 mmol/L (136-145)
[2023-02-15] MEDS ORDERED: methylPREDNISolone NA SUCC 40 MG/1 ML VIAL IVPUSH SCH (10:00)
[2023-02-15 10:01] LABS: GLUCOSE,RANDOM 218 mg/dL (74-106)
[2023-02-15 10:02] LABS: CALCIUM 9.1 mg/dL (8.5-10.1)
[2023-02-15 10:03] LABS: BLOOD UREA NITROGEN 15.3 mg/dL (7-18); MAGNESIUM 1.6 mg/dL (1.8-2.4)
[2023-02-15 10:05] LABS: ANION GAP 6 MMOL/L (8-16); CO2 > 45 mmol/L (21-32); CREATININE 0.6 mg/dL (0.55-1.3)
[2023-02-15] MEDS: PANTOPRAZOLE 40 MG TABLET PO SCH (10:10)
[2023-02-15] MEDS: AZITHROMYCIN 250 MG TABLET PO SCH (10:10)
[2023-02-15] MEDS: guaiFENesin 600 MG TABLET.ER (FP) PO SCH ×2 (10:10→22:37)
[2023-02-15] MEDS: CEFTRIAXONE 2 GM in DEXTROSE 5%-WATER 100 ML IVPB SCH (10:10)
[2023-02-15] MEDS: ENOXAPARIN NA (PORCINE) 40 MG/0.4 ML DISP.SYRIN SQ SCH (10:10)
[2023-02-15] MEDS: BUDESONIDE/FORMETEROL FUMARATE 160/4.5 mcg INHALER IH SCH ×2 (10:25→22:37)
[2023-02-15] MEDS ORDERED: INSULIN (NOVOLOG) ASPART 100 UNITS/ML 10ML VIAL ONE ×3 (12:03→22:42)
[2023-02-15] MEDS ORDERED: MAGNESIUM 2GM/50ML STERILE WATER IVPB IVPB ONE (12:30)
[2023-02-15] MEDS: MELATONIN 5 MG TABLETS PO PRN (22:37)
[2023-02-16] MEDS: ALBUTEROL SO4 2.5/IPRATROPIUM 0.5 INH SOL 3 ML VIAL.NEB. NEB SCH ×4 (07:38→20:10)
[2023-02-16] MEDS: INSULIN SLIDING SCALE (NOVOLOG) 1 VIAL SQ SCH ×4 (07:40→22:43)
[2023-02-16] MEDS: FUROSEMIDE 40 MG/4 ML INJECTABLE VIAL IVPUSH SCH ×2 (07:40→14:59)
[2023-02-16] MEDS: ENOXAPARIN NA (PORCINE) 40 MG/0.4 ML DISP.SYRIN SQ SCH (10:15)
[2023-02-16] MEDS: CEFTRIAXONE 2 GM in DEXTROSE 5%-WATER 100 ML IVPB SCH (10:15)
[2023-02-16] MEDS: predniSONE 20 MG TABLET (UD) PO SCH (10:15)
[2023-02-16] MEDS: guaiFENesin 600 MG TABLET.ER (FP) PO SCH ×2 (10:15→22:41)
[2023-02-16] MEDS: AZITHROMYCIN 250 MG TABLET PO SCH (10:16)
[2023-02-16] MEDS: PANTOPRAZOLE 40 MG TABLET PO SCH (10:16)
[2023-02-16] MEDS: ACETAMINOPHEN 325 MG TABLET (FP) PO PRN (10:16)
[2023-02-16] MEDS: BUDESONIDE/FORMETEROL FUMARATE 160/4.5 mcg INHALER IH SCH ×2 (10:19→22:55)
[2023-02-16 10:44] LABS: BASO % 0.1 % (0-2.0); EOS % 0.6 % (0-4.5); HEMATOCRIT 38.4 % (35.4-49); HEMOGLOBIN 12.8 GM/dL (11.7-16.9); LYMPH % 12.3 % (8-40); MCH 28.6 pg (25.7-33.7); MCHC 33.4 g/dl (32.0-35.9); MEAN CELL VOLUME 85.7 fl (80-96); MEAN PLT VOLUME 7.4 fl (7.5-11.1); PLATELET COUNT 141 10^3/uL (134-434); RBC 4.48 M/mm3 (4.00-5.60); RDW 14.7 % (11.9-15.9)
[2023-02-16 11:00] LABS: CHLORIDE 82 mmol/L (98-107); POTASSIUM 3.5 mmol/L (3.5-5.1); SODIUM 137 mmol/L (136-145)
[2023-02-16] MEDS ORDERED: POTASSIUM CHLORIDE TABS 20 MEQ TABLET.ER (FP) PO ONE (11:04)
[2023-02-16 11:07] LABS: BLOOD UREA NITROGEN 13.9 mg/dL (7-18); CALCIUM 9.5 mg/dL (8.5-10.1); GLUCOSE,RANDOM 140 mg/dL (74-106)
[2023-02-16 11:11] LABS: CREATININE 0.6 mg/dL (0.55-1.3)
[2023-02-16 11:26] LABS: ANION GAP 10 MMOL/L (8-16); CO2 > 45 mmol/L (21-32)
[2023-02-16] MEDS: MELATONIN 5 MG TABLETS PO PRN (22:41)
[2023-02-17] MEDS: FUROSEMIDE 40 MG/4 ML INJECTABLE VIAL IVPUSH SCH ×2 (06:25→14:52)
[2023-02-17] MEDS: ALBUTEROL SO4 2.5/IPRATROPIUM 0.5 INH SOL 3 ML VIAL.NEB. NEB SCH ×4 (07:25→20:10)
[2023-02-17] MEDS ORDERED: INSULIN (NOVOLOG) ASPART 100 UNITS/ML 10ML VIAL ONE ×5 (07:51→21:49)
[2023-02-17] MEDS: INSULIN SLIDING SCALE (NOVOLOG) 1 VIAL SQ SCH ×3 (07:52→17:48)
[2023-02-17 08:46] LABS: BASO % 0.1 % (0-2.0); EOS % 0.8 % (0-4.5); HEMATOCRIT 38.6 % (35.4-49); HEMOGLOBIN 12.5 GM/dL (11.7-16.9); LYMPH % 8.3 % (8-40); MCHC 32.4 g/dl (32.0-35.9); MEAN CELL VOLUME 86.4 fl (80-96); MEAN PLT VOLUME 6.9 fl (7.5-11.1); MONO % 8.2 % (3.8-10.2); NEUT % 82.6 % (42.8-82.8); PLATELET COUNT 115 10^3/uL (134-434); RBC 4.47 M/mm3 (4.00-5.60); RDW 14.8 % (11.9-15.9); WHITE BLOOD COUNT 7.1 K/mm3 (4.0-10.0)
[2023-02-17] MEDS: guaiFENesin 600 MG TABLET.ER (FP) PO SCH (09:12)
[2023-02-17] MEDS: AZITHROMYCIN 250 MG TABLET PO SCH (09:12)
[2023-02-17] MEDS: ENOXAPARIN NA (PORCINE) 40 MG/0.4 ML DISP.SYRIN SQ SCH (09:12)
[2023-02-17] MEDS: predniSONE 20 MG TABLET (UD) PO SCH (09:12)
[2023-02-17] MEDS: PANTOPRAZOLE 40 MG TABLET PO SCH (09:12)
[2023-02-17] MEDS: CEFTRIAXONE 2 GM in DEXTROSE 5%-WATER 100 ML IVPB SCH (09:13)
[2023-02-17] MEDS: BUDESONIDE/FORMETEROL FUMARATE 160/4.5 mcg INHALER IH SCH (09:18)
[2023-02-17 09:20] LABS: CHLORIDE 83 mmol/L (98-107); POTASSIUM 3.3 mmol/L (3.5-5.1); SODIUM 136 mmol/L (136-145)
[2023-02-17 09:22] LABS: CALCIUM 9.3 mg/dL (8.5-10.1); GLUCOSE,RANDOM 154 mg/dL (74-106); MAGNESIUM 1.7 mg/dL (1.8-2.4)
[2023-02-17 09:24] LABS: BLOOD UREA NITROGEN 15.9 mg/dL (7-18)
[2023-02-17 09:27] LABS: CREATININE 0.6 mg/dL (0.55-1.3)
[2023-02-17 09:29] LABS: ANION GAP 8 MMOL/L (8-16); CO2 > 45 mmol/L (21-32)
[2023-02-17] MEDS: ACETAMINOPHEN 325 MG TABLET (FP) PO PRN (10:32)
[2023-02-17] MEDS ORDERED: MAGNESIUM 2GM/50ML STERILE WATER IVPB IVPB ONE (13:00)
[2023-02-17] MEDS: POTASSIUM CHLORIDE TABS 20 MEQ TABLET.ER (FP) PO SCH (14:52)
[2023-02-18] MEDS: MELATONIN 5 MG TABLETS PO PRN (00:15)
[2023-02-18] MEDS: guaiFENesin 600 MG TABLET.ER (FP) PO SCH ×3 (00:15→21:55)
[2023-02-18] MEDS: BUDESONIDE/FORMETEROL FUMARATE 160/4.5 mcg INHALER IH SCH ×3 (00:15→21:56)
[2023-02-18] MEDS: INSULIN SLIDING SCALE (NOVOLOG) 1 VIAL SQ SCH ×4 (00:44→17:14)
[2023-02-18] MEDS: FUROSEMIDE 40 MG/4 ML INJECTABLE VIAL IVPUSH SCH ×2 (05:35→14:42)
[2023-02-18] MEDS: ALBUTEROL SO4 2.5/IPRATROPIUM 0.5 INH SOL 3 ML VIAL.NEB. NEB SCH ×4 (08:30→20:10)
[2023-02-18] MEDS: ENOXAPARIN NA (PORCINE) 40 MG/0.4 ML DISP.SYRIN SQ SCH (09:29)
[2023-02-18] MEDS: PANTOPRAZOLE 40 MG TABLET PO SCH (09:29)
[2023-02-18] MEDS: AZITHROMYCIN 250 MG TABLET PO SCH (09:29)
[2023-02-18] MEDS: CEFTRIAXONE 2 GM in DEXTROSE 5%-WATER 100 ML IVPB SCH (09:29)
[2023-02-18] MEDS: predniSONE 20 MG TABLET (UD) PO SCH (09:29)
[2023-02-18] MEDS: POTASSIUM CHLORIDE TABS 20 MEQ TABLET.ER (FP) PO SCH (09:29)
[2023-02-18 10:28] LABS: EOS % 0.7 % (0-4.5); HEMATOCRIT 37.2 % (35.4-49); HEMOGLOBIN 12.1 GM/dL (11.7-16.9); LYMPH % 9.8 % (8-40); MCH 28.3 pg (25.7-33.7); MCHC 32.7 g/dl (32.0-35.9); MEAN CELL VOLUME 86.7 fl (80-96); MEAN PLT VOLUME 7.3 fl (7.5-11.1); MONO % 10.2 % (3.8-10.2); NEUT % 79.3 % (42.8-82.8); PLATELET COUNT 100 10^3/uL (134-434); RBC 4.28 M/mm3 (4.00-5.60); RDW 14.4 % (11.9-15.9); WHITE BLOOD COUNT 6.4 K/mm3 (4.0-10.0)
[2023-02-18 10:46] LABS: CHLORIDE 83 mmol/L (98-107); POTASSIUM 3.6 mmol/L (3.5-5.1)
[2023-02-18 10:48] LABS: BLOOD UREA NITROGEN 14.5 mg/dL (7-18); GLUCOSE,RANDOM 277 mg/dL (74-106)
[2023-02-18 10:50] LABS: MAGNESIUM 1.7 mg/dL (1.8-2.4)
[2023-02-18 11:16] LABS: ANION GAP 7 MMOL/L (8-16); CO2 > 45 mmol/L (21-32); CREATININE 0.7 mg/dL (0.55-1.3); SODIUM 136 mmol/L (136-145)
[2023-02-18] MEDS ORDERED: MAGNESIUM 2GM/50ML STERILE WATER IVPB IVPB ONE (13:15)
[2023-02-18] MEDS ORDERED: POTASSIUM CHLORIDE TABS 20 MEQ TABLET.ER (FP) PO ONE (13:30)
[2023-02-18 14:45] VITALS: RESP 20
[2023-02-19] MEDS: INSULIN SLIDING SCALE (NOVOLOG) 1 VIAL SQ SCH ×3 (01:03→12:24)
[2023-02-19] MEDS: FUROSEMIDE 40 MG/4 ML INJECTABLE VIAL IVPUSH SCH ×2 (07:14→13:44)
[2023-02-19 09:19] LABS: BASO % 0.1 % (0-2.0); EOS % 0.8 % (0-4.5); HEMATOCRIT 37.1 % (35.4-49); HEMOGLOBIN 12.4 GM/dL (11.7-16.9); LYMPH % 10.1 % (8-40); MCH 28.4 pg (25.7-33.7); MCHC 33.5 g/dl (32.0-35.9); MEAN CELL VOLUME 84.7 fl (80-96); MEAN PLT VOLUME 6.6 fl (7.5-11.1); MONO % 9.3 % (3.8-10.2); NEUT % 79.7 % (42.8-82.8); PLATELET COUNT 98 10^3/uL (134-434); RBC 4.38 M/mm3 (4.00-5.60); RDW 14.7 % (11.9-15.9); WHITE BLOOD COUNT 6.4 K/mm3 (4.0-10.0)
[2023-02-19 09:43] LABS: CHLORIDE 84 mmol/L (98-107); SODIUM 134 mmol/L (136-145)
[2023-02-19 09:44] LABS: CALCIUM 9.2 mg/dL (8.5-10.1)
[2023-02-19 09:45] LABS: BLOOD UREA NITROGEN 13.5 mg/dL (7-18); GLUCOSE,RANDOM 215 mg/dL (74-106)
[2023-02-19 09:47] LABS: CREATININE 0.6 mg/dL (0.55-1.3)
[2023-02-19] MEDS: ALBUTEROL SO4 2.5/IPRATROPIUM 0.5 INH SOL 3 ML VIAL.NEB. NEB SCH ×3 (09:51→15:45)
[2023-02-19 10:00] LABS: ANION GAP 5 MMOL/L (8-16); CO2 > 45 mmol/L (21-32)
[2023-02-19] MEDS: predniSONE 20 MG TABLET (UD) PO SCH (10:13)
[2023-02-19] MEDS: ENOXAPARIN NA (PORCINE) 40 MG/0.4 ML DISP.SYRIN SQ SCH (10:13)
[2023-02-19] MEDS: guaiFENesin 600 MG TABLET.ER (FP) PO SCH (10:13)
[2023-02-19] MEDS: POTASSIUM CHLORIDE TABS 20 MEQ TABLET.ER (FP) PO SCH (10:14)
[2023-02-19] MEDS: PANTOPRAZOLE 40 MG TABLET PO SCH (10:14)
[2023-02-19] MEDS: CEFTRIAXONE 2 GM in DEXTROSE 5%-WATER 100 ML IVPB SCH (10:15)
[2023-02-19] MEDS: AZITHROMYCIN 250 MG TABLET PO SCH (10:15)
[2023-02-19] MEDS: BUDESONIDE/FORMETEROL FUMARATE 160/4.5 mcg INHALER IH SCH (10:16)
[2023-02-19] MEDS ORDERED: INSULIN (NOVOLOG) ASPART 100 UNITS/ML 10ML VIAL ONE (12:20)
[2023-02-19 14:04] VITALS: BP 120/57; PULSE 81; TEMP 98.2
== END 2023-02-19 15:57 | disposition home or self-care (01) | DRG 193 ==
LOC: JER 17:59 → JERBED 20:12 → J5S 02-06 01:53 → J8W 02-13 13:38
PROVIDERS: ADMIT Internal Medicine; ATTEND Internal Medicine
DX: J18.9 Pneumonia, unspecified organism (principal); I50.33 Acute on chronic diastolic (congestive) heart failure; J96.21 Acute and chronic respiratory failure with hypoxia; J96.22 Acute and chronic respiratory failure with hypercapnia; J44.1 Chronic obstructive pulmonary disease with (acute) exacerbation; L03.115 Cellulitis of right lower limb; L03.116 Cellulitis of left lower limb; J90 Pleural effusion, not elsewhere classified; I11.0 Hypertensive heart disease with heart failure; I27.20 Pulmonary hypertension, unspecified; G47.33 Obstructive sleep apnea (adult) (pediatric); E78.5 Hyperlipidemia, unspecified; I25.10 Atherosclerotic heart disease of native coronary artery without angina pectoris; E11.9 Type 2 diabetes mellitus without complications; E83.42 Hypomagnesemia; E87.6 Hypokalemia; E66.9 Obesity, unspecified; Z68.36 Body mass index [BMI] 36.0-36.9, adult
CPT/HCPCS: 0241U-QW; 36415; 36600; 71045-TC-FY; 80048; 80053; 82803; 82962; 83036; 83735; 83880; 84484; 85025; 85610; 85651; 85730; 86140; 87040; 87635; 87899; 93005; 93010; 94640; 94660; 97116-GP; 97161-GP; 99285-25

== ENCOUNTER 2023-04-05 13:09 | Inpatient (IN) | payer OTHER ==
[2023-04-05 13:31] VITALS: BMI 30.7
[2023-04-05] MEDS ORDERED: methylPREDNISolone NA SUCC 125 MG/2 ML VIAL IVPB ONE (13:35)
[2023-04-05] MEDS ORDERED: AZITHROMYCIN IVPB 500 MG in DEXTROSE 5%-WATER - 250 ML IVPB ONE (13:35)
[2023-04-05] MEDS ORDERED: MAGNESIUM SULFATE IN WATER 2 GM/50 ML IVPB IVPB ONE ×2 (13:35→13:53)
[2023-04-05] MEDS: ALBUTEROL SO4 2.5/IPRATROPIUM 0.5 INH SOL 3 ML VIAL.NEB. NEB SCH ×5 (13:50→21:00)
[2023-04-05] MEDS ORDERED: methylPREDNISolone NA SUCC 125 MG/2 ML VIAL ONE (13:53)
[2023-04-05] MEDS ORDERED: AZITHROMYCIN IVPB 500 MG/250 ML BAG IVPB ONE ×2 (13:54)
[2023-04-05 14:04] LABS: VENOUS BASE EXCESS 16.8 mmol/L (-2-2); VENOUS O2 SATURATION 74.5 % (70-80)
[2023-04-05 14:06] LABS: VENOUS PH 7.178 (7.310-7.410)
[2023-04-05 14:07] LABS: VENOUS PCO2 141.9 mmHg (38-52)
[2023-04-05 14:22] LABS: BASO % 0.2 % (0-2.0); EOS % 1.2 % (0-4.5); HEMOGLOBIN 12.1 GM/dL (11.7-16.9); LYMPH % 9.2 % (8-40); MCH 28.7 pg (25.7-33.7); MCHC 32.6 g/dl (32.0-35.9); MEAN CELL VOLUME 87.8 fl (80-96); MEAN PLT VOLUME 6.7 fl (7.5-11.1); MONO % 10.8 % (3.8-10.2); NEUT % 78.6 % (42.8-82.8); PLATELET COUNT 100 10^3/uL (134-434); RBC 4.22 M/mm3 (4.00-5.60); RDW 14.9 % (11.9-15.9); WHITE BLOOD COUNT 4.3 K/mm3 (4.0-10.0)
[2023-04-05 14:28] LABS: PROTHROMBIN TIME (PATIENT) 11.6 SEC (9.7-13.0)
[2023-04-05 14:31] LABS: ACTIVATED PTT 39.2 SECONDS (25.2-36.5)
[2023-04-05 14:47] LABS: CHLORIDE 87 mmol/L (98-107); POTASSIUM 4.6 mmol/L (3.5-5.1); SODIUM 139 mmol/L (136-145)
[2023-04-05 14:49] LABS: CALCIUM 8.9 mg/dL (8.5-10.1)
[2023-04-05 14:50] LABS: ALBUMIN 3.6 g/dl (3.4-5.0); BLOOD UREA NITROGEN 12.6 mg/dL (7-18); GLUCOSE,RANDOM 166 mg/dL (74-106)
[2023-04-05 14:53] LABS: CREATININE 0.5 mg/dL (0.55-1.3); SGOT/AST 16 U/L (15-37); SGPT/ALT 31 U/L (13-61)
[2023-04-05 14:54] LABS: BILIRUBIN,TOTAL 0.5 mg/dL (0.2-1); TOT PROT 7.5 g/dl (6.4-8.2)
[2023-04-05 14:56] LABS: ALK PHOS 44 U/L (45-117)
[2023-04-05 14:58] LABS: N-TERMINAL BNP 57.1 pg/ml (5-125)
[2023-04-05 14:59] LABS: ANION GAP 7 MMOL/L (8-16); CO2 > 45 mmol/L (21-32)
[2023-04-05] MEDS ORDERED: ALBUTEROL SO4 0.083% IH SOL 2.5 MG/3 ML VIAL.NEB. NEB ONE ×4 (15:29→16:37)
[2023-04-05] MEDS ORDERED: CEFTRIAXONE 1 GM/50 ML BAG ONE (15:46)
[2023-04-05 16:25] LABS: VENOUS BASE EXCESS 17.6 mmol/L (-2-2); VENOUS O2 SATURATION 50.6 % (70-80)
[2023-04-05 16:30] LABS: VENOUS PCO2 > 148.5 mmHg (38-52); VENOUS PH 7.185 (7.310-7.410)
[2023-04-05] MEDS: PANTOPRAZOLE 40 MG TABLET PO SCH (16:47)
[2023-04-05] MEDS ORDERED: ALBUTEROL SO4 2.5/IPRATROPIUM 0.5 INH SOL 3 ML VIAL.NEB. NEB ONE (16:56)
[2023-04-05] MEDS ORDERED: FUROSEMIDE 40 MG/4 ML INJECTABLE VIAL ONE (16:57)
[2023-04-05] MEDS ORDERED: ENOXAPARIN NA (PORCINE) 40 MG/0.4 ML DISP.SYRIN SQ ONE (16:57)
[2023-04-05] MEDS: FUROSEMIDE 40 MG/4 ML INJECTABLE VIAL IVPUSH SCH (17:10)
[2023-04-05] MEDS: ENOXAPARIN NA (PORCINE) 40 MG/0.4 ML DISP.SYRIN SQ SCH (17:11)
[2023-04-05] MEDS: INSULIN SLIDING SCALE (NOVOLOG) 1 VIAL SQ SCH ×2 (17:16→22:25)
[2023-04-05] MEDS: MELATONIN 5 MG TABLETS PO PRN (22:25)
[2023-04-06] MEDS: FUROSEMIDE 40 MG/4 ML INJECTABLE VIAL IVPUSH SCH ×2 (06:03→14:53)
[2023-04-06] MEDS: INSULIN SLIDING SCALE (NOVOLOG) 1 VIAL SQ SCH ×4 (06:04→22:01)
[2023-04-06 07:40] LABS: BASO % 0.4 % (0-2.0); EOS % 1.2 % (0-4.5); HEMATOCRIT 34.4 % (35.4-49); HEMOGLOBIN 11.3 GM/dL (11.7-16.9); LYMPH % 14.3 % (8-40); MCH 28.7 pg (25.7-33.7); MCHC 32.8 g/dl (32.0-35.9); MEAN CELL VOLUME 87.5 fl (80-96); MEAN PLT VOLUME 6.8 fl (7.5-11.1); MONO % 11.2 % (3.8-10.2); NEUT % 72.9 % (42.8-82.8); PLATELET COUNT 102 10^3/uL (134-434); RBC 3.94 M/mm3 (4.00-5.60); RDW 14.8 % (11.9-15.9)
[2023-04-06] MEDS: ALBUTEROL SO4 2.5/IPRATROPIUM 0.5 INH SOL 3 ML VIAL.NEB. NEB SCH ×4 (07:41→20:51)
[2023-04-06 08:08] LABS: CHLORIDE 83 mmol/L (98-107); POTASSIUM 4.3 mmol/L (3.5-5.1); SODIUM 138 mmol/L (136-145)
[2023-04-06 08:12] LABS: BLOOD UREA NITROGEN 15.4 mg/dL (7-18); GLUCOSE,RANDOM 116 mg/dL (74-106); MAGNESIUM 1.8 mg/dL (1.8-2.4)
[2023-04-06 08:13] LABS: CALCIUM 9.1 mg/dL (8.5-10.1)
[2023-04-06] MEDS ORDERED: MAGNESIUM SULF 50% (8.12 MEQ/2 ML-1 GM VIAL) IVPB ONE (08:13)
[2023-04-06 08:15] LABS: CREATININE 0.5 mg/dL (0.55-1.3)
[2023-04-06 08:16] LABS: ANION GAP 9 MMOL/L (8-16); CO2 > 45 mmol/L (21-32)
[2023-04-06] MEDS: ENOXAPARIN NA (PORCINE) 40 MG/0.4 ML DISP.SYRIN SQ SCH (11:05)
[2023-04-06] MEDS: methylPREDNISolone NA SUCC 40 MG/1 ML VIAL IVPUSH SCH ×2 (11:05→17:27)
[2023-04-06] MEDS: AZITHROMYCIN IVPB 500 MG/250 ML BAG IVPB SCH (11:06)
[2023-04-06] MEDS: CEFTRIAXONE 2 GM in DEXTROSE 5%-WATER - 50 ML IVPB SCH (11:06)
[2023-04-06] MEDS: PANTOPRAZOLE 40 MG TABLET PO SCH (11:06)
[2023-04-06 11:51] LABS: ARTERIAL BLD GAS O2 SATURATION 89.8 % (95-98); ARTERIAL BLOOD GAS BASE EXCESS 14.7 mmol/L (-2-2); ARTERIAL BLOOD GAS PO2 64.2 mmHg (80-100); ARTERIAL BLOOD GAS pH 7.335 (7.350-7.450)
[2023-04-06 11:54] LABS: ALLENS TEST POSITIVE
[2023-04-06] MEDS: MELATONIN 5 MG TABLETS PO PRN (21:59)
[2023-04-07] MEDS: methylPREDNISolone NA SUCC 40 MG/1 ML VIAL IVPUSH SCH ×3 (01:51→17:23)
[2023-04-07] MEDS: FUROSEMIDE 40 MG/4 ML INJECTABLE VIAL IVPUSH SCH ×2 (05:46→13:48)
[2023-04-07] MEDS: INSULIN SLIDING SCALE (NOVOLOG) 1 VIAL SQ SCH ×4 (06:01→21:34)
[2023-04-07] MEDS: ALBUTEROL SO4 2.5/IPRATROPIUM 0.5 INH SOL 3 ML VIAL.NEB. NEB SCH ×4 (08:10→20:00)
[2023-04-07 08:29] LABS: BASO % 0.3 % (0-2.0); HEMATOCRIT 36.9 % (35.4-49); LYMPH % 11.5 % (8-40); MCH 28.3 pg (25.7-33.7); MCHC 32.6 g/dl (32.0-35.9); MEAN CELL VOLUME 86.9 fl (80-96); MEAN PLT VOLUME 6.7 fl (7.5-11.1); MONO % 4.3 % (3.8-10.2); NEUT % 82.9 % (42.8-82.8); PLATELET COUNT 100 10^3/uL (134-434); RBC 4.25 M/mm3 (4.00-5.60); RDW 14.9 % (11.9-15.9); WHITE BLOOD COUNT 3.5 K/mm3 (4.0-10.0)
[2023-04-07 08:51] LABS: CHLORIDE 79 mmol/L (98-107); POTASSIUM 4.4 mmol/L (3.5-5.1); SODIUM 136 mmol/L (136-145)
[2023-04-07 08:56] LABS: BLOOD UREA NITROGEN 16.2 mg/dL (7-18); CALCIUM 9.3 mg/dL (8.5-10.1)
[2023-04-07 08:57] LABS: GLUCOSE,RANDOM 177 mg/dL (74-106)
[2023-04-07 09:00] LABS: CREATININE 0.6 mg/dL (0.55-1.3)
[2023-04-07 09:01] LABS: ANION GAP 12 MMOL/L (8-16); CO2 > 45 mmol/L (21-32)
[2023-04-07] MEDS: CEFTRIAXONE 2 GM in DEXTROSE 5%-WATER - 50 ML IVPB SCH (10:52)
[2023-04-07] MEDS: PANTOPRAZOLE 40 MG TABLET PO SCH (10:52)
[2023-04-07] MEDS: AZITHROMYCIN IVPB 500 MG/250 ML BAG IVPB SCH (10:53)
[2023-04-07] MEDS: ENOXAPARIN NA (PORCINE) 40 MG/0.4 ML DISP.SYRIN SQ SCH (10:53)
[2023-04-08] MEDS: methylPREDNISolone NA SUCC 40 MG/1 ML VIAL IVPUSH SCH ×3 (01:25→17:53)
[2023-04-08] MEDS: FUROSEMIDE 40 MG/4 ML INJECTABLE VIAL IVPUSH SCH ×2 (05:23→13:52)
[2023-04-08] MEDS: INSULIN SLIDING SCALE (NOVOLOG) 1 VIAL SQ SCH ×4 (06:10→21:33)
[2023-04-08 07:17] LABS: BASO % 0.2 % (0-2.0); EOS % 0.2 % (0-4.5); HEMATOCRIT 36.8 % (35.4-49); HEMOGLOBIN 12.1 GM/dL (11.7-16.9); LYMPH % 10.1 % (8-40); MCH 28.4 pg (25.7-33.7); MCHC 32.8 g/dl (32.0-35.9); MEAN CELL VOLUME 86.6 fl (80-96); MEAN PLT VOLUME 6.9 fl (7.5-11.1); MONO % 5.5 % (3.8-10.2); PLATELET COUNT 104 10^3/uL (134-434); RBC 4.25 M/mm3 (4.00-5.60); RDW 14.8 % (11.9-15.9); WHITE BLOOD COUNT 3.9 K/mm3 (4.0-10.0)
[2023-04-08 07:34] LABS: CHLORIDE 82 mmol/L (98-107); POTASSIUM 4.2 mmol/L (3.5-5.1); SODIUM 135 mmol/L (136-145)
[2023-04-08 07:38] LABS: BLOOD UREA NITROGEN 18.7 mg/dL (7-18); GLUCOSE,RANDOM 182 mg/dL (74-106)
[2023-04-08 07:39] LABS: CALCIUM 9.4 mg/dL (8.5-10.1); MAGNESIUM 1.6 mg/dL (1.8-2.4)
[2023-04-08] MEDS: ALBUTEROL SO4 2.5/IPRATROPIUM 0.5 INH SOL 3 ML VIAL.NEB. NEB SCH ×4 (07:40→20:51)
[2023-04-08 07:41] LABS: CREATININE 0.6 mg/dL (0.55-1.3)
[2023-04-08 08:41] LABS: ANION GAP 8 MMOL/L (8-16); CO2 > 45 mmol/L (21-32)
[2023-04-08] MEDS ORDERED: MAGNESIUM SULF 50% (8.12 MEQ/2 ML-1 GM VIAL) IVPB ONE (08:47)
[2023-04-08] MEDS: ENOXAPARIN NA (PORCINE) 40 MG/0.4 ML DISP.SYRIN SQ SCH (09:13)
[2023-04-08] MEDS: CEFTRIAXONE 2 GM in DEXTROSE 5%-WATER - 50 ML IVPB SCH (09:13)
[2023-04-08] MEDS: PANTOPRAZOLE 40 MG TABLET PO SCH (09:13)
[2023-04-08] MEDS: AZITHROMYCIN IVPB 500 MG/250 ML BAG IVPB SCH (10:58)
[2023-04-08] MEDS: MELATONIN 5 MG TABLETS PO PRN (21:30)
[2023-04-09] MEDS: methylPREDNISolone NA SUCC 40 MG/1 ML VIAL IVPUSH SCH ×3 (01:32→21:46)
[2023-04-09] MEDS: FUROSEMIDE 40 MG/4 ML INJECTABLE VIAL IVPUSH SCH ×2 (05:33→13:20)
[2023-04-09] MEDS: INSULIN SLIDING SCALE (NOVOLOG) 1 VIAL SQ SCH ×4 (06:11→21:49)
[2023-04-09] MEDS: ALBUTEROL SO4 2.5/IPRATROPIUM 0.5 INH SOL 3 ML VIAL.NEB. NEB SCH ×4 (07:15→20:31)
[2023-04-09 07:24] LABS: BASO % 0.1 % (0-2.0); EOS % 1.5 % (0-4.5); HEMATOCRIT 34.7 % (35.4-49); LYMPH % 20.8 % (8-40); MCH 28.9 pg (25.7-33.7); MCHC 34.7 g/dl (32.0-35.9); MEAN CELL VOLUME 83.3 fl (80-96); MONO % 10.1 % (3.8-10.2); NEUT % 67.5 % (42.8-82.8); PLATELET COUNT 102 10^3/uL (134-434); RBC 4.17 M/mm3 (4.00-5.60); RDW 14.7 % (11.9-15.9); WHITE BLOOD COUNT 4.8 K/mm3 (4.0-10.0)
[2023-04-09 07:46] LABS: BLOOD UREA NITROGEN 20.9 mg/dL (7-18); CALCIUM 8.7 mg/dL (8.5-10.1)
[2023-04-09 07:50] LABS: CREATININE 0.6 mg/dL (0.55-1.3)
[2023-04-09] MEDS: PANTOPRAZOLE 40 MG TABLET PO SCH (10:34)
[2023-04-09] MEDS: AZITHROMYCIN IVPB 500 MG/250 ML BAG IVPB SCH (10:34)
[2023-04-09] MEDS: ENOXAPARIN NA (PORCINE) 40 MG/0.4 ML DISP.SYRIN SQ SCH (10:34)
[2023-04-09] MEDS: CEFTRIAXONE 2 GM in DEXTROSE 5%-WATER - 50 ML IVPB SCH (10:35)
[2023-04-09] MEDS ORDERED: ALBUTEROL SO4 HFA INHALER IH PRN (13:02)
[2023-04-09] MEDS: POLYETHYLENE GLYCOL (HEALTHYLAX) 3350 17 GM PACKET PO SCH ×2 (15:28→21:48)
[2023-04-09] MEDS: MELATONIN 5 MG TABLETS PO PRN (21:47)
[2023-04-10] MEDS: INSULIN SLIDING SCALE (NOVOLOG) 1 VIAL SQ SCH ×4 (06:25→21:04)
[2023-04-10] MEDS: FUROSEMIDE 40 MG/4 ML INJECTABLE VIAL IVPUSH SCH ×2 (06:25→14:45)
[2023-04-10] MEDS ORDERED: INSULIN SLIDING SCALE (NOVOLOG) 1 VIAL SQ ONE (07:05)
[2023-04-10] MEDS: ALBUTEROL SO4 2.5/IPRATROPIUM 0.5 INH SOL 3 ML VIAL.NEB. NEB SCH ×4 (07:25→20:21)
[2023-04-10 08:50] LABS: BASO % 0.1 % (0-2.0); EOS % 0.5 % (0-4.5); HEMOGLOBIN 12.9 GM/dL (11.7-16.9); LYMPH % 13.3 % (8-40); MCH 28.4 pg (25.7-33.7); MEAN CELL VOLUME 86.1 fl (80-96); MEAN PLT VOLUME 7.1 fl (7.5-11.1); MONO % 8.2 % (3.8-10.2); NEUT % 77.9 % (42.8-82.8); PLATELET COUNT 110 10^3/uL (134-434); RBC 4.53 M/mm3 (4.00-5.60); RDW 14.6 % (11.9-15.9); WHITE BLOOD COUNT 4.7 K/mm3 (4.0-10.0)
[2023-04-10 09:16] LABS: POTASSIUM 3.8 mmol/L (3.5-5.1)
[2023-04-10 09:22] LABS: BLOOD UREA NITROGEN 23.3 mg/dL (7-18); CALCIUM 9.4 mg/dL (8.5-10.1); MAGNESIUM 1.9 mg/dL (1.8-2.4)
[2023-04-10 09:26] LABS: CREATININE 0.6 mg/dL (0.55-1.3)
[2023-04-10] MEDS: AZITHROMYCIN IVPB 500 MG/250 ML BAG IVPB SCH (10:50)
[2023-04-10] MEDS: CEFTRIAXONE 2 GM in DEXTROSE 5%-WATER - 50 ML IVPB SCH (11:48)
[2023-04-10] MEDS: ENOXAPARIN NA (PORCINE) 40 MG/0.4 ML DISP.SYRIN SQ SCH (11:48)
[2023-04-10] MEDS: POLYETHYLENE GLYCOL (HEALTHYLAX) 3350 17 GM PACKET PO SCH ×2 (11:48→21:04)
[2023-04-10] MEDS: PANTOPRAZOLE 40 MG TABLET PO SCH (11:50)
[2023-04-10] MEDS: methylPREDNISolone NA SUCC 40 MG/1 ML VIAL IVPUSH SCH ×2 (11:50→21:04)
[2023-04-10] MEDS: MELATONIN 5 MG TABLETS PO PRN (21:06)
[2023-04-11] MEDS: FUROSEMIDE 40 MG/4 ML INJECTABLE VIAL IVPUSH SCH ×2 (05:29→14:38)
[2023-04-11] MEDS: INSULIN SLIDING SCALE (NOVOLOG) 1 VIAL SQ SCH ×4 (06:12→21:50)
[2023-04-11] MEDS: ALBUTEROL SO4 2.5/IPRATROPIUM 0.5 INH SOL 3 ML VIAL.NEB. NEB SCH ×3 (07:38→15:35)
[2023-04-11 08:01] LABS: EOS % 0.8 % (0-4.5); HEMATOCRIT 38.1 % (35.4-49); HEMOGLOBIN 13.2 GM/dL (11.7-16.9); LYMPH % 12.5 % (8-40); MCHC 34.6 g/dl (32.0-35.9); MEAN CELL VOLUME 83.8 fl (80-96); MEAN PLT VOLUME 7.3 fl (7.5-11.1); MONO % 6.9 % (3.8-10.2); NEUT % 79.8 % (42.8-82.8); PLATELET COUNT 104 10^3/uL (134-434); RBC 4.55 M/mm3 (4.00-5.60); RDW 14.6 % (11.9-15.9); WHITE BLOOD COUNT 5.5 K/mm3 (4.0-10.0)
[2023-04-11 08:14] LABS: CHLORIDE 82 mmol/L (98-107); POTASSIUM 4.4 mmol/L (3.5-5.1); SODIUM 133 mmol/L (136-145)
[2023-04-11 08:18] LABS: CALCIUM 9.3 mg/dL (8.5-10.1)
[2023-04-11 08:19] LABS: BLOOD UREA NITROGEN 18.3 mg/dL (7-18); GLUCOSE,RANDOM 143 mg/dL (74-106)
[2023-04-11 08:22] LABS: CREATININE 0.6 mg/dL (0.55-1.3)
[2023-04-11 08:29] LABS: ANION GAP 6 MMOL/L (8-16); CO2 > 45 mmol/L (21-32)
[2023-04-11] MEDS: PANTOPRAZOLE 40 MG TABLET PO SCH (09:11)
[2023-04-11] MEDS: AZITHROMYCIN 250 MG TABLET PO SCH (09:11)
[2023-04-11] MEDS: methylPREDNISolone NA SUCC 40 MG/1 ML VIAL IVPUSH SCH (09:12)
[2023-04-11] MEDS: POLYETHYLENE GLYCOL (HEALTHYLAX) 3350 17 GM PACKET PO SCH ×2 (09:13→21:47)
[2023-04-11] MEDS: ENOXAPARIN NA (PORCINE) 40 MG/0.4 ML DISP.SYRIN SQ SCH (09:13)
[2023-04-11] MEDS: CEFTRIAXONE 2 GM in DEXTROSE 5%-WATER - 50 ML IVPB SCH (09:13)
[2023-04-11] MEDS: MELATONIN 5 MG TABLETS PO PRN (21:42)
[2023-04-12] MEDS: FUROSEMIDE 40 MG/4 ML INJECTABLE VIAL IVPUSH SCH ×2 (05:35→14:35)
[2023-04-12] MEDS: INSULIN SLIDING SCALE (NOVOLOG) 1 VIAL SQ SCH ×4 (06:06→21:22)
[2023-04-12 07:05] LABS: BASO % 0.1 % (0-2.0); HEMATOCRIT 41.2 % (35.4-49); HEMOGLOBIN 13.6 GM/dL (11.7-16.9); LYMPH % 22.6 % (8-40); MCH 28.5 pg (25.7-33.7); MCHC 33.1 g/dl (32.0-35.9); MEAN CELL VOLUME 86.2 fl (80-96); MEAN PLT VOLUME 7.3 fl (7.5-11.1); MONO % 8.1 % (3.8-10.2); NEUT % 65.2 % (42.8-82.8); PLATELET COUNT 96 10^3/uL (134-434); RBC 4.78 M/mm3 (4.00-5.60); RDW 14.5 % (11.9-15.9); WHITE BLOOD COUNT 5.2 K/mm3 (4.0-10.0)
[2023-04-12 07:22] LABS: POTASSIUM 3.7 mmol/L (3.5-5.1)
[2023-04-12 07:34] LABS: BLOOD UREA NITROGEN 18.2 mg/dL (7-18); CALCIUM 9.1 mg/dL (8.5-10.1); CREATININE 0.6 mg/dL (0.55-1.3); MAGNESIUM 1.8 mg/dL (1.8-2.4)
[2023-04-12] MEDS ORDERED: MAGNESIUM HYDROX 2400MG/30ML ORAL SUSPENSION 30 ML CUP PO ONE (07:45)
[2023-04-12] MEDS ORDERED: MINERAL OIL 30 ML UNIT-DOSE CUP PO ONE (07:45)
[2023-04-12] MEDS ORDERED: MAGNESIUM SULF 50% (8.12 MEQ/2 ML-1 GM VIAL) IVPB ONE (09:15)
[2023-04-12] MEDS: POLYETHYLENE GLYCOL (HEALTHYLAX) 3350 17 GM PACKET PO SCH ×2 (09:57→21:18)
[2023-04-12] MEDS: methylPREDNISolone NA SUCC 40 MG/1 ML VIAL IVPUSH SCH (09:58)
[2023-04-12] MEDS: ENOXAPARIN NA (PORCINE) 40 MG/0.4 ML DISP.SYRIN SQ SCH (09:59)
[2023-04-12] MEDS: AZITHROMYCIN 250 MG TABLET PO SCH (10:01)
[2023-04-12] MEDS: PANTOPRAZOLE 40 MG TABLET PO SCH (10:01)
[2023-04-12] MEDS: CEFTRIAXONE 2 GM in DEXTROSE 5%-WATER - 50 ML IVPB SCH (12:13)
[2023-04-12] MEDS: ALBUTEROL SO4 2.5/IPRATROPIUM 0.5 INH SOL 3 ML VIAL.NEB. NEB PRN (20:19)
[2023-04-13] MEDS: FUROSEMIDE 40 MG/4 ML INJECTABLE VIAL IVPUSH SCH ×2 (05:57→14:13)
[2023-04-13] MEDS: INSULIN SLIDING SCALE (NOVOLOG) 1 VIAL SQ SCH ×4 (06:04→21:32)
[2023-04-13] MEDS: ALBUTEROL SO4 2.5/IPRATROPIUM 0.5 INH SOL 3 ML VIAL.NEB. NEB PRN ×4 (07:28→20:09)
[2023-04-13 08:17] LABS: BASO % 0.2 % (0-2.0); EOS % 3.5 % (0-4.5); HEMATOCRIT 41.1 % (35.4-49); HEMOGLOBIN 13.5 GM/dL (11.7-16.9); LYMPH % 20.1 % (8-40); MCH 28.3 pg (25.7-33.7); MEAN PLT VOLUME 7.3 fl (7.5-11.1); MONO % 9.3 % (3.8-10.2); NEUT % 66.9 % (42.8-82.8); PLATELET COUNT 105 10^3/uL (134-434); RBC 4.77 M/mm3 (4.00-5.60); RDW 14.4 % (11.9-15.9); WHITE BLOOD COUNT 5.9 K/mm3 (4.0-10.0)
[2023-04-13 08:46] LABS: BLOOD UREA NITROGEN 16.7 mg/dL (7-18); GLUCOSE,RANDOM 112 mg/dL (74-106)
[2023-04-13 08:49] LABS: CREATININE 0.7 mg/dL (0.55-1.3)
[2023-04-13] MEDS: PANTOPRAZOLE 40 MG TABLET PO SCH (09:04)
[2023-04-13] MEDS: ENOXAPARIN NA (PORCINE) 40 MG/0.4 ML DISP.SYRIN SQ SCH (09:04)
[2023-04-13] MEDS: POLYETHYLENE GLYCOL (HEALTHYLAX) 3350 17 GM PACKET PO SCH ×2 (09:04→21:31)
[2023-04-13] MEDS: predniSONE 20 MG TABLET (UD) PO SCH (09:04)
[2023-04-13 11:27] LABS: CO2 > 45 mmol/L (21-32)
[2023-04-13] MEDS ORDERED: INSULIN SLIDING SCALE (NOVOLOG) 1 VIAL SQ ONE ×2 (11:35→17:10)
[2023-04-13 12:07] LABS: CHLORIDE 82 mmol/L (98-107); POTASSIUM 3.7 mmol/L (3.5-5.1); SODIUM 133 mmol/L (136-145)
[2023-04-13 12:08] LABS: ANION GAP 6 MMOL/L (8-16)
[2023-04-13] MEDS ORDERED: MINERAL OIL 30 ML UNIT-DOSE CUP PO ONE ×2 (15:01→17:00)
[2023-04-13] MEDS ORDERED: MAGNESIUM HYDROX 2400MG/30ML ORAL SUSPENSION 30 ML CUP PO ONE (15:15)
[2023-04-13] MEDS: CEFTRIAXONE 2 GM in DEXTROSE 5%-WATER 100 ML IVPB SCH (17:43)
[2023-04-13] MEDS: MELATONIN 5 MG TABLETS PO PRN (21:32)
[2023-04-14] MEDS: INSULIN SLIDING SCALE (NOVOLOG) 1 VIAL SQ SCH ×4 (07:04→21:14)
[2023-04-14] MEDS: FUROSEMIDE 40 MG/4 ML INJECTABLE VIAL IVPUSH SCH ×2 (07:04→14:29)
[2023-04-14] MEDS: ALBUTEROL SO4 2.5/IPRATROPIUM 0.5 INH SOL 3 ML VIAL.NEB. NEB PRN ×2 (07:30→14:09)
[2023-04-14 08:19] LABS: BASO % 0.1 % (0-2.0); EOS % 2.7 % (0-4.5); HEMATOCRIT 39.8 % (35.4-49); LYMPH % 20.7 % (8-40); MCH 28.2 pg (25.7-33.7); MCHC 32.5 g/dl (32.0-35.9); MEAN CELL VOLUME 86.5 fl (80-96); MEAN PLT VOLUME 7.6 fl (7.5-11.1); MONO % 9.7 % (3.8-10.2); NEUT % 66.8 % (42.8-82.8); PLATELET COUNT 100 10^3/uL (134-434); RDW 14.2 % (11.9-15.9); WHITE BLOOD COUNT 5.2 K/mm3 (4.0-10.0)
[2023-04-14 08:32] LABS: POTASSIUM 3.8 mmol/L (3.5-5.1)
[2023-04-14 08:41] LABS: MAGNESIUM 2.1 mg/dL (1.8-2.4)
[2023-04-14 08:44] LABS: CREATININE 0.7 mg/dL (0.55-1.3)
[2023-04-14] MEDS: POLYETHYLENE GLYCOL (HEALTHYLAX) 3350 17 GM PACKET PO SCH ×2 (09:29→21:14)
[2023-04-14] MEDS: ENOXAPARIN NA (PORCINE) 40 MG/0.4 ML DISP.SYRIN SQ SCH (09:29)
[2023-04-14] MEDS: PANTOPRAZOLE 40 MG TABLET PO SCH (09:29)
[2023-04-14] MEDS: predniSONE 20 MG TABLET (UD) PO SCH (09:29)
[2023-04-14] MEDS: CEFTRIAXONE 2 GM in DEXTROSE 5%-WATER 100 ML IVPB SCH (09:30)
[2023-04-14] MEDS: MELATONIN 5 MG TABLETS PO PRN (21:15)
[2023-04-15] MEDS: FUROSEMIDE 40 MG/4 ML INJECTABLE VIAL IVPUSH SCH ×2 (06:16→13:32)
[2023-04-15] MEDS: INSULIN SLIDING SCALE (NOVOLOG) 1 VIAL SQ SCH ×4 (06:16→21:29)
[2023-04-15] MEDS: POLYETHYLENE GLYCOL (HEALTHYLAX) 3350 17 GM PACKET PO SCH ×3 (06:16→21:29)
[2023-04-15 08:54] LABS: BASO % 0.2 % (0-2.0); EOS % 2.5 % (0-4.5); HEMATOCRIT 41.1 % (35.4-49); HEMOGLOBIN 13.6 GM/dL (11.7-16.9); LYMPH % 19.6 % (8-40); MCH 28.5 pg (25.7-33.7); MCHC 33.1 g/dl (32.0-35.9); MEAN CELL VOLUME 86.2 fl (80-96); MEAN PLT VOLUME 7.4 fl (7.5-11.1); MONO % 8.4 % (3.8-10.2); NEUT % 69.3 % (42.8-82.8); PLATELET COUNT 119 10^3/uL (134-434); RBC 4.77 M/mm3 (4.00-5.60); RDW 14.4 % (11.9-15.9); WHITE BLOOD COUNT 6.3 K/mm3 (4.0-10.0)
[2023-04-15] MEDS ORDERED: BISACODYL 5 MG TABLET.DR (FP) PO ONE (09:06)
[2023-04-15 09:08] LABS: POTASSIUM 3.7 mmol/L (3.5-5.1)
[2023-04-15 09:11] LABS: CALCIUM 8.9 mg/dL (8.5-10.1)
[2023-04-15 09:12] LABS: BLOOD UREA NITROGEN 14.2 mg/dL (7-18)
[2023-04-15 09:15] LABS: CREATININE 0.7 mg/dL (0.55-1.3)
[2023-04-15] MEDS: PANTOPRAZOLE 40 MG TABLET PO SCH (09:29)
[2023-04-15] MEDS: predniSONE 10 MG TABLET (UD) PO SCH (09:29)
[2023-04-15] MEDS: ENOXAPARIN NA (PORCINE) 40 MG/0.4 ML DISP.SYRIN SQ SCH (09:29)
[2023-04-15] MEDS: CEFTRIAXONE 2 GM in DEXTROSE 5%-WATER 100 ML IVPB SCH (09:31)
[2023-04-15] MEDS ORDERED: MINERAL OIL ENEMA 133 ML ENEMA RC ONE (09:45)
[2023-04-15] MEDS ORDERED: MINERAL OIL 30 ML UNIT-DOSE CUP PO ONE (10:00)
[2023-04-15] MEDS ORDERED: MAGNESIUM HYDROX 2400MG/30ML ORAL SUSPENSION 30 ML CUP PO ONE (10:00)
[2023-04-15] MEDS: ALBUTEROL SO4 2.5/IPRATROPIUM 0.5 INH SOL 3 ML VIAL.NEB. NEB PRN (14:46)
[2023-04-16] MEDS: FUROSEMIDE 40 MG/4 ML INJECTABLE VIAL IVPUSH SCH ×2 (05:56→14:09)
[2023-04-16] MEDS: POLYETHYLENE GLYCOL (HEALTHYLAX) 3350 17 GM PACKET PO SCH ×3 (05:59→21:27)
[2023-04-16] MEDS: INSULIN SLIDING SCALE (NOVOLOG) 1 VIAL SQ SCH ×4 (06:00→21:27)
[2023-04-16] MEDS: ALBUTEROL SO4 2.5/IPRATROPIUM 0.5 INH SOL 3 ML VIAL.NEB. NEB PRN ×3 (07:15→19:39)
[2023-04-16] MEDS: ENOXAPARIN NA (PORCINE) 40 MG/0.4 ML DISP.SYRIN SQ SCH (09:06)
[2023-04-16] MEDS: predniSONE 10 MG TABLET (UD) PO SCH (09:06)
[2023-04-16] MEDS: PANTOPRAZOLE 40 MG TABLET PO SCH (09:06)
[2023-04-16] MEDS: CEFTRIAXONE 2 GM in DEXTROSE 5%-WATER 100 ML IVPB SCH (09:06)
[2023-04-16 09:17] LABS: BASO % 0.1 % (0-2.0); EOS % 2.3 % (0-4.5); HEMATOCRIT 40.4 % (35.4-49); HEMOGLOBIN 13.5 GM/dL (11.7-16.9); LYMPH % 19.4 % (8-40); MCH 28.7 pg (25.7-33.7); MCHC 33.5 g/dl (32.0-35.9); MEAN CELL VOLUME 85.8 fl (80-96); MEAN PLT VOLUME 7.4 fl (7.5-11.1); NEUT % 69.2 % (42.8-82.8); PLATELET COUNT 113 10^3/uL (134-434); RBC 4.71 M/mm3 (4.00-5.60); RDW 14.2 % (11.9-15.9); WHITE BLOOD COUNT 5.3 K/mm3 (4.0-10.0)
[2023-04-16 09:44] LABS: POTASSIUM 3.7 mmol/L (3.5-5.1)
[2023-04-16 09:47] LABS: CALCIUM 9.1 mg/dL (8.5-10.1)
[2023-04-16 09:48] LABS: ALBUMIN 3.9 g/dl (3.4-5.0)
[2023-04-16 09:50] LABS: CREATININE 0.6 mg/dL (0.55-1.3)
[2023-04-16 09:53] LABS: BILIRUBIN,TOTAL 0.8 mg/dL (0.2-1); TOT PROT 7.3 g/dl (6.4-8.2)
[2023-04-16] MEDS ORDERED: predniSONE 20 MG TABLET (UD) PO SCH (12:22)
[2023-04-16] MEDS ORDERED: ALBUTEROL SO4 HFA INHALER IH PRN (12:25)
[2023-04-16] MEDS ORDERED: INSULIN SLIDING SCALE (NOVOLOG) 1 VIAL SQ ONE (16:57)
[2023-04-16] MEDS: MELATONIN 5 MG TABLETS PO PRN (21:26)
[2023-04-17] MEDS: FUROSEMIDE 40 MG/4 ML INJECTABLE VIAL IVPUSH SCH ×2 (06:01→15:10)
[2023-04-17] MEDS: INSULIN SLIDING SCALE (NOVOLOG) 1 VIAL SQ SCH ×2 (06:03→11:31)
[2023-04-17] MEDS: POLYETHYLENE GLYCOL (HEALTHYLAX) 3350 17 GM PACKET PO SCH ×2 (06:07→14:30)
[2023-04-17] MEDS: ALBUTEROL SO4 2.5/IPRATROPIUM 0.5 INH SOL 3 ML VIAL.NEB. NEB PRN (06:18)
[2023-04-17 09:20] LABS: BASO % 0.2 % (0-2.0); EOS % 2.3 % (0-4.5); HEMATOCRIT 39.6 % (35.4-49); HEMOGLOBIN 13.5 GM/dL (11.7-16.9); LYMPH % 18.9 % (8-40); MCH 28.8 pg (25.7-33.7); MEAN CELL VOLUME 84.6 fl (80-96); MEAN PLT VOLUME 7.3 fl (7.5-11.1); NEUT % 70.6 % (42.8-82.8); PLATELET COUNT 116 10^3/uL (134-434); RBC 4.68 M/mm3 (4.00-5.60); RDW 14.4 % (11.9-15.9); WHITE BLOOD COUNT 5.3 K/mm3 (4.0-10.0)
[2023-04-17 09:46] LABS: POTASSIUM 3.6 mmol/L (3.5-5.1)
[2023-04-17 09:47] LABS: CALCIUM 9.1 mg/dL (8.5-10.1)
[2023-04-17 09:48] LABS: BLOOD UREA NITROGEN 12.4 mg/dL (7-18)
[2023-04-17 09:51] LABS: CREATININE 0.6 mg/dL (0.55-1.3)
[2023-04-17] MEDS: PANTOPRAZOLE 40 MG TABLET PO SCH (09:57)
[2023-04-17] MEDS: ENOXAPARIN NA (PORCINE) 40 MG/0.4 ML DISP.SYRIN SQ SCH (09:57)
[2023-04-17] MEDS: CEFTRIAXONE 2 GM in DEXTROSE 5%-WATER 100 ML IVPB SCH (09:58)
[2023-04-17 14:23] VITALS: BP 111/65; PULSE 78; RESP 18; TEMP 97.8
[2023-04-17] MEDS ORDERED: CEFUROXIME AXETIL 500 MG TABLET PO SCH (22:00)
[2023-04-18] MEDS ORDERED: FUROSEMIDE 40 MG TABLET (FP) PO SCH (06:00)
== END 2023-04-17 18:48 | disposition home or self-care (01) | DRG 193 ==
LOC: JER 13:09 → JERBED 15:52 → J4S 20:33
PROVIDERS: ADMIT Internal Medicine; ATTEND Internal Medicine
DX: J18.9 Pneumonia, unspecified organism (principal); I50.33 Acute on chronic diastolic (congestive) heart failure; J96.22 Acute and chronic respiratory failure with hypercapnia; J96.21 Acute and chronic respiratory failure with hypoxia; J44.0 Chronic obstructive pulmonary disease with (acute) lower respiratory infection; J44.1 Chronic obstructive pulmonary disease with (acute) exacerbation; E87.1 Hypo-osmolality and hyponatremia; I11.0 Hypertensive heart disease with heart failure; E66.9 Obesity, unspecified; Z68.35 Body mass index [BMI] 35.0-35.9, adult; E83.42 Hypomagnesemia; G47.33 Obstructive sleep apnea (adult) (pediatric); K59.00 Constipation, unspecified; D69.6 Thrombocytopenia, unspecified; I27.20 Pulmonary hypertension, unspecified; R60.0 Localized edema; K21.9 Gastro-esophageal reflux disease without esophagitis
CPT/HCPCS: 36415; 36600; 71045-TC-FY; 71046-TC-FY; 71250-TC; 74176-TC; 80048; 80053; 82803; 82962; 83605; 83735; 83880; 84484; 85025; 85610; 85730; 86850; 86900; 86901; 87040; 87070; 87205; 87899; 93005; 93010; 93970-TC; 94640; 94660; 99285-25

== ENCOUNTER 2023-05-05 21:18 | Inpatient (IN) | payer OTHER ==
[2023-05-05] MEDS ORDERED: ALBUTEROL SO4 2.5/IPRATROPIUM 0.5 INH SOL 3 ML VIAL.NEB. NEB ONE (22:32)
[2023-05-05] MEDS ORDERED: DEXAMETHASONE SOD PHOSPHATE 10 MG/1 ML VIAL ONE (22:32)
[2023-05-05] MEDS ORDERED: CEFEPIME HCL 1 GM VIAL (RESTRICTED TO ID) IVPB ONE (22:33)
[2023-05-05] MEDS ORDERED: AZITHROMYCIN IVPB 500 MG in DEXTROSE 5%-WATER - 250 ML IVPB ONE (22:33)
[2023-05-05 22:56] LABS: BASO % 0.4 % (0-2.0); EOS % 3.4 % (0-4.5); HEMATOCRIT 36.4 % (35.4-49); HEMOGLOBIN 12.5 GM/dL (11.7-16.9); LYMPH % 11.7 % (8-40); MCH 28.5 pg (25.7-33.7); MCHC 34.3 g/dl (32.0-35.9); MEAN CELL VOLUME 83.1 fl (80-96); MEAN PLT VOLUME 6.5 fl (7.5-11.1); MONO % 11.6 % (3.8-10.2); NEUT % 72.9 % (42.8-82.8); PLATELET COUNT 138 10^3/uL (134-434); RBC 4.38 M/mm3 (4.00-5.60); RDW 14.4 % (11.9-15.9); WHITE BLOOD COUNT 4.7 K/mm3 (4.0-10.0)
[2023-05-05] MEDS: ALBUTEROL SO4 2.5/IPRATROPIUM 0.5 INH SOL 3 ML VIAL.NEB. NEB SCH ×3 (23:09→23:40)
[2023-05-05] MEDS ORDERED: CEFEPIME 1 GM/100 ML BAG IVPB ONE (23:11)
[2023-05-05] MEDS ORDERED: AZITHROMYCIN IVPB 500 MG/250 ML BAG IVPB ONE (23:11)
[2023-05-05] MEDS ORDERED: DEXAMETHASONE SOD PHOSPHATE 10 MG/1 ML VIAL IVPUSH ONE (23:14)
[2023-05-05 23:28] LABS: CHLORIDE 86 mmol/L (98-107); POTASSIUM 4.2 mmol/L (3.5-5.1); SODIUM 133 mmol/L (136-145)
[2023-05-05 23:30] LABS: CALCIUM 8.6 mg/dL (8.5-10.1)
[2023-05-05 23:31] LABS: ALBUMIN 3.5 g/dl (3.4-5.0); BLOOD UREA NITROGEN 21.1 mg/dL (7-18); GLUCOSE,RANDOM 152 mg/dL (74-106)
[2023-05-05 23:33] LABS: CREATININE 0.7 mg/dL (0.55-1.3)
[2023-05-05 23:34] LABS: SGOT/AST 18 U/L (15-37); SGPT/ALT 24 U/L (13-61)
[2023-05-05 23:35] LABS: BILIRUBIN,TOTAL 0.6 mg/dL (0.2-1); TOT PROT 7.1 g/dl (6.4-8.2)
[2023-05-05 23:36] LABS: ALK PHOS 52 U/L (45-117)
[2023-05-05 23:59] LABS: ANION GAP 2 mmol/L (4-13); CO2 > 45 mmol/L (21-32)
[2023-05-06] MEDS: ALBUTEROL SO4 2.5/IPRATROPIUM 0.5 INH SOL 3 ML VIAL.NEB. NEB SCH (00:04)
[2023-05-06] MEDS: INSULIN ASPART SLIDING SCALE (NOVOLOG) 1 VIAL SQ SCH ×4 (00:45→17:17)
[2023-05-06] MEDS ORDERED: FUROSEMIDE 40 MG/4 ML INJECTABLE VIAL ONE (01:18)
[2023-05-06] MEDS ORDERED: PANTOPRAZOLE SODIUM 40 MG/100 ML BAG IVPB ONE (01:18)
[2023-05-06] MEDS: PANTOPRAZOLE 40 MG TABLET PO SCH ×3 (01:30→22:26)
[2023-05-06] MEDS: FUROSEMIDE 40 MG/4 ML INJECTABLE VIAL IVPUSH SCH ×3 (01:30→14:02)
[2023-05-06 09:04] LABS: HEMATOCRIT 37.2 % (35.4-49); HEMOGLOBIN 13.1 GM/dL (11.7-16.9); MCH 29.1 pg (25.7-33.7); MCHC 35.3 g/dl (32.0-35.9); MEAN CELL VOLUME 82.4 fl (80-96); MEAN PLT VOLUME 6.9 fl (7.5-11.1); PLATELET COUNT 151 10^3/uL (134-434); RBC 4.51 M/mm3 (4.00-5.60); RDW 14.2 % (11.9-15.9); WHITE BLOOD COUNT 4.2 K/mm3 (4.0-10.0)
[2023-05-06 09:15] LABS: POTASSIUM 4.4 mmol/L (3.5-5.1)
[2023-05-06 09:22] LABS: CALCIUM 8.6 mg/dL (8.5-10.1); MAGNESIUM 1.7 mg/dL (1.8-2.4)
[2023-05-06 09:26] LABS: CREATININE 0.6 mg/dL (0.55-1.3)
[2023-05-06] MEDS ORDERED: methylPREDNISolone NA SUCC 40 MG/1 ML VIAL ONE (09:38)
[2023-05-06] MEDS ORDERED: ENOXAPARIN NA (PORCINE) 40 MG/0.4 ML DISP.SYRIN SQ ONE (09:38)
[2023-05-06] MEDS ORDERED: POTASSIUM CHLORIDE TABS 20 MEQ TABLET.ER (FP) PO ONE (09:38)
[2023-05-06] MEDS: ENOXAPARIN NA (PORCINE) 40 MG/0.4 ML DISP.SYRIN SQ SCH (09:50)
[2023-05-06] MEDS: methylPREDNISolone NA SUCC 40 MG/1 ML VIAL IVPB SCH ×2 (09:50→18:04)
[2023-05-06] MEDS: POTASSIUM CHLORIDE TABS 20 MEQ TABLET.ER (FP) PO SCH (09:50)
[2023-05-06] MEDS ORDERED: MAGNESIUM SULF 50% (8.12 MEQ/2 ML-1 GM VIAL) IVPB ONE (10:43)
[2023-05-06] MEDS ORDERED: ALBUTEROL SO4 2.5/IPRATROPIUM 0.5 INH SOL 3 ML VIAL.NEB. NEB ONE ×2 (10:47→20:11)
[2023-05-06] MEDS: ALBUTEROL SO4 2.5/IPRATROPIUM 0.5 INH SOL 3 ML VIAL.NEB. NEB PRN ×3 (11:03→20:16)
[2023-05-06] MEDS ORDERED: MAGNESIUM SULFATE IN WATER 2 GM/50 ML IVPB IVPB ONE (11:13)
[2023-05-06 11:36] LABS: ANISOCYTOSIS 2+; MACROCYTOSIS 2+
[2023-05-06] MEDS ORDERED: DEXAMETHASONE SOD PHOSPHATE 10 MG/1 ML VIAL IVPUSH ONE (21:52)
[2023-05-06] MEDS ORDERED: ATORVASTATIN CA 20 MG TABLET (FP) PO SCH (22:00)
[2023-05-06] MEDS ORDERED: ATORVASTATIN CA 40 MG TABLET (FP) ONE (22:06)
[2023-05-06] MEDS ORDERED: PANTOPRAZOLE 20 MG TABLET PO ONE (22:07)
[2023-05-06] MEDS: ATORVASTATIN CA 20 MG TABLET (FP) PO SCH (22:26)
[2023-05-07] MEDS ORDERED: methylPREDNISolone NA SUCC 40 MG/1 ML VIAL ONE ×3 (02:05→09:53)
[2023-05-07] MEDS: methylPREDNISolone NA SUCC 40 MG/1 ML VIAL IVPB SCH ×3 (02:16→22:19)
[2023-05-07] MEDS ORDERED: ALBUTEROL SO4 2.5/IPRATROPIUM 0.5 INH SOL 3 ML VIAL.NEB. NEB ONE ×2 (02:38→07:24)
[2023-05-07] MEDS: ALBUTEROL SO4 2.5/IPRATROPIUM 0.5 INH SOL 3 ML VIAL.NEB. NEB PRN ×3 (02:41→13:30)
[2023-05-07] MEDS: FUROSEMIDE 40 MG/4 ML INJECTABLE VIAL IVPUSH SCH ×2 (07:10→14:00)
[2023-05-07] MEDS ORDERED: FUROSEMIDE 40 MG/4 ML INJECTABLE VIAL ONE ×2 (07:23→14:02)
[2023-05-07] MEDS ORDERED: INSULIN (NOVOLOG) ASPART 100 UNITS/ML 10ML VIAL ONE (07:47)
[2023-05-07] MEDS: INSULIN ASPART SLIDING SCALE (NOVOLOG) 1 VIAL SQ SCH ×3 (07:49→16:39)
[2023-05-07] MEDS ORDERED: POTASSIUM CHLORIDE TABS 20 MEQ TABLET.ER (FP) PO ONE (09:52)
[2023-05-07] MEDS ORDERED: PANTOPRAZOLE 20 MG TABLET PO ONE (09:52)
[2023-05-07] MEDS: POTASSIUM CHLORIDE TABS 20 MEQ TABLET.ER (FP) PO SCH (10:00)
[2023-05-07] MEDS: ENOXAPARIN NA (PORCINE) 40 MG/0.4 ML DISP.SYRIN SQ SCH (10:00)
[2023-05-07] MEDS: PANTOPRAZOLE 40 MG TABLET PO SCH ×2 (10:00→22:19)
[2023-05-07 10:46] LABS: BASO % 0.1 % (0-2.0); EOS % 0.1 % (0-4.5); HEMATOCRIT 35.1 % (35.4-49); HEMOGLOBIN 12.1 GM/dL (11.7-16.9); LYMPH % 8.1 % (8-40); MCH 28.9 pg (25.7-33.7); MCHC 34.5 g/dl (32.0-35.9); MEAN CELL VOLUME 83.8 fl (80-96); MEAN PLT VOLUME 6.6 fl (7.5-11.1); MONO % 7.7 % (3.8-10.2); PLATELET COUNT 148 10^3/uL (134-434); RBC 4.19 M/mm3 (4.00-5.60); RDW 14.1 % (11.9-15.9); WHITE BLOOD COUNT 4.9 K/mm3 (4.0-10.0)
[2023-05-07 11:06] LABS: CHLORIDE 84 mmol/L (98-107); POTASSIUM 5.3 mmol/L (3.5-5.1); SODIUM 134 mmol/L (136-145)
[2023-05-07 11:07] LABS: CALCIUM 8.8 mg/dL (8.5-10.1)
[2023-05-07 11:08] LABS: BLOOD UREA NITROGEN 17.4 mg/dL (7-18); GLUCOSE,RANDOM 221 mg/dL (74-106)
[2023-05-07 11:11] LABS: CREATININE 0.7 mg/dL (0.55-1.3)
[2023-05-07 11:14] LABS: ANION GAP 5 mmol/L (4-13); CO2 > 45 mmol/L (21-32)
[2023-05-07 21:34] VITALS: BMI 35.9
[2023-05-07] MEDS: ATORVASTATIN CA 20 MG TABLET (FP) PO SCH (22:19)
[2023-05-07] MEDS: MELATONIN 5 MG TABLETS PO PRN (22:19)
[2023-05-08] MEDS: FUROSEMIDE 40 MG/4 ML INJECTABLE VIAL IVPUSH SCH ×2 (06:30→14:11)
[2023-05-08] MEDS: INSULIN ASPART SLIDING SCALE (NOVOLOG) 1 VIAL SQ SCH ×3 (06:31→17:17)
[2023-05-08] MEDS: ALBUTEROL SO4 2.5/IPRATROPIUM 0.5 INH SOL 3 ML VIAL.NEB. NEB PRN ×3 (07:58→20:13)
[2023-05-08 08:15] LABS: BASO % 0.1 % (0-2.0); EOS % 0.4 % (0-4.5); HEMATOCRIT 38.3 % (35.4-49); HEMOGLOBIN 12.4 GM/dL (11.7-16.9); LYMPH % 12.2 % (8-40); MCH 27.6 pg (25.7-33.7); MCHC 32.5 g/dl (32.0-35.9); MEAN CELL VOLUME 84.9 fl (80-96); MEAN PLT VOLUME 7.1 fl (7.5-11.1); NEUT % 81.3 % (42.8-82.8); PLATELET COUNT 157 10^3/uL (134-434); RBC 4.51 M/mm3 (4.00-5.60); RDW 14.1 % (11.9-15.9); WHITE BLOOD COUNT 4.7 K/mm3 (4.0-10.0)
[2023-05-08 08:38] LABS: CHLORIDE 84 mmol/L (98-107); POTASSIUM 4.4 mmol/L (3.5-5.1); SODIUM 134 mmol/L (136-145)
[2023-05-08 08:48] LABS: BLOOD UREA NITROGEN 21.8 mg/dL (7-18); GLUCOSE,RANDOM 194 mg/dL (74-106)
[2023-05-08 08:50] LABS: CALCIUM 9.1 mg/dL (8.5-10.1)
[2023-05-08 08:52] LABS: CREATININE 0.6 mg/dL (0.55-1.3)
[2023-05-08 08:54] LABS: ANION GAP 5 mmol/L (4-13); CO2 > 45 mmol/L (21-32)
[2023-05-08] MEDS: PANTOPRAZOLE 40 MG TABLET PO SCH ×2 (09:51→22:20)
[2023-05-08] MEDS: ENOXAPARIN NA (PORCINE) 40 MG/0.4 ML DISP.SYRIN SQ SCH (09:51)
[2023-05-08] MEDS ORDERED: FLU VACCINE (FLULAVAL) PF 60 MCG/0.5 ML SYRINGE 2023-2024 IM ONE (10:00)
[2023-05-08] MEDS ORDERED: methylPREDNISolone NA SUCC 40 MG/1 ML VIAL IVPB SCH (10:00)
[2023-05-08] MEDS ORDERED: PNEUMOC 20-VAL CONJ-DIP CRM/PF 0.5 ML SYRINGE IM ONE (10:00)
[2023-05-08] MEDS: ATORVASTATIN CA 20 MG TABLET (FP) PO SCH (22:20)
[2023-05-08] MEDS: MELATONIN 5 MG TABLETS PO PRN (22:21)
[2023-05-09] MEDS: ALBUTEROL SO4 2.5/IPRATROPIUM 0.5 INH SOL 3 ML VIAL.NEB. NEB PRN ×2 (05:12→14:30)
[2023-05-09] MEDS ORDERED: INSULIN (NOVOLOG) ASPART 100 UNITS/ML 10ML VIAL ONE (06:08)
[2023-05-09] MEDS: INSULIN ASPART SLIDING SCALE (NOVOLOG) 1 VIAL SQ SCH ×3 (06:10→15:44)
[2023-05-09] MEDS: FUROSEMIDE 40 MG/4 ML INJECTABLE VIAL IVPUSH SCH ×2 (06:10→14:40)
[2023-05-09 07:38] LABS: HEMATOCRIT 39.8 % (35.4-49); HEMOGLOBIN 13.1 GM/dL (11.7-16.9); MCHC 32.8 g/dl (32.0-35.9); MEAN CELL VOLUME 85.2 fl (80-96); MEAN PLT VOLUME 6.8 fl (7.5-11.1); PLATELET COUNT 157 10^3/uL (134-434); RBC 4.67 M/mm3 (4.00-5.60); RDW 14.1 % (11.9-15.9); WHITE BLOOD COUNT 4.8 K/mm3 (4.0-10.0)
[2023-05-09 07:51] LABS: CHLORIDE 83 mmol/L (98-107); POTASSIUM 3.4 mmol/L (3.5-5.1); SODIUM 133 mmol/L (136-145)
[2023-05-09 07:55] LABS: BLOOD UREA NITROGEN 17.4 mg/dL (7-18); CALCIUM 9.1 mg/dL (8.5-10.1); GLUCOSE,RANDOM 134 mg/dL (74-106)
[2023-05-09 07:58] LABS: CREATININE 0.6 mg/dL (0.55-1.3)
[2023-05-09 08:11] LABS: ANION GAP 5 mmol/L (4-13); CO2 > 45 mmol/L (21-32)
[2023-05-09 08:50] LABS: ANISOCYTOSIS 2+; MACROCYTOSIS 0
[2023-05-09] MEDS: ENOXAPARIN NA (PORCINE) 40 MG/0.4 ML DISP.SYRIN SQ SCH (10:41)
[2023-05-09] MEDS: methylPREDNISolone NA SUCC 40 MG/1 ML VIAL IVPB SCH (10:42)
[2023-05-09] MEDS: ACETAMINOPHEN 325 MG TABLET (FP) PO PRN (10:42)
[2023-05-09] MEDS: PANTOPRAZOLE 40 MG TABLET PO SCH ×2 (10:43→21:41)
[2023-05-09] MEDS ORDERED: POTASSIUM CHLORIDE TABS 20 MEQ TABLET.ER (FP) PO SCH (13:30)
[2023-05-09] MEDS: ATORVASTATIN CA 20 MG TABLET (FP) PO SCH (21:41)
[2023-05-09] MEDS: MELATONIN 5 MG TABLETS PO PRN (21:46)
[2023-05-10] MEDS: FUROSEMIDE 40 MG/4 ML INJECTABLE VIAL IVPUSH SCH ×2 (06:01→15:29)
[2023-05-10] MEDS: INSULIN ASPART SLIDING SCALE (NOVOLOG) 1 VIAL SQ SCH ×3 (06:13→17:23)
[2023-05-10 07:00] LABS: BASO % 0.2 % (0-2.0); EOS % 2.2 % (0-4.5); HEMATOCRIT 40.6 % (35.4-49); HEMOGLOBIN 13.1 GM/dL (11.7-16.9); LYMPH % 20.1 % (8-40); MCH 27.5 pg (25.7-33.7); MCHC 32.2 g/dl (32.0-35.9); MEAN CELL VOLUME 85.4 fl (80-96); MONO % 11.3 % (3.8-10.2); NEUT % 66.2 % (42.8-82.8); PLATELET COUNT 152 10^3/uL (134-434); RBC 4.75 M/mm3 (4.00-5.60); RDW 14.2 % (11.9-15.9); WHITE BLOOD COUNT 5.7 K/mm3 (4.0-10.0)
[2023-05-10 07:25] LABS: CHLORIDE 86 mmol/L (98-107); POTASSIUM 3.7 mmol/L (3.5-5.1); SODIUM 137 mmol/L (136-145)
[2023-05-10 07:27] LABS: CALCIUM 9.5 mg/dL (8.5-10.1)
[2023-05-10 07:28] LABS: BLOOD UREA NITROGEN 17.3 mg/dL (7-18); GLUCOSE,RANDOM 140 mg/dL (74-106)
[2023-05-10 07:29] LABS: MAGNESIUM 1.9 mg/dL (1.8-2.4)
[2023-05-10 07:31] LABS: CREATININE 0.6 mg/dL (0.55-1.3)
[2023-05-10 07:45] LABS: ANION GAP 5 mmol/L (4-13); CO2 > 45 mmol/L (21-32)
[2023-05-10] MEDS: ENOXAPARIN NA (PORCINE) 40 MG/0.4 ML DISP.SYRIN SQ SCH (09:27)
[2023-05-10] MEDS: PANTOPRAZOLE 40 MG TABLET PO SCH ×2 (09:27→21:54)
[2023-05-10] MEDS ORDERED: INSULIN (NOVOLOG) ASPART 100 UNITS/ML 10ML VIAL ONE (12:42)
[2023-05-10] MEDS: ALBUTEROL SO4 2.5/IPRATROPIUM 0.5 INH SOL 3 ML VIAL.NEB. NEB PRN ×2 (15:42→21:05)
[2023-05-10] MEDS: ACETAMINOPHEN 325 MG TABLET (FP) PO PRN (19:04)
[2023-05-10] MEDS: MELATONIN 5 MG TABLETS PO PRN (21:54)
[2023-05-10] MEDS: ATORVASTATIN CA 20 MG TABLET (FP) PO SCH (21:54)
[2023-05-11 01:49] VITALS: RESP 18
[2023-05-11] MEDS: INSULIN ASPART SLIDING SCALE (NOVOLOG) 1 VIAL SQ SCH ×2 (06:11→11:51)
[2023-05-11] MEDS: FUROSEMIDE 40 MG/4 ML INJECTABLE VIAL IVPUSH SCH (06:11)
[2023-05-11] MEDS: ALBUTEROL SO4 2.5/IPRATROPIUM 0.5 INH SOL 3 ML VIAL.NEB. NEB PRN (06:30)
[2023-05-11 09:24] VITALS: BP 116/58; PULSE 87; TEMP 97.8
[2023-05-11] MEDS: PANTOPRAZOLE 40 MG TABLET PO SCH (09:53)
[2023-05-11] MEDS: ENOXAPARIN NA (PORCINE) 40 MG/0.4 ML DISP.SYRIN SQ SCH (09:53)
[2023-05-11] MEDS: methylPREDNISolone NA SUCC 40 MG/1 ML VIAL IVPB SCH (09:54)
[2023-05-11] MEDS ORDERED: INSULIN (NOVOLOG) ASPART 100 UNITS/ML 10ML VIAL ONE (11:46)
== END 2023-05-11 13:45 | disposition home or self-care (01) | DRG 291 ==
LOC: JER 21:18 → JERBED 23:57 → OBSVTOIN 05-06 00:36 → J4W 05-07 18:34
PROVIDERS: ADMIT Internal Medicine; ATTEND Internal Medicine
DX: I11.0 Hypertensive heart disease with heart failure (principal); I50.33 Acute on chronic diastolic (congestive) heart failure; J96.21 Acute and chronic respiratory failure with hypoxia; J96.22 Acute and chronic respiratory failure with hypercapnia; J44.1 Chronic obstructive pulmonary disease with (acute) exacerbation; I27.20 Pulmonary hypertension, unspecified; G47.33 Obstructive sleep apnea (adult) (pediatric); E83.42 Hypomagnesemia; E11.9 Type 2 diabetes mellitus without complications; E66.9 Obesity, unspecified; Z68.34 Body mass index [BMI] 34.0-34.9, adult
CPT/HCPCS: 0241U-QW; 36415; 71046-TC-FY; 80048; 80053; 80061; 82550; 82962; 83735; 83880; 84484; 85025; 87040; 90677; 90686; 93005; 93010; 94640; 94660; 99285-25; G0008; G0378; J1100

== ENCOUNTER 2024-06-29 18:25 | Inpatient (IN) | payer OTHER ==
[2024-06-29] MEDS ORDERED: ALBUTEROL SO4 2.5/IPRATROPIUM 0.5 INH SOL 3 ML VIAL.NEB. NEB ONE (18:51)
[2024-06-29 19:52] LABS: VENOUS BASE EXCESS 17.9 mmol/L (-2-2); VENOUS O2 SATURATION 50.8 % (70-80); VENOUS PH 7.25 (7.310-7.410)
[2024-06-29 19:54] LABS: VENOUS PCO2 120.2 mmHg (38-52)
[2024-06-29 20:00] LABS: BASO % 0.2 % (0-2.0); EOS % 0.7 % (0-4.5); HEMATOCRIT 38.2 % (35.4-49); HEMOGLOBIN 12.3 GM/dL (11.7-16.9); INR 1.04 (0.83-1.09); LYMPH % 6.1 % (8-40); MCH 28.2 pg (25.7-33.7); MCHC 32.3 g/dl (32.0-35.9); MEAN CELL VOLUME 87.4 fl (80-96); MEAN PLT VOLUME 6.7 fl (7.5-11.1); MONO % 4.8 % (3.8-10.2); NEUT % 88.2 % (42.8-82.8); PLATELET COUNT 91 10^3/uL (134-434); PROTHROMBIN TIME (PATIENT) 11.7 SEC (9.7-13.0); RBC 4.38 M/mm3 (4.00-5.60); RDW 15.1 % (11.9-15.9); WHITE BLOOD COUNT 3.5 K/mm3 (4.0-10.0)
[2024-06-29 20:02] LABS: ACTIVATED PTT 39.2 SECONDS (25.2-36.5)
[2024-06-29 20:10] LABS: CHLORIDE 87 mmol/L (98-107); POTASSIUM 4.3 mmol/L (3.5-5.1); SODIUM 137 mmol/L (136-145)
[2024-06-29 20:11] LABS: CALCIUM 9.1 mg/dL (8.5-10.1)
[2024-06-29 20:12] LABS: ALBUMIN 3.4 g/dl (3.4-5.0); BLOOD UREA NITROGEN 16.6 mg/dL (7-18); GLUCOSE,RANDOM 235 mg/dL (74-106)
[2024-06-29 20:13] LABS: MAGNESIUM 1.7 mg/dL (1.8-2.4)
[2024-06-29 20:15] LABS: CREATININE 0.7 mg/dL (0.55-1.3); SGOT/AST 16 U/L (15-37); SGPT/ALT 21 U/L (13-61)
[2024-06-29 20:17] LABS: BILIRUBIN,TOTAL 0.6 mg/dL (0.2-1); TOT PROT 6.9 g/dl (6.4-8.2)
[2024-06-29 20:18] LABS: ALK PHOS 45 U/L (45-117)
[2024-06-29 20:30] LABS: ANION GAP 5 mmol/L (4-13); CO2 > 45 mmol/L (21-32)
[2024-06-29] MEDS ORDERED: CEFTRIAXONE 1 G/50 ML PREMIX 50 ML IVPB ONE (22:10)
[2024-06-29] MEDS ORDERED: AZITHROMYCIN IVPB 500 MG/250 ML BAG IVPB ONE (22:11)
[2024-06-29] MEDS: CEFTRIAXONE 1 GM in DEXTROSE 5%-WATER - 100 ML IVPB ONE (22:18)
[2024-06-29] MEDS: ALBUTEROL SO4 2.5/IPRATROPIUM 0.5 INH SOL 3 ML VIAL.NEB. NEB SCH (22:18)
[2024-06-29] MEDS: AZITHROMYCIN IVPB 500 MG in DEXTROSE 5%-WATER - 250 ML IVPB ONE (22:33)
[2024-06-29] MEDS: LISINOPRIL 20 MG TABLET PO SCH (22:33)
[2024-06-29] MEDS ORDERED: PANTOPRAZOLE 40 MG TABLET PO ONE (22:52)
[2024-06-29] MEDS ORDERED: MAGNESIUM SULFATE IN WATER 2 GM/50 ML IVPB IVPB ONE (22:52)
[2024-06-29] MEDS: PANTOPRAZOLE 40 MG TABLET PO SCH (22:53)
[2024-06-29] MEDS: MAGNESIUM SULF 50% (8.12 MEQ/2 ML-1 GM VIAL) IVPB ONE (23:24)
[2024-06-29] MEDS ORDERED: methylPREDNISolone NA SUCC 40 MG/1 ML VIAL ONE (23:41)
[2024-06-29] MEDS: methylPREDNISolone NA SUCC 40 MG/1 ML VIAL IVPUSH SCH (23:52)
[2024-06-30 00:41] LABS: VENOUS BASE EXCESS 17.9 mmol/L (-2-2); VENOUS O2 SATURATION 88.8 % (70-80); VENOUS PH 7.291 (7.310-7.410)
[2024-06-30 00:44] LABS: VENOUS PCO2 104.4 mmHg (38-52)
[2024-06-30] MEDS ORDERED: FUROSEMIDE 40 MG/4 ML INJECTABLE VIAL ONE ×2 (02:18→14:20)
[2024-06-30] MEDS: FUROSEMIDE 40 MG/4 ML INJECTABLE VIAL IVPUSH ONE (02:26)
[2024-06-30] MEDS ORDERED: methylPREDNISolone NA SUCC 40 MG/1 ML VIAL ONE ×2 (06:17→14:20)
[2024-06-30] MEDS: INSULIN ASPART SLIDING SCALE (NOVOLOG) 1 VIAL SQ SCH ×3 (08:00→18:05)
[2024-06-30] MEDS ORDERED: ALBUTEROL SO4 2.5/IPRATROPIUM 0.5 INH SOL 3 ML VIAL.NEB. NEB ONE ×2 (09:16→11:56)
[2024-06-30] MEDS ORDERED: ENOXAPARIN NA (PORCINE) 40 MG/0.4 ML DISP.SYRIN SQ SCH (10:00)
[2024-06-30 10:33] LABS: BASO % 0.1 % (0-2.0); EOS % 0.2 % (0-4.5); HEMOGLOBIN 11.9 GM/dL (11.7-16.9); LYMPH % 7.7 % (8-40); MCH 28.1 pg (25.7-33.7); MCHC 32.1 g/dl (32.0-35.9); MEAN CELL VOLUME 87.5 fl (80-96); MONO % 3.4 % (3.8-10.2); NEUT % 88.6 % (42.8-82.8); PLATELET COUNT 85 10^3/uL (134-434); RBC 4.23 M/mm3 (4.00-5.60); RDW 15.2 % (11.9-15.9); WHITE BLOOD COUNT 2.9 K/mm3 (4.0-10.0)
[2024-06-30] MEDS: ENOXAPARIN NA (PORCINE) 40 MG/0.4 ML DISP.SYRIN SQ SCH (11:00)
[2024-06-30 11:03] LABS: CHLORIDE 87 mmol/L (98-107); POTASSIUM 4.3 mmol/L (3.5-5.1); SODIUM 139 mmol/L (136-145)
[2024-06-30 11:04] LABS: CALCIUM 9.2 mg/dL (8.5-10.1)
[2024-06-30 11:05] LABS: ANION GAP 7 mmol/L (4-13); BLOOD UREA NITROGEN 18.4 mg/dL (7-18); CO2 > 45 mmol/L (21-32); GLUCOSE,RANDOM 250 mg/dL (74-106); MAGNESIUM 2.1 mg/dL (1.8-2.4)
[2024-06-30 11:08] LABS: CREATININE 0.8 mg/dL (0.55-1.3)
[2024-06-30] MEDS: FUROSEMIDE 40 MG/4 ML INJECTABLE VIAL IVPUSH SCH (14:40)
[2024-06-30 18:59] VITALS: BMI 38.1
[2024-06-30] MEDS: CEFTRIAXONE 2 GM-D5W BAG 2 GM/50 ML BAG IVPB SCH (21:53)
[2024-06-30] MEDS: AZITHROMYCIN IVPB 500 MG/250 ML BAG IVPB SCH (21:53)
[2024-07-01] MEDS: ALBUTEROL SO4 0.083% IH SOL 2.5 MG/3 ML VIAL.NEB. NEB PRN (04:40)
[2024-07-01] MEDS: INSULIN ASPART SLIDING SCALE (NOVOLOG) 1 VIAL SQ SCH (06:36)
[2024-07-01 07:53] LABS: EOS % 0.3 % (0-4.5); HEMATOCRIT 36.2 % (35.4-49); LYMPH % 11.2 % (8-40); MCH 28.5 pg (25.7-33.7); MCHC 33.1 g/dl (32.0-35.9); MEAN CELL VOLUME 86.4 fl (80-96); MEAN PLT VOLUME 6.7 fl (7.5-11.1); MONO % 7.7 % (3.8-10.2); NEUT % 80.8 % (42.8-82.8); PLATELET COUNT 84 10^3/uL (134-434); RBC 4.19 M/mm3 (4.00-5.60); RDW 15.3 % (11.9-15.9); WHITE BLOOD COUNT 3.1 K/mm3 (4.0-10.0)
[2024-07-01 08:14] LABS: CHLORIDE 87 mmol/L (98-107); POTASSIUM 3.8 mmol/L (3.5-5.1); SODIUM 138 mmol/L (136-145)
[2024-07-01 08:16] LABS: CALCIUM 9.4 mg/dL (8.5-10.1); GLUCOSE,RANDOM 155 mg/dL (74-106)
[2024-07-01 08:18] LABS: ANION GAP 6 mmol/L (4-13); CO2 > 45 mmol/L (21-32)
[2024-07-01 08:19] LABS: BLOOD UREA NITROGEN 20.6 mg/dL (7-18)
[2024-07-01 08:20] LABS: CREATININE 0.7 mg/dL (0.55-1.3)
[2024-07-01] MEDS ORDERED: MELATONIN 5 MG TABLETS PO PRN (10:59)
[2024-07-01] MEDS: guaiFENesin 600 MG TABLET.ER (FP) PO SCH (12:51)
[2024-07-02 08:00] LABS: BASO % 0.2 % (0-2.0); EOS % 0.4 % (0-4.5); HEMATOCRIT 38.3 % (35.4-49); HEMOGLOBIN 12.4 GM/dL (11.7-16.9); LYMPH % 13.2 % (8-40); MCH 28.2 pg (25.7-33.7); MCHC 32.5 g/dl (32.0-35.9); MEAN CELL VOLUME 86.7 fl (80-96); MEAN PLT VOLUME 6.7 fl (7.5-11.1); MONO % 9.1 % (3.8-10.2); NEUT % 77.1 % (42.8-82.8); PLATELET COUNT 86 10^3/uL (134-434); RBC 4.42 M/mm3 (4.00-5.60); RDW 14.8 % (11.9-15.9); WHITE BLOOD COUNT 3.4 K/mm3 (4.0-10.0)
[2024-07-02 08:10] LABS: CHLORIDE 88 mmol/L (98-107); SODIUM 137 mmol/L (136-145)
[2024-07-02 08:13] LABS: CALCIUM 9.2 mg/dL (8.5-10.1)
[2024-07-02 08:14] LABS: BLOOD UREA NITROGEN 20.2 mg/dL (7-18); GLUCOSE,RANDOM 140 mg/dL (74-106)
[2024-07-02 08:17] LABS: CREATININE 0.6 mg/dL (0.55-1.3)
[2024-07-02 08:34] LABS: ANION GAP 5 mmol/L (4-13); CO2 > 45 mmol/L (21-32)
[2024-07-02] MEDS ORDERED: INSULIN ASPART SLIDING SCALE (NOVOLOG) 1 VIAL SQ SCH (11:04)
[2024-07-02] MEDS: ACETAMINOPHEN 325 MG TABLET (FP) PO PRN (11:46)
[2024-07-02] MEDS: INSULIN ASPART SLIDING SCALE (NOVOLOG) 1 VIAL SQ SCH (16:48)
[2024-07-02] MEDS: ALBUTEROL SO4 2.5/IPRATROPIUM 0.5 INH SOL 3 ML VIAL.NEB. NEB SCH (19:54)
[2024-07-02] MEDS ORDERED: ALBUTEROL SO4 2.5/IPRATROPIUM 0.5 INH SOL 3 ML VIAL.NEB. NEB SCH (20:00)
[2024-07-02] MEDS: CEFTRIAXONE 2 GM-D5W BAG 2 GM/50 ML BAG IVPB SCH (21:11)
[2024-07-02] MEDS: methylPREDNISolone NA SUCC 40 MG/1 ML VIAL IVPUSH SCH (21:11)
[2024-07-02] MEDS: guaiFENesin 600 MG TABLET.ER (FP) PO SCH (21:11)
[2024-07-02] MEDS: AZITHROMYCIN IVPB 500 MG/250 ML BAG IVPB SCH (21:12)
[2024-07-03] MEDS: ALBUTEROL SO4 0.083% IH SOL 2.5 MG/3 ML VIAL.NEB. NEB PRN (05:38)
[2024-07-03] MEDS: FUROSEMIDE 40 MG/4 ML INJECTABLE VIAL IVPUSH SCH (05:50)
[2024-07-03] MEDS: PANTOPRAZOLE 40 MG TABLET PO SCH (09:25)
[2024-07-03] MEDS: ENOXAPARIN NA (PORCINE) 40 MG/0.4 ML DISP.SYRIN SQ SCH (09:25)
[2024-07-03 09:54] LABS: BASO % 0.1 % (0-2.0); EOS % 0.4 % (0-4.5); HEMATOCRIT 39.1 % (35.4-49); HEMOGLOBIN 12.5 GM/dL (11.7-16.9); MCH 27.7 pg (25.7-33.7); MCHC 31.9 g/dl (32.0-35.9); MEAN CELL VOLUME 86.8 fl (80-96); MEAN PLT VOLUME 6.8 fl (7.5-11.1); MONO % 6.6 % (3.8-10.2); NEUT % 82.9 % (42.8-82.8); PLATELET COUNT 87 10^3/uL (134-434); RBC 4.51 M/mm3 (4.00-5.60); RDW 14.8 % (11.9-15.9); WHITE BLOOD COUNT 3.9 K/mm3 (4.0-10.0)
[2024-07-03 10:14] LABS: CHLORIDE 86 mmol/L (98-107); POTASSIUM 3.9 mmol/L (3.5-5.1); SODIUM 137 mmol/L (136-145)
[2024-07-03 10:22] LABS: BLOOD UREA NITROGEN 20.1 mg/dL (7-18); CALCIUM 9.4 mg/dL (8.5-10.1)
[2024-07-03 10:25] LABS: CREATININE 0.6 mg/dL (0.55-1.3)
[2024-07-03 10:49] LABS: ANION GAP 6 mmol/L (4-13); CO2 > 45 mmol/L (21-32); GLUCOSE,RANDOM 119 mg/dL (74-106)
[2024-07-03] MEDS: FLU VACCINE (FLULAVAL) PF 45 MCG/0.5 ML SYRINGE 2024-2025 IM ONE (11:52)
[2024-07-03] MEDS: methylPREDNISolone NA SUCC 40 MG/1 ML VIAL IVPUSH SCH (17:02)
[2024-07-03] MEDS: INSULIN ASPART SLIDING SCALE (NOVOLOG) 1 VIAL SQ SCH (17:03)
[2024-07-03] MEDS: INSULIN (LEVEMIR) 100 UNITS/ML UNITS SQ SCH (21:12)
[2024-07-04] MEDS: ACETAMINOPHEN 325 MG TABLET (FP) PO PRN (02:50)
[2024-07-04] MEDS ORDERED: INSULIN (LEVEMIR) 100 UNITS/ML UNITS SQ SCH ×2 (07:02→09:28)
[2024-07-04 08:55] LABS: BASO % 0.1 % (0-2.0); EOS % 0.7 % (0-4.5); HEMATOCRIT 38.4 % (35.4-49); HEMOGLOBIN 12.1 GM/dL (11.7-16.9); LYMPH % 8.3 % (8-40); MCH 27.4 pg (25.7-33.7); MCHC 31.6 g/dl (32.0-35.9); MEAN CELL VOLUME 86.8 fl (80-96); MEAN PLT VOLUME 6.7 fl (7.5-11.1); NEUT % 85.9 % (42.8-82.8); PLATELET COUNT 80 10^3/uL (134-434); RBC 4.43 M/mm3 (4.00-5.60); RDW 14.7 % (11.9-15.9); WHITE BLOOD COUNT 4.3 K/mm3 (4.0-10.0)
[2024-07-04 09:11] LABS: CHLORIDE 84 mmol/L (98-107); POTASSIUM 4.1 mmol/L (3.5-5.1); SODIUM 134 mmol/L (136-145)
[2024-07-04 09:20] LABS: BLOOD UREA NITROGEN 20.5 mg/dL (7-18); CALCIUM 8.9 mg/dL (8.5-10.1)
[2024-07-04 09:21] LABS: ANION GAP 6 mmol/L (4-13); CO2 > 45 mmol/L (21-32); GLUCOSE,RANDOM 218 mg/dL (74-106)
[2024-07-04 09:24] LABS: CREATININE 0.7 mg/dL (0.55-1.3)
[2024-07-04] MEDS: INSULIN (LEVEMIR) 100 UNITS/ML UNITS SQ SCH (21:48)
[2024-07-05] MEDS: INSULIN (LEVEMIR) 100 UNITS/ML UNITS SQ SCH (06:30)
[2024-07-05 11:16] LABS: POTASSIUM 4.1 mmol/L (3.5-5.1)
[2024-07-05 11:18] LABS: EOS % 0.4 % (0-4.5); HEMATOCRIT 36.6 % (35.4-49); HEMOGLOBIN 11.7 GM/dL (11.7-16.9); LYMPH % 6.3 % (8-40); MCHC 32.1 g/dl (32.0-35.9); MEAN CELL VOLUME 87.2 fl (80-96); MEAN PLT VOLUME 7.5 fl (7.5-11.1); MONO % 3.3 % (3.8-10.2); PLATELET COUNT 59 10^3/uL (134-434); RDW 14.5 % (11.9-15.9); WHITE BLOOD COUNT 3.4 K/mm3 (4.0-10.0)
[2024-07-05 11:41] LABS: CALCIUM 8.7 mg/dL (8.5-10.1)
[2024-07-05 11:45] LABS: CREATININE 0.8 mg/dL (0.55-1.3)
[2024-07-05] MEDS: MELATONIN 5 MG TABLETS PO PRN (22:21)
[2024-07-06] MEDS: INSULIN (LEVEMIR) 100 UNITS/ML UNITS SQ SCH ×2 (07:28→21:28)
[2024-07-06 09:49] LABS: BASO % 0.1 % (0-2.0); EOS % 0.8 % (0-4.5); HEMOGLOBIN 12.5 GM/dL (11.7-16.9); LYMPH % 7.1 % (8-40); MCH 27.8 pg (25.7-33.7); MEAN CELL VOLUME 86.8 fl (80-96); MEAN PLT VOLUME 7.9 fl (7.5-11.1); MONO % 3.6 % (3.8-10.2); NEUT % 88.4 % (42.8-82.8); PLATELET COUNT 75 10^3/uL (134-434); RBC 4.49 M/mm3 (4.00-5.60); RDW 14.8 % (11.9-15.9); WHITE BLOOD COUNT 4.5 K/mm3 (4.0-10.0)
[2024-07-06 09:53] LABS: CHLORIDE 84 mmol/L (98-107); POTASSIUM 4.2 mmol/L (3.5-5.1); SODIUM 134 mmol/L (136-145)
[2024-07-06 10:01] LABS: BLOOD UREA NITROGEN 20.5 mg/dL (7-18); CALCIUM 8.7 mg/dL (8.5-10.1); GLUCOSE,RANDOM 221 mg/dL (74-106); MAGNESIUM 1.6 mg/dL (1.8-2.4)
[2024-07-06 10:04] LABS: ANION GAP 5 mmol/L (4-13); CO2 > 45 mmol/L (21-32); CREATININE 0.6 mg/dL (0.55-1.3)
[2024-07-06] MEDS: MAGNESIUM 2GM/50ML STERILE WATER IVPB IVPB ONE (10:42)
[2024-07-07] MEDS: INSULIN (LEVEMIR) 100 UNITS/ML UNITS SQ SCH (06:16)
[2024-07-07 09:12] LABS: BASO % 0.1 % (0-2.0); EOS % 2.3 % (0-4.5); HEMATOCRIT 39.6 % (35.4-49); LYMPH % 17.9 % (8-40); MCH 28.1 pg (25.7-33.7); MCHC 32.9 g/dl (32.0-35.9); MEAN CELL VOLUME 85.4 fl (80-96); MEAN PLT VOLUME 7.4 fl (7.5-11.1); MONO % 8.1 % (3.8-10.2); NEUT % 71.6 % (42.8-82.8); PLATELET COUNT 67 10^3/uL (134-434); RBC 4.63 M/mm3 (4.00-5.60); WHITE BLOOD COUNT 3.9 K/mm3 (4.0-10.0)
[2024-07-07 09:50] LABS: CHLORIDE 82 mmol/L (98-107); POTASSIUM 3.2 mmol/L (3.5-5.1); SODIUM 135 mmol/L (136-145)
[2024-07-07 10:14] LABS: BLOOD UREA NITROGEN 19.7 mg/dL (7-18); CALCIUM 9.3 mg/dL (8.5-10.1)
[2024-07-07 10:15] LABS: GLUCOSE,RANDOM 109 mg/dL (74-106)
[2024-07-07 10:18] LABS: CREATININE 0.6 mg/dL (0.55-1.3)
[2024-07-07] MEDS: methylPREDNISolone NA SUCC 40 MG/1 ML VIAL IVPUSH SCH (10:28)
[2024-07-07] MEDS: POTASSIUM CHLORIDE TABS 20 MEQ TABLET.ER (FP) PO SCH (10:29)
[2024-07-07 10:36] LABS: ANION GAP 8 mmol/L (4-13); CO2 > 45 mmol/L (21-32)
[2024-07-08 08:35] LABS: BASO % 0.2 % (0-2.0); EOS % 2.1 % (0-4.5); HEMATOCRIT 41.7 % (35.4-49); LYMPH % 16.5 % (8-40); MCH 27.3 pg (25.7-33.7); MCHC 31.3 g/dl (32.0-35.9); MEAN CELL VOLUME 87.4 fl (80-96); MEAN PLT VOLUME 7.6 fl (7.5-11.1); MONO % 9.3 % (3.8-10.2); NEUT % 71.9 % (42.8-82.8); PLATELET COUNT 92 10^3/uL (134-434); RBC 4.77 M/mm3 (4.00-5.60); RDW 15.2 % (11.9-15.9); WHITE BLOOD COUNT 5.3 K/mm3 (4.0-10.0)
[2024-07-08 08:47] LABS: CHLORIDE 86 mmol/L (98-107); POTASSIUM 4.1 mmol/L (3.5-5.1); SODIUM 137 mmol/L (136-145)
[2024-07-08 08:51] LABS: BLOOD UREA NITROGEN 18.5 mg/dL (7-18); CALCIUM 9.2 mg/dL (8.5-10.1); GLUCOSE,RANDOM 116 mg/dL (74-106)
[2024-07-08 08:55] LABS: CREATININE 0.6 mg/dL (0.55-1.3)
[2024-07-08 09:00] LABS: ANION GAP 6 mmol/L (4-13); CO2 > 45 mmol/L (21-32)
[2024-07-08] MEDS: INSULIN (LEVEMIR) 100 UNITS/ML UNITS SQ SCH (21:13)
[2024-07-08] MEDS ORDERED: INSULIN (LEVEMIR) 100 UNITS/ML UNITS SQ SCH (22:00)
[2024-07-09] MEDS ORDERED: INSULIN (LEVEMIR) 100 UNITS/ML UNITS SQ SCH (07:30)
[2024-07-09] MEDS ORDERED: INSULIN ASPART SLIDING SCALE (NOVOLOG) 1 VIAL SQ SCH (07:30)
[2024-07-09 08:49] LABS: BASO % 0.1 % (0-2.0); EOS % 2.2 % (0-4.5); HEMATOCRIT 38.8 % (35.4-49); HEMOGLOBIN 12.7 GM/dL (11.7-16.9); LYMPH % 15.6 % (8-40); MCH 28.2 pg (25.7-33.7); MCHC 32.8 g/dl (32.0-35.9); MEAN CELL VOLUME 85.8 fl (80-96); MEAN PLT VOLUME 7.4 fl (7.5-11.1); MONO % 10.1 % (3.8-10.2); PLATELET COUNT 82 10^3/uL (134-434); RBC 4.52 M/mm3 (4.00-5.60); RDW 15.2 % (11.9-15.9); WHITE BLOOD COUNT 4.5 K/mm3 (4.0-10.0)
[2024-07-09 09:04] LABS: CALCIUM 9.1 mg/dL (8.5-10.1); POTASSIUM 3.4 mmol/L (3.5-5.1)
[2024-07-09 09:05] LABS: BLOOD UREA NITROGEN 20.1 mg/dL (7-18)
[2024-07-09 09:08] LABS: CREATININE 0.6 mg/dL (0.55-1.3)
[2024-07-09] MEDS: INSULIN ASPART SLIDING SCALE (NOVOLOG) 1 VIAL SQ SCH (09:23)
[2024-07-09] MEDS: POTASSIUM CHLORIDE TABS 20 MEQ TABLET.ER (FP) PO SCH (11:24)
[2024-07-09] MEDS: INSULIN (LEVEMIR) 100 UNITS/ML UNITS SQ SCH (21:52)
[2024-07-10 09:40] LABS: BASO % 0.1 % (0-2.0); EOS % 1.9 % (0-4.5); HEMATOCRIT 38.5 % (35.4-49); HEMOGLOBIN 12.3 GM/dL (11.7-16.9); LYMPH % 17.5 % (8-40); MCH 27.4 pg (25.7-33.7); MCHC 31.9 g/dl (32.0-35.9); MEAN CELL VOLUME 86.1 fl (80-96); MEAN PLT VOLUME 7.8 fl (7.5-11.1); MONO % 9.5 % (3.8-10.2); PLATELET COUNT 96 10^3/uL (134-434); RBC 4.48 M/mm3 (4.00-5.60); RDW 14.5 % (11.9-15.9); WHITE BLOOD COUNT 4.7 K/mm3 (4.0-10.0)
[2024-07-10 10:02] LABS: POTASSIUM 3.8 mmol/L (3.5-5.1)
[2024-07-10 10:05] LABS: BLOOD UREA NITROGEN 15.9 mg/dL (7-18)
[2024-07-10 10:08] LABS: CREATININE 0.6 mg/dL (0.55-1.3)
[2024-07-11 09:29] LABS: BASO % 0.1 % (0-2.0); EOS % 1.5 % (0-4.5); HEMATOCRIT 38.4 % (35.4-49); HEMOGLOBIN 12.6 GM/dL (11.7-16.9); LYMPH % 17.6 % (8-40); MCH 28.1 pg (25.7-33.7); MCHC 32.9 g/dl (32.0-35.9); MEAN CELL VOLUME 85.6 fl (80-96); MEAN PLT VOLUME 7.3 fl (7.5-11.1); MONO % 9.7 % (3.8-10.2); NEUT % 71.1 % (42.8-82.8); PLATELET COUNT 97 10^3/uL (134-434); RBC 4.49 M/mm3 (4.00-5.60); WHITE BLOOD COUNT 4.5 K/mm3 (4.0-10.0)
[2024-07-11 09:54] LABS: POTASSIUM 3.6 mmol/L (3.5-5.1)
[2024-07-11 09:56] LABS: CALCIUM 9.1 mg/dL (8.5-10.1)
[2024-07-11 09:57] LABS: MAGNESIUM 1.7 mg/dL (1.8-2.4)
[2024-07-11 10:00] LABS: CREATININE 0.6 mg/dL (0.55-1.3)
[2024-07-11] MEDS: MAGNESIUM 2GM/50ML STERILE WATER IVPB IVPB ONE (14:47)
[2024-07-11] MEDS: INSULIN (LEVEMIR) 100 UNITS/ML UNITS SQ SCH (22:49)
[2024-07-12] MEDS ORDERED: INSULIN (LEVEMIR) 100 UNITS/ML UNITS SQ SCH (05:49)
[2024-07-12] MEDS: INSULIN (LEVEMIR) 100 UNITS/ML UNITS SQ SCH (07:19)
[2024-07-12 09:20] LABS: BASO % 0.2 % (0-2.0); EOS % 1.7 % (0-4.5); HEMATOCRIT 38.5 % (35.4-49); HEMOGLOBIN 12.2 GM/dL (11.7-16.9); LYMPH % 17.4 % (8-40); MCH 27.5 pg (25.7-33.7); MCHC 31.7 g/dl (32.0-35.9); MEAN CELL VOLUME 86.8 fl (80-96); MEAN PLT VOLUME 6.9 fl (7.5-11.1); MONO % 9.7 % (3.8-10.2); PLATELET COUNT 88 10^3/uL (134-434); RBC 4.43 M/mm3 (4.00-5.60); RDW 14.9 % (11.9-15.9); WHITE BLOOD COUNT 3.5 K/mm3 (4.0-10.0)
[2024-07-12 09:49] LABS: POTASSIUM 3.6 mmol/L (3.5-5.1)
[2024-07-12 10:03] LABS: BLOOD UREA NITROGEN 15.9 mg/dL (7-18); CALCIUM 8.9 mg/dL (8.5-10.1)
[2024-07-12 10:04] LABS: CREATININE 0.7 mg/dL (0.55-1.3)
[2024-07-12] MEDS: MAGNESIUM 2GM/50ML STERILE WATER IVPB IVPB ONE (10:11)
[2024-07-13 10:49] LABS: BASO % 0.1 % (0-2.0); EOS % 1.7 % (0-4.5); HEMATOCRIT 38.3 % (35.4-49); HEMOGLOBIN 12.5 GM/dL (11.7-16.9); LYMPH % 16.3 % (8-40); MCH 28.2 pg (25.7-33.7); MCHC 32.7 g/dl (32.0-35.9); MEAN CELL VOLUME 86.1 fl (80-96); MEAN PLT VOLUME 6.9 fl (7.5-11.1); MONO % 10.5 % (3.8-10.2); NEUT % 71.4 % (42.8-82.8); PLATELET COUNT 83 10^3/uL (134-434); RBC 4.45 M/mm3 (4.00-5.60); RDW 15.1 % (11.9-15.9); WHITE BLOOD COUNT 4.8 K/mm3 (4.0-10.0)
[2024-07-13 11:07] LABS: POTASSIUM 3.8 mmol/L (3.5-5.1)
[2024-07-13 11:17] LABS: BLOOD UREA NITROGEN 14.4 mg/dL (7-18)
[2024-07-13 11:20] LABS: CREATININE 0.6 mg/dL (0.55-1.3)
[2024-07-14 10:36] LABS: BASO % 0.3 % (0-2.0); EOS % 1.9 % (0-4.5); HEMOGLOBIN 12.5 GM/dL (11.7-16.9); LYMPH % 14.8 % (8-40); MCH 27.3 pg (25.7-33.7); MCHC 31.4 g/dl (32.0-35.9); MEAN CELL VOLUME 87.1 fl (80-96); MEAN PLT VOLUME 7.4 fl (7.5-11.1); MONO % 7.6 % (3.8-10.2); NEUT % 75.4 % (42.8-82.8); PLATELET COUNT 93 10^3/uL (134-434); RBC 4.59 M/mm3 (4.00-5.60); RDW 14.9 % (11.9-15.9); WHITE BLOOD COUNT 4.9 K/mm3 (4.0-10.0)
[2024-07-14 10:57] LABS: POTASSIUM 3.5 mmol/L (3.5-5.1)
[2024-07-14 11:01] LABS: BLOOD UREA NITROGEN 15.8 mg/dL (7-18); CALCIUM 9.1 mg/dL (8.5-10.1)
[2024-07-14 11:05] LABS: CREATININE 0.7 mg/dL (0.55-1.3)
[2024-07-15 05:15] VITALS: RESP 18
[2024-07-15 09:00] LABS: BASO % 0.1 % (0-2.0); EOS % 1.8 % (0-4.5); HEMATOCRIT 39.3 % (35.4-49); HEMOGLOBIN 13.1 GM/dL (11.7-16.9); LYMPH % 15.9 % (8-40); MCH 28.3 pg (25.7-33.7); MCHC 33.4 g/dl (32.0-35.9); MEAN CELL VOLUME 84.7 fl (80-96); MEAN PLT VOLUME 7.4 fl (7.5-11.1); MONO % 8.6 % (3.8-10.2); NEUT % 73.6 % (42.8-82.8); PLATELET COUNT 86 10^3/uL (134-434); RBC 4.65 M/mm3 (4.00-5.60); RDW 14.8 % (11.9-15.9); WHITE BLOOD COUNT 5.1 K/mm3 (4.0-10.0)
[2024-07-15 09:17] LABS: POTASSIUM 3.6 mmol/L (3.5-5.1)
[2024-07-15 09:19] LABS: BLOOD UREA NITROGEN 15.7 mg/dL (7-18)
[2024-07-15 09:23] LABS: CREATININE 0.6 mg/dL (0.55-1.3)
[2024-07-15 13:56] VITALS: BP 128/64; PULSE 78; TEMP 98.6
== END 2024-07-15 14:00 | disposition home or self-care (01) | DRG 189 ==
LOC: JER 18:25 → JERBED 21:53 → J4W 06-30 17:30 → J6S 07-02 14:39
PROVIDERS: ADMIT Internal Medicine; ATTEND Internal Medicine
DX: J96.01 Acute respiratory failure with hypoxia (principal); J18.9 Pneumonia, unspecified organism; I50.33 Acute on chronic diastolic (congestive) heart failure; J44.1 Chronic obstructive pulmonary disease with (acute) exacerbation; J44.0 Chronic obstructive pulmonary disease with (acute) lower respiratory infection; J96.02 Acute respiratory failure with hypercapnia; I27.20 Pulmonary hypertension, unspecified; D69.6 Thrombocytopenia, unspecified; I25.10 Atherosclerotic heart disease of native coronary artery without angina pectoris; R60.0 Localized edema; E11.9 Type 2 diabetes mellitus without complications; G47.00 Insomnia, unspecified; E83.42 Hypomagnesemia; R94.31 Abnormal electrocardiogram [ECG] [EKG]; R26.81 Unsteadiness on feet; E87.6 Hypokalemia; I11.0 Hypertensive heart disease with heart failure; E66.9 Obesity, unspecified; Z68.38 Body mass index [BMI] 38.0-38.9, adult; G47.33 Obstructive sleep apnea (adult) (pediatric); E78.5 Hyperlipidemia, unspecified; K21.9 Gastro-esophageal reflux disease without esophagitis; Z99.81 Dependence on supplemental oxygen; Z85.118 Personal history of other malignant neoplasm of bronchus and lung
CPT/HCPCS: 0241U-QW; 36415; 71045-TC-FY; 71250-TC; 80048; 80053; 82803; 82962; 83735; 83880; 84484; 85025; 85610; 85730; 87040; 87070; 87205; 87633; 87899; 90656; 93005; 93010; 94640; 94660; 97116-GP; 97161-GP; 99285-25; G0008

== ENCOUNTER 2024-09-01 14:02 | Inpatient (IN) | payer OTHER ==
[2024-09-01] MEDS ORDERED: methylPREDNISolone NA SUCC 125 MG/2 ML VIAL ONE (15:42)
[2024-09-01] MEDS ORDERED: ALBUTEROL SO4 2.5/IPRATROPIUM 0.5 INH SOL 3 ML VIAL.NEB. NEB ONE (15:42)
[2024-09-01] MEDS ORDERED: MAGNESIUM SULFATE IN WATER 2 GM/50 ML IVPB IVPB ONE (15:42)
[2024-09-01] MEDS: ALBUTEROL SO4 2.5/IPRATROPIUM 0.5 INH SOL 3 ML VIAL.NEB. NEB SCH (15:45)
[2024-09-01] MEDS: methylPREDNISolone NA SUCC 125 MG/2 ML VIAL IVPUSH ONE (16:10)
[2024-09-01 16:17] LABS: BASO % 0.3 % (0-2.0); EOS % 3.3 % (0-4.5); HEMATOCRIT 38.7 % (35.4-49); HEMOGLOBIN 12.6 GM/dL (11.7-16.9); LYMPH % 13.6 % (8-40); MCH 27.2 pg (25.7-33.7); MCHC 32.5 g/dl (32.0-35.9); MEAN CELL VOLUME 83.7 fl (80-96); MEAN PLT VOLUME 6.1 fl (7.5-11.1); MONO % 11.8 % (3.8-10.2); PLATELET COUNT 100 10^3/uL (134-434); RBC 4.63 M/mm3 (4.00-5.60); RDW 14.7 % (11.9-15.9); WHITE BLOOD COUNT 3.6 K/mm3 (4.0-10.0)
[2024-09-01 16:22] LABS: VENOUS BASE EXCESS 22.4 mmol/L (-2-2); VENOUS O2 SATURATION 59.1 % (70-80); VENOUS PH 7.25 (7.310-7.410)
[2024-09-01 16:26] LABS: INR 1.05 (0.83-1.09); PROTHROMBIN TIME (PATIENT) 11.5 SEC (9.7-13.0)
[2024-09-01 16:29] LABS: ACTIVATED PTT 37.6 SECONDS (25.2-36.5)
[2024-09-01 16:42] LABS: POTASSIUM 3.8 mmol/L (3.5-5.1)
[2024-09-01 16:44] LABS: ALBUMIN 3.7 g/dl (3.4-5.0); BLOOD UREA NITROGEN 10.4 mg/dL (7-18); CALCIUM 9.2 mg/dL (8.5-10.1)
[2024-09-01 16:48] LABS: BILIRUBIN,TOTAL 0.5 mg/dL (0.2-1); CREATININE 0.6 mg/dL (0.55-1.3); TOT PROT 7.6 g/dl (6.4-8.2)
[2024-09-01] MEDS: MAGNESIUM SULF 50% (8.12 MEQ/2 ML-1 GM VIAL) IVPB ONE (16:51)
[2024-09-01 18:24] LABS: VENOUS BASE EXCESS 19.9 mmol/L (-2-2); VENOUS O2 SATURATION 65.3 % (70-80); VENOUS PH 7.266 (7.310-7.410)
[2024-09-01 18:30] LABS: VENOUS PCO2 118.3 mmHg (38-52)
[2024-09-01] MEDS ORDERED: CEFAZOLIN 1 GM/D5W 1 GM/50 ML BAG ONE (19:25)
[2024-09-01] MEDS: CEFAZOLIN 1 GM in DEXTROSE 5%-WATER - 50 ML IVPB ONE (19:31)
[2024-09-01] MEDS: HEPARIN NA (PORCINE) 5,000 UNITS/ML 1ML VIAL SQ SCH (22:21)
[2024-09-01] MEDS: FUROSEMIDE 40 MG/4 ML INJECTABLE VIAL IVPUSH ONE (22:21)
[2024-09-01] MEDS: PANTOPRAZOLE 40 MG TABLET PO SCH (22:22)
[2024-09-01] MEDS: INSULIN (LEVEMIR) 100 UNITS/ML UNITS SQ SCH (22:22)
[2024-09-01] MEDS: INSULIN ASPART SLIDING SCALE (NOVOLOG) 1 VIAL SQ SCH (22:22)
[2024-09-01] MEDS: ATORVASTATIN CA 40 MG TABLET (FP) PO SCH (22:22)
[2024-09-02 01:17] VITALS: BMI 35.7
[2024-09-02] MEDS: FUROSEMIDE 40 MG/4 ML INJECTABLE VIAL IVPUSH SCH (05:58)
[2024-09-02] MEDS ORDERED: ALBUTEROL SO4 2.5/IPRATROPIUM 0.5 INH SOL 3 ML VIAL.NEB. NEB SCH (08:00)
[2024-09-02 08:40] LABS: EOS % 0.4 % (0-4.5); HEMATOCRIT 39.2 % (35.4-49); HEMOGLOBIN 12.3 GM/dL (11.7-16.9); LYMPH % 12.1 % (8-40); MCH 26.9 pg (25.7-33.7); MCHC 31.3 g/dl (32.0-35.9); MEAN PLT VOLUME 6.7 fl (7.5-11.1); NEUT % 75.5 % (42.8-82.8); PLATELET COUNT 106 10^3/uL (134-434); RBC 4.56 M/mm3 (4.00-5.60); RDW 14.7 % (11.9-15.9); WHITE BLOOD COUNT 3.4 K/mm3 (4.0-10.0)
[2024-09-02 09:02] LABS: CHLORIDE 84 mmol/L (98-107); POTASSIUM 3.8 mmol/L (3.5-5.1); SODIUM 138 mmol/L (136-145)
[2024-09-02 09:14] LABS: CALCIUM 9.7 mg/dL (8.5-10.1)
[2024-09-02 09:15] LABS: BLOOD UREA NITROGEN 13.8 mg/dL (7-18); GLUCOSE,RANDOM 95 mg/dL (74-106); MAGNESIUM 1.9 mg/dL (1.8-2.4)
[2024-09-02 09:18] LABS: CREATININE 0.6 mg/dL (0.55-1.3)
[2024-09-02 09:20] LABS: ANION GAP 9 mmol/L (4-13); CO2 > 45 mmol/L (21-32)
[2024-09-02] MEDS: methylPREDNISolone NA SUCC 40 MG/1 ML VIAL IVPB SCH (10:22)
[2024-09-02] MEDS: ALBUTEROL SO4 2.5/IPRATROPIUM 0.5 INH SOL 3 ML VIAL.NEB. NEB PRN (17:18)
[2024-09-02] MEDS: CEFTRIAXONE 2 GM-D5W BAG 2 GM/50 ML BAG IVPB SCH (18:07)
[2024-09-03] MEDS: MELATONIN 5 MG TABLETS PO PRN (03:08)
[2024-09-03] MEDS: methylPREDNISolone NA SUCC 1000 MG/8 ML VIAL IVPB SCH (07:43)
[2024-09-03 07:53] LABS: BASO % 0.1 % (0-2.0); EOS % 0.4 % (0-4.5); HEMATOCRIT 34.9 % (35.4-49); HEMOGLOBIN 11.6 GM/dL (11.7-16.9); LYMPH % 8.7 % (8-40); MCH 27.6 pg (25.7-33.7); MCHC 33.1 g/dl (32.0-35.9); MEAN CELL VOLUME 83.3 fl (80-96); MEAN PLT VOLUME 6.7 fl (7.5-11.1); MONO % 5.2 % (3.8-10.2); NEUT % 85.6 % (42.8-82.8); PLATELET COUNT 88 10^3/uL (134-434); RDW 14.9 % (11.9-15.9)
[2024-09-03 08:07] LABS: CHLORIDE 83 mmol/L (98-107); POTASSIUM 4.1 mmol/L (3.5-5.1); SODIUM 134 mmol/L (136-145)
[2024-09-03 08:11] LABS: BLOOD UREA NITROGEN 15.5 mg/dL (7-18); CALCIUM 9.4 mg/dL (8.5-10.1); GLUCOSE,RANDOM 154 mg/dL (74-106)
[2024-09-03 08:12] LABS: ANION GAP 6 mmol/L (4-13); CO2 > 45 mmol/L (21-32)
[2024-09-03 08:14] LABS: CREATININE 0.5 mg/dL (0.55-1.3)
[2024-09-04 08:29] LABS: CHLORIDE 83 mmol/L (98-107); POTASSIUM 3.6 mmol/L (3.5-5.1); SODIUM 135 mmol/L (136-145)
[2024-09-04 08:43] LABS: BASO % 0.1 % (0-2.0); EOS % 0.1 % (0-4.5); HEMATOCRIT 37.1 % (35.4-49); HEMOGLOBIN 12.1 GM/dL (11.7-16.9); LYMPH % 8.9 % (8-40); MCH 27.4 pg (25.7-33.7); MCHC 32.5 g/dl (32.0-35.9); MEAN CELL VOLUME 84.3 fl (80-96); MEAN PLT VOLUME 6.8 fl (7.5-11.1); MONO % 5.2 % (3.8-10.2); NEUT % 85.7 % (42.8-82.8); PLATELET COUNT 102 10^3/uL (134-434); RDW 14.4 % (11.9-15.9); WHITE BLOOD COUNT 3.3 K/mm3 (4.0-10.0)
[2024-09-04 08:45] LABS: CALCIUM 9.1 mg/dL (8.5-10.1); GLUCOSE,RANDOM 155 mg/dL (74-106)
[2024-09-04 08:46] LABS: BLOOD UREA NITROGEN 18.1 mg/dL (7-18)
[2024-09-04 08:48] LABS: CREATININE 0.6 mg/dL (0.55-1.3)
[2024-09-04 09:06] LABS: ANION GAP 7 mmol/L (4-13); CO2 > 45 mmol/L (21-32)
[2024-09-04] MEDS: ACETAMINOPHEN 325 MG TABLET (FP) PO PRN (10:15)
[2024-09-04] MEDS: INSULIN ASPART SLIDING SCALE (NOVOLOG) 1 VIAL SQ SCH (11:39)
[2024-09-04] MEDS: POTASSIUM CHLORIDE TABS 20 MEQ TABLET.ER (FP) PO SCH (11:39)
[2024-09-05] MEDS ORDERED: INSULIN (LEVEMIR) 100 UNITS/ML UNITS SQ ONE (06:47)
[2024-09-05] MEDS ORDERED: INSULIN ASPART SLIDING SCALE (NOVOLOG) 1 VIAL SQ ONE (06:47)
[2024-09-05 08:02] LABS: HEMATOCRIT 38.2 % (35.4-49); HEMOGLOBIN 12.2 GM/dL (11.7-16.9); MCH 27.2 pg (25.7-33.7); MEAN PLT VOLUME 6.8 fl (7.5-11.1); NEUT % 84.4 % (42.8-82.8); PLATELET COUNT 93 10^3/uL (134-434); RBC 4.49 M/mm3 (4.00-5.60); RDW 14.8 % (11.9-15.9); WHITE BLOOD COUNT 3.1 K/mm3 (4.0-10.0)
[2024-09-05 08:03] LABS: EOS % 0.2 % (0-4.5); LYMPH % 8.6 % (8-40); MONO % 6.8 % (3.8-10.2)
[2024-09-05 08:04] LABS: CHLORIDE 84 mmol/L (98-107); POTASSIUM 4.2 mmol/L (3.5-5.1); SODIUM 137 mmol/L (136-145)
[2024-09-05 08:08] LABS: CALCIUM 9.6 mg/dL (8.5-10.1)
[2024-09-05 08:09] LABS: BLOOD UREA NITROGEN 20.1 mg/dL (7-18); GLUCOSE,RANDOM 155 mg/dL (74-106); MAGNESIUM 1.9 mg/dL (1.8-2.4)
[2024-09-05 08:12] LABS: CREATININE 0.6 mg/dL (0.55-1.3)
[2024-09-05 08:22] LABS: ANION GAP 8 mmol/L (4-13); CO2 > 45 mmol/L (21-32)
[2024-09-06 07:46] LABS: EOS % 0.5 % (0-4.5); HEMATOCRIT 38.3 % (35.4-49); HEMOGLOBIN 12.6 GM/dL (11.7-16.9); LYMPH % 8.4 % (8-40); MCH 27.7 pg (25.7-33.7); MCHC 32.8 g/dl (32.0-35.9); MEAN CELL VOLUME 84.3 fl (80-96); MEAN PLT VOLUME 6.9 fl (7.5-11.1); MONO % 5.4 % (3.8-10.2); NEUT % 85.7 % (42.8-82.8); PLATELET COUNT 90 10^3/uL (134-434); RBC 4.54 M/mm3 (4.00-5.60); RDW 14.8 % (11.9-15.9); WHITE BLOOD COUNT 3.8 K/mm3 (4.0-10.0)
[2024-09-06 08:02] LABS: CHLORIDE 82 mmol/L (98-107); SODIUM 135 mmol/L (136-145)
[2024-09-06 08:05] LABS: CALCIUM 9.3 mg/dL (8.5-10.1); GLUCOSE,RANDOM 164 mg/dL (74-106)
[2024-09-06 08:06] LABS: BLOOD UREA NITROGEN 22.7 mg/dL (7-18)
[2024-09-06 08:09] LABS: CREATININE 0.6 mg/dL (0.55-1.3)
[2024-09-06 08:18] LABS: ANION GAP 8 mmol/L (4-13); CO2 > 45 mmol/L (21-32)
[2024-09-06] MEDS ORDERED: INSULIN (LEVEMIR) 100 UNITS/ML UNITS SQ SCH ×2 (09:31→22:00)
[2024-09-06] MEDS: INSULIN (LEVEMIR) 100 UNITS/ML UNITS SQ SCH (21:42)
[2024-09-07 08:03] LABS: EOS % 0.5 % (0-4.5); HEMATOCRIT 38.6 % (35.4-49); HEMOGLOBIN 12.2 GM/dL (11.7-16.9); LYMPH % 8.9 % (8-40); MCH 26.9 pg (25.7-33.7); MCHC 31.7 g/dl (32.0-35.9); MEAN CELL VOLUME 84.9 fl (80-96); MONO % 5.9 % (3.8-10.2); NEUT % 84.7 % (42.8-82.8); PLATELET COUNT 86 10^3/uL (134-434); RBC 4.55 M/mm3 (4.00-5.60); RDW 14.6 % (11.9-15.9); WHITE BLOOD COUNT 3.9 K/mm3 (4.0-10.0)
[2024-09-07 08:16] LABS: CHLORIDE 82 mmol/L (98-107); SODIUM 135 mmol/L (136-145)
[2024-09-07 08:19] LABS: CALCIUM 9.4 mg/dL (8.5-10.1)
[2024-09-07 08:20] LABS: BLOOD UREA NITROGEN 21.4 mg/dL (7-18); GLUCOSE,RANDOM 155 mg/dL (74-106)
[2024-09-07 08:21] LABS: ANION GAP 8 mmol/L (4-13); CO2 > 45 mmol/L (21-32)
[2024-09-07 08:24] LABS: CREATININE 0.6 mg/dL (0.55-1.3)
[2024-09-07] MEDS: methylPREDNISolone NA SUCC 40 MG/1 ML VIAL IVPB SCH (21:43)
[2024-09-07] MEDS: INSULIN (LEVEMIR) 100 UNITS/ML UNITS SQ SCH (22:00)
[2024-09-08 07:25] LABS: EOS % 0.8 % (0-4.5); HEMOGLOBIN 12.1 GM/dL (11.7-16.9); LYMPH % 10.6 % (8-40); MCH 27.5 pg (25.7-33.7); MCHC 32.7 g/dl (32.0-35.9); MEAN PLT VOLUME 7.4 fl (7.5-11.1); MONO % 6.9 % (3.8-10.2); NEUT % 81.7 % (42.8-82.8); PLATELET COUNT 78 10^3/uL (134-434); RBC 4.41 M/mm3 (4.00-5.60); RDW 14.7 % (11.9-15.9); WHITE BLOOD COUNT 4.7 K/mm3 (4.0-10.0)
[2024-09-08] MEDS ORDERED: INSULIN (LEVEMIR) 100 UNITS/ML UNITS SQ SCH (07:26)
[2024-09-08 07:41] LABS: CHLORIDE 85 mmol/L (98-107); POTASSIUM 4.2 mmol/L (3.5-5.1); SODIUM 134 mmol/L (136-145)
[2024-09-08 07:44] LABS: CALCIUM 8.9 mg/dL (8.5-10.1)
[2024-09-08 07:45] LABS: BLOOD UREA NITROGEN 21.9 mg/dL (7-18); GLUCOSE,RANDOM 150 mg/dL (74-106)
[2024-09-08 07:48] LABS: CREATININE 0.6 mg/dL (0.55-1.3)
[2024-09-08 07:49] LABS: ANION GAP 4 mmol/L (4-13); CO2 > 45 mmol/L (21-32)
[2024-09-08] MEDS: ALBUTEROL SO4 2.5/IPRATROPIUM 0.5 INH SOL 3 ML VIAL.NEB. NEB PRN (18:35)
[2024-09-08] MEDS: HEPARIN NA (PORCINE) 5,000 UNITS/ML 1ML VIAL SQ SCH (21:44)
[2024-09-08] MEDS: INSULIN (LEVEMIR) 100 UNITS/ML UNITS SQ SCH (21:45)
[2024-09-08] MEDS: ATORVASTATIN CA 40 MG TABLET (FP) PO SCH (21:45)
[2024-09-08] MEDS: PANTOPRAZOLE 40 MG TABLET PO SCH (21:46)
[2024-09-08] MEDS: methylPREDNISolone NA SUCC 40 MG/1 ML VIAL IVPB SCH (21:46)
[2024-09-08] MEDS: INSULIN ASPART SLIDING SCALE (NOVOLOG) 1 VIAL SQ SCH (22:11)
[2024-09-08] MEDS: MELATONIN 5 MG TABLETS PO PRN (23:53)
[2024-09-09] MEDS: ACETAMINOPHEN 325 MG TABLET (FP) PO PRN (02:20)
[2024-09-09] MEDS: FUROSEMIDE 40 MG/4 ML INJECTABLE VIAL IVPUSH SCH (06:24)
[2024-09-09] MEDS ORDERED: MELATONIN 5 MG TABLETS PO PRN (08:19)
[2024-09-09 09:15] LABS: BASO % 0.1 % (0-2.0); HEMATOCRIT 40.4 % (35.4-49); HEMOGLOBIN 12.8 GM/dL (11.7-16.9); LYMPH % 14.3 % (8-40); MCH 26.9 pg (25.7-33.7); MCHC 31.7 g/dl (32.0-35.9); MEAN CELL VOLUME 85.1 fl (80-96); MEAN PLT VOLUME 7.4 fl (7.5-11.1); MONO % 7.3 % (3.8-10.2); NEUT % 77.3 % (42.8-82.8); PLATELET COUNT 83 10^3/uL (134-434); RBC 4.75 M/mm3 (4.00-5.60); RDW 14.6 % (11.9-15.9)
[2024-09-09] MEDS: POTASSIUM CHLORIDE TABS 20 MEQ TABLET.ER (FP) PO SCH (09:41)
[2024-09-09] MEDS: CEFTRIAXONE 2 GM-D5W BAG 2 GM/50 ML BAG IVPB SCH (09:43)
[2024-09-09 09:44] LABS: CHLORIDE 83 mmol/L (98-107); POTASSIUM 3.9 mmol/L (3.5-5.1); SODIUM 133 mmol/L (136-145)
[2024-09-09 09:49] LABS: CALCIUM 9.3 mg/dL (8.5-10.1)
[2024-09-09 09:50] LABS: BLOOD UREA NITROGEN 23.1 mg/dL (7-18); GLUCOSE,RANDOM 105 mg/dL (74-106); MAGNESIUM 1.9 mg/dL (1.8-2.4)
[2024-09-09 09:53] LABS: CREATININE 0.6 mg/dL (0.55-1.3)
[2024-09-09 10:17] LABS: ANION GAP 6 mmol/L (4-13); CO2 > 45 mmol/L (21-32)
[2024-09-09] MEDS: MAGNESIUM 2GM/50ML STERILE WATER IVPB IVPB ONE (14:14)
[2024-09-09 20:24] VITALS: RESP 18
[2024-09-09] MEDS: CEFUROXIME AXETIL 500 MG TABLET PO SCH (21:08)
[2024-09-10 09:54] LABS: EOS % 0.9 % (0-4.5); HEMATOCRIT 42.8 % (35.4-49); HEMOGLOBIN 13.6 GM/dL (11.7-16.9); LYMPH % 15.9 % (8-40); MCHC 31.7 g/dl (32.0-35.9); MEAN CELL VOLUME 85.2 fl (80-96); MEAN PLT VOLUME 7.6 fl (7.5-11.1); MONO % 7.3 % (3.8-10.2); NEUT % 75.9 % (42.8-82.8); PLATELET COUNT 86 10^3/uL (134-434); RBC 5.02 M/mm3 (4.00-5.60); RDW 14.8 % (11.9-15.9); WHITE BLOOD COUNT 5.9 K/mm3 (4.0-10.0)
[2024-09-10 10:02] LABS: CHLORIDE 82 mmol/L (98-107); POTASSIUM 3.7 mmol/L (3.5-5.1); SODIUM 134 mmol/L (136-145)
[2024-09-10 10:04] LABS: BLOOD UREA NITROGEN 19.5 mg/dL (7-18); CALCIUM 9.2 mg/dL (8.5-10.1); GLUCOSE,RANDOM 176 mg/dL (74-106)
[2024-09-10 10:08] LABS: CREATININE 0.7 mg/dL (0.55-1.3)
[2024-09-10 10:10] LABS: ANION GAP 7 mmol/L (4-13); CO2 > 45 mmol/L (21-32)
[2024-09-11] MEDS: predniSONE 20 MG TABLET (UD) PO SCH (09:11)
[2024-09-11 09:49] LABS: BASO % 0.1 % (0-2.0); EOS % 0.7 % (0-4.5); HEMATOCRIT 41.3 % (35.4-49); HEMOGLOBIN 13.7 GM/dL (11.7-16.9); LYMPH % 11.3 % (8-40); MCH 27.8 pg (25.7-33.7); MCHC 33.1 g/dl (32.0-35.9); MEAN PLT VOLUME 7.7 fl (7.5-11.1); MONO % 6.8 % (3.8-10.2); NEUT % 81.1 % (42.8-82.8); PLATELET COUNT 82 10^3/uL (134-434); RBC 4.91 M/mm3 (4.00-5.60); RDW 15.1 % (11.9-15.9); WHITE BLOOD COUNT 5.5 K/mm3 (4.0-10.0)
[2024-09-11 10:28] LABS: CHLORIDE 87 mmol/L (98-107); POTASSIUM 4.2 mmol/L (3.5-5.1); SODIUM 136 mmol/L (136-145)
[2024-09-11 10:30] LABS: CALCIUM 9.3 mg/dL (8.5-10.1)
[2024-09-11 10:31] LABS: BLOOD UREA NITROGEN 20.7 mg/dL (7-18); GLUCOSE,RANDOM 122 mg/dL (74-106)
[2024-09-11 10:33] LABS: ANION GAP 4 mmol/L (4-13); CO2 > 45 mmol/L (21-32); CREATININE 0.6 mg/dL (0.55-1.3)
[2024-09-12 10:02] VITALS: BP 123/65; PULSE 80; TEMP 98.2
== END 2024-09-12 13:59 | disposition home or self-care (01) | DRG 291 ==
LOC: JER 14:02 → JERBED 19:23 → J4W 09-02 01:50 → J5S 09-08 17:52
PROVIDERS: ADMIT Internal Medicine; ATTEND Internal Medicine
DX: I11.0 Hypertensive heart disease with heart failure (principal); I50.33 Acute on chronic diastolic (congestive) heart failure; J96.22 Acute and chronic respiratory failure with hypercapnia; J96.21 Acute and chronic respiratory failure with hypoxia; J44.1 Chronic obstructive pulmonary disease with (acute) exacerbation; I27.20 Pulmonary hypertension, unspecified; G47.33 Obstructive sleep apnea (adult) (pediatric); Z99.81 Dependence on supplemental oxygen; D69.6 Thrombocytopenia, unspecified; E83.42 Hypomagnesemia; E11.9 Type 2 diabetes mellitus without complications
CPT/HCPCS: 0241U-QW; 36415; 71045-TC-FY; 73610-TC-LT-FY; 73630-TC-LT; 80048; 80053; 82803; 82962; 83735; 83880; 84484; 85025; 85610; 85730; 87070; 87205; 87899; 93005; 93010; 93970-TC; 94640; 94660; 99285-25; J1644

== ENCOUNTER 2024-09-27 18:49 | Inpatient (IN) | payer OTHER ==
[2024-09-27] MEDS ORDERED: ALBUTEROL SO4 2.5/IPRATROPIUM 0.5 INH SOL 3 ML VIAL.NEB. NEB ONE (19:36)
[2024-09-27] MEDS: ALBUTEROL SO4 2.5/IPRATROPIUM 0.5 INH SOL 3 ML VIAL.NEB. NEB ONE (19:40)
[2024-09-27 21:02] LABS: BASO % 0.1 % (0-2.0); EOS % 0.9 % (0-4.5); HEMOGLOBIN 11.5 GM/dL (11.7-16.9); LYMPH % 9.8 % (8-40); MCH 27.7 pg (25.7-33.7); MCHC 32.8 g/dl (32.0-35.9); MEAN CELL VOLUME 84.7 fl (80-96); MONO % 7.3 % (3.8-10.2); NEUT % 81.9 % (42.8-82.8); PLATELET COUNT 107 10^3/uL (134-434); RBC 4.13 M/mm3 (4.00-5.60); RDW 15.7 % (11.9-15.9); WHITE BLOOD COUNT 3.6 K/mm3 (4.0-10.0)
[2024-09-27 21:15] LABS: VENOUS BASE EXCESS 16.2 mmol/L (-2-2); VENOUS O2 SATURATION 85.3 % (70-80); VENOUS PCO2 68.6 mmHg (38-52); VENOUS PH 7.421 (7.310-7.410)
[2024-09-27 21:20] LABS: CHLORIDE 87 mmol/L (98-107); POTASSIUM 3.9 mmol/L (3.5-5.1); SODIUM 137 mmol/L (136-145)
[2024-09-27 21:22] LABS: CALCIUM 8.6 mg/dL (8.5-10.1); GLUCOSE,RANDOM 177 mg/dL (74-106)
[2024-09-27 21:23] LABS: ALBUMIN 3.2 g/dl (3.4-5.0); BLOOD UREA NITROGEN 21.4 mg/dL (7-18)
[2024-09-27 21:26] LABS: CREATININE 0.7 mg/dL (0.55-1.3); SGOT/AST 12 U/L (15-37); SGPT/ALT 18 U/L (13-61)
[2024-09-27 21:27] LABS: BILIRUBIN,TOTAL 0.5 mg/dL (0.2-1); TOT PROT 6.3 g/dl (6.4-8.2)
[2024-09-27 21:29] LABS: ALK PHOS 53 U/L (45-117)
[2024-09-27 21:30] LABS: ANION GAP 5 mmol/L (4-13); CO2 > 45 mmol/L (21-32)
[2024-09-27] MEDS ORDERED: methylPREDNISolone NA SUCC 125 MG/2 ML VIAL ONE (21:32)
[2024-09-27] MEDS ORDERED: ACETAMINOPHEN INJECTION 100 ML ONE (21:32)
[2024-09-27] MEDS ORDERED: FAMOTIDINE 20 MG/50 ML IVPB 20 MG/50 ML MG IVPB ONE (21:33)
[2024-09-27] MEDS: methylPREDNISolone NA SUCC 125 MG/2 ML VIAL IVPUSH ONE (21:40)
[2024-09-27] MEDS: ACETAMINOPHEN 1000 MG/100 ML BAG IVPB ONE (21:41)
[2024-09-27] MEDS: FAMOTIDINE 20 MG/50 ML IVPB 20 MG/50 ML MG IVPB ONE (21:41)
[2024-09-28] MEDS: PANTOPRAZOLE 40 MG TABLET PO SCH (02:58)
[2024-09-28] MEDS ORDERED: PANTOPRAZOLE 40 MG TABLET PO ONE (02:59)
[2024-09-28] MEDS: methylPREDNISolone NA SUCC 40 MG/1 ML VIAL IVPB SCH (03:09)
[2024-09-28 04:42] VITALS: BMI 37.9
[2024-09-28] MEDS: FUROSEMIDE 40 MG/4 ML INJECTABLE VIAL IVPUSH SCH (06:11)
[2024-09-28] MEDS: INSULIN ASPART SLIDING SCALE (NOVOLOG) 1 VIAL SQ SCH (06:11)
[2024-09-28] MEDS: INSULIN GLARGINE (LANTUS) 100 UNITS/ML UNITS SQ SCH (06:11)
[2024-09-28] MEDS: ALBUTEROL SO4 2.5/IPRATROPIUM 0.5 INH SOL 3 ML VIAL.NEB. NEB SCH (07:30)
[2024-09-28 08:29] LABS: BASO % 0.1 % (0-2.0); EOS % 0.3 % (0-4.5); HEMATOCRIT 35.4 % (35.4-49); HEMOGLOBIN 11.8 GM/dL (11.7-16.9); LYMPH % 6.5 % (8-40); MCHC 33.3 g/dl (32.0-35.9); MEAN CELL VOLUME 83.9 fl (80-96); MEAN PLT VOLUME 6.3 fl (7.5-11.1); MONO % 2.7 % (3.8-10.2); NEUT % 90.4 % (42.8-82.8); PLATELET COUNT 101 10^3/uL (134-434); RBC 4.22 M/mm3 (4.00-5.60); RDW 15.5 % (11.9-15.9); WHITE BLOOD COUNT 2.9 K/mm3 (4.0-10.0)
[2024-09-28 09:13] LABS: ANION GAP 5 mmol/L (4-13); BLOOD UREA NITROGEN 15.3 mg/dL (7-18); CALCIUM 8.9 mg/dL (8.5-10.1); CHLORIDE 86 mmol/L (98-107); CO2 > 45 mmol/L (21-32); CREATININE 0.6 mg/dL (0.55-1.3); GLUCOSE,RANDOM 191 mg/dL (74-106); POTASSIUM 3.6 mmol/L (3.5-5.1); SODIUM 136 mmol/L (136-145)
[2024-09-28] MEDS: methylPREDNISolone NA SUCC 40 MG/1 ML VIAL IVPUSH SCH (10:20)
[2024-09-28] MEDS: HEPARIN NA (PORCINE) 5,000 UNITS/ML 1ML VIAL SQ SCH (10:20)
[2024-09-28] MEDS: CEFTRIAXONE 2 GM-D5W BAG 2 GM/50 ML BAG IVPB SCH (20:51)
[2024-09-28] MEDS: ATORVASTATIN CA 40 MG TABLET (FP) PO SCH (21:11)
[2024-09-28] MEDS ORDERED: ATORVASTATIN CA 20 MG TABLET (FP) PO SCH (22:00)
[2024-09-29 07:55] LABS: EOS % 0.1 % (0-4.5); HEMATOCRIT 35.1 % (35.4-49); HEMOGLOBIN 11.6 GM/dL (11.7-16.9); LYMPH % 7.7 % (8-40); MCHC 32.9 g/dl (32.0-35.9); MEAN PLT VOLUME 6.3 fl (7.5-11.1); MONO % 4.3 % (3.8-10.2); NEUT % 87.9 % (42.8-82.8); PLATELET COUNT 111 10^3/uL (134-434); RBC 4.13 M/mm3 (4.00-5.60); RDW 15.5 % (11.9-15.9); WHITE BLOOD COUNT 3.2 K/mm3 (4.0-10.0)
[2024-09-29 10:28] LABS: ANION GAP 4 mmol/L (4-13); BLOOD UREA NITROGEN 16.6 mg/dL (7-18); CALCIUM 8.9 mg/dL (8.5-10.1); CHLORIDE 86 mmol/L (98-107); CO2 > 45 mmol/L (21-32); CREATININE 0.6 mg/dL (0.55-1.3); GLUCOSE,RANDOM 166 mg/dL (74-106); POTASSIUM 4.1 mmol/L (3.5-5.1); SODIUM 135 mmol/L (136-145)
[2024-09-29] MEDS: methylPREDNISolone NA SUCC 40 MG/1 ML VIAL IVPUSH SCH (21:42)
[2024-09-29] MEDS: MELATONIN 5 MG TABLETS PO PRN (21:42)
[2024-09-30 06:53] LABS: BASO % 0.1 % (0-2.0); EOS % 0.3 % (0-4.5); HEMATOCRIT 36.9 % (35.4-49); HEMOGLOBIN 11.9 GM/dL (11.7-16.9); MCH 27.7 pg (25.7-33.7); MCHC 32.3 g/dl (32.0-35.9); MEAN PLT VOLUME 6.3 fl (7.5-11.1); MONO % 6.4 % (3.8-10.2); NEUT % 83.2 % (42.8-82.8); PLATELET COUNT 134 10^3/uL (134-434); RBC 4.29 M/mm3 (4.00-5.60); RDW 15.4 % (11.9-15.9); WHITE BLOOD COUNT 3.4 K/mm3 (4.0-10.0)
[2024-09-30 07:24] LABS: CHLORIDE 88 mmol/L (98-107); POTASSIUM 4.1 mmol/L (3.5-5.1); SODIUM 138 mmol/L (136-145)
[2024-09-30 07:27] LABS: CALCIUM 8.7 mg/dL (8.5-10.1)
[2024-09-30 07:28] LABS: BLOOD UREA NITROGEN 18.4 mg/dL (7-18); GLUCOSE,RANDOM 139 mg/dL (74-106)
[2024-09-30 07:31] LABS: CREATININE 0.6 mg/dL (0.55-1.3)
[2024-09-30 07:32] LABS: ANION GAP 5 mmol/L (4-13); CO2 > 45 mmol/L (21-32)
[2024-09-30] MEDS: HEPARIN NA (PORCINE) 5,000 UNITS/ML 1ML VIAL SQ SCH (15:46)
[2024-10-01 08:03] LABS: CHLORIDE 86 mmol/L (98-107); POTASSIUM 3.6 mmol/L (3.5-5.1); SODIUM 138 mmol/L (136-145)
[2024-10-01 08:06] LABS: CALCIUM 9.1 mg/dL (8.5-10.1)
[2024-10-01 08:07] LABS: BLOOD UREA NITROGEN 18.6 mg/dL (7-18); GLUCOSE,RANDOM 70 mg/dL (74-106)
[2024-10-01 08:10] LABS: CREATININE 0.6 mg/dL (0.55-1.3)
[2024-10-01 08:11] LABS: ANION GAP 7 mmol/L (4-13); CO2 > 45 mmol/L (21-32)
[2024-10-02 07:55] LABS: ABSOLUTE IMMATURE GRANULOCYTES 0.02 x10^3/uL (0.0-0.031); BASOPHILS # 0.01 x10^3/uL (0.01-0.08); EOSINOPHILS # 0.12 x10^3/uL (0.04-0.54); HEMATOCRIT 40.9 % (40.1-51.0); HEMOGLOBIN 12.3 g/dL (13.7-17.5); MCHC 30.1 g/dl (32.3-36.5); MEAN CELL VOLUME 89.3 fl (79.0-92.2); MEAN PLT VOLUME 9.1 fl (9.4-12.4); MONOCYTE # 0.36 x10^3/uL (0.30-0.82); MONOCYTE % 9.1 % (5.3-12.2); PLATELET COUNT # 126 x10^3/uL (163-337); RDW 14.1 % (12.1-15.9)
[2024-10-02 08:17] LABS: CHLORIDE 86 mmol/L (98-107); POTASSIUM 3.6 mmol/L (3.5-5.1); SODIUM 138 mmol/L (136-145)
[2024-10-02] MEDS: INSULIN GLARGINE (LANTUS) 100 UNITS/ML UNITS SQ ONE (08:17)
[2024-10-02 08:22] LABS: ANION GAP 8 mmol/L (4-13); BLOOD UREA NITROGEN 18.6 mg/dL (7-18); CO2 > 45 mmol/L (21-32)
[2024-10-02 08:23] LABS: GLUCOSE,RANDOM 78 mg/dL (74-106)
[2024-10-02 08:25] LABS: CALCIUM 9.2 mg/dL (8.5-10.1)
[2024-10-02 08:26] LABS: CREATININE 0.5 mg/dL (0.55-1.3)
[2024-10-02] MEDS: methylPREDNISolone NA SUCC 40 MG/1 ML VIAL IVPUSH SCH (09:13)
[2024-10-02] MEDS: INSULIN GLARGINE (LANTUS) 100 UNITS/ML UNITS SQ SCH (22:56)
[2024-10-03 07:47] LABS: ABSOLUTE IMMATURE GRANULOCYTES 0.04 x10^3/uL (0.0-0.031); BASOPHILS # 0.01 x10^3/uL (0.01-0.08); EOSINOPHIL % 3.1 % (0.8-7.0); EOSINOPHILS # 0.16 x10^3/uL (0.04-0.54); HEMOGLOBIN 12.4 g/dL (13.7-17.5); MCHC 30.2 g/dl (32.3-36.5); MEAN CELL VOLUME 89.7 fl (79.0-92.2); MEAN PLT VOLUME 9.1 fl (9.4-12.4); MONOCYTE # 0.58 x10^3/uL (0.30-0.82); MONOCYTE % 11.3 % (5.3-12.2); PLATELET COUNT # 126 x10^3/uL (163-337); RDW 14.2 % (12.1-15.9)
[2024-10-03 08:10] LABS: CHLORIDE 85 mmol/L (98-107); POTASSIUM 3.5 mmol/L (3.5-5.1); SODIUM 138 mmol/L (136-145)
[2024-10-03 08:15] LABS: BLOOD UREA NITROGEN 21.8 mg/dL (7-18); CALCIUM 8.9 mg/dL (8.5-10.1); GLUCOSE,RANDOM 80 mg/dL (74-106); MAGNESIUM 1.9 mg/dL (1.8-2.4)
[2024-10-03 08:19] LABS: CREATININE 0.6 mg/dL (0.55-1.3)
[2024-10-03 08:33] LABS: ANION GAP 8 mmol/L (4-13); CO2 > 45 mmol/L (21-32)
[2024-10-03] MEDS: predniSONE 20 MG TABLET (UD) PO SCH (10:28)
[2024-10-03] MEDS: POTASSIUM CHLORIDE ORAL LIQUID 20 MEQ/15 ML PO ONE (10:31)
[2024-10-03] MEDS: ACETAMINOPHEN 325 MG TABLET (FP) PO PRN (14:37)
[2024-10-04 07:28] LABS: ABSOLUTE IMMATURE GRANULOCYTES 0.03 x10^3/uL (0.0-0.031); BASOPHILS # 0.01 x10^3/uL (0.01-0.08); EOSINOPHIL % 2.4 % (0.8-7.0); EOSINOPHILS # 0.12 x10^3/uL (0.04-0.54); HEMATOCRIT 40.8 % (40.1-51.0); HEMOGLOBIN 12.3 g/dL (13.7-17.5); MCHC 30.1 g/dl (32.3-36.5); MEAN CELL VOLUME 90.1 fl (79.0-92.2); MONOCYTE # 0.45 x10^3/uL (0.30-0.82); PLATELET COUNT # 113 x10^3/uL (163-337); RDW 14.2 % (12.1-15.9)
[2024-10-04 07:41] LABS: CHLORIDE 86 mmol/L (98-107); POTASSIUM 3.7 mmol/L (3.5-5.1); SODIUM 137 mmol/L (136-145)
[2024-10-04 07:51] LABS: BLOOD UREA NITROGEN 18.6 mg/dL (7-18); CALCIUM 8.9 mg/dL (8.5-10.1); GLUCOSE,RANDOM 63 mg/dL (74-106)
[2024-10-04 07:55] LABS: CREATININE 0.5 mg/dL (0.55-1.3)
[2024-10-04 08:06] LABS: ANION GAP 6 mmol/L (4-13); CO2 > 45 mmol/L (21-32)
[2024-10-05 07:27] LABS: CHLORIDE 87 mmol/L (98-107); POTASSIUM 3.5 mmol/L (3.5-5.1); SODIUM 136 mmol/L (136-145)
[2024-10-05 07:35] LABS: BLOOD UREA NITROGEN 18.2 mg/dL (7-18); GLUCOSE,RANDOM 91 mg/dL (74-106)
[2024-10-05 07:38] LABS: CREATININE 0.5 mg/dL (0.55-1.3)
[2024-10-05 07:50] LABS: ABSOLUTE IMMATURE GRANULOCYTES 0.02 x10^3/uL (0.0-0.031); BASOPHILS # 0.01 x10^3/uL (0.01-0.08); EOSINOPHIL % 2.7 % (0.8-7.0); EOSINOPHILS # 0.12 x10^3/uL (0.04-0.54); HEMATOCRIT 40.6 % (40.1-51.0); HEMOGLOBIN 12.3 g/dL (13.7-17.5); MCHC 30.3 g/dl (32.3-36.5); MEAN CELL VOLUME 89.8 fl (79.0-92.2); MEAN PLT VOLUME 9.1 fl (9.4-12.4); MONOCYTE # 0.47 x10^3/uL (0.30-0.82); MONOCYTE % 10.6 % (5.3-12.2); PLATELET COUNT # 106 x10^3/uL (163-337); RDW 14.1 % (12.1-15.9)
[2024-10-05 08:15] LABS: ANION GAP 5 mmol/L (4-13); CO2 > 45 mmol/L (21-32)
[2024-10-05] MEDS: POTASSIUM CHLORIDE ORAL LIQUID 20 MEQ/15 ML PO ONE (08:26)
[2024-10-06 15:19] VITALS: BP 123/57; PULSE 80; RESP 20; TEMP 97.9
== END 2024-10-06 14:12 | disposition home or self-care (01) | DRG 291 ==
LOC: JER 18:49 → OBSVTOIN 09-28 01:52 → JERBED 09-28 01:52 → J4W 09-28 03:54
PROVIDERS: ADMIT Internal Medicine; ATTEND Internal Medicine
DX: I11.0 Hypertensive heart disease with heart failure (principal); I50.33 Acute on chronic diastolic (congestive) heart failure; J44.1 Chronic obstructive pulmonary disease with (acute) exacerbation; D61.818 Other pancytopenia; L03.115 Cellulitis of right lower limb; L03.116 Cellulitis of left lower limb; J96.11 Chronic respiratory failure with hypoxia; J96.12 Chronic respiratory failure with hypercapnia; G47.33 Obstructive sleep apnea (adult) (pediatric)
CPT/HCPCS: 0241U-QW; 36415; 71045-TC-FY; 71275-TC; 73590-TC-LT-FY; 73590-TC-RT-FY; 73610-TC-LT-FY; 73610-TC-RT-FY; 73630-TC-LT; 73630-TC-RT-FY; 80048; 80053; 82803; 82962; 83735; 83880; 84484; 85025; 85651; 86140; 87040; 93005; 93010; 94640; 94660; 99285-25; J0131; J1644; Q9967

== ENCOUNTER 2024-10-13 05:02 | Inpatient (IN) | payer OTHER ==
[2024-10-13] MEDS ORDERED: ALBUTEROL SO4 2.5/IPRATROPIUM 0.5 INH SOL 3 ML VIAL.NEB. NEB ONE (05:13)
[2024-10-13] MEDS: ALBUTEROL SO4 2.5/IPRATROPIUM 0.5 INH SOL 3 ML VIAL.NEB. NEB SCH ×2 (06:19→11:40)
[2024-10-13] MEDS: methylPREDNISolone NA SUCC 125 MG/2 ML VIAL IVPUSH ONE (06:19)
[2024-10-13] MEDS ORDERED: methylPREDNISolone NA SUCC 125 MG/2 ML VIAL ONE (06:19)
[2024-10-13 07:00] LABS: ABSOLUTE IMMATURE GRANULOCYTES 0.05 x10^3/uL (0.0-0.031); BASOPHILS # 0.01 x10^3/uL (0.01-0.08); EOSINOPHIL % 0.8 % (0.8-7.0); EOSINOPHILS # 0.07 x10^3/uL (0.04-0.54); HEMATOCRIT 37.9 % (40.1-51.0); HEMOGLOBIN 11.8 g/dL (13.7-17.5); MCHC 31.1 g/dl (32.3-36.5); MEAN CELL VOLUME 87.3 fl (79.0-92.2); MEAN PLT VOLUME 8.5 fl (9.4-12.4); MONOCYTE # 0.87 x10^3/uL (0.30-0.82); MONOCYTE % 10.1 % (5.3-12.2); PLATELET COUNT 118 x10^3/uL (163-337); RDW 14.1 % (12.1-15.9)
[2024-10-13 07:01] LABS: VENOUS BASE EXCESS 20.8 mmol/L (-2-2); VENOUS O2 SATURATION 55.4 % (70-80); VENOUS PH 7.343 (7.310-7.410)
[2024-10-13 07:14] LABS: VENOUS PCO2 97.4 mmHg (38-52)
[2024-10-13 07:18] LABS: CHLORIDE 79 mmol/L (98-107); POTASSIUM 3.6 mmol/L (3.5-5.1); SODIUM 134 mmol/L (136-145)
[2024-10-13 07:20] LABS: BLOOD UREA NITROGEN 16.4 mg/dL (7-18); CALCIUM 9.2 mg/dL (8.5-10.1); GLUCOSE,RANDOM 161 mg/dL (74-106)
[2024-10-13 07:21] LABS: ALBUMIN 3.2 g/dl (3.4-5.0)
[2024-10-13 07:23] LABS: SGOT/AST 13 U/L (15-37); SGPT/ALT 18 U/L (13-61)
[2024-10-13 07:24] LABS: CREATININE 0.5 mg/dL (0.55-1.3)
[2024-10-13 07:25] LABS: BILIRUBIN,TOTAL 0.9 mg/dL (0.2-1); TOT PROT 6.5 g/dl (6.4-8.2)
[2024-10-13 07:26] LABS: ALK PHOS 57 U/L (45-117)
[2024-10-13 08:07] LABS: ANION GAP 9 mmol/L (4-13); CO2 > 45 mmol/L (21-32)
[2024-10-13] MEDS ORDERED: CEFTRIAXONE 1 G/50 ML PREMIX 50 ML IVPB ONE (08:07)
[2024-10-13] MEDS: CEFTRIAXONE 1 GM in DEXTROSE 5%-WATER - 100 ML IVPB ONE (08:09)
[2024-10-13] MEDS ORDERED: AZITHROMYCIN IVPB 500 MG/250 ML BAG IVPB ONE (08:14)
[2024-10-13] MEDS: AZITHROMYCIN IVPB 500 MG in DEXTROSE 5%-WATER - 250 ML IVPB ONE (08:16)
[2024-10-13] MEDS ORDERED: PANTOPRAZOLE 40 MG TABLET PO ONE (08:38)
[2024-10-13] MEDS ORDERED: FUROSEMIDE 40 MG/4 ML INJECTABLE VIAL ONE (08:38)
[2024-10-13] MEDS ORDERED: INSULIN GLARGINE (LANTUS) 100 UNITS/ML UNITS SQ ONE (08:39)
[2024-10-13] MEDS: INSULIN GLARGINE (LANTUS) 100 UNITS/ML UNITS SQ ONE (08:47)
[2024-10-13] MEDS: FUROSEMIDE 100 MG/10 ML INJECTABLE VIAL IVPB ONE (08:47)
[2024-10-13] MEDS: PANTOPRAZOLE 40 MG TABLET PO SCH (09:03)
[2024-10-13 09:43] LABS: ERYTHROCYTE SEDIMENTATION RATE 68 mm/hr (0-20)
[2024-10-13] MEDS: VANCOMYCIN HCL 1,500 MG in DEXTROSE 5%-WATER - 500 ML IVPB ONE (10:10)
[2024-10-13] MEDS: INSULIN ASPART SLIDING SCALE (NOVOLOG) 1 VIAL SQ SCH (10:58)
[2024-10-13] MEDS: VANCOMYCIN HCL IN 5 % DEXTROSE 1,500 MG/300 ML BAG IVPB ONE ×2 (11:00→11:48)
[2024-10-13 11:47] VITALS: BMI 36.8
[2024-10-13] MEDS ORDERED: ALBUTEROL SO4 2.5/IPRATROPIUM 0.5 INH SOL 3 ML VIAL.NEB. NEB SCH (12:00)
[2024-10-13] MEDS: HEPARIN NA (PORCINE) 5,000 UNITS/ML 1ML VIAL SQ SCH (13:35)
[2024-10-13] MEDS: FUROSEMIDE 40 MG/4 ML INJECTABLE VIAL IVPUSH SCH (14:42)
[2024-10-13] MEDS ORDERED: FUROSEMIDE 40 MG/4 ML INJECTABLE VIAL IVPUSH SCH ×2 (15:00)
[2024-10-13] MEDS: INSULIN GLARGINE (LANTUS) 100 UNITS/ML UNITS SQ SCH (21:19)
[2024-10-13] MEDS: ATORVASTATIN CA 40 MG TABLET (FP) PO SCH (21:20)
[2024-10-13] MEDS: BUDESONIDE/FORMETEROL FUMARATE 160/4.5 mcg INHALER IH SCH (21:21)
[2024-10-13] MEDS ORDERED: INSULIN (LEVEMIR) 100 UNITS/ML UNITS SQ SCH (22:00)
[2024-10-14 08:39] LABS: ABSOLUTE IMMATURE GRANULOCYTES 0.03 x10^3/uL (0.0-0.031); BASOPHILS # 0.01 x10^3/uL (0.01-0.08); EOSINOPHIL % 0.7 % (0.8-7.0); EOSINOPHILS # 0.05 x10^3/uL (0.04-0.54); HEMATOCRIT 38.9 % (40.1-51.0); HEMOGLOBIN 12.1 g/dL (13.7-17.5); MCHC 31.1 g/dl (32.3-36.5); MEAN CELL VOLUME 86.8 fl (79.0-92.2); MEAN PLT VOLUME 8.6 fl (9.4-12.4); MONOCYTE # 0.64 x10^3/uL (0.30-0.82); MONOCYTE % 8.6 % (5.3-12.2); PLATELET COUNT 109 x10^3/uL (163-337); RDW 13.6 % (12.1-15.9)
[2024-10-14] MEDS: methylPREDNISolone NA SUCC 40 MG/1 ML VIAL IVPUSH SCH (08:53)
[2024-10-14 09:00] LABS: CHLORIDE 81 mmol/L (98-107); POTASSIUM 3.2 mmol/L (3.5-5.1); SODIUM 135 mmol/L (136-145)
[2024-10-14 09:03] LABS: GLUCOSE,RANDOM 108 mg/dL (74-106)
[2024-10-14 09:06] LABS: CREATININE 0.5 mg/dL (0.55-1.3)
[2024-10-14 09:12] LABS: ANION GAP 10 mmol/L (4-13); CO2 > 45 mmol/L (21-32)
[2024-10-14] MEDS: POTASSIUM CHLORIDE TABS 20 MEQ TABLET.ER (FP) PO SCH (10:58)
[2024-10-14] MEDS: CEFTRIAXONE 2 GM-D5W BAG 2 GM/50 ML BAG IVPB SCH (10:59)
[2024-10-14] MEDS: ACETAMINOPHEN 325 MG TABLET (FP) PO PRN (11:02)
[2024-10-15] MEDS: FUROSEMIDE 40 MG/4 ML INJECTABLE VIAL IVPUSH SCH (08:32)
[2024-10-15] MEDS: methylPREDNISolone NA SUCC 40 MG/1 ML VIAL IVPUSH SCH (09:26)
[2024-10-15 09:36] LABS: ABSOLUTE IMMATURE GRANULOCYTES 0.03 x10^3/uL (0.0-0.031); BASOPHILS # 0.02 x10^3/uL (0.01-0.08); EOSINOPHIL % 0.7 % (0.8-7.0); EOSINOPHILS # 0.04 x10^3/uL (0.04-0.54); HEMATOCRIT 36.4 % (40.1-51.0); HEMOGLOBIN 11.4 g/dL (13.7-17.5); MCHC 31.3 g/dl (32.3-36.5); MEAN CELL VOLUME 87.1 fl (79.0-92.2); MEAN PLT VOLUME 8.5 fl (9.4-12.4); MONOCYTE # 0.47 x10^3/uL (0.30-0.82); MONOCYTE % 8.3 % (5.3-12.2); PLATELET COUNT 106 x10^3/uL (163-337); RDW 13.6 % (12.1-15.9)
[2024-10-15 11:33] LABS: CHLORIDE 82 mmol/L (98-107); SODIUM 135 mmol/L (136-145)
[2024-10-15 11:34] LABS: ANION GAP 9 mmol/L (4-13); BLOOD UREA NITROGEN 13.8 mg/dL (7-18); CALCIUM 8.5 mg/dL (8.5-10.1); CO2 > 45 mmol/L (21-32); GLUCOSE,RANDOM 128 mg/dL (74-106); POTASSIUM 2.8 mmol/L (3.5-5.1)
[2024-10-15 11:38] LABS: CREATININE 0.6 mg/dL (0.55-1.3)
[2024-10-15] MEDS: POTASSIUM CHLORIDE ORAL LIQUID 20 MEQ/15 ML PO ONE (12:01)
[2024-10-16 08:29] LABS: ABSOLUTE IMMATURE GRANULOCYTES 0.04 x10^3/uL (0.0-0.031); BASOPHILS # 0.01 x10^3/uL (0.01-0.08); EOSINOPHIL % 1.1 % (0.8-7.0); EOSINOPHILS # 0.06 x10^3/uL (0.04-0.54); HEMATOCRIT 38.3 % (40.1-51.0); HEMOGLOBIN 11.8 g/dL (13.7-17.5); MCHC 30.8 g/dl (32.3-36.5); MEAN CELL VOLUME 88.5 fl (79.0-92.2); MEAN PLT VOLUME 8.4 fl (9.4-12.4); MONOCYTE # 0.55 x10^3/uL (0.30-0.82); MONOCYTE % 10.1 % (5.3-12.2); PLATELET COUNT 94 x10^3/uL (163-337); RDW 13.5 % (12.1-15.9)
[2024-10-16 08:43] LABS: CHLORIDE 87 mmol/L (98-107); POTASSIUM 3.3 mmol/L (3.5-5.1); SODIUM 137 mmol/L (136-145)
[2024-10-16 08:46] LABS: CALCIUM 9.2 mg/dL (8.5-10.1)
[2024-10-16 08:47] LABS: BLOOD UREA NITROGEN 11.7 mg/dL (7-18); GLUCOSE,RANDOM 95 mg/dL (74-106)
[2024-10-16 08:50] LABS: CREATININE 0.6 mg/dL (0.55-1.3)
[2024-10-16] MEDS: POTASSIUM CHLORIDE ORAL LIQUID 20 MEQ/15 ML PO ONE (09:50)
[2024-10-16 09:52] LABS: ANION GAP 5 mmol/L (4-13); CO2 > 45 mmol/L (21-32)
[2024-10-17 08:25] LABS: ABSOLUTE IMMATURE GRANULOCYTES 0.06 x10^3/uL (0.0-0.031); BASOPHILS # 0.02 x10^3/uL (0.01-0.08); EOSINOPHIL % 1.3 % (0.8-7.0); EOSINOPHILS # 0.07 x10^3/uL (0.04-0.54); HEMATOCRIT 38.3 % (40.1-51.0); HEMOGLOBIN 11.9 g/dL (13.7-17.5); MCHC 31.1 g/dl (32.3-36.5); MEAN CELL VOLUME 88.7 fl (79.0-92.2); MEAN PLT VOLUME 8.9 fl (9.4-12.4); MONOCYTE # 0.46 x10^3/uL (0.30-0.82); MONOCYTE % 8.5 % (5.3-12.2); PLATELET COUNT 91 x10^3/uL (163-337); RDW 13.6 % (12.1-15.9)
[2024-10-17 08:43] LABS: CHLORIDE 87 mmol/L (98-107); POTASSIUM 3.4 mmol/L (3.5-5.1); SODIUM 136 mmol/L (136-145)
[2024-10-17 08:46] LABS: BLOOD UREA NITROGEN 13.8 mg/dL (7-18); CALCIUM 9.1 mg/dL (8.5-10.1); GLUCOSE,RANDOM 69 mg/dL (74-106); MAGNESIUM 1.6 mg/dL (1.8-2.4)
[2024-10-17 08:48] LABS: ANION GAP 4 mmol/L (4-13); CO2 > 45 mmol/L (21-32)
[2024-10-17 08:49] LABS: CREATININE 0.5 mg/dL (0.55-1.3)
[2024-10-17] MEDS: MAGNESIUM 2GM/50ML STERILE WATER IVPB IVPB ONE (08:55)
[2024-10-17] MEDS: predniSONE 20 MG TABLET (UD) PO SCH (09:57)
[2024-10-17] MEDS: POTASSIUM CHLORIDE ORAL LIQUID 20 MEQ/15 ML PO ONE (10:00)
[2024-10-18 08:19] LABS: ABSOLUTE IMMATURE GRANULOCYTES 0.06 x10^3/uL (0.0-0.031); BASOPHILS # 0.03 x10^3/uL (0.01-0.08); EOSINOPHIL % 1.3 % (0.8-7.0); EOSINOPHILS # 0.09 x10^3/uL (0.04-0.54); HEMATOCRIT 40.7 % (40.1-51.0); HEMOGLOBIN 12.5 g/dL (13.7-17.5); MCHC 30.7 g/dl (32.3-36.5); MEAN CELL VOLUME 88.1 fl (79.0-92.2); MEAN PLT VOLUME 8.4 fl (9.4-12.4); MONOCYTE # 0.44 x10^3/uL (0.30-0.82); MONOCYTE % 6.6 % (5.3-12.2); PLATELET COUNT 95 x10^3/uL (163-337); RDW 13.8 % (12.1-15.9)
[2024-10-18 09:05] LABS: CHLORIDE 86 mmol/L (98-107); POTASSIUM 3.7 mmol/L (3.5-5.1); SODIUM 137 mmol/L (136-145)
[2024-10-18 09:10] LABS: BLOOD UREA NITROGEN 16.1 mg/dL (7-18); GLUCOSE,RANDOM 95 mg/dL (74-106)
[2024-10-18 09:11] LABS: ANION GAP 6 mmol/L (4-13); CO2 > 45 mmol/L (21-32)
[2024-10-18 09:12] LABS: CREATININE 0.5 mg/dL (0.55-1.3)
[2024-10-19 08:53] LABS: ABSOLUTE IMMATURE GRANULOCYTES 0.05 x10^3/uL (0.0-0.031); BASOPHILS # 0.02 x10^3/uL (0.01-0.08); EOSINOPHIL % 1.4 % (0.8-7.0); HEMATOCRIT 40.1 % (40.1-51.0); HEMOGLOBIN 12.5 g/dL (13.7-17.5); MCHC 31.2 g/dl (32.3-36.5); MEAN CELL VOLUME 87.6 fl (79.0-92.2); MEAN PLT VOLUME 9.3 fl (9.4-12.4); MONOCYTE # 0.42 x10^3/uL (0.30-0.82); MONOCYTE % 5.8 % (5.3-12.2); PLATELET COUNT 109 x10^3/uL (163-337); RDW 13.9 % (12.1-15.9)
[2024-10-19 09:07] LABS: POTASSIUM 3.5 mmol/L (3.5-5.1)
[2024-10-19 09:11] LABS: BLOOD UREA NITROGEN 15.9 mg/dL (7-18); CALCIUM 9.2 mg/dL (8.5-10.1)
[2024-10-19 09:13] LABS: CREATININE 0.6 mg/dL (0.55-1.3)
[2024-10-19] MEDS: POTASSIUM CHLORIDE ORAL LIQUID 20 MEQ/15 ML PO ONE (13:09)
[2024-10-20 08:16] LABS: ABSOLUTE IMMATURE GRANULOCYTES 0.05 x10^3/uL (0.0-0.031); BASOPHILS # 0.01 x10^3/uL (0.01-0.08); EOSINOPHIL % 1.8 % (0.8-7.0); EOSINOPHILS # 0.12 x10^3/uL (0.04-0.54); HEMATOCRIT 39.3 % (40.1-51.0); HEMOGLOBIN 12.2 g/dL (13.7-17.5); MEAN CELL VOLUME 87.3 fl (79.0-92.2); MEAN PLT VOLUME 8.9 fl (9.4-12.4); MONOCYTE # 0.51 x10^3/uL (0.30-0.82); MONOCYTE % 7.8 % (5.3-12.2); PLATELET COUNT 95 x10^3/uL (163-337); RDW 13.8 % (12.1-15.9)
[2024-10-20 08:50] LABS: POTASSIUM 3.6 mmol/L (3.5-5.1)
[2024-10-20 08:51] LABS: CALCIUM 9.2 mg/dL (8.5-10.1)
[2024-10-20 08:52] LABS: BLOOD UREA NITROGEN 15.4 mg/dL (7-18)
[2024-10-20 08:55] LABS: CREATININE 0.6 mg/dL (0.55-1.3)
[2024-10-20] MEDS: POTASSIUM CHLORIDE ORAL LIQUID 20 MEQ/15 ML PO ONE (10:43)
[2024-10-21 08:14] LABS: ABSOLUTE IMMATURE GRANULOCYTES 0.05 x10^3/uL (0.0-0.031); BASOPHILS # 0.03 x10^3/uL (0.01-0.08); EOSINOPHILS # 0.13 x10^3/uL (0.04-0.54); HEMATOCRIT 39.7 % (40.1-51.0); HEMOGLOBIN 12.5 g/dL (13.7-17.5); MCHC 31.5 g/dl (32.3-36.5); MEAN CELL VOLUME 87.1 fl (79.0-92.2); MEAN PLT VOLUME 8.8 fl (9.4-12.4); MONOCYTE % 7.6 % (5.3-12.2); PLATELET COUNT 117 x10^3/uL (163-337)
[2024-10-21 08:33] LABS: POTASSIUM 3.6 mmol/L (3.5-5.1)
[2024-10-21 08:34] LABS: CALCIUM 9.1 mg/dL (8.5-10.1)
[2024-10-21 08:35] LABS: BLOOD UREA NITROGEN 14.8 mg/dL (7-18)
[2024-10-21 08:38] LABS: CREATININE 0.5 mg/dL (0.55-1.3)
[2024-10-21] MEDS: POTASSIUM CHLORIDE ORAL LIQUID 20 MEQ/15 ML PO ONE (10:31)
[2024-10-21] MEDS ORDERED: FUROSEMIDE 40 MG TABLET (FP) PO SCH (14:00)
[2024-10-21] MEDS: FUROSEMIDE 40 MG/4 ML INJECTABLE VIAL IVPUSH SCH (14:19)
[2024-10-21] MEDS: ROSUVASTATIN CA 20 MG TABLET PO SCH (21:28)
[2024-10-22] MEDS: AMOX TR/POT CLAV 875MG/125MG TABLETS (FP) PO SCH (08:50)
[2024-10-22 10:07] LABS: ABSOLUTE IMMATURE GRANULOCYTES 0.04 x10^3/uL (0.0-0.031); BASOPHILS # 0.01 x10^3/uL (0.01-0.08); EOSINOPHIL % 1.7 % (0.8-7.0); EOSINOPHILS # 0.09 x10^3/uL (0.04-0.54); HEMATOCRIT 37.8 % (40.1-51.0); HEMOGLOBIN 11.8 g/dL (13.7-17.5); MCHC 31.2 g/dl (32.3-36.5); MEAN CELL VOLUME 87.7 fl (79.0-92.2); MEAN PLT VOLUME 8.9 fl (9.4-12.4); MONOCYTE # 0.44 x10^3/uL (0.30-0.82); MONOCYTE % 8.4 % (5.3-12.2); PLATELET COUNT 103 x10^3/uL (163-337)
[2024-10-22 10:30] LABS: POTASSIUM 3.4 mmol/L (3.5-5.1)
[2024-10-22 10:34] LABS: BLOOD UREA NITROGEN 17.9 mg/dL (7-18); CALCIUM 8.9 mg/dL (8.5-10.1); MAGNESIUM 1.6 mg/dL (1.8-2.4)
[2024-10-22 10:38] LABS: CREATININE 0.6 mg/dL (0.55-1.3)
[2024-10-22 10:40] VITALS: RESP 18
[2024-10-22] MEDS: POTASSIUM CHLORIDE ORAL LIQUID 20 MEQ/15 ML PO ONE (14:09)
[2024-10-22] MEDS: MAGNESIUM SULF 50% (8.12 MEQ/2 ML-1 GM VIAL) IVPB ONE ×2 (14:10→16:13)
[2024-10-22] MEDS: FUROSEMIDE 40 MG/4 ML INJECTABLE VIAL IVPUSH SCH (14:10)
[2024-10-22] MEDS ORDERED: ALBUTEROL SO4 HFA INHALER IH PRN (17:30)
[2024-10-23] MEDS: FUROSEMIDE 40 MG TABLET (FP) PO SCH (06:38)
[2024-10-23 09:13] LABS: ABSOLUTE IMMATURE GRANULOCYTES 0.03 x10^3/uL (0.0-0.031); BASOPHILS # 0.01 x10^3/uL (0.01-0.08); EOSINOPHIL % 1.9 % (0.8-7.0); EOSINOPHILS # 0.12 x10^3/uL (0.04-0.54); HEMATOCRIT 39.1 % (40.1-51.0); HEMOGLOBIN 12.4 g/dL (13.7-17.5); MCHC 31.7 g/dl (32.3-36.5); MEAN CELL VOLUME 87.5 fl (79.0-92.2); MEAN PLT VOLUME 9.2 fl (9.4-12.4); MONOCYTE # 0.52 x10^3/uL (0.30-0.82); PLATELET COUNT 130 x10^3/uL (163-337); RDW 14.1 % (12.1-15.9)
[2024-10-23 09:31] LABS: POTASSIUM 4.4 mmol/L (3.5-5.1)
[2024-10-23 09:34] LABS: CALCIUM 9.6 mg/dL (8.5-10.1)
[2024-10-23 09:35] LABS: BLOOD UREA NITROGEN 15.4 mg/dL (7-18)
[2024-10-23 09:38] LABS: CREATININE 0.6 mg/dL (0.55-1.3)
[2024-10-23] MEDS: ALBUTEROL SO4 2.5/IPRATROPIUM 0.5 INH SOL 3 ML VIAL.NEB. NEB PRN (09:53)
[2024-10-23 10:53] VITALS: BP 122/60; PULSE 78; TEMP 98.2
== END 2024-10-23 13:35 | disposition home or self-care (01) | DRG 291 ==
LOC: JER 05:02 → JERBED 08:07 → J6S 09:44
PROVIDERS: ADMIT Internal Medicine; ATTEND Internal Medicine
DX: I11.0 Hypertensive heart disease with heart failure (principal); I50.33 Acute on chronic diastolic (congestive) heart failure; J44.1 Chronic obstructive pulmonary disease with (acute) exacerbation; L03.115 Cellulitis of right lower limb; J96.11 Chronic respiratory failure with hypoxia; L03.116 Cellulitis of left lower limb; E11.9 Type 2 diabetes mellitus without complications; E83.42 Hypomagnesemia; G47.33 Obstructive sleep apnea (adult) (pediatric); E87.6 Hypokalemia; E87.70 Fluid overload, unspecified
CPT/HCPCS: 36415; 71045-TC-FY; 80048; 80053; 82803; 82962; 83735; 83880; 84484; 85025; 85651; 86140; 87040; 93005; 93010; 93306-TC; 94640; 94660; 97116-GP; 97161-GP; 99285-25; J1644